=== PATIENT | male | born 1955 | race Caucasian/White ===

== ENCOUNTER 2019-01-17 09:03 | Emergency (ER) | payer OTHER ==
[~2019-01-17] VITALS: Ht 170.2 cm; Wt 81.6 kg
--- NOTE | 2019-01-17 09:03 | NUR ---
Patient BIBA BLS, transferred to bed 7. RN evaluating patient at bedside.
[2019-01-17 09:05] VITALS: BP 159/84
--- NOTE | 2019-01-17 09:05 | NUR ---
BIBA C/O AB PAIN X 1 MONTH PLUS NAUSEA STARTING THIS AM. ZOFRAN PO GIVEN IN ROUTE. BOWEL SOUNDS ACTIVE IN ALL 4 QUADRANTS. ABDOMEN SOFT AND ROUND. BED IS DWON, LOCKED, BED RAIL X 1, ERMD TO SEE PT. PT SOUTH SUDANESE SPEAKING. PMH- HTN, ANXIETY
--- NOTE | 2019-01-17 09:27 | NUR ---
LAB AT BEDSIDE
--- NOTE | 2019-01-17 09:32 | NUR ---
Dr. Anderson evaluating patient at bedside.
[2019-01-17] MEDS ORDERED: LORazepam 2 MG/ML VIAL IM ONE ×2 (09:40→11:25)
[2019-01-17] MEDS ORDERED: FAMOTIDINE 20 MG TAB PO ONE (09:40)
[2019-01-17 09:44] LABS: BASOPHILS % (AUTO) 0.6 % (0.0-2.0); EOSINOPHILS # (AUTO) 0.1 K/uL (0-0.4); HEMATOCRIT 42.6 % (36-52); HEMOGLOBIN 14.7 g/dL (12.0-18.0); LYMPHOCYTES # (AUTO) 0.9 K/uL (2.0-11.5); LYMPHOCYTES % (AUTO) 14.2 % (20.5-51.1); MEAN CORPUSCULAR HEMOGLOBIN 31 pg (27-31); MEAN CORPUSCULAR HGB CONC 35 g/dL (33-37); MEAN CORPUSCULAR VOLUME 90.6 fL (80-94); MONOCYTES # (AUTO) 0.3 K/uL (0.8-1.0); MONOCYTES % (AUTO) 5.3 % (1.7-9.3); NEUTROPHILS # (AUTO) 4.8 K/uL (1.8-7.7); NEUTROPHILS % (AUTO) 77.9 % (42.2-75.2); PLATELET COUNT (AUTO) 203 K/uL (140-450); RED CELL DISTRIBUTION WIDTH 12.7 % (11.6-13.7); WHITE BLOOD COUNT (AUTO) 6.2 K/uL (4.8-10.8)
[2019-01-17 09:45] LABS: APPEARANCE,URINE CLEAR (CLEAR); BILIRUBIN,URINE NEGATIVE (NEGATIVE); BLOOD, URINE NEGATIVE (NEGATIVE); COLOR,URINE YELLOW (YELLOW); LEUKOCYTE ESTERASE ,URINE NEGATIVE (NEGATIVE); NITRITE, URINE NEGATIVE (NEGATIVE); UGLUCOSE NEGATIVE (NEGATIVE)
--- NOTE | 2019-01-17 09:51 | NUR ---
us at bedside
[2019-01-17 10:00] LABS: CARBON DIOXIDE 28.1 mmol/L (21-32); CREATININE 0.9 mg/dL (0.7-1.3); POTASSIUM 3.1 mmol/L (3.5-5.1)
[2019-01-17 10:06] LABS: ALBUMIN 3.5 g/dL (3.4-5.0); TOTAL BILIRUBIN 0.8 mg/dL (0.0-1.0)
--- NOTE | 2019-01-17 11:04 | NUR ---
vss at this time. alert and awake.
--- NOTE | 2019-01-17 11:56 | NUR ---
called [facility]. states they will call transportation team and call us back with an eta
--- NOTE | 2019-01-17 12:00 | NUR ---
eta is 30 min
[2019-01-17 12:02] VITALS: BP 159/90
--- NOTE | 2019-01-17 12:02 | NUR ---
Patient discharged with v/s stable. Written and verbal after care instructions given and explained in broken tajik/argentine. Patient verbalized understanding. [facility] transport team to arrive in 30 min to take pt back to care home. All questions addressed prior to discharge. Advised to follow up with PMD. pt given copy of lab and us results.
--- NOTE | 2019-01-17 13:03 | NUR ---
PT PICKED UP BY TRANSPORT TEAM. WHEELCHAIRED TO CAR
== END 2019-01-17 12:02 ==
LOC: MED 09:03
DX: K82.4 Cholesterolosis of gallbladder (principal); F41.9 Anxiety disorder, unspecified; K21.9 Gastro-esophageal reflux disease without esophagitis; K59.00 Constipation, unspecified; Z87.19 Personal history of other diseases of the digestive system; Z88.1 Allergy status to other antibiotic agents; Z88.8 Allergy status to other drugs, medicaments and biological substances; Z88.6 Allergy status to analgesic agent
CPT/HCPCS: 36415; 76705; 80053; 81003; 83690; 84484; 85025; 93005; 96372; 99284; J2060; Q0092

== ENCOUNTER 2019-01-19 07:37 | Emergency (ER) | payer OTHER ==
[~2019-01-19] VITALS: Ht 175.3 cm; Wt 83.9 kg
[2019-01-19 07:39] VITALS: BP 148/75
[2019-01-19 08:07] LABS: BASOPHILS % (AUTO) 0.6 % (0.0-2.0); EOSINOPHILS # (AUTO) 0.2 K/uL (0-0.4); EOSINOPHILS % (AUTO) 2.9 % (0.0-4.0); HEMATOCRIT 43.8 % (36-52); HEMOGLOBIN 15.1 g/dL (12.0-18.0); LYMPHOCYTES # (AUTO) 0.9 K/uL (2.0-11.5); MEAN CORPUSCULAR HEMOGLOBIN 32 pg (27-31); MEAN CORPUSCULAR HGB CONC 35 g/dL (33-37); MEAN CORPUSCULAR VOLUME 91.3 fL (80-94); MONOCYTES # (AUTO) 0.4 K/uL (0.8-1.0); MONOCYTES % (AUTO) 6.2 % (1.7-9.3); NEUTROPHILS # (AUTO) 4.7 K/uL (1.8-7.7); NEUTROPHILS % (AUTO) 76.3 % (42.2-75.2); PLATELET COUNT (AUTO) 203 K/uL (140-450); RED CELL DISTRIBUTION WIDTH 12.9 % (11.6-13.7); WHITE BLOOD COUNT (AUTO) 6.1 K/uL (4.8-10.8)
[2019-01-19 08:17] LABS: APPEARANCE,URINE CLEAR (CLEAR); BILIRUBIN,URINE NEGATIVE (NEGATIVE); BLOOD, URINE NEGATIVE (NEGATIVE); COLOR,URINE YELLOW (YELLOW); LEUKOCYTE ESTERASE ,URINE NEGATIVE (NEGATIVE); NITRITE, URINE NEGATIVE (NEGATIVE); UGLUCOSE NEGATIVE (NEGATIVE)
[2019-01-19 08:22] LABS: ANION GAP 13.9 (8-16); CARBON DIOXIDE 28.3 mmol/L (21-32); CREATININE 0.8 mg/dL (0.7-1.3); POTASSIUM 3.2 mmol/L (3.5-5.1)
[2019-01-19 08:28] LABS: ALBUMIN 3.7 g/dL (3.4-5.0); TOTAL BILIRUBIN 0.8 mg/dL (0.0-1.0)
[2019-01-19] MEDS: POTASSIUM CHLORIDE 10 MEQ TABER PO ONE (09:09)
[2019-01-19] MEDS: LORazepam 2 MG/ML VIAL IVP ONE (11:16)
[2019-01-19 13:07] VITALS: BP 143/96
== END 2019-01-19 13:07 | disposition home or self-care (01) ==
LOC: MED 07:37 → MERGE 07:37 → MED 13:07
DX: G89.29 Other chronic pain (principal); K29.70 Gastritis, unspecified, without bleeding; Z88.8 Allergy status to other drugs, medicaments and biological substances
CPT/HCPCS: 36415; 74177; 80053; 81003; 83690; 83735; 84484; 85025; 93005; 96374; 99284; J2060; Q9967

== ENCOUNTER 2019-01-20 11:03 | Emergency (ER) | payer OTHER ==
[~2019-01-20] VITALS: Ht 175.3 cm; Wt 86.4 kg
[2019-01-20 11:09] VITALS: BP 132/92
--- NOTE | 2019-01-20 11:38 | NUR ---
c/o anxiety. pt referred from [facility] ([facility] pt states he awoke with severe anxiety---adds has a feeling of doom, paresthesia to bue, sob. full clear speech, with no accessory muscle use noted at this time. pt was seen here yesterday. tachy at 105. aa0x4. bed is down, locked, bed rail x 1, ermd to see pt. pt went to pmd for rx but since he was having an anxiety episode he was referred here. hx---anxiety , depression, htn, hyperlipidemia, parkinson's rx---ambien, buspirone, colace, fish oil, flomax, hydralazine, losartan, lidocaine patch, omeprazole
--- NOTE | 2019-01-20 11:45 | NUR ---
dr stock at bedside
[2019-01-20] MEDS ORDERED: LORazepam 2 MG/ML VIAL IM ONE (11:50)
--- NOTE | 2019-01-20 11:58 | NUR ---
ativan administered im as ordered
[2019-01-20 14:20] VITALS: BP 129/90
--- NOTE | 2019-01-20 14:20 | NUR ---
Patient discharged with v/s stable. Written and verbal after care instructions given and explained. Patient alert, oriented and verbalized understanding of instructions. Ambulatory with steady gait. All questions addressed prior to discharge. ID band removed. Patient advised to follow up with PMD. Rx of ATIVAN AND MIRALAX given. Patient educated on indication of medication including possible reaction and side effects. Opportunity to ask questions provided and answered. DISCHARGE EXPLAINED IN BROKE ESTONIAN/MAORI INSTRUCTED PT TO FOLLOW UP WITH PCP FOR STROBNGER ATIVAN PRESCRIPTION
== END 2019-01-20 14:20 | disposition home or self-care (01) ==
LOC: MED 11:03
DX: F41.0 Panic disorder [episodic paroxysmal anxiety] (principal); K21.9 Gastro-esophageal reflux disease without esophagitis; Z88.6 Allergy status to analgesic agent; Z88.5 Allergy status to narcotic agent; Z88.8 Allergy status to other drugs, medicaments and biological substances
CPT/HCPCS: 96372; 99284; J2060

== ENCOUNTER 2019-01-21 09:01 | Emergency (ER) | payer OTHER ==
[~2019-01-21] VITALS: Ht 175.3 cm; Wt 86.2 kg
[2019-01-21 09:02] VITALS: BP 152/108
[2019-01-21 10:44] LABS: BASOPHILS % (AUTO) 0.4 % (0.0-2.0); EOSINOPHILS % (AUTO) 0.6 % (0.0-4.0); HEMATOCRIT 44.3 % (36-52); HEMOGLOBIN 15.3 g/dL (12.0-18.0); LYMPHOCYTES # (AUTO) 0.8 K/uL (2.0-11.5); LYMPHOCYTES % (AUTO) 12.5 % (20.5-51.1); MEAN CORPUSCULAR HEMOGLOBIN 31 pg (27-31); MEAN CORPUSCULAR HGB CONC 35 g/dL (33-37); MONOCYTES # (AUTO) 0.3 K/uL (0.8-1.0); MONOCYTES % (AUTO) 4.6 % (1.7-9.3); NEUTROPHILS # (AUTO) 5.1 K/uL (1.8-7.7); NEUTROPHILS % (AUTO) 81.9 % (42.2-75.2); PLATELET COUNT (AUTO) 222 K/uL (140-450); RED BLOOD CELL COUNT(AUTO) 4.87 MIL/uL (4.20-6.10); RED CELL DISTRIBUTION WIDTH 12.9 % (11.6-13.7); WHITE BLOOD COUNT (AUTO) 6.3 K/uL (4.8-10.8)
[2019-01-21] MEDS ORDERED: SODIUM PHOSPHATE 118 ML ENEM RC ONE (11:45)
[2019-01-21] MEDS ORDERED: LORazepam 0.5 MG TAB PO ONE (11:55)
[2019-01-21 12:03] LABS: ANION GAP 17.2 (8-16); CARBON DIOXIDE 26.1 mmol/L (21-32); CREATININE 0.8 mg/dL (0.7-1.3); POTASSIUM 3.3 mmol/L (3.5-5.1)
[2019-01-21 12:09] LABS: ALBUMIN 4.1 g/dL (3.4-5.0); TOTAL BILIRUBIN 1.1 mg/dL (0.0-1.0)
[2019-01-21 13:13] VITALS: BP 160/102
== END 2019-01-21 13:13 | disposition home or self-care (01) ==
LOC: MED 09:01
DX: F41.9 Anxiety disorder, unspecified (principal); K59.00 Constipation, unspecified; G20 Parkinson's disease; K21.9 Gastro-esophageal reflux disease without esophagitis; Z88.8 Allergy status to other drugs, medicaments and biological substances; Z88.6 Allergy status to analgesic agent
CPT/HCPCS: 36415; 80053; 83690; 85025; 99284

== ENCOUNTER 2019-01-27 14:18 | Emergency (ER) | payer OTHER, MEDICAID ==
[~2019-01-27] VITALS: Ht 175.3 cm; Wt 83.9 kg
[2019-01-27 14:25] VITALS: BP 168/107
[2019-01-27] MEDS: KETOROLAC 60 MG/2 ML VIAL IM ONE (15:22)
[2019-01-27] MEDS: LORazepam 2 MG/ML VIAL IM ONE (15:22)
[2019-01-27 16:40] VITALS: BP 160/89
== END 2019-01-27 16:40 ==
LOC: MED 14:18
DX: F41.9 Anxiety disorder, unspecified (principal); K21.9 Gastro-esophageal reflux disease without esophagitis; I10 Essential (primary) hypertension; Z98.890 Other specified postprocedural states; Z88.5 Allergy status to narcotic agent; Z88.8 Allergy status to other drugs, medicaments and biological substances
CPT/HCPCS: 93005; 96372; 99284; J1885; J2060

== ENCOUNTER 2019-01-29 11:27 | Inpatient (IN) | payer OTHER, MEDICAID ==
[~2019-01-29] VITALS: Ht 172.7 cm; Wt 88.5 kg
--- NOTE | 2019-01-29 11:27 | NUR ---
PT MARIA FERNANDA BLS TO ER BED 05
[2019-01-29 11:30] VITALS: BP 164/108
--- NOTE | 2019-01-29 11:30 | NUR ---
PT BIBA FOR SUICIDAL IDEATION SINCE LAST NIGHT. PT STATES "I WANT TO HURT MYSELF DUE TO SLEEP RELATED ISSUES," BUT PT DOES NOT HAVE A PLAN. PT HAS HX OF ANXIETY AND HAS NOT BEEN ABLE TO SLEEP X2 WEEKS. PT A&O X 4. VSS. PT C/O OF UPPER BACK PAIN AND ABDOMINAL PAIN. PAIN LEVEL 8/10. ALLERGIES: TYLENOL, HYDROCODONE, MAPROTILINE, AND NAPROXEN. MED HX: PARKINSONS, HTN, HIGH CHOLESTEROL, AND ANXIETY. SAFETY MEASURES IN PLACE. BED RAILS UP X2, BED IN LOWEST POSITION. ERMD AT BEDSIDE.
--- NOTE | 2019-01-29 11:32 | NUR ---
STAFF FROM PT FACILITY ADVISED THAT PT WANTED TO HURT AND KILL HIMSELF BECAUSE HE IS TIRED OF LIVING. PT PLACED ON 5150 HOLD.
--- NOTE | 2019-01-29 11:32 | NUR ---
PT REQUESTING TO GO TO A PSYCH FACILITY
[2019-01-29] MEDS ORDERED: TEMA15CA24 PO ×2 (11:47)
[2019-01-29] MEDS ORDERED: BACL10TA4 PO (11:47)
[2019-01-29] MEDS ORDERED: FLONAS NS (11:47)
[2019-01-29] MEDS ORDERED: ATOR40TA PO (11:47)
[2019-01-29] MEDS ORDERED: LID5T TP (11:47)
[2019-01-29] MEDS ORDERED: ZONI25CA2 PO (11:47)
[2019-01-29] MEDS ORDERED: LACT10SO11 PO (11:47)
[2019-01-29] MEDS ORDERED: OMEG1CAP26 PO (11:47)
[2019-01-29] MEDS ORDERED: METO100T14 PO (11:47)
[2019-01-29] MEDS ORDERED: MELA3TAB56 PO (11:47)
[2019-01-29] MEDS ORDERED: OMEP40EC24 PO (11:47)
[2019-01-29] MEDS ORDERED: CARB1TAB37 PO (11:47)
[2019-01-29] MEDS ORDERED: ESCI20TA PO (11:47)
[2019-01-29] MEDS ORDERED: DICL1GEL19 TP (11:47)
[2019-01-29] MEDS ORDERED: SUCR1TAB35 PO (11:47)
[2019-01-29] MEDS ORDERED: DOCU-299 PO (11:47)
[2019-01-29] MEDS ORDERED: TAMS0.4C96 PO (11:47)
[2019-01-29] MEDS ORDERED: BEN10 PO (11:47)
[2019-01-29] MEDS ORDERED: LOSA100T1 PO (11:47)
[2019-01-29] MEDS ORDERED: LORA-476 PO (11:48)
--- NOTE | 2019-01-29 11:58 | NUR ---
PT C/O ANXIETY. ERMD MADE AWARE.
[2019-01-29] MEDS ORDERED: LORazepam 1 MG TAB PO ONE (12:00)
--- NOTE | 2019-01-29 12:09 | NUR ---
PT REQUESTING OXYGEN AT THIS TIME. DR. ALLRED MADE AWARE.
--- NOTE | 2019-01-29 12:35 | NUR ---
Labs drawn and sent to lab.
[2019-01-29 12:48] LABS: BASOPHILS % (AUTO) 0.5 % (0.0-2.0); EOSINOPHILS # (AUTO) 0.1 K/uL (0-0.4); EOSINOPHILS % (AUTO) 1.6 % (0.0-4.0); HEMATOCRIT 45.6 % (36-52); HEMOGLOBIN 15.9 g/dL (12.0-18.0); LYMPHOCYTES % (AUTO) 15.4 % (20.5-51.1); MEAN CORPUSCULAR HEMOGLOBIN 32 pg (27-31); MEAN CORPUSCULAR HGB CONC 35 g/dL (33-37); MEAN CORPUSCULAR VOLUME 91.3 fL (80-94); MONOCYTES # (AUTO) 0.4 K/uL (0.8-1.0); MONOCYTES % (AUTO) 6.3 % (1.7-9.3); NEUTROPHILS % (AUTO) 76.2 % (42.2-75.2); PLATELET COUNT (AUTO) 253 K/uL (140-450); RED CELL DISTRIBUTION WIDTH 12.8 % (11.6-13.7); WHITE BLOOD COUNT (AUTO) 6.5 K/uL (4.8-10.8)
--- NOTE | 2019-01-29 13:00 | NUR ---
PT RESTING IN BED WITH EYES OPEN. WILL CONTINUE TO MONITOR.
[2019-01-29 13:06] LABS: ANION GAP 10.8 (8-16); CARBON DIOXIDE 29.6 mmol/L (21-32); CREATININE 0.7 mg/dL (0.7-1.3); POTASSIUM 3.4 mmol/L (3.5-5.1); TOTAL BILIRUBIN 0.9 mg/dL (0.0-1.0)
[2019-01-29 13:19] LABS: CREATINE KINASE MB 1.5 ng/mL (0-3.6)
--- NOTE | 2019-01-29 14:01 | NUR ---
PSYCHIATRIST ON TELEPSYCH AT THIS TIME
--- NOTE | 2019-01-29 14:43 | NUR ---
SPOKE TO DR. CORCORAN. PSYCHIATRIST STATES PT IS STILL SUICIDAL AND WILL CONTINUE WITH 5150 HOLD
--- NOTE | 2019-01-29 14:53 | NUR ---
PT REPOSITIONED FOR COMFORT
[2019-01-29 15:02] LABS: BARBITURATE, URINE NEG. ng/ml (NEG <=200); BENZODIAZEPINE, URINE NEG. ng/mL (NEG <=200); CANNABINOID, URINE NEG. ng/mL (NEG <=50); COCAINE, URINE NEG. ng/mL (NEG <=300); OPIATE, URINE NEG. ng/mL (NEG <=2000); PHENCYCLIDINE SCREEN,URINE NEG. ng/mL (NEG <=25)
--- NOTE | 2019-01-29 15:35 | NUR ---
PT RESTING IN BED WITH EYES CLOSED, EASILY ARROUSABLE. WILL CONTINUE TO MONITOR.
--- NOTE | 2019-01-29 16:39 | NUR ---
FOOD TRAY PROVIDED TO PATIENT.
--- NOTE | 2019-01-29 17:36 | NUR ---
[facility] BELLA WOULD LIKE AN UPDATE WHEN PATIENT IS PLACED OR LEAVES THE ER.
--- NOTE | 2019-01-29 17:43 | NUR ---
Intake paperwork has been sent to the following facilities for possible placement. [facility]/ [facility]/ [facility]/ [facility]/ [facility]/ [facility]/ [facility]/ [facility]. Will keep facility informed of any admission information
--- NOTE | 2019-01-29 18:00 | NUR ---
PT C/O ABDOMINAL PAIN. PAIN LEVEL 8/10. ERMD NOTIFIED.
[2019-01-29] MEDS ORDERED: IBUPROFEN 400 MG TAB PO ONE (18:05)
[2019-01-29] MEDS ORDERED: ZOLPIDEM 5 MG TAB PO PRN (18:15)
[2019-01-29] MEDS ORDERED: DOCUSATE SODIUM 100 MG GELCAP PO PRN ×2 (18:15→18:50)
[2019-01-29] MEDS ORDERED: HYDROcodone/APAP 5/325 MG 1 TAB TAB PO PRN (18:15)
[2019-01-29] MEDS ORDERED: LORazepam 2 MG/ML VIAL IM/IVP PRN (18:15)
[2019-01-29] MEDS ORDERED: ACETAMINOPHEN 325 MG TAB PO PRN (18:15)
--- NOTE | 2019-01-29 18:30 | NUR ---
PATIENT ARRIVED UNIT VIA WHEELCHAIR ACCOMPANIED BY ER NURSE YENNY AT THIS TIME. PATIENT IS AAOX3 TO NAME, PLACE AND TIME, SPEAKS SETSWA[place] AND ABLE TO UNDERSTAND SOME KENYAN. ON RA. NO SIGNS OF DISTRESS NOTED. ABLE TO TRANSFER FROM WHEELCHAIR TO BED WITH ASSIST. IV ON L HAND 20G, CLEAN AND INTACT, SL. PATIENT IS ABLE TO USE THE URANAL. SKIN CLEAN AND DRY. HELP DESK ADMINISTRATOR IS CHANGING PATIENT INTO YWLLO GOWN, SOCKS, AND APPLIED WRIST BAND. SAFETY MEASURES IN PLACE. 1:1 SITTER BY BEDSIDE.
--- NOTE | 2019-01-29 18:30 | NUR ---
Patient will be admitted to care of Dr. Jin. Admited to [facility]. Will go to room 109b. Belongings list completed. Report to EDGARD Monaco.
--- NOTE | 2019-01-29 18:30 | NUR ---
Transfer of care and report given to EDGARD Monaco
--- NOTE | 2019-01-29 18:31 | NUR ---
DR AUGUSTE IS TALKING AND ASSESSING PATIENT AT BEDSIDE. NO SIGNS OF DISTRESS NOTED. SAFETY MEASURES IN PLACE.
[2019-01-29] MEDS: NACL 0.9% 1,000 ML IV SCH (18:42)
--- NOTE | 2019-01-29 18:42 | NUR ---
VITAL SIGNS TAKEN; BP 150/90, PULSE 64, SPO2 97% ON RA, RR 18, DENIED PAIN. MRSA NARES COLLECTED. STARTED IVF PER MD ORDER, DR ASH IS ASSESSING PATIENT AT BEDSIDE. NO SIGNS OF DISTRESS NOTED. SAFETY MEASURES IN PLACE.
[2019-01-29] MEDS ORDERED: DICYCLOMINE HYDROCHLORIDE PO SCH (18:50)
[2019-01-29] MEDS ORDERED: NON-FORMULARY ITEM (Melatonin 3 MG) PO PRN (18:50)
[2019-01-29 19:07] LABS: FREE T4 (FREE THYROXINE) 1.17 ng/dL (0.76-1.46); MAGNESIUM 1.6 mg/dL (1.8-2.4); PHOSPHORUS 2.6 mg/dL (2.5-4.9); THYROID STIMULATING HORMONE 0.56 uIU/mL (0.34-3.74)
[2019-01-29] MEDS ORDERED: POTASSIUM CHLORIDE 10 MEQ TABER PO ONE (19:35)
[2019-01-29 20:00] VITALS: BP 144/77
--- NOTE | 2019-01-29 20:00 | NUR ---
RECEIVED FROM DAY SHIFT R.N. ADMITTED A 63 Y/O MALE WHO WAS BROUGHT IN FROM THE E.R.WITH A DIAGNOSIS OF 5150 HOLD,SUICIDAL IDEATION AT 1830. PT.IS ALERT,ORIENTED. AFEBRILE,NOT IN ACUTE DISTRESS. NO PAIN OR DISCOMFORT NOTED. VERBALIZED FEELING DEPRESSED AND ANXIOUS,WITH SUICIDAL IDEATION BUT NO CONCRETE PLAN. ALSO NOTED TO HAVE TREMORS MOST LIKELY FROM HIS PARKINSON'S DISEASE HX. SINUS MICAELA AT 47/MINUTE ON THE MONITOR OTHERWISE ASYMPTOMATIC. IV FLUID NS INFUSING AT 60 ML/HR VIA LEFT HAND GAUGE 20 IV LINE. SITTER AT BEDSIDE AT ALL TIMES. WILL CONTINUE TO MONITOR. NEEDS ATTENDED.
[2019-01-29] MEDS: SUCRALFATE 1 GM TAB PO SCH (20:29)
[2019-01-29] MEDS: BACLOFEN 10 MG TAB PO SCH (20:30)
[2019-01-29] MEDS: TAMSULOSIN 0.4 MG CAP PO SCH (20:30)
[2019-01-29] MEDS: ATORVASTATIN 20 MG TAB PO SCH (20:30)
--- NOTE | 2019-01-29 20:30 | NUR ---
DUE MEDICATIONS GIVEN.
[2019-01-29] MEDS: TEMAZEPAM 15 MG CAP PO SCH (20:31)
[2019-01-29] MEDS ORDERED: DICLOFENAC SODIUM 2 GM TP SCH (21:00)
[2019-01-29] MEDS ORDERED: LACTULOSE 20 GM/30 ML UDC PO SCH (21:00)
[2019-01-29] MEDS ORDERED: MAG SULF 2000 MG/WATER PREMIX 100 ML IV SCH (21:05)
[2019-01-29 21:07] LABS: PROTHROMBIN TIME 10.4 secs (10.8-13.4)
--- NOTE | 2019-01-29 22:05 | NUR ---
MAGNESIUM SULFATE 2 GM IV GIVEN FOR SERUM MAGNESIUM= 1.6.
--- NOTE | 2019-01-29 23:00 | NUR ---
ATIVAN 1 MG IVP GIVEN REQUESTED FOR ANXIETY.
--- NOTE | 2019-01-30 | NUR ---
ASLEEP,NOT IN ANY KIND OF DISTRESS. NO PAIN OR DISCOMFORT NOTED. SIDE RAILS UP,CALL LIGHT WITHIN REACH. KEPT WARM AND COMFORTABLE. REMAINS MICAELA AT 50/MIN. OTHERWISE STABLE. SITTER AT BEDSIDE AT ALL TIMES.
--- NOTE | 2019-01-30 02:40 | NUR ---
At this time there are no vacancy at any of the designated facilities , will continue to look for placement and will notify ER when placement is found.
[2019-01-30 04:00] VITALS: BP 128/72
--- NOTE | 2019-01-30 04:00 | NUR ---
ASLEEP, NO PAIN OR DISCOMFORT NOTED. PT.REMAINS STABLE AND PAIN FREE. SITTER AT BEDSIDE.
[2019-01-30] MEDS: LORazepam 1 MG TAB PO SCH ×3 (07:01→17:37)
--- NOTE | 2019-01-30 07:01 | NUR ---
COMPLAINED OF ANXIETY. RESIDENT ON DUTY SAID OK TO GIVE ATIVAN DOSE EARLY. ATIVAN 1 MG PO GIVEN PER TELEPHONE ORDER.
[2019-01-30 07:08] LABS: BASOPHILS % (AUTO) 0.4 % (0.0-2.0); EOSINOPHILS # (AUTO) 0.2 K/uL (0-0.4); EOSINOPHILS % (AUTO) 2.7 % (0.0-4.0); HEMATOCRIT 39.6 % (36-52); HEMOGLOBIN 13.6 g/dL (12.0-18.0); LYMPHOCYTES # (AUTO) 1.2 K/uL (2.0-11.5); LYMPHOCYTES % (AUTO) 20.2 % (20.5-51.1); MEAN CORPUSCULAR HEMOGLOBIN 32 pg (27-31); MEAN CORPUSCULAR HGB CONC 34 g/dL (33-37); MEAN CORPUSCULAR VOLUME 92.2 fL (80-94); MONOCYTES # (AUTO) 0.5 K/uL (0.8-1.0); NEUTROPHILS # (AUTO) 3.9 K/uL (1.8-7.7); NEUTROPHILS % (AUTO) 67.7 % (42.2-75.2); PLATELET COUNT (AUTO) 218 K/uL (140-450); RED CELL DISTRIBUTION WIDTH 12.8 % (11.6-13.7); WHITE BLOOD COUNT (AUTO) 5.8 K/uL (4.8-10.8)
--- NOTE | 2019-01-30 07:15 | NUR ---
RECEIVED BEDSIDE REPORT FROM ARCHAEOLOGY PROFESSOR NURSE ASHA, PT IS AWAKE AND ALERT, NO S/S OF ACUTE DISTRESS OR SOB NOTED, PT IS ON ROOM AIR, SKIN INTACT, IV SITE NOTED IN THE L HAND 20 G, INFUSING NS 60 ML/HR. FALL PRECAUTIONS IN PLACE, 1:1 SITTER PRESENT AT THE ROOM. WILL CONTINUE TO MONITOR.
[2019-01-30 07:21] LABS: ANION GAP 9.3 (8-16); CARBON DIOXIDE 29.1 mmol/L (21-32); CREATININE 0.8 mg/dL (0.7-1.3); POTASSIUM 3.4 mmol/L (3.5-5.1)
--- NOTE | 2019-01-30 07:33 | NUR ---
ENDORSED CARE TO ILAN RENE.
[2019-01-30 07:35] LABS: CHOL/HDL RATIO 4.4 (1-4.5)
[2019-01-30 08:00] VITALS: BP 136/79
--- NOTE | 2019-01-30 08:04 | NUR ---
PATIENT HAS BEEN SCREENED AND CATEGORIZED HIGH NUTRITION RISK. PATIENT WILL BE SEEN WITHIN 1-2 DAYS OF ADMISSION. 01/30/19-01/31/[address]
[2019-01-30] MEDS ORDERED: ZONISAMIDE 25 MG PO SCH (09:00)
[2019-01-30] MEDS ORDERED: OMEGA PO SCH (09:00)
[2019-01-30] MEDS ORDERED: NON-FORMULARY ITEM (Omeprazole* (Prilosec*) 40 MG) PO SCH (09:00)
[2019-01-30] MEDS ORDERED: FISH OIL PO SCH (09:00)
[2019-01-30] MEDS ORDERED: METOPROLOL SUCCINATE 50 MG TABER PO SCH (09:00)
[2019-01-30] MEDS ORDERED: LIDOCAINE 5% 1 EA PATCH TP SCH (09:00)
[2019-01-30] MEDS ORDERED: DHA PO SCH (09:00)
[2019-01-30] MEDS: POLYVINYL ALCOHOL 1.4% OP 15 ML SOL OP SCH ×3 (09:00→17:37)
[2019-01-30] MEDS ORDERED: EPA PO SCH (09:00)
[2019-01-30] MEDS: METOPROLOL 50 MG TAB PO SCH ×2 (09:00→20:43)
[2019-01-30] MEDS ORDERED: MEDICATION REC. PHARMACY CONS. 1 EA MISC MC PRN (09:15)
--- NOTE | 2019-01-30 09:15 | NUR ---
PT SEEN BY PHYSICAL THERAPY
[2019-01-30] MEDS ORDERED: POTASSIUM CHLORIDE 10 MEQ TABER PO SCH (09:30)
--- NOTE | 2019-01-30 10:10 | NUR ---
PT IS SLEEPING COMFORTABLY AT THIS TIME, WILL ADMINISTER ORDERED AM MEDS AFTER HE WAKES UP.
--- NOTE | 2019-01-30 10:20 | NUR ---
Synthetic Cloth Binding Cutter Note: I went to patient's room to conduct assessment, patient was sleeping. I will meet with patient at a later time.
[2019-01-30] MEDS: SUCRALFATE 1 GM TAB PO SCH ×4 (10:32→20:42)
[2019-01-30] MEDS: LORazepam 2 MG/ML VIAL IM/IVP PRN ×2 (10:32→22:40)
[2019-01-30] MEDS: BACLOFEN 10 MG TAB PO SCH ×2 (10:33→20:43)
[2019-01-30] MEDS: CARBIDOPA/LEVODOPA 25/100 MG 1 TAB PO SCH ×3 (10:33→17:37)
[2019-01-30] MEDS: LOSARTAN 50 MG TAB PO SCH (10:33)
[2019-01-30] MEDS: ESCITALOPRAM 20 MG TAB PO SCH (10:33)
--- NOTE | 2019-01-30 10:44 | NUR ---
ORDERED AM MEDS ADMINISTERED, PT TOLERATED WELL.
[2019-01-30] MEDS: NACL 0.9% 1,000 ML IV SCH (10:51)
--- NOTE | 2019-01-30 10:54 | NUR ---
S/W Tere zhao RN. States that patient is medically cleared but has not been seen by psychiatrist. Patient on 5150 by PD. Will continue with placement
--- NOTE | 2019-01-30 11:34 | NUR ---
Called the following facilities; [facility] s/w eden Huffman. Pending discharges. [facility] s/w Eli no beds [facility] s/w Paty non beds [facility] s/w Cierra no beds [facility], was transferred to [phone]. No answer, left voicemail [facility]/w Aubree no beds [facility] s[facility]w Amalia no beds
--- NOTE | 2019-01-30 11:38 | NUR ---
RECEIVED A CALL FROM WILI GOMEZ AT [facility]. PROVIDED UPDATE ON PATIENT'S CONDITION. PROVIDED ME WITH HER DIRECT PHONE NUMBER [phone] FOR UPDATES.
[2019-01-30 12:00] VITALS: BP 152/82
--- NOTE | 2019-01-30 13:12 | NUR ---
SWALLOW EVAL COMPLETED BY ST, ST RECOMMENDS A MECHANICAL SOFT DIET. DR RAUSCH NOTIFIED.
--- NOTE | 2019-01-30 13:19 | NUR ---
*S.T. Bedside swallow eval completed* See report for details. Pt was cleared by EDGARD Carranza who clarified w/ resident that pt was to be seen for bedside swallow eval to r/o dysphagia due to Dx of Parkinson's. Pt presents w/ mild oral difficulty managing solids due to limited oral ROM resulting also in delayed pharyngeal swallow initiation. No overt s/s aspiration observed, however, and pt able to self-feed w/ assistance. Recommend: 1) Downgrade diet texture to mechanical soft ground diet, thin liquids okay. Straws okay. 2) P.O. meds as tolerated 3) Nsg to assist w/ tray set up to promote self-feeding. After completion of eval, it was brought to this clinician's attention that pt was NPO pending abd ultrasound. However, EDGARD Carranza had cleared INFORMATION SYSTEMS MANAGER to evaluate pt w/ P.O. trials. US tech stated that pt can still be seen today in 6 hours from the start of the eval which was 1245. No further tx indicated at [facility] as pt appears to be functioning at his reported baseline. Endorsed to EDGARD Carranza. Time 2084-4198
[2019-01-30 16:00] VITALS: BP 158/81
--- NOTE | 2019-01-30 16:39 | NUR ---
Postdoctoral Scientist Note: I met with patient at bedside. Patient speaks Georgian. Per patient, every day he feels depressed. He stated his depression is associated with his medical problems. He reported he has anxiety, depression, insomnia, and pain. He would like a psychiatrist to address his mental health needs and an MD to address his pain. He told me he only has one family member in the [place], his sister Jade Galeana (lives in [place]). He stated all of his other family members live in [place]. He expressed he feels depressed because no one visits him at [facility]. I normalized his feelings and provided counseling. I explained to him he will be evaluated by a psychiatrist and we will follow up with psychiatrist's discharge plan recommendation. He verbalized understanding.
--- NOTE | 2019-01-30 18:59 | NUR ---
PT IS NPO SINCE HIS SWALLOW EVAL FOR HIS ABD US.
--- NOTE | 2019-01-30 19:00 | NUR ---
PT HAVING ABD US AT THIS TIME.
--- NOTE | 2019-01-30 19:30 | NUR ---
PT ENDORSED TO RETAIL SHIFT LEADER IN STABLE CONDITION
[2019-01-30 20:00] VITALS: BP 153/85
--- NOTE | 2019-01-30 20:00 | NUR ---
ASSUMED CARE. RECEIVED ALERT,ORIENTED. JUST FINISHED ABDOMINAL ULTRASOUND,HAVING DINNER. AFEBRILE, NOT IN ACUTE DISTRESS. NO PAIN OR DISCOMFORT NOTED. MORE CALM COMPARED TO YESTERDAY. DENIES SUICIDAL IDEATION AT THIS TIME. SINUS MICAELA AT HIGH 40-50'S ON THE EVENT SALES REPRESENTATIVE. SITTER AT BEDSIDE AT ALL TIMES. VS STABLE, WILL CONTINUE TO MONITOR. NEEDS ATTENDED.
[2019-01-30] MEDS: TAMSULOSIN 0.4 MG CAP PO SCH (20:43)
[2019-01-30] MEDS: TEMAZEPAM 15 MG CAP PO SCH (20:43)
[2019-01-30] MEDS: ATORVASTATIN 20 MG TAB PO SCH (20:43)
--- NOTE | 2019-01-30 20:43 | NUR ---
DUE MEDICATIONS GIVEN SCHEDULED.
--- NOTE | 2019-01-30 22:40 | NUR ---
COMPLAINED OF ANXIETY AND INABILITY TO SLEEP. ALSO COMPLAINS OF ITCHING WHICH STARTED YESTERDAY. WILL NOTIFY RESIDENT INVASIVE MANAGER. ATIVAN 1 MG IVP GIVEN ORDERED.
--- NOTE | 2019-01-30 23:15 | NUR ---
RESIDENT STEEL DIE PRESS SET UP OPERATOR MADE AWARE OF PT'S COMPLAIN OF BACK ITCHING. BENADRYL 25 MG PO X 1 GIVEN ORDERED.
[2019-01-31] VITALS: BP 148/72
--- NOTE | 2019-01-31 | NUR ---
AWAKE, NOT IN ANY KIND OF DISTRESS. NO PAIN NOTED. ITCHING SEEMS IMPROVED. SIDE RAILS UP, CALL LIGHT WITHIN REACH. KEPT WARM AND COMFORTABLE. VS REMAIN STABLE. SITTER AT BEDSIDE AT ALL TIMES.
--- NOTE | 2019-01-31 02:20 | NUR ---
PT. (+) MRSA OF NARES PER REPORT. RESIDENT CHIEF INSPECTOR MADE AWARE.
[2019-01-31 04:00] VITALS: BP 136/70
--- NOTE | 2019-01-31 04:00 | NUR ---
AWAKE, NO PAIN OR DISCOMFORT NOTED. SINUS MICAELA OTHERWISE ASYMPTOMATIC AND STABLE. PT. ON CONTACT ISOLATION NOW FOR MRSA OF NARES.
[2019-01-31] MEDS: NACL 0.9% 1,000 ML IV SCH ×2 (04:29→20:37)
[2019-01-31] MEDS: CHLORHEXADINE GLUC 2% CLOTH TP SCH (04:29)
--- NOTE | 2019-01-31 05:03 | NUR ---
Notified Anupam RENE , at this time there are still no beds available , will endorsed to AM shift to continue to look for placement .
[2019-01-31] MEDS: PANTOPRAZOLE 40 MG TABEC PO SCH (06:00)
[2019-01-31] MEDS: MORPHINE SULFATE 2 MG/ML SYR IVP PRN (06:00)
--- NOTE | 2019-01-31 06:00 | NUR ---
COMPLAINED OF NECK PAIN (8/10). MORPHINE 1 MG ADMINISTERED. DUE MEDICATION GIVEN.
[2019-01-31] MEDS: LORazepam 2 MG/ML VIAL IM/IVP PRN ×2 (06:43→21:59)
--- NOTE | 2019-01-31 06:43 | NUR ---
COMPLAINED OF ANXIETY. PRN ATIVAN 1 MG IM GIVEN ORDERED.
[2019-01-31 06:53] LABS: MAGNESIUM 1.8 mg/dL (1.8-2.4); PHOSPHORUS 4.2 mg/dL (2.5-4.9)
[2019-01-31 06:59] LABS: BASOPHILS % (AUTO) 0.5 % (0.0-2.0); EOSINOPHILS # (AUTO) 0.2 K/uL (0-0.4); EOSINOPHILS % (AUTO) 3.9 % (0.0-4.0); HEMATOCRIT 41.6 % (36-52); HEMOGLOBIN 14.1 g/dL (12.0-18.0); LYMPHOCYTES # (AUTO) 1.3 K/uL (2.0-11.5); LYMPHOCYTES % (AUTO) 22.7 % (20.5-51.1); MEAN CORPUSCULAR HEMOGLOBIN 31 pg (27-31); MEAN CORPUSCULAR HGB CONC 34 g/dL (33-37); MEAN CORPUSCULAR VOLUME 91.9 fL (80-94); MONOCYTES # (AUTO) 0.4 K/uL (0.8-1.0); MONOCYTES % (AUTO) 7.2 % (1.7-9.3); NEUTROPHILS # (AUTO) 3.7 K/uL (1.8-7.7); NEUTROPHILS % (AUTO) 65.7 % (42.2-75.2); PLATELET COUNT (AUTO) 196 K/uL (140-450); RED BLOOD CELL COUNT(AUTO) 4.53 MIL/uL (4.20-6.10); RED CELL DISTRIBUTION WIDTH 12.7 % (11.6-13.7); WHITE BLOOD COUNT (AUTO) 5.7 K/uL (4.8-10.8)
--- NOTE | 2019-01-31 07:15 | NUR ---
ENDORSED CARE TO MATTHEW HOWELL.
[2019-01-31 07:16] LABS: ANION GAP 11.4 (8-16); CREATININE 0.7 mg/dL (0.7-1.3); POTASSIUM 3.4 mmol/L (3.5-5.1)
--- NOTE | 2019-01-31 07:20 | NUR ---
RECEIVED BEDSIDE REPORT FROM NIGHT NURSE. PT IS SLEEPING, NO DISTRESS NOTED. RESPIRATIONS EVEN AND UNLABORED ON ROOM AIR. IV IN PLACE L DIAZ 20G INFUSING PER ORDER. SKIN INTACT. BED IN LOW POSITION. SAFETY MEASURES IN PLACE. CALL LIGHT WITHIN REACH. WILL CONTINUE TO MONITOR.
[2019-01-31 08:00] VITALS: BP 140/85
[2019-01-31] MEDS: POLYVINYL ALCOHOL 1.4% OP 15 ML SOL OP SCH ×3 (09:03→16:30)
[2019-01-31] MEDS: FLUTICASONE NASAL 50 MCG/ACTUATION 16 GM BTL NS SCH (09:04)
[2019-01-31] MEDS: MUPIROCIN CA NASAL 2% 1GM TUBE NS SCH (09:04)
[2019-01-31] MEDS: CARBIDOPA/LEVODOPA 25/100 MG 1 TAB PO SCH ×3 (09:06→16:29)
[2019-01-31] MEDS: BACLOFEN 10 MG TAB PO SCH ×2 (09:06→20:38)
[2019-01-31] MEDS: LORazepam 1 MG TAB PO SCH ×3 (09:06→16:30)
[2019-01-31] MEDS: METOPROLOL 50 MG TAB PO SCH ×2 (09:06→20:38)
[2019-01-31] MEDS: SUCRALFATE 1 GM TAB PO SCH ×4 (09:06→20:39)
[2019-01-31] MEDS: ESCITALOPRAM 20 MG TAB PO SCH (09:07)
[2019-01-31] MEDS: LOSARTAN 50 MG TAB PO SCH (09:07)
[2019-01-31] MEDS: LIDOCAINE 5% 1 EA PATCH TP SCH (09:17)
--- NOTE | 2019-01-31 09:32 | NUR ---
MEDICATIONS ADMINISTERED PER ORDER. PT TOLERATED WELL. WILL CONTINUE TO MONITOR.
--- NOTE | 2019-01-31 10:15 | NUR ---
CALLED [facility] REQUESTING DELIVERY OF PTS HOME MED OF ZONASIMIDE 25MG. SAID THEY WOULD CALL BACK CONFIRMING IF DELIVERY CAN BE DONE.
--- NOTE | 2019-01-31 10:55 | NUR ---
CONTACTED WILI CHISHOLM [employer] AT [phone], NO ANSWER. LEFT MESSAGE.
[2019-01-31] MEDS ORDERED: POTASSIUM CHLORIDE 10 MEQ TABER PO SCH (11:32)
[2019-01-31 12:00] VITALS: BP 141/89
--- NOTE | 2019-01-31 13:12 | NUR ---
MEDICATIONS ADMINISTERED PER ORDER. PT TOLERATED WELL. WILL CONTINUE TO MONITOR.
--- NOTE | 2019-01-31 14:58 | NUR ---
01/31/19 RD INITIAL ASSESSMENT COMPLETED PLEASE REFER TO NUTRITION ASSESSMENT UNDER CARE ACTIVITY FOR ESTIMATED NUTRITIONAL NEEDS. 1. CONTINUE REGULAR DIET TOLERATED 2. RD TO FOLLOW-UP 3-5 DAYS, MODERATE RISK MAZIN TAVAREZ RD
[2019-01-31 16:00] VITALS: BP 148/85
--- NOTE | 2019-01-31 16:35 | NUR ---
MEDICATIONS ADMINISTERED PER ORDER. PT TOLERATED WELL. WILL CONTINUE TO MONITOR. SAFETY MEASURES IN PLACE.
--- NOTE | 2019-01-31 16:58 | NUR ---
RECEIVED CALL FROM LAURE PTS SISTER REQUESTING UPDATE. UPDATE ON PTS STATUS PROVIDED.
[2019-01-31] MEDS ORDERED: BISACODYL 10 MG SUPP RC SCH (18:00)
[2019-01-31] MEDS ORDERED: LACTULOSE 20 GM/30 ML UDC PO SCH (18:00)
--- NOTE | 2019-01-31 18:45 | NUR ---
INSERTED SUPPOSITORY PER ORDER. PT TOLERATED WELL AND HAD A BOWEL MOVEMENT SHORTLY AFTER.
--- NOTE | 2019-01-31 19:26 | NUR ---
REPORT GIVEN TO NIGHT NURSE FOR CONTINUITY OF CARE. PT IN STABLE CONDITION.
--- NOTE | 2019-01-31 19:30 | NUR ---
RECEIVED REPORT FROM AM NURSE, PT AT BED AWAKE, ALERT, AGITATED, PERRLA 3MM, BRISK, PT BREATHING REGULARLY ON ROOM AIR, LUNG SOUNDS CLEAR THROUGHOUT, HEART RATE REGULAR, S1S2 PRESENT, CAP REFILL <3S, PULSES 2+ BILATERAL UPPER AND LOWER EXTREMITIES, ABDOMEN, SOFT, ROUND, NONDISTENDED, NONTENDER, BLADDER, SOFT, ROUND, NONDISTENDED, NONTENDER, PT HAS LEFT HAND 20 GAUGE RUNNING NS AT 60 ML/HR. PT HAS GENERALIZED WEAKNESS, SKIN INTACT, WARM, DRY, HOB AT 30 DEGREES, SIDE RAILS UP X2, BED AT LOWEST POSITION.
[2019-01-31 20:00] VITALS: BP 133/72
[2019-01-31] MEDS: TAMSULOSIN 0.4 MG CAP PO SCH (20:38)
[2019-01-31] MEDS: ATORVASTATIN 20 MG TAB PO SCH (20:38)
[2019-01-31] MEDS: TEMAZEPAM 15 MG CAP PO SCH (20:39)
--- NOTE | 2019-01-31 21:30 | NUR ---
ADMINISTERED MEDICATIONS. PT AGITATED. SITTING ON BED.
[2019-01-31] MEDS: MELATONIN 3 MG TAB PO PRN (22:49)
[2019-02-01] VITALS: BP 132/64
--- NOTE | 2019-02-01 | NUR ---
PT AT BED AWAKE, BREATHING REGULARLY ON ROOM AIR, RESTLESS, TALKED TO PT AND USE NONPHARMACOLOGICAL TECHNIQUES TO RELIEVE STRESS.
[2019-02-01] MEDS: CHLORHEXADINE GLUC 2% CLOTH TP SCH (02:25)
--- NOTE | 2019-02-01 03:24 | NUR ---
PT AT BED EYES CLOSED, BREATHING REGULARLY ON ROOM AIR. WILL CONTINUE TO MONITOR.
[2019-02-01 04:00] VITALS: BP 153/64
--- NOTE | 2019-02-01 04:28 | NUR ---
PT AT BED EYES CLOSED, BREATHING REGULARLY ON ROOM AIR. WILL CONTINUE TO MONITOR.
[2019-02-01] MEDS: PANTOPRAZOLE 40 MG TABEC PO SCH (06:19)
[2019-02-01 06:28] LABS: BASOPHILS % (AUTO) 0.5 % (0.0-2.0); EOSINOPHILS # (AUTO) 0.4 K/uL (0-0.4); EOSINOPHILS % (AUTO) 5.4 % (0.0-4.0); HEMATOCRIT 41.6 % (36-52); HEMOGLOBIN 14.1 g/dL (12.0-18.0); LYMPHOCYTES # (AUTO) 1.4 K/uL (2.0-11.5); LYMPHOCYTES % (AUTO) 19.7 % (20.5-51.1); MEAN CORPUSCULAR HEMOGLOBIN 31 pg (27-31); MEAN CORPUSCULAR HGB CONC 34 g/dL (33-37); MEAN CORPUSCULAR VOLUME 92.5 fL (80-94); MONOCYTES # (AUTO) 0.5 K/uL (0.8-1.0); MONOCYTES % (AUTO) 6.9 % (1.7-9.3); NEUTROPHILS # (AUTO) 4.9 K/uL (1.8-7.7); NEUTROPHILS % (AUTO) 67.5 % (42.2-75.2); PLATELET COUNT (AUTO) 204 K/uL (140-450); RED CELL DISTRIBUTION WIDTH 12.7 % (11.6-13.7); WHITE BLOOD COUNT (AUTO) 7.2 K/uL (4.8-10.8)
--- NOTE | 2019-02-01 07:19 | NUR ---
PT AT BED EYES CLOSED, BREATHING REGULARLY ON ROOM AIR. WILL CONTINUE TO MONITOR.
--- NOTE | 2019-02-01 07:25 | NUR ---
RECEIVED PT FROM NIGHT NURSE IN STABLE CONDITION. PT IN BED WITH EYES CLOSED, AROUSABLE TO SPEECH. AAOX3. RESPIRATIONS EVEN AND UNLABORED ON ROOM AIR. IV IN PLACE AND INFUSING PER ORDER. SKIN INTACT. BED IN LOW POSITION. SAFETY MEASURES IN PLACE. CALL LIGHT WITHIN REACH. WILL CONTINUE TO MONITOR.
[2019-02-01 07:27] LABS: ANION GAP 12.6 (8-16); CARBON DIOXIDE 27.7 mmol/L (21-32); CREATININE 0.7 mg/dL (0.7-1.3); POTASSIUM 3.3 mmol/L (3.5-5.1)
[2019-02-01 07:35] LABS: MAGNESIUM 1.7 mg/dL (1.8-2.4); PHOSPHORUS 4.1 mg/dL (2.5-4.9)
[2019-02-01 08:00] VITALS: BP 153/78
[2019-02-01] MEDS: METOPROLOL 50 MG TAB PO SCH (09:00)
[2019-02-01] MEDS: ESCITALOPRAM 20 MG TAB PO SCH (09:52)
[2019-02-01] MEDS: CARBIDOPA/LEVODOPA 25/100 MG 1 TAB PO SCH ×3 (09:52→16:32)
[2019-02-01] MEDS: LOSARTAN 50 MG TAB PO SCH (09:52)
[2019-02-01] MEDS: SUCRALFATE 1 GM TAB PO SCH ×4 (09:52→20:37)
[2019-02-01] MEDS: LORazepam 1 MG TAB PO SCH ×3 (09:52→16:32)
[2019-02-01] MEDS: MUPIROCIN CA NASAL 2% 1GM TUBE NS SCH (09:53)
[2019-02-01] MEDS: BACLOFEN 10 MG TAB PO SCH ×2 (09:53→20:37)
[2019-02-01] MEDS: POLYVINYL ALCOHOL 1.4% OP 15 ML SOL OP SCH ×3 (09:53→16:32)
[2019-02-01] MEDS: FLUTICASONE NASAL 50 MCG/ACTUATION 16 GM BTL NS SCH (09:53)
[2019-02-01] MEDS: LIDOCAINE 5% 1 EA PATCH TP SCH (09:54)
[2019-02-01] MEDS ORDERED: traZODone 50 MG TAB PO PRN (09:55)
--- NOTE | 2019-02-01 10:11 | NUR ---
MEDICATIONS ADMINISTERED PER ORDER. PT TOLERATED WELL. WILL CONTINUE TO MONITOR.
[2019-02-01] MEDS ORDERED: MAG SULF 2000 MG/WATER PREMIX 50 ML IV SCH (10:15)
[2019-02-01] MEDS: ONDANSETRON 4 MG/2 ML VIAL IM/IVP PRN (11:50)
[2019-02-01 12:00] VITALS: BP 135/79
[2019-02-01] MEDS ORDERED: POTASSIUM CHLORIDE 40 MEQ, LIDOCAINE MPF 1% 25 MG in NACL 0.9% 250 ML IV SCH (12:30)
[2019-02-01] MEDS: NACL 0.9% 1,000 ML IV SCH (12:37)
--- NOTE | 2019-02-01 12:49 | NUR ---
S/W Giles patient's RN. Patient was evaluated by jerry CHACON. He will check to see if patient was put on a new 5150. He will fax new 5150 if it was renewed
--- NOTE | 2019-02-01 13:02 | NUR ---
MEDICATIONS ADMINISTERED PER ORDER. PT TOLERATED WELL. NO DISTRESS NOTED. WILL CONTINUE TO MONITOR.
--- NOTE | 2019-02-01 13:15 | NUR ---
Group Burner Machine Note: Per Charge Nurse Mohini, pending clearance from psychiatrist. I called KELY Bailey from [employer] , no answer, left message stating we are pending clearance from psychiatrist.
--- NOTE | 2019-02-01 14:00 | NUR ---
Instructor Trainer Canine Service Note: I called and spoke with KELY Bailey from [facility] , explained to her we are pending clearance from psychiatrist. I told her we are anticipating for patient to either be transferred to inpatient psych or to snf for physical therapy. Lynn verbalized understanding. I told her I was informed by Ale from [facility] patient cannot return to their facility. Per Lynn, she was told by medical care administrator of [facility], Renee Mueller they will accept patient back at their facility if patient's mental health is stabilized. Addendum: 02/01/19 at 1435 by Lisset Marshall SS I [facility] how often patient follows up with psychiatrist from [facility]. Per Lynn, patient recently enrolled into [facility], therefore, he has not been seen by one of their psychiatrist.
[2019-02-01 16:00] VITALS: BP 142/78
--- NOTE | 2019-02-01 16:17 | NUR ---
MEDICATIONS ADMINISTERED PER ORDER. PT TOLERATED WELL. NO DISTRESS NOTED. WILL CONTINUE TO MONITOR.
[2019-02-01] MEDS: BISACODYL 10 MG SUPP RC PRN (18:57)
--- NOTE | 2019-02-01 19:20 | NUR ---
REPORT GIVEN TO NIGHT NURSE FOR CONTINUITY OF CARE. PT IN STABLE CONDITION.
--- NOTE | 2019-02-01 19:22 | NUR ---
RECEIVED PT ON BED, AAOX4, VITAL SIGNS STABLE, DENIES ANY PAIN, NO SUICIDAL IDEATION AT THIS TIME BUT COMPLAINING OF ANXIETY, PT REQUESTING FOR ATIVAN, WILL MEDICATE PRN, IVF INFUSING WELL, SAFETY MEASURES IN PLACE, 1:[address], FREQUENT ROUNDS MADE.
[2019-02-01 20:00] VITALS: BP 130/76
[2019-02-01] MEDS: LORazepam 2 MG/ML VIAL IM/IVP PRN (20:36)
[2019-02-01] MEDS: TAMSULOSIN 0.4 MG CAP PO SCH (20:37)
[2019-02-01] MEDS: ATORVASTATIN 20 MG TAB PO SCH (20:38)
--- NOTE | 2019-02-01 20:40 | NUR ---
DUE MEDICATIONS TAKEN WITH EDUCATION PROVIDED, MEDICATED PRN WITH ATIVAN, ALL NEEDS ATTENDED.
[2019-02-01] MEDS ORDERED: busPIRone 5 MG TAB PO SCH (21:00)
[2019-02-01] MEDS ORDERED: QUEtiapine FUMARATE 25 MG TAB PO SCH (21:00)
[2019-02-02] MEDS: MELATONIN 3 MG TAB PO PRN ×2 (01:03→21:28)
--- NOTE | 2019-02-02 01:05 | NUR ---
PT SLEEPING, EASILY AROUSABLE, VITAL SIGNS STABLE, PER PT UNABLE TO GO BACK TO SLEEP SINCE WE WOKE HIM UP, MELATONIN PO GIVEN, IVF INFUSING WELL, CONTINUE TO MONITOR CLOSELY.
[2019-02-02 01:09] VITALS: BP 149/88
[2019-02-02] MEDS: CHLORHEXADINE GLUC 2% CLOTH TP SCH (02:01)
[2019-02-02 04:00] VITALS: BP 149/82
--- NOTE | 2019-02-02 04:00 | NUR ---
PT SLEEPING, EASILY AROUSABLE, VITAL SIGNS STABLE, SB ON TELE, ASYMPTOMATIC, IVF INFUSING WELL, MONITORED CLOSELY.
[2019-02-02] MEDS: PANTOPRAZOLE 40 MG TABEC PO SCH (05:46)
[2019-02-02] MEDS: NACL 0.9% 1,000 ML IV SCH ×2 (05:47→22:11)
--- NOTE | 2019-02-02 05:50 | NUR ---
PT SLEEPING, EASILY AROUSABLE, DUE PO MEDICATION GIVEN, TOLERATED WELL, PT WENT BACK TO SLEEP, IVF INFUSING WELL.
[2019-02-02 06:42] LABS: BASOPHILS # (AUTO) 0.1 K/uL (0.00-0.22); BASOPHILS % (AUTO) 0.9 % (0.0-2.0); EOSINOPHILS # (AUTO) 0.4 K/uL (0-0.4); HEMATOCRIT 40.3 % (36-52); HEMOGLOBIN 13.8 g/dL (12.0-18.0); LYMPHOCYTES # (AUTO) 1.3 K/uL (2.0-11.5); LYMPHOCYTES % (AUTO) 20.2 % (20.5-51.1); MEAN CORPUSCULAR HEMOGLOBIN 32 pg (27-31); MEAN CORPUSCULAR HGB CONC 34 g/dL (33-37); MEAN CORPUSCULAR VOLUME 91.8 fL (80-94); MONOCYTES # (AUTO) 0.4 K/uL (0.8-1.0); MONOCYTES % (AUTO) 6.4 % (1.7-9.3); NEUTROPHILS # (AUTO) 4.2 K/uL (1.8-7.7); NEUTROPHILS % (AUTO) 65.5 % (42.2-75.2); PLATELET COUNT (AUTO) 190 K/uL (140-450); RED BLOOD CELL COUNT(AUTO) 4.39 MIL/uL (4.20-6.10); RED CELL DISTRIBUTION WIDTH 12.7 % (11.6-13.7); WHITE BLOOD COUNT (AUTO) 6.4 K/uL (4.8-10.8)
--- NOTE | 2019-02-02 07:15 | NUR ---
PT AWAKE, NO SIGNS OF DISTRESS, REPORT GIVEN TO EDGARD RODRÍGUEZ FOR CONTINUITY OF CARE.
--- NOTE | 2019-02-02 07:16 | NUR ---
RECEIVED REPORT FROM SUPERVISOR COIL WINDING NURSE FOR CONTINUITY OF CARE. PT IN STABLE CONDITION. RESPIRATIONS EVEN AND UNLABORED, VENT INTACT AND PATENT. IV ACCESS INTACT AND PATENT. SAFETY MEASURES IN PLACE. FALL RISK SIGNS POSTED. BED IN LOW POSITION. BED ALARM AT BEDSIDE. WILL CONTINUE TO MONITOR. Addendum: 02/02/19 at 0740 by Evelyn Darden RN WRONG PATIENT FOR ABOVE NOTE.
--- NOTE | 2019-02-02 07:17 | NUR ---
RECEIVED REPORT FROM SHIPPING SERVICES SALES REPRESENTATIVE NURSE FOR CONTINUITY OF CARE. PT IN STABLE CONDITION. RESPIRATIONS EVEN AND UNLABORED, ROOM AIR. IV INTACT AND PATENT. SAFETY MEASURES IN PLACE. FALL RISK SIGNS POSTED. BED IN LOW POSITION. BED ALARM AT BEDSIDE. SITTER AT BEDSIDE. WILL CONTINUE TO MONITOR.
--- NOTE | 2019-02-02 07:30 | NUR ---
[facility] still actively working on find placement for this pt. Will continue to f/u with contracted facilities. Will contact with any update.
[2019-02-02 07:33] LABS: MAGNESIUM 1.9 mg/dL (1.8-2.4)
[2019-02-02 07:52] LABS: CARBON DIOXIDE 28.4 mmol/L (21-32); CREATININE 0.7 mg/dL (0.7-1.3); POTASSIUM 3.4 mmol/L (3.5-5.1)
[2019-02-02 08:00] VITALS: BP 149/88
[2019-02-02] MEDS ORDERED: traZODone 50 MG TAB PO PRN (08:00)
[2019-02-02] MEDS: CARBIDOPA/LEVODOPA 25/100 MG 1 TAB PO SCH ×3 (08:47→17:31)
[2019-02-02] MEDS: BACLOFEN 10 MG TAB PO SCH ×2 (08:47→21:29)
[2019-02-02] MEDS: LORazepam 1 MG TAB PO SCH ×3 (08:47→17:30)
[2019-02-02] MEDS: LISINOPRIL 5 MG TAB PO SCH (08:47)
[2019-02-02] MEDS: LOSARTAN 50 MG TAB PO SCH (08:48)
[2019-02-02] MEDS: ESCITALOPRAM 20 MG TAB PO SCH (08:48)
[2019-02-02] MEDS: FLUTICASONE NASAL 50 MCG/ACTUATION 16 GM BTL NS SCH (08:48)
[2019-02-02] MEDS: LIDOCAINE 5% 1 EA PATCH TP SCH (08:49)
[2019-02-02] MEDS: POLYVINYL ALCOHOL 1.4% OP 15 ML SOL OP SCH ×3 (08:49→17:31)
[2019-02-02] MEDS ORDERED: MAG SULF 2000 MG/WATER PREMIX 50 ML IV SCH (09:00)
[2019-02-02] MEDS: MUPIROCIN CA NASAL 2% 1GM TUBE NS SCH (09:22)
[2019-02-02] MEDS: SUCRALFATE 1 GM TAB PO SCH ×4 (09:22→21:29)
--- NOTE | 2019-02-02 09:26 | NUR ---
GAVE ORDERED DUE MEDICATIONS AT THIS TIME. PT TOLERATED WELL. BED IN LOW POSITION. BED ALARM ON. SITTER AT BEDSIDE. WILL CONTINUE TO MONITOR.
--- NOTE | 2019-02-02 09:41 | NUR ---
SPOKE TO [facility] AT [phone] REGARDING IN PATIENT PYSCHE PLACEMENT. HE STATED THEY FAXED REFERRAL TO SEVERAL FACILITIES, NO RESPONSE YET. CONTACTED [facility] AT [phone], ABLE TO SPEAK TO CHERELLE. HE STATED THEY ACCEPT PATIENT 55 AND OVER AND IS MEDICALLY CLEARED. PROVIDED ME WITH FAX NUMBER [phone] TO SEND REFERRAL. HE STATED THEY ARE FULL AT THIS TIME BUT MIGHT HAVE DISCHARGES TODAY. REFERRAL FAXED TO THE PROVIDED NUMBER. CM TO FOLLOW UP.
[2019-02-02] MEDS ORDERED: POTASSIUM CHLORIDE 40 MEQ, LIDOCAINE MPF 1% 25 MG in NACL 0.9% 250 ML IV SCH (11:00)
[2019-02-02] MEDS: LORazepam 2 MG/ML VIAL IM/IVP PRN ×2 (11:41→14:17)
--- NOTE | 2019-02-02 11:58 | NUR ---
PT C/O ANXIETY GAVE PRN ORDERED MEDICATION FOR ANXIETY AT THIS TIME. PT TOLERATED WELL. WILL CONTINUE TO MONITOR.
[2019-02-02 12:00] VITALS: BP 144/84
--- NOTE | 2019-02-02 12:11 | NUR ---
SISTER ZACK CALLED PT VERBALIZED HE DID NOT WANT TO SPEAK OR HAVE INFORMATION GIVEN TO SISTER.
--- NOTE | 2019-02-02 14:22 | NUR ---
VERBAL ORDER AUSTYN BRADSHAW GIVE PRN ANXIETY MEDICATION NOW. PT TOLERATED WELL. SITTER AT BEDSIDE. BED IN LOW POSITION.
--- NOTE | 2019-02-02 14:37 | NUR ---
CALLED [facility] FOR F/U BED AVAILABILITY , SPOKE WITH SHANTA STATED NO DISCHARGE AT THIS TIME BUT MIGHT HAVE LATE DISCHARGE AND WILL CALL BACK, PROVIDED THE UNIT NUMBER TO CALL.
--- NOTE | 2019-02-02 15:05 | NUR ---
CALLED [facility] SPOKE WITH SALES MGR, FAXED ALL THE INFORMATION AND AFTER SHE REVIEW WILL CALL BACK CM TO FOLLOW.
[2019-02-02 16:00] VITALS: BP 144/79
--- NOTE | 2019-02-02 16:58 | NUR ---
[facility] CALLED BACK SPOKE WITH ANJELICA UNABLE TO ACCEPT THE PATIENT BECAUSE THEY ARE [facility].
--- NOTE | 2019-02-02 17:30 | NUR ---
COUSIN EMILY VISITED PT. PT GAVE PERMISSION TO UPDATE EMILY OF CURRENT CONDITION AND PLAN.
--- NOTE | 2019-02-02 18:19 | NUR ---
SISTER CALLED FOR INFORMATION. PT GAVE PERMISSION TO TELL FAMILY HE WILL BE IN THE HOSPITAL FOR A COUPLE MORE DAYS FOR DEPRESSION.
--- NOTE | 2019-02-02 19:29 | NUR ---
GAVE REPORT TO MINING HELPER NURSE FOR CONTINUITY OF CARE. PT IN STABLE CONDITION.
--- NOTE | 2019-02-02 19:30 | NUR ---
RECEIVED BEDSIDE REPORT FROM DAY SHIFT NURSE MARCOS RN, PT STABLE, NO DISTRESS NOTED, IV TO R HAND 22G PATENT ,INTACT, INFUSING WELL, PT ON ROOM AIR, NO SOB NOTED, PT RESTING, NO C/O PAIN, PT ON SUICIDAL PRECAUTION, INITIAL ASSESSMENT DONE, ALL SAFETY PRECAUTION MET, SITTER AT BEDSIDE, WILL CONTINUE TO MONITOR.
[2019-02-02 20:00] VITALS: BP 147/88
[2019-02-02] MEDS: traZODone 50 MG TAB PO SCH (21:00)
[2019-02-02] MEDS: TAMSULOSIN 0.4 MG CAP PO SCH (21:29)
[2019-02-02] MEDS: ATORVASTATIN 20 MG TAB PO SCH (21:29)
--- NOTE | 2019-02-02 21:29 | NUR ---
DUE MEDICATION ADMINISTERED, PT TOLERATED WELL, PT REFUSED MEDICATION TRAZODONE, STATED IT MAKES HIM FEEL ANXIOUS, PT REQUESTED MELATONIN INSTEAD, MEDICATION ADMINISTERED PER MD ORDER, PT TOLERATED WELL, NO DISTRESS NOTED, SITTER AT BEDSIDE, WILL CONTINUE OT MONITOR. Addendum: 02/02/19 at 9482 by Velia Craven RN DR. BENNETT NOTIFIED REGARDING PT REFUSED TRAZODONE
--- NOTE | 2019-02-02 21:30 | NUR ---
ENDORSED PT TO EDGARD LOBO FOR CONTINUOUS OF CARE. PT STABLE, NO DISTRESS NOTED.
--- NOTE | 2019-02-02 21:45 | NUR ---
RECEIVED REPORT FRON JI RENE.PT IS ON BED TAKING REST.NO ANY S/S OF DISTRESS NOTED AT THIS TIME.WILL CONTINUE MONITORING.
[2019-02-03] VITALS: BP 150/84
[2019-02-03] MEDS ORDERED: ZOLPIDEM 5 MG TAB PO SCH (00:15)
--- NOTE | 2019-02-03 00:30 | NUR ---
VS STABLE.HR IS SB.NO C/O PAIN NOW.
--- NOTE | 2019-02-03 03:57 | NUR ---
No beds available through out shift with contracted [facility] facilities. Called the following facilities [facility], [facility], [facility], [facility], [facility].
[2019-02-03 04:00] VITALS: BP 145/80
[2019-02-03] MEDS: CHLORHEXADINE GLUC 2% CLOTH TP SCH (05:18)
--- NOTE | 2019-02-03 06:30 | NUR ---
SLEPT WELL AFTER AMBIEN GIVEN .THIS AM WAS AGITATED ATIVAN IVP GIVEN.NO DISTRESS NOTED AT THIS TIME.HR STILL IS SB.
[2019-02-03] MEDS: PANTOPRAZOLE 40 MG TABEC PO SCH (06:38)
[2019-02-03] MEDS: LORazepam 2 MG/ML VIAL IM/IVP PRN (06:39)
--- NOTE | 2019-02-03 07:05 | NUR ---
RECEIVED REPORT FROM TEAM MEMBER NURSE. AAOX4, RESTING IN BED, NO C/O PAIN AT THIS TIME. PT ON TELE MONITOR. IV ON RT HAND 22 GA RUNNING IVF PER ORDER. RESPIRATIONS EVEN AND UNLABORED ON RA. BS ACTIVE, SOFT ABDOMEN. SKIN IS INTACT, WARM TO TOUCH. REVIEWED POC WITH PT, PT VERBALIZED UNDERSTANDING.
[2019-02-03 07:45] LABS: BASOPHILS % (AUTO) 0.3 % (0.0-2.0); EOSINOPHILS # (AUTO) 0.3 K/uL (0-0.4); EOSINOPHILS % (AUTO) 4.6 % (0.0-4.0); HEMATOCRIT 43.2 % (36-52); HEMOGLOBIN 15.2 g/dL (12.0-18.0); LYMPHOCYTES # (AUTO) 1.3 K/uL (2.0-11.5); LYMPHOCYTES % (AUTO) 17.5 % (20.5-51.1); MEAN CORPUSCULAR HEMOGLOBIN 32 pg (27-31); MEAN CORPUSCULAR HGB CONC 35 g/dL (33-37); MONOCYTES # (AUTO) 0.4 K/uL (0.8-1.0); NEUTROPHILS # (AUTO) 5.1 K/uL (1.8-7.7); NEUTROPHILS % (AUTO) 71.6 % (42.2-75.2); PLATELET COUNT (AUTO) 212 K/uL (140-450); RED BLOOD CELL COUNT(AUTO) 4.75 MIL/uL (4.20-6.10); RED CELL DISTRIBUTION WIDTH 12.8 % (11.6-13.7); WHITE BLOOD COUNT (AUTO) 7.2 K/uL (4.8-10.8)
[2019-02-03 08:00] VITALS: BP 141/83
[2019-02-03 08:03] LABS: CARBON DIOXIDE 27.4 mmol/L (21-32); CREATININE 0.8 mg/dL (0.7-1.3); POTASSIUM 3.4 mmol/L (3.5-5.1)
[2019-02-03] MEDS: MUPIROCIN CA NASAL 2% 1GM TUBE NS SCH (08:08)
[2019-02-03 08:09] LABS: MAGNESIUM 1.8 mg/dL (1.8-2.4); PHOSPHORUS 3.6 mg/dL (2.5-4.9)
[2019-02-03] MEDS: POLYVINYL ALCOHOL 1.4% OP 15 ML SOL OP SCH ×3 (08:09→16:35)
[2019-02-03] MEDS: FLUTICASONE NASAL 50 MCG/ACTUATION 16 GM BTL NS SCH (08:09)
[2019-02-03] MEDS: SUCRALFATE 1 GM TAB PO SCH ×4 (08:10→21:29)
[2019-02-03] MEDS: LORazepam 1 MG TAB PO SCH ×3 (08:10→16:32)
[2019-02-03] MEDS: LOSARTAN 50 MG TAB PO SCH (08:11)
[2019-02-03] MEDS: ESCITALOPRAM 20 MG TAB PO SCH (08:12)
[2019-02-03] MEDS: LISINOPRIL 5 MG TAB PO SCH (08:12)
[2019-02-03] MEDS: BACLOFEN 10 MG TAB PO SCH ×2 (08:13→21:30)
[2019-02-03] MEDS: CARBIDOPA/LEVODOPA 25/100 MG 1 TAB PO SCH ×3 (08:14→16:42)
[2019-02-03] MEDS: LIDOCAINE 5% 1 EA PATCH TP SCH (08:17)
--- NOTE | 2019-02-03 08:51 | NUR ---
RECEIVED CALL FROM [facility]. PT ACCEPTED IN [facility] [address] RM [address] KUMAR. WILL NOTIFY LUANN/SPINNER FIXER.
--- NOTE | 2019-02-03 09:02 | NUR ---
RECEIVED A CALL FROM PATIENT'S PRIMARY RN SHANICE, SHE INFORMED ME THAT SHE RECEIVED A CALL FROM [facility] THAT THEY HAVE A BED FOR THE PATIENT. PATIENT CAN GO TO [facility] ROOM [address] CONTRERAS. CONTACTED JUSTICE AT [phone], ABLE TO SPEAK TO PATRICIA RASHEED REGARDING PLACEMENT. SHE STATED [employer] IS OUT OF COVERAGE AREA. SHE ALSO STATED SHE WILL INFORM HER [employer] PRODUCTION MANAGER AND WILL CALL ME BACK IF THEY ARE ABLE TO AUTHORIZE THE TRANSFER. CM TO FOLLOW UP.
--- NOTE | 2019-02-03 09:15 | NUR ---
NOTIFIED LUANN/COKE WORKER REGARDING ACCEPTANCE TO [facility]. PER CM, WILL ARRANGE TRANSPORT.
[2019-02-03] MEDS: ONDANSETRON 4 MG/2 ML VIAL IM/IVP PRN (09:20)
[2019-02-03] MEDS: BISACODYL 10 MG SUPP RC PRN (09:20)
[2019-02-03] MEDS ORDERED: POTASSIUM CHLORIDE 40 MEQ, LIDOCAINE MPF 1% 25 MG in NACL 0.9% 250 ML IV SCH (10:00)
--- NOTE | 2019-02-03 10:28 | NUR ---
RECEIVED A CALL FROM PATRICIA RASHEED OF [employer], SHE STATED TO SEND REFERRAL TO [facility]. SHE ALSO PROVIDED ME OF THE FAX NUMBER [phone]. INQUIRY SENT. CONTACTED [facility] AT [phone], ABLE TO SPEAK TO GREER (ROXANNE) REGARDING REFERRAL. HE CONFIRMED THAT THEY RECEIVED THE REFERRAL. HE STATED THAT THEY WILL HAVE DISCHARGES TODAY AND WILL START REVIEWING THE PACKET. PATRICIA TO FOLLOW UP. Addendum: 02/03/19 at 1034 by Karol Carlisle CM [facility] AT [phone], ABLE TO SPEAK TO DEBORAH REGARDING BED AVAILABILITY AT [facility] [place].
--- NOTE | 2019-02-03 11:06 | NUR ---
STARTED IV ON RT AC 22 GA, DRESSING CLEAN, DRY AND INTACT, FLUSHING WITH NO RESISTANCE. ADMINISTERED IV POTASSIUM, NOTIFIED PT OF LOW POTASSIUM LEVEL, AWARE OF INDICATIONS AND POTENTIAL SIDE EFFECTS.
[2019-02-03 12:00] VITALS: BP 135/79
--- NOTE | 2019-02-03 12:07 | NUR ---
PER KIERAN OF [place], NO BEDS AVAILABLE AT THIS TIME. Addendum: 02/03/19 at 1219 by Karol Carlisle CM PER GREER OF [facility], NO BEDS AVAILABLE AT THIS TIME. Addendum: 02/03/19 at 1311 by Karol Carlisle CM RECEIVED A CALL FROM PATRICIA RASHEED OF [employer], SHE STATED THEY CANNOT PROVIDED AUTH FOR [facility]. INFORMED HER WELL THAT THERE IS NO BEDS AVAILABLE IN [place] AND [facility]. SHE STATED WE CAN TAKE OUT [facility] BECAUSE THEY ARE NOT CONTRACTED WITH THEM EITHER. Addendum: 02/03/19 at 1317 by Karol Carlisle CM CONTACTED [facility], ABLE TO SPEAK TO EMILY. PER EMILY THEY ARE CURRENTLY FULL AT THIS TIME, BUT THEIR DOC DID NOT MAKE HIS ROUNDS YET AND NO DISCHARGES AT THIS TIME. PROVIDED ME WITH FAX NUMBER [phone] TO SEND REFERRAL. REFERRAL SENT.
--- NOTE | 2019-02-03 13:32 | NUR ---
ADMINISTERED ARTIFICIAL TEARS, ATIVAN, CARAFATE AND SINEMET PER ORDER. PT IS AWARE OF INDICATIONS AND POTENTIAL SIDE EFFECTS. PT HAS NO SIGNS OF DISTRESS AT THIS TIME.
[2019-02-03] MEDS: NACL 0.9% 1,000 ML IV SCH (14:35)
[2019-02-03 16:00] VITALS: BP 137/78
[2019-02-03] MEDS: hydrOXYzine PAMOATE 25 MG CAP PO PRN ×2 (16:34→23:10)
[2019-02-03] MEDS: MORPHINE SULFATE 2 MG/ML SYR IVP PRN (16:36)
--- NOTE | 2019-02-03 16:36 | NUR ---
ADMINISTERED ARTIFICIAL TEARS, ATIVAN, AND CARAFATE PER ORDER. PT ALSO GIVEN VISTARIL D/T C/O ITCHINESS AND MORPHINE FOR LEVEL 7/10 ABD PAIN, PT AWARE OF INDICATION AND POTENTIAL SIDE EFFECTS. WILL REASSESS WITHIN 1 HOUR.
--- NOTE | 2019-02-03 17:36 | NUR ---
PT NO LONGER C/O PAIN OR ITCHINESS. RESPIRATIONS EVEN AND UNLABORED ON RA.
--- NOTE | 2019-02-03 19:45 | NUR ---
ENDORSED PT TO CORRECTION OFFICER REFORMATORY RN/NESTOR. PT HAS NO SIGNS OF DISTRESS AT THIS TIME.
--- NOTE | 2019-02-03 19:50 | NUR ---
RECEIVED Pt AAOX3, SKIN W/D TO TOUCH, TOLENTINO, POS PULSES ON BR W/ SITTER @ BEDSIDE. PER CHART PATIENT IS WATCH. NAD NOTED. ANDORRAN SPEAKER.
[2019-02-03 20:10] VITALS: BP 129/72
[2019-02-03] MEDS: TAMSULOSIN 0.4 MG CAP PO SCH (21:28)
[2019-02-03] MEDS: ATORVASTATIN 20 MG TAB PO SCH (21:29)
[2019-02-03] MEDS: traZODone 50 MG TAB PO SCH (21:30)
[2019-02-03] MEDS: MELATONIN 3 MG TAB PO PRN (23:10)
[2019-02-04 00:10] VITALS: BP 144/75
--- NOTE | 2019-02-04 00:20 | NUR ---
PATIENT HR DECREASED TO LOW 47-50 AFTER MED ADMINISTRATION, WHICH IS A NOTED PATTERN FROM THE PRIOR DAY. MONITORED AND ASSESSED FOR CHANGES, NONE NOTED, PATIENT ASYMPTOMATIC SINUS MICAELA. SITTER AT BEDSIDE, NAD OBSERVED.
[2019-02-04] MEDS: CHLORHEXADINE GLUC 2% CLOTH TP SCH (02:25)
[2019-02-04 04:04] VITALS: BP 130/76
--- NOTE | 2019-02-04 04:15 | NUR ---
PT ASLEEP, BEING MONITORED BY ECG TECH AND A SITTER AT BEDSIDE. ON ROUNDS NAD NOTED.
[2019-02-04] MEDS: NACL 0.9% 1,000 ML IV SCH ×2 (05:35→23:20)
[2019-02-04] MEDS: PANTOPRAZOLE 40 MG TABEC PO SCH (06:47)
--- NOTE | 2019-02-04 07:10 | NUR ---
PT ENDORSED: REPORT GIVEN TO DARIEL RENE AT BEDSIDE.
--- NOTE | 2019-02-04 07:15 | NUR ---
RECEIVED REPORT FROM MIXER OPERATOR HOT METAL NURSE AT BEDSIDE. PT IS AAOX3. LUNG SOUNDS CLEAR, RESPIRATIONS EVEN AND UNLABORED ON ROOM AIR. IV CATH NOTED ON LEFT FA 22G, INTACT AND ASYMPTOMATIC, INFUSING NS AT 60ML/HR. SB ON TELE MONITOR. FALL FALL PRECAUTIONS IN PLACE. BED LOCKED IN LOWEST POSITION. SITTER IN PLACE. WILL CONTINUE TO MONITOR.
[2019-02-04 07:33] LABS: CARBON DIOXIDE 28.3 mmol/L (21-32); CREATININE 0.8 mg/dL (0.7-1.3); POTASSIUM 3.3 mmol/L (3.5-5.1)
[2019-02-04 07:37] LABS: MAGNESIUM 1.7 mg/dL (1.8-2.4); PHOSPHORUS 3.7 mg/dL (2.5-4.9)
[2019-02-04 08:00] VITALS: BP 139/91
[2019-02-04] MEDS: FLUTICASONE NASAL 50 MCG/ACTUATION 16 GM BTL NS SCH (08:13)
[2019-02-04] MEDS: POLYVINYL ALCOHOL 1.4% OP 15 ML SOL OP SCH ×3 (08:13→17:35)
[2019-02-04] MEDS: BACLOFEN 10 MG TAB PO SCH ×2 (08:14→21:20)
[2019-02-04] MEDS: LOSARTAN 50 MG TAB PO SCH (08:14)
[2019-02-04] MEDS: LISINOPRIL 5 MG TAB PO SCH (08:14)
[2019-02-04] MEDS: ESCITALOPRAM 20 MG TAB PO SCH (08:15)
[2019-02-04] MEDS: MUPIROCIN CA NASAL 2% 1GM TUBE NS SCH (08:15)
[2019-02-04] MEDS: SUCRALFATE 1 GM TAB PO SCH ×4 (08:16→21:19)
[2019-02-04] MEDS: LORazepam 1 MG TAB PO SCH ×3 (08:16→17:34)
[2019-02-04] MEDS: LIDOCAINE 5% 1 EA PATCH TP SCH (08:22)
[2019-02-04] MEDS: CARBIDOPA/LEVODOPA 25/100 MG 1 TAB PO SCH ×3 (08:23→17:33)
--- NOTE | 2019-02-04 08:55 | NUR ---
PAGED DR VO'S EXCHANGE ABOUT 5720 HOLD EXPIRING. WAITING FOR CALL BACK.
--- NOTE | 2019-02-04 09:10 | NUR ---
DR BRIDGES CALLED BACK, HE SAID WILL COME AROUND 4 OR 5PM TO REEVALUATE PT.
[2019-02-04] MEDS ORDERED: MAGNESIUM OXIDE 400 MG TAB PO SCH (09:12)
[2019-02-04] MEDS ORDERED: POTASSIUM CHLORIDE 10 MEQ TABER PO SCH (09:12)
[2019-02-04 09:24] LABS: HEMATOCRIT 39.5 % (36-52); HEMOGLOBIN 13.6 g/dL (12.0-18.0); MEAN CORPUSCULAR HEMOGLOBIN 32 pg (27-31); MEAN CORPUSCULAR HGB CONC 34 g/dL (33-37); MEAN CORPUSCULAR VOLUME 92.7 fL (80-94); PLATELET COUNT (AUTO) 188 K/uL (140-450); RED BLOOD CELL COUNT(AUTO) 4.27 MIL/uL (4.20-6.10); RED CELL DISTRIBUTION WIDTH 12.9 % (11.6-13.7); WHITE BLOOD COUNT (AUTO) 6.3 K/uL (4.8-10.8)
[2019-02-04] MEDS: ONDANSETRON 4 MG/2 ML VIAL IM/IVP PRN ×2 (10:12→14:15)
--- NOTE | 2019-02-04 10:30 | NUR ---
DR FENG HAS CHECKED ON PT.
[2019-02-04 12:00] VITALS: BP 127/71
--- NOTE | 2019-02-04 12:07 | NUR ---
02/04/19 RD FOLLOW UP COMPLETED PLEASE REFER TO NUTRITION PROGRESS NOTE UNDER CARE ACTIVITY FOR ESTIMATED NUTRITION NEEDS. RD RECOMMENDATIONS: 1. CONTINUE 2 GM NA DIET TOLERATED. 2. RD TO FOLLOW-UP 7 DAYS , LOW RISK. FRANCISCO DOMÍNGUEZ, RD
[2019-02-04 13:16] LABS: EOSINOPHILS % (MANUAL) 2 % (0-4); LYMPHOCYTES % (MANUAL) 20 % (20-46); MONOCYTES % (MANUAL) 8 % (5-12)
--- NOTE | 2019-02-04 14:20 | NUR ---
PT C/O ABD PAIN, ASSESSED PT AND OFFERED BENTYL ORDERED. HOWEVER, PT REFUSED IT AFTER KNOWING IT'S ORAL LIQUID. PT STARTED C/O NAUSEA AND ASKING FOR INJECTION. OFFERED ZOFRAN AND PT AGREED. ZOFRAN GIVEN. ELEVATED HOB TO 30 DEG, PT WENT TO SLEEP, BREATHING EVEN AND UNLABORED. FLACC 0.
[2019-02-04] MEDS: BISACODYL 10 MG SUPP RC PRN (14:43)
[2019-02-04 16:00] VITALS: BP 129/73
[2019-02-04] MEDS: DICYCLOMINE HCL LIQUID 10 MG/5 ML UDC PO PRN (16:00)
--- NOTE | 2019-02-04 16:00 | NUR ---
PT WOKE UP AND C/O ABD PAIN 09/02, PT AGREED TO TRY BENTYL PO.
--- NOTE | 2019-02-04 17:00 | NUR ---
PT DENIES ABD PAIN AT THIS TIME. PT AMBULATED TO RESTROOM, STANDBY ASSIST PROVIDED.
--- NOTE | 2019-02-04 18:00 | NUR ---
PT SITTING UP EATING DINNER INDEPENDENTLY, NO S/S OF DISTRESS NOTED. NO C/O OF PAIN AT THIS TIME.
--- NOTE | 2019-02-04 19:15 | NUR ---
RECEIVED REPORT FROM DARIEL RENE AM SHIFT, PER REPORT PT CONTINUE ON SITTER. PT IS ALERT AND ORIENTED X4,NO S/S RESP DISTRESS,NO SOB. PT ON ROOM AIR. PT ABLE TO VERBALIZE ALL HIS NEEDS. PT ON TELEMETRY UNIT FOR SUICIDAL IDEATION,PT CONTINUE ON SITTER FOR CLOSED MONITORING, NO EPISODE NOTED AT THIS TIME.SKIN WARM TO TOUCH. NO FEVER T 97.9.PT IS CONTINENT BOWEL AND BLADDER. WALK TO REST ROOM WITH ASSISTANCE. NO C/O PAIN AT THIS TIME GENTLE CARE GIVEN. KEPT CLEAN AND DRY.
[2019-02-04 20:00] VITALS: BP 132/70
[2019-02-04] MEDS ORDERED: ZOLPIDEM 5 MG TAB PO SCH (20:00)
--- NOTE | 2019-02-04 20:15 | NUR ---
DR SUN COME TO SEE PT AND NEW ORDER FOR TROZADONE FOR INSOMNIA. PER MD TO CONTINUE SITTER AT THIS TIME.
[2019-02-04] MEDS: traZODone 50 MG TAB PO SCH (21:00)
--- NOTE | 2019-02-04 21:00 | NUR ---
TROZADONE 75 NOT GIVEN D/T PT SAID WILL TAKING MELATONIN INSTEAD.
[2019-02-04] MEDS: TAMSULOSIN 0.4 MG CAP PO SCH (21:20)
[2019-02-04] MEDS: ATORVASTATIN 20 MG TAB PO SCH (21:21)
--- NOTE | 2019-02-04 21:30 | NUR ---
PT SAYING HE CANNOT SLEEP LAST NIGHT AND REQUESTING MELATONIN FOR SLEEPING, PRN MELATONIN AND ALL NIGHT MEDS GIVEN ORDER.PT ABLE TO TAKE WHOLE MEDS.
--- NOTE | 2019-02-04 22:00 | NUR ---
PT LOOK CALM AND SLEPT WELL
--- NOTE | 2019-02-04 23:10 | NUR ---
PT WAS C/O INSOMNIA,VEBALIZING CANNOT SLEEP AND REQUEST FOR AMBIEN. MEDICATION GIVEN ORDER. PUT THE LIGHT DIM, MAKE ROOM COMFORTABLE FOR PT.ASSIST REPOSITION FOR COMFORT.
[2019-02-05] VITALS: BP 139/77
--- NOTE | 2019-02-05 01:20 | NUR ---
PT SLEEPING WELL.
--- NOTE | 2019-02-05 03:30 | NUR ---
PT IS SLEEPING.NO S/S OF ANY PAIN OR DISCOMFORT.
[2019-02-05 04:00] VITALS: BP 132/69
--- NOTE | 2019-02-05 05:00 | NUR ---
AM CARE GIVEN.
[2019-02-05] MEDS: PANTOPRAZOLE 40 MG TABEC PO SCH (05:55)
--- NOTE | 2019-02-05 06:28 | NUR ---
AM MED GIVEN LALO WELL. BLOOD DRAWN FOR CBC,BMP,PHOS AND MAG DONE.PT BACK TO SLEEP. NO DISTRESS OR PAIN NOTED.
--- NOTE | 2019-02-05 06:47 | NUR ---
Left vm with Lynn Yin CM at [facility] for patient. Phone number [phone] regarding authorization for patient. patient was accepted to [facility] but is out of area.
--- NOTE | 2019-02-05 06:49 | NUR ---
Called Emilio at [facility], no beds but ask to fax packet for am discharges [facility] no beds but asked to fax packet for am discharges [facility] no beds [facility] no beds [facility] s/w L[facility] no beds but asked to fax p[acket for am discharges at 11
[2019-02-05 06:56] LABS: HEMATOCRIT 39.3 % (36-52); HEMOGLOBIN 13.4 g/dL (12.0-18.0); MEAN CORPUSCULAR HEMOGLOBIN 32 pg (27-31); MEAN CORPUSCULAR HGB CONC 34 g/dL (33-37); MEAN CORPUSCULAR VOLUME 92.8 fL (80-94); PLATELET COUNT (AUTO) 185 K/uL (140-450); RED BLOOD CELL COUNT(AUTO) 4.23 MIL/uL (4.20-6.10); RED CELL DISTRIBUTION WIDTH 13.1 % (11.6-13.7); WHITE BLOOD COUNT (AUTO) 6.9 K/uL (4.8-10.8)
[2019-02-05 07:13] LABS: ANION GAP 10.5 (8-16); CARBON DIOXIDE 29.8 mmol/L (21-32); CREATININE 0.8 mg/dL (0.7-1.3); POTASSIUM 3.3 mmol/L (3.5-5.1)
--- NOTE | 2019-02-05 07:14 | NUR ---
RECEIVED CALL FROM BRIE FROM [facility] FOR FORM [address]/ROOM. FAXED THE PAPER TO BRIE NO [phone]. CARA RENE AM SHIFT MADE AWARE THAT FORM 1059 FAXED TO BRIE FROM [facility].PT CALM AND SLEEPING.
[2019-02-05 07:18] LABS: MAGNESIUM 1.7 mg/dL (1.8-2.4); PHOSPHORUS 3.9 mg/dL (2.5-4.9)
--- NOTE | 2019-02-05 07:30 | NUR ---
RECEIVED PT FROM PM SHIFT. PT SLEEPING BUT AROUSABLE. ON RA, NO S/S OF RESPIRATORY DISTRESS NOTED. PT HAS IV RUNNING 0.9 NS AT 60 CC/HR. WILL CONTINUE TO MONITOR PT.
--- NOTE | 2019-02-05 07:42 | NUR ---
PT HR DROPPED TO 45. WENT INTO PT'S ROOM TO TALK TO PT. HR INCRESED TO 58S
[2019-02-05 08:00] VITALS: BP_SYST 111; BP_SYST 154; BP_DIAS 76; BP_DIAS 83
[2019-02-05 08:14] LABS: BASOPHILS % (MANUAL) 0 % (0-2); EOSINOPHILS % (MANUAL) 5 % (0-4); LYMPHOCYTES % (MANUAL) 24 % (20-46); MONOCYTES % (MANUAL) 6 % (5-12)
[2019-02-05] MEDS: FLUTICASONE NASAL 50 MCG/ACTUATION 16 GM BTL NS SCH (08:18)
[2019-02-05] MEDS: ESCITALOPRAM 20 MG TAB PO SCH (08:19)
[2019-02-05] MEDS: POLYVINYL ALCOHOL 1.4% OP 15 ML SOL OP SCH ×3 (08:19→16:10)
[2019-02-05] MEDS: LISINOPRIL 5 MG TAB PO SCH (08:19)
[2019-02-05] MEDS: BACLOFEN 10 MG TAB PO SCH ×2 (08:20→20:31)
[2019-02-05] MEDS: LORazepam 1 MG TAB PO SCH ×3 (08:20→16:09)
[2019-02-05] MEDS: LOSARTAN 50 MG TAB PO SCH (08:20)
[2019-02-05] MEDS: CARBIDOPA/LEVODOPA 25/100 MG 1 TAB PO SCH ×3 (08:20→16:09)
[2019-02-05] MEDS: SUCRALFATE 1 GM TAB PO SCH ×4 (08:22→20:31)
[2019-02-05] MEDS: LIDOCAINE 5% 1 EA PATCH TP SCH (08:24)
[2019-02-05] MEDS ORDERED: MAG SULF 2000 MG/WATER PREMIX 50 ML IV SCH (09:00)
[2019-02-05] MEDS ORDERED: POTASSIUM CHLORIDE 40 MEQ, LIDOCAINE MPF 1% 25 MG in NACL 0.9% 250 ML IV SCH (10:00)
[2019-02-05] MEDS: ONDANSETRON 4 MG/2 ML VIAL IM/IVP PRN (10:10)
[2019-02-05] MEDS: DICYCLOMINE HCL LIQUID 10 MG/5 ML UDC PO PRN (10:59)
[2019-02-05 12:00] VITALS: BP 132/78
--- NOTE | 2019-02-05 12:21 | NUR ---
OFFERED PT LUNCH TRAY
--- NOTE | 2019-02-05 14:12 | NUR ---
PT VOIDS 300 YELLOW URINE . BED SHEET CHANGED FOR PT.
[2019-02-05 16:00] VITALS: BP 141/78
[2019-02-05] MEDS: NACL 0.9% 1,000 ML IV SCH (16:13)
--- NOTE | 2019-02-05 17:53 | NUR ---
removed bentyl or pt's abd pain. pt stated he does not want this medication. medication wasted.
--- NOTE | 2019-02-05 18:10 | NUR ---
PT SITTING AT BEDSIDE TO EAT DINNER .
--- NOTE | 2019-02-05 18:45 | NUR ---
MAKING ROUNDS. PT RESTING IN BED. ASKED PT ANY PLAN TO HURT HIMSELF. PT DID NOT ANSWER BUT PT'S MOOD LOOKS DEPRESSED. WILL ENDORSE TO PM NURSE TO CLOSE MONITOR PT.
--- NOTE | 2019-02-05 19:30 | NUR ---
RECEIVED REPORT FROM RAO RN, PT STILL ON 5150 HOLD LAST RENEWED ON 02/04 AT 1920. PT IS ALERT AND ORIENTED X4,NO S/S RESP DISTRESS,NO SOB. PT ON ROOM AIR. PT ABLE TO VERBALIZE ALL HIS NEEDS. PT ON TELEMETRY UNIT FOR SUICIDAL IDEATION. NO EPISODE NOTED AT THIS TIME.SKIN WARM TO TOUCH.PT IS CONTINENT BOWEL AND BLADDER. CAN AMBULATE WITH STANDBY ASSIST D/T HX PARKINSONS. NO C/O PAIN AT THIS TIME GENTLE CARE GIVEN. KEPT CLEAN AND DRY.
[2019-02-05 20:00] VITALS: BP 139/85
--- NOTE | 2019-02-05 20:30 | NUR ---
VITAL SIGNS ARE WITHIN NORMAL LIMITS. ALL CHANA MEDICATIONS GIVEN PER ORDERS. SAFETY MEASURES ARE IN PLACE. PT WITH 1:1 SITTER.
[2019-02-05] MEDS: ATORVASTATIN 20 MG TAB PO SCH (20:31)
[2019-02-05] MEDS: TAMSULOSIN 0.4 MG CAP PO SCH (20:32)
[2019-02-05] MEDS: traZODone 50 MG TAB PO SCH (20:33)
[2019-02-05] MEDS: MELATONIN 3 MG TAB PO PRN (21:44)
--- NOTE | 2019-02-05 21:44 | NUR ---
ADMINISTERED MELATONIN PER REQUEST FOR INSOMNIA. ALL NEEDS MET AT THIS TIME. WILL CONTINUE TO MONITOR.
--- NOTE | 2019-02-05 23:48 | NUR ---
ENDORSED PT TO RAIL BENDER. PT IS IN STABLE CONDITION.
[2019-02-06] VITALS: BP 138/84
[2019-02-06] MEDS ORDERED: MELATONIN 3 MG TAB PO SCH ×2
--- NOTE | 2019-02-06 | NUR ---
RECEIVED REPORT FROM JUNE RENE.PT ASKED FOR SLEEPING PILL.ORDERED MELATONIN 5MG X 1 .I AM WAITING FOR PHARMACY TO VEIFY THAT.HR STILL IS LOW.CONDITION STABLE.
[2019-02-06] MEDS: MORPHINE SULFATE 2 MG/ML SYR IVP PRN (02:17)
--- NOTE | 2019-02-06 03:00 | NUR ---
HAD C/O PAIN MORPHINE IVP GIVEN.WILL REASSESS LATER.
[2019-02-06] MEDS: BISACODYL 10 MG SUPP RC PRN (03:58)
[2019-02-06 04:00] VITALS: BP 140/76
--- NOTE | 2019-02-06 04:15 | NUR ---
HAD C/O CONSTIPATION.DULCOLAX AR GIVEN.HAD SMALL BM.
[2019-02-06] MEDS: PANTOPRAZOLE 40 MG TABEC PO SCH (05:43)
--- NOTE | 2019-02-06 06:54 | NUR ---
HAD C/O ABD.PAIN GAVE HIS PROTONIX EARLIER.
--- NOTE | 2019-02-06 07:17 | NUR ---
RECEIVED REPORT FROM COUNCIL MEMBER NURSE. PT AAOX4, C/O ABD PAIN 10/03, WILL MEDICATE. PT ON CHIEF COMPRESSOR STATION ENGINEER. RESPIRATIONS EVEN AND UNLABORED ON RA. ABD SOFT, ACTIVE BS. SKIN IS INTACT, WARM TO TOUCH. SAFETY MEASURES IN PLACE, 1:1 SITTER AT BEDSIDE, CALL LIGHT WITHIN REACH. REVIEWED POC WITH PT, PT VERBALIZED UNDERSTANDING.
--- NOTE | 2019-02-06 07:30 | NUR ---
NOTIFIED DR. RAUSCH OF PT'S HIGH BLOOD PRESSURE OF 163/86. AWAITING ORDERS. WILL CONTINUE TO MONITOR PT.
[2019-02-06 08:00] VITALS: BP 163/86
[2019-02-06 08:40] LABS: ANION GAP 12.9 (8-16); CARBON DIOXIDE 28.2 mmol/L (21-32); CREATININE 0.7 mg/dL (0.7-1.3); POTASSIUM 3.1 mmol/L (3.5-5.1)
[2019-02-06] MEDS: NACL 0.9% 1,000 ML IV SCH (08:45)
[2019-02-06] MEDS: LISINOPRIL 5 MG TAB PO SCH (08:47)
[2019-02-06] MEDS: LOSARTAN 50 MG TAB PO SCH (08:48)
[2019-02-06] MEDS: LORazepam 1 MG TAB PO SCH ×3 (08:49→16:20)
[2019-02-06] MEDS: ESCITALOPRAM 20 MG TAB PO SCH (08:49)
[2019-02-06] MEDS: ONDANSETRON 4 MG/2 ML VIAL IM/IVP PRN (08:56)
[2019-02-06] MEDS: POLYVINYL ALCOHOL 1.4% OP 15 ML SOL OP SCH ×3 (08:59→16:20)
[2019-02-06] MEDS: FLUTICASONE NASAL 50 MCG/ACTUATION 16 GM BTL NS SCH (08:59)
[2019-02-06] MEDS ORDERED: ALUMINUM HYD/MAG/SIMETHICONE 30 ML UDC PO SCH (09:00)
[2019-02-06] MEDS ORDERED: LACTULOSE 20 GM/30 ML UDC PO SCH (09:00)
[2019-02-06] MEDS ORDERED: DICYCLOMINE HCL LIQUID 10 MG/5 ML UDC PO SCH ×2 (09:00→17:15)
[2019-02-06] MEDS ORDERED: LIDOCAINE VISCOUS 2% 20 ML UDC PO SCH (09:00)
--- NOTE | 2019-02-06 09:00 | NUR ---
DR. RAUSCH AT BEDSIDE, EXPLAINED INDICATIONS AND BENEFITS OF TRAZADONE. PT AGREES, BUT NEEDS REINFORCEMENT. PT STATES "I FEEL MY POO POO COMING"
--- NOTE | 2019-02-06 09:06 | NUR ---
KELY contacted KELY Bailey from [email or web address] regarding if an LINDA with [facility] would be possible [phone]. KELY left Lynn voicemail. KELY will follow up. Addendum: 02/06/19 at 0984 by Donald Paz Lynn from [email or web address] contacted KELY and let KELY know that an LINDA would not be possible. KELY contacted Curtis @ [employer] [phone] and left message. KELY will follow up. Addendum: 02/06/19 at 1338 by Donald Paz KELY was contacted by Lynn from [email or web address]. Per Lynn, KELY is to call [facility], [facility], and [facility] to check bed availability. KELY contacted the following facilities: [facility]: S[facility] [phone]. No beds available. [facility]: S/[facility] [phone]. No beds available. [facility]: Left voicemail with Curtis [phone]. SW/PATRICIA will follow up.
[2019-02-06] MEDS: BACLOFEN 10 MG TAB PO SCH ×2 (09:07→20:32)
[2019-02-06] MEDS: CARBIDOPA/LEVODOPA 25/100 MG 1 TAB PO SCH ×3 (09:07→16:21)
[2019-02-06] MEDS: SUCRALFATE 1 GM TAB PO SCH ×4 (09:07→21:18)
[2019-02-06] MEDS: LIDOCAINE 5% 1 EA PATCH TP SCH (09:08)
[2019-02-06] MEDS ORDERED: POTASSIUM CHLORIDE 40 MEQ, LIDOCAINE MPF 1% 25 MG in NACL 0.9% 250 ML IV SCH (10:30)
--- NOTE | 2019-02-06 11:01 | NUR ---
ADMINISTERED IV POTASSIUM FOR POTASSIUM LEVEL OF 3.1, PT AWARE OF INDICATIONS AND POTENTIAL SIDE EFFECTS. PT WALKED FOR 10 MINUTES INSIDE ROOM TO HELP WITH CONSTIPATION. PT STILL REPORTS ABDOMINAL PAIN AND NO BOWEL MOVEMENT AT THIS TIME, LBM THIS MORNING.
--- NOTE | 2019-02-06 11:50 | NUR ---
[facility] s/w Sheri no beds [facility] s/w [facility] no beds [facility] s[facility] Religious no beds
[2019-02-06 12:00] VITALS: BP 156/95
--- NOTE | 2019-02-06 12:04 | NUR ---
S/W Mary[facility] from [facility]. Took referral information Packet fax to Nirmal Lambert File # [id number] Intake: [phone]
--- NOTE | 2019-02-06 12:20 | NUR ---
PER DR. BRIDGES, PT'S 5150 HOLD DISCONTINUED. NOTIFIED NURSING STAFF. PT HAS NO SIGNS OF DISTRESS AT THIS TIME.
--- NOTE | 2019-02-06 12:33 | NUR ---
P.T. NOTES D/C FROM P.T. AFTER TX, PATIENT MAY AMBULATE AD EDWIN INSIDE ROOM. Addendum: 02/06/19 at 1234 by Analisa Rajan PT Amended: Links added.
--- NOTE | 2019-02-06 14:05 | NUR ---
Head Operator Note: I faxed inquiries to [facility] and [facility].
--- NOTE | 2019-02-06 14:45 | NUR ---
PT IS AWARE AND VERBALIZES UNDERSTANDING THAT WE NEED TO COLLECT URINE SAMPLE FROM HIM. PT STATES, "NOT NOW, I JUST WENT". WILL CONTINUE TO MONITOR.
--- NOTE | 2019-02-06 15:32 | NUR ---
Senior Planner Note: I faxed 's snf order and recent physical therapy notes to [facility] . Addendum: 02/06/19 at 1558 by Lisset Marshall SS I called and spoke with KELY Bailey from [employer] , I informed her of 's snf order. She asked me how many feet patient ambulated recently. I told her 76 feet. She stated I can contact snfs that are contracted with [facility] and once there is an accepting snf, she will give accepting snf authorization. Lynn reported the following companies can be contacted for transportation [employer] , and [employer] , [facility] for transportation [phone]
[2019-02-06 15:41] LABS: APPEARANCE,URINE CLEAR (CLEAR); BILIRUBIN,URINE NEGATIVE (NEGATIVE); BLOOD, URINE NEGATIVE (NEGATIVE); LEUKOCYTE ESTERASE ,URINE NEGATIVE (NEGATIVE); NITRITE, URINE NEGATIVE (NEGATIVE); UGLUCOSE NEGATIVE (NEGATIVE)
[2019-02-06 15:45] LABS: COLOR,URINE STRAW (YELLOW)
[2019-02-06 16:00] VITALS: BP 147/83
--- NOTE | 2019-02-06 16:20 | NUR ---
ADMINISTERED ARTIFICIAL TEARS, CARAFATE, SINEMET AND ATIVAN PER ORDER. PT IS AWARE OF INDICATIONS AND POTENTIAL SIDE EFFECTS.
--- NOTE | 2019-02-06 17:29 | NUR ---
ADMINISTERED BENTYL PER ORDER, PT IS AWARE OF INDICATIONS AND POTENTIAL SIDE EFFECTS.
--- NOTE | 2019-02-06 19:24 | NUR ---
ADMINISTERED ARTIFICIAL TEARS, CARAFATE, SINEMET AND ATIVAN PER ORDER. PT IS AWARE OF INDICATIONS AND POTENTIAL SIDE EFFECTS. Addendum: 02/06/19 at 1929 by Andreina Williamson RN CLARIFICATION: CHARTED WRONG TIME 02/06/19 1620 ADMINISTERED ARTIFICIAL TEARS, CARAFATE, SINEMET AND ATIVAN PER ORDER. PT IS AWARE OF INDICATIONS AND POTENTIAL SIDE EFFECTS. 02/06/191923 SPOKE EXTENSIVELY WITH PT REGARDING TRAZADONE INDICATIONS AND SIDE EFFECTS. DR. BENNETT AT BEDSIDE EXPLAINING THAT TRAZADONE HAS NO KNOWN SIDE EFFECTS OF CAUSING STOMACH PAINS. EXPLAINED TO PT THAT MEDICATIONS WAS PRESCRIBED BY PSYCHIATRIST D/T HIS CONDITION. PT STILL REFUSING. ENDORSED PT TO RESERVE OFFICER NURSE. PT HAS NO SIGNS OF DISTRESS AT THIS TIME.
--- NOTE | 2019-02-06 19:25 | NUR ---
RECEIVED PT ON BED, AAOX4, ABLE TO MAKE NEEDS KNOWN, VITAL SIGNS STABLE, DENIES ANY PAIN, NO SOB NOTED, IVF INFUSING WELL, PLAN OF CARE DISCUSSED, SAFETY MEASURES IN PLACE, MAINTAINED ON CONTACT ISOLATION, FREQUENT ROUNDS MADE.
[2019-02-06 20:00] VITALS: BP 138/78
[2019-02-06] MEDS: DICYCLOMINE HCL LIQUID 10 MG/5 ML UDC PO SCH (20:28)
[2019-02-06] MEDS: TAMSULOSIN 0.4 MG CAP PO SCH (20:32)
[2019-02-06] MEDS: ATORVASTATIN 20 MG TAB PO SCH (20:32)
[2019-02-06] MEDS: traZODone 50 MG TAB PO SCH (20:33)
--- NOTE | 2019-02-06 20:40 | NUR ---
DUE PO MEDICATION ADMINISTERED, ABLE TO CONVINCE TO TAKE DUE TRAZODONE BUT WANTS 50MG ONLY INSTEAD OF 75MG, RISK AND BENEFITS EXPLAINED, ALL NEEDS ATTENDED.
[2019-02-06] MEDS: LACTULOSE 20 GM/30 ML UDC PO SCH (21:00)
--- NOTE | 2019-02-06 21:50 | NUR ---
PT ASSISTED TO BR DUE TO UNSTEADY GAIT, VOIDED FREELY, ASSISTED BACK TO BED, MONITORED CLOSELY.
[2019-02-07] VITALS: BP 138/76
[2019-02-07] MEDS: MELATONIN 3 MG TAB PO PRN (02:04)
[2019-02-07] MEDS: NACL 0.9% 1,000 ML IV SCH (02:12)
--- NOTE | 2019-02-07 02:14 | NUR ---
PT AWAKE, REQUESTING MEDICATION TO HELP HIM GO BACK TO SLEEP, MELATONIN PO GIVEN PRN, MONITORED CLOSELY.
[2019-02-07 04:00] VITALS: BP 151/72
--- NOTE | 2019-02-07 04:10 | NUR ---
PT SLEEPING, EASILY AROUSABLE, VITAL SIGNS STABLE, DENIES ANY PAIN, PT WENT BACK TO SLEEP, MONITORED CLOSELY.
[2019-02-07] MEDS: PANTOPRAZOLE 40 MG TABEC PO SCH (06:10)
--- NOTE | 2019-02-07 06:10 | NUR ---
AM LABS DRAWN, DUE PROTONIX PO GIVEN, TOLERATED WELL, PT WENT BACK TO SLEEP, MONITORED CLOSELY.
--- NOTE | 2019-02-07 07:12 | NUR ---
PT SLEEPING, NO DISTRESS NOTED, REPORT GIVEN TO EDGARD PRASAD FOR CONTINUITY OF CARE.
--- NOTE | 2019-02-07 07:13 | NUR ---
RECEIVED REPORT FROM MANAGER EMPLOYMENT NURSE. PT AROUSABLE TO NAME, ORIENTED X4. NO C/O PAIN, BLOOD PRESSURE ELEVATED, PT TAKES ANTIHYPERTENSIVES. RESPIRATIONS EVEN AND UNLABORED ON RA. IV ON LT FA 22 GA RUNNING IVF PER ORDER. ABD SOFT, ACTIVE BS THROUGHOUT, LBM 10/15. SKIN IS INTACT, WARM TO TOUCH. PT ON FALL RISK PRECAUTIONS, SAFETY MEASURES IN PLACE. REVIEWED POC WITH PT, PT VERBALIZED UNDERSTANDING.
[2019-02-07 08:00] VITALS: BP 151/74
[2019-02-07 08:18] LABS: BASOPHILS % (AUTO) 0.4 % (0.0-2.0); EOSINOPHILS # (AUTO) 0.3 K/uL (0-0.4); EOSINOPHILS % (AUTO) 3.4 % (0.0-4.0); HEMATOCRIT 39.5 % (36-52); HEMOGLOBIN 13.7 g/dL (12.0-18.0); LYMPHOCYTES # (AUTO) 1.3 K/uL (2.0-11.5); LYMPHOCYTES % (AUTO) 17.4 % (20.5-51.1); MAGNESIUM 1.9 mg/dL (1.8-2.4); MEAN CORPUSCULAR HEMOGLOBIN 32 pg (27-31); MEAN CORPUSCULAR HGB CONC 35 g/dL (33-37); MEAN CORPUSCULAR VOLUME 91.1 fL (80-94); MONOCYTES # (AUTO) 0.5 K/uL (0.8-1.0); MONOCYTES % (AUTO) 7.2 % (1.7-9.3); NEUTROPHILS # (AUTO) 5.3 K/uL (1.8-7.7); NEUTROPHILS % (AUTO) 71.6 % (42.2-75.2); PHOSPHORUS 3.8 mg/dL (2.5-4.9); PLATELET COUNT (AUTO) 186 K/uL (140-450); RED BLOOD CELL COUNT(AUTO) 4.33 MIL/uL (4.20-6.10); RED CELL DISTRIBUTION WIDTH 12.9 % (11.6-13.7); WHITE BLOOD COUNT (AUTO) 7.3 K/uL (4.8-10.8)
[2019-02-07 08:23] LABS: ANION GAP 9.7 (8-16); CARBON DIOXIDE 30.6 mmol/L (21-32); CREATININE 0.7 mg/dL (0.7-1.3); POTASSIUM 3.3 mmol/L (3.5-5.1)
[2019-02-07] MEDS: ONDANSETRON 4 MG/2 ML VIAL IM/IVP PRN (09:03)
[2019-02-07] MEDS: LISINOPRIL 5 MG TAB PO SCH (09:06)
[2019-02-07] MEDS: LOSARTAN 50 MG TAB PO SCH (09:07)
[2019-02-07] MEDS: SUCRALFATE 1 GM TAB PO SCH (09:08)
[2019-02-07] MEDS: BACLOFEN 10 MG TAB PO SCH (09:08)
[2019-02-07] MEDS: DICYCLOMINE HCL LIQUID 10 MG/5 ML UDC PO SCH (09:08)
[2019-02-07] MEDS: POLYVINYL ALCOHOL 1.4% OP 15 ML SOL OP SCH (09:10)
[2019-02-07] MEDS: FLUTICASONE NASAL 50 MCG/ACTUATION 16 GM BTL NS SCH (09:10)
[2019-02-07] MEDS: LIDOCAINE 5% 1 EA PATCH TP SCH (09:11)
[2019-02-07] MEDS: LACTULOSE 20 GM/30 ML UDC PO SCH (09:11)
[2019-02-07] MEDS: CARBIDOPA/LEVODOPA 25/100 MG 1 TAB PO SCH (09:12)
[2019-02-07] MEDS: ESCITALOPRAM 20 MG TAB PO SCH (09:12)
--- NOTE | 2019-02-07 09:12 | NUR ---
ADMINISTERED MEDICATION PER ORDER, PT IS AWARE OF INDICATIONS AND POTENTIAL SIDE EFFECTS. PT HAS NO SIGNS OF DISTRESS AT THIS TIME.
[2019-02-07] MEDS ORDERED: LISI-424 PO (09:20)
[2019-02-07] MEDS ORDERED: TRAZ-466 PO (09:20)
[2019-02-07] MEDS ORDERED: BEN10 PO (09:20)
--- NOTE | 2019-02-07 10:24 | NUR ---
Press Machine Operator Note: Eli from [facility] requested recent nurses' notes. I faxed notes to [facility].
--- NOTE | 2019-02-07 10:29 | NUR ---
Dual Hose Cementer Note: Sadiq Benitez from [facility] patient has been accepted and may go to room 33b today, accepting physician is . I spoke with KELY Bailey from [employer] , I informed her patient has been accepted at [facility] and told her plan is to transfer patient to snf today. Lynn reported the following companies can be contacted for transportation [employer] , [employer] , and [employer] , auth for transportation , [facility] Karol made aware.
--- NOTE | 2019-02-07 10:39 | NUR ---
CONTACTED [facility] AT [phone], ABLE TO SPEAK TO DYLLAN. RAG WILLOW OPERATOR WILL BE AT 1130 GOING TO [facility] ROOM [address] UNDER [address] MONDRAGON. PRIMARY RN MADE AWARE.
--- NOTE | 2019-02-07 10:45 | NUR ---
LEFT VOICEMAIL FOR EMILY/COUSIN THAT PATIENT WILL BE TRANSFERRED TO [facility], GIVEN HOSPITAL NUMBER.
[2019-02-07] MEDS ORDERED: LORazepam 1 MG TAB PO SCH ×2 (11:00→13:00)
--- NOTE | 2019-02-07 11:14 | NUR ---
ADMINISTERED ATIVAN PER ORDER, PT HAS SOME FEELINGS OF ANXIETY D/T TRANSFERRING FACILITIES. WILL ENDORSE TO NURSE AT [facility].
--- NOTE | 2019-02-07 11:20 | NUR ---
GIVEN REPORT TO EDGARD RAMIREZ. ALL QUESTIONS ANSWERED AND CLARIFIED. GIVEN HOSPITAL NUMBER IN CASE OF FURTHER QUESTIONS.
--- NOTE | 2019-02-07 11:30 | NUR ---
PT HAS BEEN DISCHARGED FOR TRANSFER TO [facility] UNDER DR. MONDRAGON. ALL PAPERWORK SIGNED, ALL QUESTIONS ANSWERED. ALL BELONGINGS IN PT POSSESSION. IV DISCONTINUED WITH CANNULA INTACT. WRISTBANDS AND TELE MONITOR REMOVED. PT WAS TRANSPORTED OUT OF UNIT VIA WHEELCHAIR WITH [facility] AT SIDE. PATIENT IS IN STABLE CONDITION. PER DR. RAUSCH, DISCHARGE SUMMARY WILL BE FAXED TO [facility].
== END 2019-02-07 11:30 | DRG 388 ==
LOC: MED 11:27 → MTU 18:11
PROVIDERS: ADMIT General Practice; ATTEND General Practice
DX: K56.41 Fecal impaction (principal); E43 Unspecified severe protein-calorie malnutrition; F32.2 Major depressive disorder, single episode, severe without psychotic features; G93.40 Encephalopathy, unspecified; R45.851 Suicidal ideations; G20 Parkinson's disease; G47.00 Insomnia, unspecified; K21.9 Gastro-esophageal reflux disease without esophagitis; I10 Essential (primary) hypertension; E78.5 Hyperlipidemia, unspecified; G89.29 Other chronic pain; N40.0 Benign prostatic hyperplasia without lower urinary tract symptoms; M19.90 Unspecified osteoarthritis, unspecified site; G40.909 Epilepsy, unspecified, not intractable, without status epilepticus; E87.6 Hypokalemia; E83.42 Hypomagnesemia; T44.7X5A Adverse effect of beta-adrenoreceptor antagonists, initial encounter; F41.1 Generalized anxiety disorder; Y92.89 Other specified places as the place of occurrence of the external cause; Z68.28 Body mass index [BMI] 28.0-28.9, adult; Z79.899 Other long term (current) drug therapy; Z88.8 Allergy status to other drugs, medicaments and biological substances
CPT/HCPCS: 36415; 71045; 74018; 76700; 80048; 80053; 80305; 81003; 82150; 82550; 82553; 83036; 83690; 83735; 83880; 84100; 84134; 84439; 84443; 84484; 85025; 85610; 85730; 87081; 92610; 93005; 97110; 97116; 97161-GP; 97530; 99285; G0480; G0482; J2001; J2060; J2270; J2405; J3475; J3480; J7030; Q0092; Q0163; Q0177

== ENCOUNTER 2019-03-31 08:21 | Emergency (ER) | payer OTHER, MEDICAID ==
[~2019-03-31] VITALS: Ht 175.3 cm; Wt 83.9 kg
[~2019-03-31 08:21] MED LIST: ATOR40TA PO; BACL10TA4 PO; BEN10 PO; CARB1TAB37 PO; DICL1GEL19 TP; DOCU-299 PO; ESCI20TA PO; FLONAS NS; LACT10SO11 PO; LID5T TP; LISI-424 PO; LORA-476 PO; LOSA100T1 PO; OMEG1CAP26 PO; OMEP40EC24 PO; SUCR1TAB35 PO; TAMS0.4C96 PO; TRAZ-466 PO; ZONI25CA2 PO
--- NOTE | 2019-03-31 08:22 | NUR ---
PATIENT TO BED 4 BY EMS.
--- NOTE | 2019-03-31 08:27 | NUR ---
PT BIBA BLS C/O SLEEPINESS AND SOME ANXIETY X 2-3 WEEKS. PER PT, TRAZADONE DOSAGE ISNT WORKING BUT HIS ATIVAN HAS BEEN WORKING. PT AMBULATORY WITH STEADY GAIT. PT ALERT AND AWAKE. VS STABLE. PMH- SEE PTS CHART
[2019-03-31 08:35] VITALS: BP 151/95
--- NOTE | 2019-03-31 08:37 | NUR ---
DR ALLRED AT BEDSIDE
[2019-03-31] MEDS ORDERED: ONDANSETRON 4 MG TAB ONE (08:43)
[2019-03-31] MEDS ORDERED: LORazepam 2 MG/ML VIAL ONE (08:44)
--- NOTE | 2019-03-31 08:44 | NUR ---
ATIVAN IM ADMINISTERED TO PTS L DELTOID AND ZOFRAN PO ADMINISTERED. PT TOLERATED WELL.
--- NOTE | 2019-03-31 08:45 | NUR ---
15 MIN ETA FOR PTS RIDE BACK TO FACILITY
--- NOTE | 2019-03-31 08:57 | NUR ---
CALLED [facility] AND GAVE REPORT TO NITZA
--- NOTE | 2019-03-31 09:03 | NUR ---
NADR, PAIN 0/10
--- NOTE | 2019-03-31 09:04 | NUR ---
TRANSPORT BACK TO FACILITY HERE TO PICK PT UP AND TAKE TO [facility]. PT DISCHARGED AND SENT HOME WITH PAPERWORK REGARDING SOCIAL ANXIETY DISORDER. INSTRUCTED TO SPEAK WITH PCP IN REGARDS TO CHANGING TRAZADONE DOSAGE. PT AMBULATORY WITH STEADY GAIT
== END 2019-03-31 09:04 | disposition home or self-care (01) ==
LOC: EDUNIT# 08:21 → MED 08:21
DX: F41.9 Anxiety disorder, unspecified (principal); R11.2 Nausea with vomiting, unspecified; E78.5 Hyperlipidemia, unspecified; F32.9 Major depressive disorder, single episode, unspecified; Z79.899 Other long term (current) drug therapy; Z88.5 Allergy status to narcotic agent; Z88.6 Allergy status to analgesic agent; Z88.8 Allergy status to other drugs, medicaments and biological substances
CPT/HCPCS: 99284; J2060; Q0162

== ENCOUNTER 2019-04-01 17:18 | Emergency (ER) | payer OTHER, MEDICAID ==
[~2019-04-01] VITALS: Ht 175.3 cm; Wt 79.4 kg
[2019-04-01 17:20] VITALS: BP 162/101
--- NOTE | 2019-04-01 17:28 | NUR ---
Patient MARIA FERNANDA CEDILLO from [facility], transferred to bed 9. RN evaluating patient at bedside.
--- NOTE | 2019-04-01 17:35 | NUR ---
BIBA W C/O ABD PAIN AND BLOOD IN STOOL STARTING TODAY. PT DENIES N/V/D/FEVER. PT ABD ROUND, SOFT, NON TENDER TO PALPATION. LBM TODAY WITH BRIGHT RED BLOOD PER PT. BOWEL SOUNDS PRESENT X4. PT HAS VISIBLE EXTERNAL HEMMORHOIDS. PT ALSO REPORTS ANXIETY AND IS REQUESTING ATIVAN. BED IN LOW POSITION, SIDE RAIL UP X1.
--- NOTE | 2019-04-01 17:40 | NUR ---
Dr. Aguilar is evaluating the patient at bedside.
[2019-04-01] MEDS ORDERED: LORazepam 1 MG TAB PO ONE (17:50)
[2019-04-01 18:25] LABS: BASOPHILS % (AUTO) 0.5 % (0.0-2.0); EOSINOPHILS # (AUTO) 0.1 K/uL (0-0.4); EOSINOPHILS % (AUTO) 2.5 % (0.0-4.0); HEMATOCRIT 41.6 % (36-52); HEMOGLOBIN 14.1 g/dL (12.0-18.0); LYMPHOCYTES # (AUTO) 0.9 K/uL (2.0-11.5); LYMPHOCYTES % (AUTO) 15.8 % (20.5-51.1); MEAN CORPUSCULAR HEMOGLOBIN 30 pg (27-31); MEAN CORPUSCULAR HGB CONC 34 g/dL (33-37); MEAN CORPUSCULAR VOLUME 88.8 fL (80-94); MONOCYTES # (AUTO) 0.4 K/uL (0.8-1.0); MONOCYTES % (AUTO) 6.4 % (1.7-9.3); NEUTROPHILS # (AUTO) 4.4 K/uL (1.8-7.7); NEUTROPHILS % (AUTO) 74.8 % (42.2-75.2); PLATELET COUNT (AUTO) 182 K/uL (140-450); RED BLOOD CELL COUNT(AUTO) 4.69 MIL/uL (4.20-6.10); RED CELL DISTRIBUTION WIDTH 13.1 % (11.6-13.7); WHITE BLOOD COUNT (AUTO) 5.8 K/uL (4.8-10.8)
--- NOTE | 2019-04-01 18:30 | NUR ---
PT RESTING IN BED COMFORTABLY.
[2019-04-01 18:41] LABS: ANION GAP 10.2 (8-16); CARBON DIOXIDE 29.5 mmol/L (21-32); CREATININE 0.8 mg/dL (0.7-1.3); POTASSIUM 3.7 mmol/L (3.5-5.1); PROTHROMBIN TIME 10.7 secs (10.8-13.4)
[2019-04-01 18:47] LABS: ALBUMIN 3.6 g/dL (3.4-5.0); TOTAL BILIRUBIN 0.6 mg/dL (0.0-1.0)
[2019-04-01] MEDS ORDERED: cloNIDine 0.1 MG TAB PO ONE (19:00)
--- NOTE | 2019-04-01 19:20 | NUR ---
RECEIVED REPORT FROM RAYMUNDO RENE.
--- NOTE | 2019-04-01 20:30 | NUR ---
PT SITTING UPRIGHT IN BED IN MODERATE NY'S WITH VSS AND BREATHING EVEN, UNLABORED. RESTING WITH EYES CLOSED. AROUSABLE TO VERBAL STIMULI. PT REPORTS 7/10 ABD PAIN AND STATES HE IS STILL FEELING ANXOUS.
--- NOTE | 2019-04-01 20:35 | NUR ---
NOTIFIED DR. GRISSOM OF UPDATED BP: 185/94. ALSO MADE AWARE THAT PT IS REPORTING 7/10 ABD PAIN AND NO RELIEF FROM ANXIETY. STATES HE WILL SEND PT HOME WITH RX. NO NEW ORDERS RECIEVED.
--- NOTE | 2019-04-01 21:25 | NUR ---
CALLED [facility] TO GIVE REPORT TO MICKY ON PT'S DISCHARGE INSTRCTIONS AND TO ARRANGE TRANSPORTATION. PER MICKY, PT'S CAREGIVER WILL COME TO PICK PT UP WITH [facility].
[2019-04-01 21:36] VITALS: BP 185/94
--- NOTE | 2019-04-01 21:36 | NUR ---
Patient discharged with v/s stable. Written and verbal after care instructions ABOUT HEMORRHOIDS AND CONSTIPATION given and explained. Patient alert, oriented and verbalized understanding of instructions. Wheel chair assisted to lobby by RN. 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 All questions addressed prior to discharge. ID band removed. Patient advised to follow up with PMD. Rx of COLACE AND ANUSOL given. Patient educated on indication of medication including possible reaction and side effects. Opportunity to ask questions provided and answered.
--- NOTE | 2019-04-01 21:45 | NUR ---
PT TAKEN BY CAREGIVER VIA WC TO [facility].
== END 2019-04-01 21:36 | disposition home or self-care (01) ==
LOC: EDUNIT# 17:18 → MED 17:18
DX: K64.4 Residual hemorrhoidal skin tags (principal); F41.9 Anxiety disorder, unspecified; I10 Essential (primary) hypertension; E11.9 Type 2 diabetes mellitus without complications; G20 Parkinson's disease; Z79.899 Other long term (current) drug therapy; Z88.5 Allergy status to narcotic agent; Z88.6 Allergy status to analgesic agent; Z88.8 Allergy status to other drugs, medicaments and biological substances
CPT/HCPCS: 36415; 80053; 85025; 85610; 86886; 86900; 86901; 99284

== ENCOUNTER 2019-04-02 10:12 | Emergency (ER) | payer OTHER, MEDICAID ==
[~2019-04-02] VITALS: Ht 175.3 cm; Wt 86.2 kg
--- NOTE | 2019-04-02 10:12 | NUR ---
PT BIBA BLS TO ER BED 11
[2019-04-02 10:13] VITALS: BP 165/105
--- NOTE | 2019-04-02 10:22 | NUR ---
63 y/o male biba presenting with c/c of abdominal pain 02/02, per pt was here at [facility] for rectal bleeding yesterday, denies having bleeding today. Pt with allergies to tylenol, naproxen, maprotolline. Medical hx of htn, depression, anxiety, parkinsons. Pt takes meds on reg basis, paperwork from facility provided and on chart. bowel sounds normoactive, Denies n/v/d. side rail x1.
[2019-04-02] MEDS ORDERED: NACL 0.9% 1,000 ML IV ONE (10:32)
[2019-04-02] MEDS ORDERED: LORazepam 2 MG/ML VIAL IVP ONE (10:35)
--- NOTE | 2019-04-02 10:51 | NUR ---
pt taken to ct via wheelchair
--- NOTE | 2019-04-02 11:05 | NUR ---
PT RETURNED FROM CT, BED RAIL UP X1.
--- NOTE | 2019-04-02 11:14 | NUR ---
patient back from ct via wheelchair
--- NOTE | 2019-04-02 11:15 | NUR ---
lab at bedside
[2019-04-02 11:22] LABS: BASOPHILS % (AUTO) 0.6 % (0.0-2.0); EOSINOPHILS # (AUTO) 0.2 K/uL (0-0.4); EOSINOPHILS % (AUTO) 3.3 % (0.0-4.0); HEMATOCRIT 42.9 % (36-52); HEMOGLOBIN 14.3 g/dL (12.0-18.0); LYMPHOCYTES # (AUTO) 0.8 K/uL (2.0-11.5); MEAN CORPUSCULAR HEMOGLOBIN 30 pg (27-31); MEAN CORPUSCULAR HGB CONC 33 g/dL (33-37); MONOCYTES # (AUTO) 0.5 K/uL (0.8-1.0); MONOCYTES % (AUTO) 8.4 % (1.7-9.3); NEUTROPHILS % (AUTO) 73.7 % (42.2-75.2); PLATELET COUNT (AUTO) 189 K/uL (140-450); RED BLOOD CELL COUNT(AUTO) 4.82 MIL/uL (4.20-6.10); RED CELL DISTRIBUTION WIDTH 12.7 % (11.6-13.7); WHITE BLOOD COUNT (AUTO) 5.4 K/uL (4.8-10.8)
[2019-04-02 11:29] LABS: APPEARANCE,URINE CLEAR (CLEAR); BILIRUBIN,URINE NEGATIVE (NEGATIVE); BLOOD, URINE NEGATIVE (NEGATIVE); COLOR,URINE YELLOW (YELLOW); LEUKOCYTE ESTERASE ,URINE NEGATIVE (NEGATIVE); NITRITE, URINE NEGATIVE (NEGATIVE); PH,URINE 7.5 (5.0-9.0); UGLUCOSE NEGATIVE (NEGATIVE)
[2019-04-02 11:32] LABS: RBC,URINE 0-5 /HPF (0-5); WBC,URINE 0-5 /HPF (0-5)
[2019-04-02 11:44] LABS: PROTHROMBIN TIME 10.6 secs (10.8-13.4)
[2019-04-02 11:46] LABS: ANION GAP 13.3 (8-16); CARBON DIOXIDE 28.4 mmol/L (21-32); CREATININE 0.7 mg/dL (0.7-1.3); POTASSIUM 3.7 mmol/L (3.5-5.1)
[2019-04-02 11:51] LABS: ALBUMIN 3.8 g/dL (3.4-5.0); TOTAL BILIRUBIN 0.6 mg/dL (0.0-1.0)
--- NOTE | 2019-04-02 12:30 | NUR ---
PT RESTING IN BED COMFORTABLY. VSS. WILL CONTINUE TO MONITOR.
--- NOTE | 2019-04-02 16:58 | NUR ---
Pt BP 185/103, HR 54, reports 8/10 diffuse abd pain. Pt denies CP, SOB, headache, n/v. Dr. Mann made aware. Per Dr. Mann, pt can take otc ibuprofen and tylenol at home, rx ativan to be given. Pt made aware.
[2019-04-02 17:08] VITALS: BP 185/103
--- NOTE | 2019-04-02 17:08 | NUR ---
Patient discharged with v/s stable. Written and verbal after care instructions given and explained. Patient alert, oriented and verbalized understanding of instructions. Wheel Chair Assisted with [facility] to [facility]. All questions addressed prior to discharge. ID band removed. Patient advised to follow up with PMD. Rx of Lorazepam 1mg PO given. Patient educated on indication of medication including possible reaction and side effects. Opportunity to ask questions provided and answered.
== END 2019-04-02 17:08 | disposition home or self-care (01) ==
LOC: EDUNIT# 10:12 → MED 10:12
DX: G89.29 Other chronic pain (principal); F41.0 Panic disorder [episodic paroxysmal anxiety]; K42.9 Umbilical hernia without obstruction or gangrene; E11.9 Type 2 diabetes mellitus without complications; I10 Essential (primary) hypertension; G20 Parkinson's disease; Z79.899 Other long term (current) drug therapy; Z88.6 Allergy status to analgesic agent; Z88.5 Allergy status to narcotic agent; Z88.8 Allergy status to other drugs, medicaments and biological substances
CPT/HCPCS: 36415; 74176; 80053; 81001; 82150; 83690; 84484; 85025; 85610; 85730; 96361; 96374; 99284; J2060

== ENCOUNTER 2019-04-06 15:16 | Emergency (ER) | payer OTHER, MEDICAID ==
[~2019-04-06] VITALS: Ht 175.3 cm; Wt 85.5 kg
[2019-04-06 15:19] VITALS: BP 178/103
[2019-04-06] MEDS: LORazepam 2 MG/ML VIAL IM ONE (15:28)
--- NOTE | 2019-04-06 16:00 | NUR ---
PT CAME HERE OFTEN WITH CO ANXIETY ATTACH. CO UNABILITY TO FALL IN ASLEEP. NO FURHTER CO. PT WAS A/OX3. SPEAKS FULL SENTENCES, FOLLOWS COMMAND, DENIES DIAZ AND DIZZINESS. NO SOB. BREATHING EVEN.
[2019-04-06] MEDS ORDERED: KETOROLAC 30 MG/ML VIAL ONE (16:14)
--- NOTE | 2019-04-06 16:40 | NUR ---
PT WAS D/C'D BUT NO TRASPOTATION WAS CONFIRMED YET.
--- NOTE | 2019-04-06 18:50 | NUR ---
DINNER OFFERED TO PT. PT ATE WELL.
--- NOTE | 2019-04-06 19:09 | NUR ---
RECEIVED REPORT FROM EDGARD GUERRERO. TRANSFER OF CARE AT THIS TIME.
--- NOTE | 2019-04-06 19:37 | NUR ---
PT CALM AND RESTING IN BED. PT DENIES ANXIETY AT THIS TIME. VSS. WILL CONTINUE TO MONITOR.
--- NOTE | 2019-04-06 19:46 | NUR ---
PT C/O ABD PAIN. DR LANDA MADE AWARE.
--- NOTE | 2019-04-06 20:02 | NUR ---
Patient discharged with v/s stable. Written and verbal after care instructions given and explained. Patient verbalized understanding. Ambulance Transport with to senior care. All questions addressed prior to discharge. Advised to follow up with PMD.
--- NOTE | 2019-04-06 20:02 | NUR ---
TRANSPORT AT BEDSIDE. PT MADE AWARE THAT HE COULD RECEIVE MEDICATION FOR STOMACH AT FACILITY PER MD.
[2019-04-06 20:03] VITALS: BP 162/98
== END 2019-04-06 20:02 | disposition home or self-care (01) ==
LOC: MERGE 15:16 → MED 15:16
DX: F41.9 Anxiety disorder, unspecified (principal); Z79.899 Other long term (current) drug therapy; Z88.6 Allergy status to analgesic agent; Z88.5 Allergy status to narcotic agent; Z88.8 Allergy status to other drugs, medicaments and biological substances
CPT/HCPCS: 96372; 99284; J1885; J2060

== ENCOUNTER 2019-04-07 23:32 | Emergency (ER) | payer OTHER, MEDICAID ==
[~2019-04-07] VITALS: Ht 182.9 cm; Wt 81.6 kg
[2019-04-07 23:33] VITALS: BP 148/91
--- NOTE | 2019-04-07 23:40 | NUR ---
PT MARIA FERNANDA CEDILLO FROM [facility] C/O ANXIETY AND SOB. PT STATES HIS MD INCREASED DOSE OF TRAZADONE AND HE INSTANTLY FELT "CRAZY" AFTER TAKING MEDICATION. PT STATES SORE THROAT AND DRY COUGH. RR EVEN AND UNLABORED, NO ACCESSORY MUSCLE USE. 10/10 RT POINTER FINGER PAIN, NO DEFORMITIES NOTED. PT POSITIONED IN BED FOR COMFORT. BED LOCKED AND IN LOW POSITION, X2 SIDE RAILS RAISED. VSS. PT PLACED ON MONITOR. MEDHX: DEPRESSION, HTN, GERD, OA, SEIZURES, ANXIETY, PARKINSONS
--- NOTE | 2019-04-07 23:40 | NUR ---
Patient being evaluated by physician at bedside.
[2019-04-08] MEDS: NACL 0.9% 500 ML IV ONE (00:10)
[2019-04-08] MEDS: ASPIRIN 81 MG TAB.CHEW PO ONE (00:10)
[2019-04-08] MEDS: LORazepam 2 MG/ML VIAL IVP ONE (00:11)
[2019-04-08 00:18] LABS: BASOPHILS % (AUTO) 0.5 % (0.0-2.0); EOSINOPHILS # (AUTO) 0.2 K/uL (0-0.4); EOSINOPHILS % (AUTO) 2.9 % (0.0-4.0); HEMATOCRIT 41.6 % (36-52); HEMOGLOBIN 13.9 g/dL (12.0-18.0); LYMPHOCYTES # (AUTO) 1.1 K/uL (2.0-11.5); LYMPHOCYTES % (AUTO) 19.7 % (20.5-51.1); MEAN CORPUSCULAR HEMOGLOBIN 30 pg (27-31); MEAN CORPUSCULAR HGB CONC 34 g/dL (33-37); MEAN CORPUSCULAR VOLUME 88.7 fL (80-94); MONOCYTES # (AUTO) 0.4 K/uL (0.8-1.0); MONOCYTES % (AUTO) 7.9 % (1.7-9.3); NEUTROPHILS # (AUTO) 3.7 K/uL (1.8-7.7); PLATELET COUNT (AUTO) 197 K/uL (140-450); RED BLOOD CELL COUNT(AUTO) 4.69 MIL/uL (4.20-6.10); RED CELL DISTRIBUTION WIDTH 13.3 % (11.6-13.7); WHITE BLOOD COUNT (AUTO) 5.3 K/uL (4.8-10.8)
[2019-04-08 00:32] LABS: ANION GAP 13.4 (8-16); CREATININE 0.8 mg/dL (0.7-1.3); POTASSIUM 3.4 mmol/L (3.5-5.1)
[2019-04-08 00:38] LABS: ALBUMIN 3.7 g/dL (3.4-5.0); TOTAL BILIRUBIN 0.7 mg/dL (0.0-1.0)
--- NOTE | 2019-04-08 00:55 | NUR ---
PT RESTING IN BED WITH EYES CLOSED, VISIBLE RISE AND FALL OF THE CHEST. PT POSITIONED FOR COMFORT. BED LOCKED AND IN LOW POSITION, X2 SIDE RAILS RAISED. VSS. WILL CONTINUE TO MONITOR.
--- NOTE | 2019-04-08 01:30 | NUR ---
CALLED FAMILY MEMBER OF PT TO TRY TO ARRANGE FOR TRANSPORT. NO ANSWER, NOT AVAILABLE TO LEAVE MESSAGE.
--- NOTE | 2019-04-08 02:28 | NUR ---
PT LAYING IN BED WITH EYES CLOSED, AROUSABLE TO NAME. RR EVEN AND UNLABORED. NO COMPLAIN OF PAIN AT THIS TIME. PT REMAINS ON THE MONITOR. VSS. WILL CONTINUE TO MONITOR.
--- NOTE | 2019-04-08 03:21 | NUR ---
VISIBLE RISE AND FALL OF THE CHEST. RR EVEN AND UNLABORED. PT APPEARS TO BE IN NO DISTRESS. PT REMAINS ON MONITOR. VSS. WILL CONTINUE TO MONITOR.
--- NOTE | 2019-04-08 04:30 | NUR ---
PT AROUSABLE TO NAME, DENIES PAIN AT THIS TIME. PT CALM AND PLEASANT. STATES "I JUST WANT TO SLEEP". VSS. WILL CONTINUE TO MONITOR.
[2019-04-08 05:17] VITALS: BP 134/76
--- NOTE | 2019-04-08 05:17 | NUR ---
[facility] AT BEDSIDE TO TRANSFER PT BACK TO [facility]
--- NOTE | 2019-04-08 05:18 | NUR ---
Patient discharged with v/s stable. Written and verbal after care instructions given and explained. Patient verbalized understanding. Wheel Chair Assisted with to car. All questions addressed prior to discharge. Advised to follow up with PMD. PT TAKEN BACK TO FACILITY [facility]IA [facility].
--- NOTE | 2019-04-08 05:20 | NUR ---
ATTEMPTED TO REACH [facility] TO INFORM THEM THAT PT IS BEING TRANSPORTED BACK TO FACILITY, NO ANSWER AT THIS TIME.
== END 2019-04-08 05:17 ==
LOC: MED 23:32 → MERGE 23:32 → MED 04-08 05:17
DX: F41.9 Anxiety disorder, unspecified (principal); F32.9 Major depressive disorder, single episode, unspecified; G20 Parkinson's disease; I10 Essential (primary) hypertension; Z88.6 Allergy status to analgesic agent; Z88.8 Allergy status to other drugs, medicaments and biological substances
CPT/HCPCS: 36415; 71045; 80053; 84484; 85025; 93005; 96374; 99284; J2060; Q0092

== ENCOUNTER 2019-04-22 09:25 | Emergency (ER) | payer OTHER, MEDICAID ==
[~2019-04-22] VITALS: Ht 175.3 cm; Wt 83.9 kg
--- NOTE | 2019-04-22 09:25 | NUR ---
Patient BIBA BLS, transferred to bed 3. RN evaluating patient at bedside.
[2019-04-22 09:43] VITALS: BP 141/87
--- NOTE | 2019-04-22 09:45 | NUR ---
SAMMariela FROM [facility] C/O INTERMITENT GENERALIZED ABDOMINAL PAIN X 1 DAY. SMALL YELLOW BRUISE RIGHT MID ABDOMEN. ADDOMEN SOFT. PHX: PARKINSON, GERD, HTN, BPH, ANXIETY, DEPRESSION. PER EMS:WAS GIVEN LORAZEPAM AT 8 AM TODAY. PATIENT STATES PAIN OF 10/10 AT THIS TIME. PATIENT POSITIONED FOR COMFORT; HOB ELEVATED; BEDRAILS UP X2; BED DOWN. ER MD MADE AWARE OF PT STATUS.
--- NOTE | 2019-04-22 10:22 | NUR ---
Dr. Mann is evaluating the patient at bedside.
[2019-04-22] MEDS ORDERED: NACL 0.9% 1,000 ML IV ONE (10:31)
[2019-04-22] MEDS ORDERED: NACL 0.9% 1,500 ML IV SCH (10:31)
[2019-04-22] MEDS ORDERED: LORazepam 2 MG/ML VIAL IVP ONE (10:35)
[2019-04-22] MEDS ORDERED: POLY15SO48 OP (10:39)
[2019-04-22] MEDS ORDERED: BUS5 PO (10:39)
[2019-04-22] MEDS ORDERED: ONDA4TAB PO (10:39)
[2019-04-22] MEDS ORDERED: BACL10TA4 PO (10:39)
[2019-04-22] MEDS ORDERED: LACT10SO1 PO (10:39)
[2019-04-22] MEDS ORDERED: DOCU-299 PO (10:39)
[2019-04-22] MEDS ORDERED: SERT25TA PO (10:39)
[2019-04-22] MEDS ORDERED: [UNRECOGNIZED DRUG - CODE] PO (10:39)
[2019-04-22] MEDS ORDERED: MAG-27 PO (10:39)
[2019-04-22] MEDS ORDERED: MELA3TAB56 PO (10:39)
[2019-04-22] MEDS ORDERED: ZOLP5TAB1 PO (10:39)
[2019-04-22] MEDS ORDERED: HYDR25CA1 PO (10:39)
[2019-04-22] MEDS ORDERED: SUCR1TAB35 PO (10:39)
[2019-04-22] MEDS ORDERED: ANUSOL HC TP (10:41)
[2019-04-22 10:56] LABS: APPEARANCE,URINE SL CLOUDY (CLEAR); BILIRUBIN,URINE NEGATIVE (NEGATIVE); BLOOD, URINE NEGATIVE (NEGATIVE); COLOR,URINE YELLOW (YELLOW); LEUKOCYTE ESTERASE ,URINE NEGATIVE (NEGATIVE); NITRITE, URINE NEGATIVE (NEGATIVE); UGLUCOSE NEGATIVE (NEGATIVE)
[2019-04-22 11:05] LABS: BASOPHILS % (AUTO) 0.4 % (0.0-2.0); EOSINOPHILS # (AUTO) 0.1 K/uL (0-0.4); EOSINOPHILS % (AUTO) 1.6 % (0.0-4.0); HEMATOCRIT 43.7 % (36-52); HEMOGLOBIN 14.9 g/dL (12.0-18.0); LYMPHOCYTES # (AUTO) 0.7 K/uL (2.0-11.5); MEAN CORPUSCULAR HEMOGLOBIN 30 pg (27-31); MEAN CORPUSCULAR HGB CONC 34 g/dL (33-37); MEAN CORPUSCULAR VOLUME 87.4 fL (80-94); MONOCYTES # (AUTO) 0.3 K/uL (0.8-1.0); MONOCYTES % (AUTO) 5.9 % (1.7-9.3); NEUTROPHILS # (AUTO) 3.6 K/uL (1.8-7.7); NEUTROPHILS % (AUTO) 77.1 % (42.2-75.2); PLATELET COUNT (AUTO) 201 K/uL (140-450); RED CELL DISTRIBUTION WIDTH 13.1 % (11.6-13.7); WHITE BLOOD COUNT (AUTO) 4.6 K/uL (4.8-10.8)
[2019-04-22 11:10] LABS: PROTHROMBIN TIME 10.5 secs (10.8-13.4)
[2019-04-22 11:12] LABS: ANION GAP 8.3 (8-16); CARBON DIOXIDE 30.4 mmol/L (21-32); CREATININE 0.8 mg/dL (0.7-1.3); POTASSIUM 3.7 mmol/L (3.5-5.1)
[2019-04-22 11:18] LABS: ALBUMIN 3.9 g/dL (3.4-5.0); TOTAL BILIRUBIN 0.6 mg/dL (0.0-1.0)
[2019-04-22 11:19] LABS: RBC,URINE 0-5 /HPF (0-5); WBC,URINE 0-5 /HPF (0-5)
--- NOTE | 2019-04-22 11:25 | NUR ---
Pt noted resting, eyes closed, relaxed, no longer restless or shaking. Pt appears comfortable. Arousable to verbal stimuli. VSS.
--- NOTE | 2019-04-22 11:38 | NUR ---
Pt taken to CT via rfinesse.
--- NOTE | 2019-04-22 11:51 | NUR ---
Patient returned from CT and placed back in bed 3.
[2019-04-22] MEDS ORDERED: METOCLOPRAMIDE 10 MG/2 ML INJ VIAL IVP ONE (13:45)
[2019-04-22] MEDS ORDERED: PROMETHAZINE 25 MG/ML VIAL IM ONE (13:45)
[2019-04-22] MEDS ORDERED: diphenhydrAMINE 50 MG/ML VIAL IVP ONE (13:45)
[2019-04-22] MEDS ORDERED: GLYCOPYRROLATE 0.2 MG/ML VIAL IV ONE (13:45)
--- NOTE | 2019-04-22 15:49 | NUR ---
.WAIT FOR TRANSPORTATION AT 1900 PM .
--- NOTE | 2019-04-22 15:51 | NUR ---
FOOD TRAY PROVIDED FOR PATIENT AT THIS TIME.
--- NOTE | 2019-04-22 19:10 | NUR ---
Roberto kiser in ED - 04/22/19 at 1911 by [facility] Pt report given to AMINA RENE. Transfer of care at this time.
--- NOTE | 2019-04-22 19:11 | NUR ---
Pt report given to ROLAND RENE. Transfer of care at this time.
--- NOTE | 2019-04-22 19:13 | NUR ---
REPORT RECEIVED FROM EDGARD BARNETT. TRANSFER OF CARE AT THIS TIME.
--- NOTE | 2019-04-22 19:26 | NUR ---
AMBULATED TO WITH SLOW, STEADY, UPRIGHT GAIT.
--- NOTE | 2019-04-22 19:41 | NUR ---
[facility] AT BEDSIDE
[2019-04-22 19:45] VITALS: BP 133/85
--- NOTE | 2019-04-22 19:45 | NUR ---
PT TAKEN BY [facility] TO [facility]
--- NOTE | 2019-04-22 19:45 | NUR ---
Patient discharged with v/s stable. Written and verbal after care instructions given and explained. Patient alert, oriented and verbalized understanding of instructions. Wheel Chair Assisted with [facility] to [facility]. All questions addressed prior to discharge. ID band removed. Patient advised to follow up with PMD. Rx of Haloperidol given. Patient educated on indication of medication including possible reaction and side effects. Opportunity to ask questions provided and answered.
== END 2019-04-22 19:45 | disposition home or self-care (01) ==
LOC: MED 09:25
DX: G89.29 Other chronic pain (principal); R10.84 Generalized abdominal pain; F41.9 Anxiety disorder, unspecified; F41.0 Panic disorder [episodic paroxysmal anxiety]; K21.9 Gastro-esophageal reflux disease without esophagitis; I10 Essential (primary) hypertension; Z88.6 Allergy status to analgesic agent; Z88.5 Allergy status to narcotic agent; Z88.8 Allergy status to other drugs, medicaments and biological substances; Z79.899 Other long term (current) drug therapy
CPT/HCPCS: 36415; 71045; 74176; 80053; 81001; 82150; 83605; 83690; 84484; 85025; 85610; 85730; 93005; 96372; 96374; 96375; 99284; J1200; J2060; J2550; J2765; J3490; Q0092

== ENCOUNTER 2019-04-24 05:08 | Emergency (ER) | payer OTHER, MEDICAID ==
[~2019-04-24] VITALS: Ht 167.6 cm; Wt 81.6 kg
[2019-04-24 05:08] VITALS: BP 169/96
[~2019-04-24 05:08] MED LIST changes: +ANUSOL HC TP; -BEN10 PO; +BUS5 PO; -ESCI20TA PO; +HYDR25CA1 PO; +LACT10SO1 PO; -LACT10SO11 PO; -LID5T TP; -LISI-424 PO; +MAG-27 PO; +MELA3TAB56 PO; -OMEG1CAP26 PO; -OMEP40EC24 PO; +ONDA4TAB PO; +POLY15SO48 OP; +SERT25TA PO; -TRAZ-466 PO; +ZOLP5TAB1 PO; -ZONI25CA2 PO; +[UNRECOGNIZED DRUG - CODE] PO
--- NOTE | 2019-04-24 05:08 | NUR ---
PT TRANSFERRED FROM [facility] TO BED #8
--- NOTE | 2019-04-24 05:08 | NUR ---
PT MARIA FERNANDA BLS. TAKEN TO BED 8
--- NOTE | 2019-04-24 05:10 | NUR ---
PT 63 Y/O MALE BIBA FOR C/O ABD PAIN RADIATING TO CHEST 5/10, AND CONSTIPATION X 1 WEEK. PT LAST BOWEL MOVEMENT WAS 04/23/19. ABD IS SOFT ROUND AND NON TENDER. BOWEL SOUNDS ACTIVE X 4. PT STATES NAUSEA DENIES V/D. RESPIRATIONS ARE EVEN AND UNLABORED. SKIN IS WARM AND DRY TO TOUCH. PT RESTING IN BED, BED IN LOWEST POSITION AND LOCKED IN PLACE. MEDHX: SEE PACKET FROM FACILITY ALLERGIES: SEE CHART
[2019-04-24] MEDS ORDERED: NACL 0.9% 500 ML IV ONE (05:15)
--- NOTE | 2019-04-24 05:54 | NUR ---
PT TAKEN TO CT
[2019-04-24 06:06] LABS: APPEARANCE,URINE CLEAR (CLEAR); BILIRUBIN,URINE NEGATIVE (NEGATIVE); BLOOD, URINE NEGATIVE (NEGATIVE); COLOR,URINE YELLOW (YELLOW); LEUKOCYTE ESTERASE ,URINE NEGATIVE (NEGATIVE); NITRITE, URINE NEGATIVE (NEGATIVE); PH,URINE 6.5 (5.0-9.0); UGLUCOSE NEGATIVE (NEGATIVE)
--- NOTE | 2019-04-24 06:11 | NUR ---
PT RETURN FROM CT
--- NOTE | 2019-04-24 06:20 | NUR ---
PT RESTING IN BED EYES CLOSED. RESPIRATIONS ARE EVEN AND UNLABORED. SKIN IS WARM AND DRY TO TOUCH. BED IN LOWEST POSITION AND LOCKED IN PLACE. WILL CONTINUE TO MONITOR.
[2019-04-24 06:27] LABS: BASOPHILS % (AUTO) 0.4 % (0.0-2.0); EOSINOPHILS # (AUTO) 0.2 K/uL (0-0.4); EOSINOPHILS % (AUTO) 4.6 % (0.0-4.0); HEMATOCRIT 42.5 % (36-52); HEMOGLOBIN 14.2 g/dL (12.0-18.0); LYMPHOCYTES # (AUTO) 0.9 K/uL (2.0-11.5); LYMPHOCYTES % (AUTO) 17.1 % (20.5-51.1); MEAN CORPUSCULAR HEMOGLOBIN 30 pg (27-31); MEAN CORPUSCULAR HGB CONC 33 g/dL (33-37); MEAN CORPUSCULAR VOLUME 88.6 fL (80-94); MONOCYTES # (AUTO) 0.4 K/uL (0.8-1.0); MONOCYTES % (AUTO) 7.3 % (1.7-9.3); NEUTROPHILS # (AUTO) 3.7 K/uL (1.8-7.7); NEUTROPHILS % (AUTO) 70.6 % (42.2-75.2); PLATELET COUNT (AUTO) 192 K/uL (140-450); RED CELL DISTRIBUTION WIDTH 13.1 % (11.6-13.7); WHITE BLOOD COUNT (AUTO) 5.2 K/uL (4.8-10.8)
[2019-04-24 06:51] LABS: ALBUMIN 3.8 g/dL (3.4-5.0); ANION GAP 10.9 (8-16); CARBON DIOXIDE 32.3 mmol/L (21-32); CREATININE 0.8 mg/dL (0.7-1.3); POTASSIUM 3.2 mmol/L (3.5-5.1); TOTAL BILIRUBIN 0.6 mg/dL (0.0-1.0)
[2019-04-24] MEDS ORDERED: LORazepam 2 MG/ML VIAL IVP ONE (06:55)
--- NOTE | 2019-04-24 07:09 | NUR ---
GAVE REPORT AT BEDSIDE TO KINDRA RENE.
[2019-04-24 08:00] VITALS: BP 148/84
--- NOTE | 2019-04-24 08:00 | NUR ---
Patient discharged with v/s stable. Written and verbal after care instructions given and explained. Patient verbalized understanding. Wheel Chair Assisted by PG from [facility] transport to [facility]. All questions addressed prior to discharge. Advised to follow up with PMD.
--- NOTE | 2019-04-27 13:09 | NUR ---
Late entry. Confirmed with RN that 0.9 NS IV completed at 0800
== END 2019-04-24 08:00 | disposition home or self-care (01) ==
LOC: MED 05:08
DX: F41.9 Anxiety disorder, unspecified (principal); G89.29 Other chronic pain; R10.9 Unspecified abdominal pain; K21.9 Gastro-esophageal reflux disease without esophagitis; I10 Essential (primary) hypertension; Z88.6 Allergy status to analgesic agent; Z88.5 Allergy status to narcotic agent; Z79.899 Other long term (current) drug therapy
CPT/HCPCS: 36415; 74176; 80053; 81003; 83690; 85025; 87040; 93005; 96374; 99284; J2060; J7030

== ENCOUNTER 2019-04-27 05:32 | Emergency (ER) | payer OTHER, MEDICAID ==
[~2019-04-27] VITALS: Ht 188 cm; Wt 85.7 kg
--- NOTE | 2019-04-27 05:32 | NUR ---
PT MARIA FERNANDA BLS. TAKEN TO BED 6
[2019-04-27 05:36] VITALS: BP 182/103
--- NOTE | 2019-04-27 05:36 | NUR ---
63 Y/O MALE BIBA FROM [facility] FOR ANXIETY. PER PATIENT, " MY DOCTOR HAS NOT GIVEN ME MY PRESCRIPTION OF ATIVAN". A/OX4; FOLLOWS COMMANDS; BREATHING UNLABORED AND SYMMETRICAL. 98% ON RA. PATIENT IS ABLE TO AMBULATE. DENIES NAUSEA/VOMITING/DIARRHEA. PAIN IS AT A 6/10 AT THIS TIME. ERMD MADE AWARE OF STATUS. SIDE RAILSX1. WILL CONTINUE TO MONITOR. PMH: PARKINSONS; HTN; HIGH CHOLESTEROL RX: ATIVAN ALLERGIES: ACETAMINOPHEN; HYDROCODONE; MAPROTILINE; NAPROXEN
--- NOTE | 2019-04-27 05:48 | NUR ---
Dr. Aguilar examining patient.
[2019-04-27] MEDS ORDERED: LORazepam 2 MG/ML VIAL IM ONE (05:55)
[2019-04-27] MEDS ORDERED: cloNIDine 0.1 MG TAB PO ONE (06:05)
--- NOTE | 2019-04-27 06:33 | NUR ---
PATIENT IS SITTING IN BED QUIETLY. WILL CONTINUE TO MONITOR.
--- NOTE | 2019-04-27 06:35 | NUR ---
PATIENT STATES, " I STILL FEEL ANXIOUS". ERMD MADE AWARE.
[2019-04-27] MEDS ORDERED: LORazepam 1 MG TAB PO ONE (06:45)
[2019-04-27 06:54] VITALS: BP 150/99
--- NOTE | 2019-04-27 06:54 | NUR ---
BETH OKAY TO DISCHARGE PATIENT. Patient discharged with v/s stable. Written and verbal after care instructions given and explained. Patient alert, oriented and verbalized understanding of instructions. Wheel Chair Assisted with . All questions addressed prior to discharge. ID band removed. Patient advised to follow up with PMD. Rx of HYDROXYZINE HYDROCHLORIDE given. Patient educated on indication of medication including possible reaction and side effects. Opportunity to ask questions provided and answered.
== END 2019-04-27 06:54 | disposition home or self-care (01) ==
LOC: MED 05:32
DX: F41.9 Anxiety disorder, unspecified (principal); I10 Essential (primary) hypertension; K21.9 Gastro-esophageal reflux disease without esophagitis; Z79.899 Other long term (current) drug therapy; Z88.5 Allergy status to narcotic agent; Z88.6 Allergy status to analgesic agent; Z88.8 Allergy status to other drugs, medicaments and biological substances
CPT/HCPCS: 96372; 99284; J2060

== ENCOUNTER 2019-05-01 10:23 | Emergency (ER) | payer MEDICAID, OTHER ==
[~2019-05-01] VITALS: Ht 177.8 cm; Wt 90.7 kg
[2019-05-01 10:28] VITALS: BP 160/106
--- NOTE | 2019-05-01 10:33 | NUR ---
PT SENT TO ER LOBBY IN W/C TO WAIT FOR AVAILABLE ER BED.
[2019-05-01] MEDS ORDERED: HAL1 PO (10:39)
[2019-05-01] MEDS ORDERED: AMLO5TAB PO (10:39)
[2019-05-01 11:20] LABS: BASOPHILS % (AUTO) 0.5 % (0.0-2.0); EOSINOPHILS # (AUTO) 0.1 K/uL (0-0.4); LYMPHOCYTES # (AUTO) 0.8 K/uL (2.0-11.5); LYMPHOCYTES % (AUTO) 13.7 % (20.5-51.1); MEAN CORPUSCULAR HEMOGLOBIN 29 pg (27-31); MEAN CORPUSCULAR HGB CONC 33 g/dL (33-37); MEAN CORPUSCULAR VOLUME 87.9 fL (80-94); MONOCYTES # (AUTO) 0.4 K/uL (0.8-1.0); MONOCYTES % (AUTO) 7.7 % (1.7-9.3); NEUTROPHILS # (AUTO) 4.3 K/uL (1.8-7.7); NEUTROPHILS % (AUTO) 76.1 % (42.2-75.2); PLATELET COUNT (AUTO) 198 K/uL (140-450); RED BLOOD CELL COUNT(AUTO) 5.12 MIL/uL (4.20-6.10); RED CELL DISTRIBUTION WIDTH 13.3 % (11.6-13.7); WHITE BLOOD COUNT (AUTO) 5.6 K/uL (4.8-10.8)
[2019-05-01 11:39] LABS: ANION GAP 13.2 (8-16); CARBON DIOXIDE 28.2 mmol/L (21-32); CREATININE 0.7 mg/dL (0.7-1.3); POTASSIUM 3.4 mmol/L (3.5-5.1)
[2019-05-01 11:40] LABS: ALBUMIN 4.1 g/dL (3.4-5.0); TOTAL BILIRUBIN 0.8 mg/dL (0.0-1.0)
--- NOTE | 2019-05-01 12:05 | NUR ---
Patient ambulated to bed 4. RN evaluating patient at bedside.
--- NOTE | 2019-05-01 12:15 | NUR ---
63/M ney from [facility] with a complaint of generalized weakness. Pt complains of not feeling well. States he has not slept all night. Pt repeats "I don't feel well." GCS 15. VSS.
--- NOTE | 2019-05-01 12:40 | NUR ---
PT AWAKE, ALERT. PT ABLE TO MAKE NEEDS KNWON. NO S/S OF RESPIRATORY DISTRESS NOTED.
[2019-05-01] MEDS ORDERED: ONDANSETRON 4 MG ODT PO ONE (14:35)
[2019-05-01] MEDS ORDERED: KETOROLAC 60 MG/2 ML VIAL IM ONE (14:35)
--- NOTE | 2019-05-01 15:20 | NUR ---
CALLED [facility] [phone] REGARDING TRANSPORTATION. PER EMPLOYEE OF [facility]. TRANSPORTATION IS GONE, PT NEEDS [facility]. NOTIFIED JOEY OSEI.
[2019-05-01 15:25] VITALS: BP 148/89
--- NOTE | 2019-05-01 15:25 | NUR ---
ASSISTED PT TO [facility]P PREPARING TAXI VOUCHER FOR PT. Patient discharged with v/s stable. Written and verbal after care instructions given and explained. Patient alert, oriented and verbalized understanding of instructions. Ambulatory with steady gait. All questions addressed prior to discharge. ID band removed. Patient advised to follow up with PMD. Rx of ZOFRAN, MOTRIN AND ATARAX given. Patient educated on indication of medication including possible reaction and side effects. Opportunity to ask questions provided and answered.
== END 2019-05-01 15:25 ==
LOC: MED 10:23
DX: R07.9 Chest pain, unspecified (principal); F41.9 Anxiety disorder, unspecified; K21.9 Gastro-esophageal reflux disease without esophagitis; I10 Essential (primary) hypertension; G20 Parkinson's disease
CPT/HCPCS: 36415; 71045; 80053; 83880; 84484; 85025; 93005; 96372; 99284; J1885; Q0162

== ENCOUNTER 2019-05-22 03:42 | Emergency (ER) | payer MEDICAID ==
[~2019-05-22] VITALS: Ht 182.9 cm; Wt 72.6 kg
[~2019-05-22 03:42] MED LIST changes: +AMLO5TAB PO; -BUS5 PO; +HAL1 PO; -MELA3TAB56 PO
--- NOTE | 2019-05-22 03:42 | NUR ---
PT MARIA FERNANDA BLS. TAKEN TO BED 3
[2019-05-22 03:45] VITALS: BP 156/90
[2019-05-22] MEDS ORDERED: ONDANSETRON 4 MG/2 ML VIAL IVP ONE (03:50)
[2019-05-22] MEDS ORDERED: NACL 0.9% 1,000 ML IV ONE (03:50)
--- NOTE | 2019-05-22 04:50 | NUR ---
63 YEAR OLD MALE BIBA FROM [facility] AFTER FALLING AND HITTING HIS HEAD. PATIENT STATES HE HAS DIZZINESS. PATIENT COMPLAINS OF PAIN IN HEAD, NAUSEA BUT NOT VOMITTING. PATIENT IN NECK BRACE. GCS 15, AOX4. PATIENT ALERT AND ORIENTED, BREATHING EVEN AND UNLABORED. PATIENT HAS HEMATOMA IN LEFT PARIETAL AREA. BED IN LOWEST POSITION, LOCKED, BED RAIL UPX2. PMH - GERD, HTN, SEIZURES
[2019-05-22 05:16] LABS: ALBUMIN 3.5 g/dL (3.4-5.0); CARBON DIOXIDE 30.7 mmol/L (21-32); CREATININE 0.7 mg/dL (0.7-1.3); TOTAL BILIRUBIN 0.6 mg/dL (0.0-1.0)
[2019-05-22 05:18] LABS: PROTHROMBIN TIME 10.8 secs (10.8-13.4)
--- NOTE | 2019-05-22 05:30 | NUR ---
DR TORIBIO REMINDED THAT PATIENT STILL HAS PAIN FROM HEADACHE
[2019-05-22 05:33] LABS: BASOPHILS % (AUTO) 0.6 % (0.0-2.0); EOSINOPHILS # (AUTO) 0.3 K/uL (0-0.4); EOSINOPHILS % (AUTO) 4.5 % (0.0-4.0); HEMATOCRIT 40.7 % (36-52); HEMOGLOBIN 13.8 g/dL (12.0-18.0); LYMPHOCYTES # (AUTO) 0.8 K/uL (2.0-11.5); LYMPHOCYTES % (AUTO) 13.9 % (20.5-51.1); MEAN CORPUSCULAR HEMOGLOBIN 29 pg (27-31); MEAN CORPUSCULAR HGB CONC 34 g/dL (33-37); MEAN CORPUSCULAR VOLUME 86.3 fL (80-94); MONOCYTES # (AUTO) 0.4 K/uL (0.8-1.0); MONOCYTES % (AUTO) 7.7 % (1.7-9.3); NEUTROPHILS # (AUTO) 4.2 K/uL (1.8-7.7); NEUTROPHILS % (AUTO) 73.3 % (42.2-75.2); PLATELET COUNT (AUTO) 203 K/uL (140-450); RED BLOOD CELL COUNT(AUTO) 4.71 MIL/uL (4.20-6.10); RED CELL DISTRIBUTION WIDTH 13.5 % (11.6-13.7); WHITE BLOOD COUNT (AUTO) 5.7 K/uL (4.8-10.8)
[2019-05-22 05:35] LABS: POTASSIUM 2.7 mmol/L (3.5-5.1)
[2019-05-22 05:39] LABS: APPEARANCE,URINE CLEAR (CLEAR); BILIRUBIN,URINE NEGATIVE (NEGATIVE); BLOOD, URINE NEGATIVE (NEGATIVE); COLOR,URINE YELLOW (YELLOW); LEUKOCYTE ESTERASE ,URINE NEGATIVE (NEGATIVE); NITRITE, URINE NEGATIVE (NEGATIVE); UGLUCOSE NEGATIVE (NEGATIVE)
[2019-05-22] MEDS ORDERED: POTASSIUM CHLORIDE 10 MEQ TABER PO ONE (05:40)
[2019-05-22] MEDS ORDERED: KETOROLAC 30 MG/ML VIAL IVP ONE (06:10)
[2019-05-22] MEDS ORDERED: LORazepam 2 MG/ML VIAL IVP ONE (06:10)
--- NOTE | 2019-05-22 06:20 | NUR ---
PATIENT DENIED TORADOL BECAUSE IT MAKES HIM "NOT FEEL GOOD" DR TORIBIO MADE AWARE
[2019-05-22] MEDS ORDERED: IBUPROFEN 800 MG TAB PO ONE (06:40)
--- NOTE | 2019-05-22 07:15 | NUR ---
RECIVED REPORT FROM EDGARD SANTIZO. WILL CONT CARE AT THIS TIME.
[2019-05-22] MEDS ORDERED: LORazepam 0.5 MG TAB PO ONE (08:55)
--- NOTE | 2019-05-22 09:11 | NUR ---
ATEMPTTED TO CALL MARLAAIR MEZA WAS ON HOLD AND NOBODY ANSWERED. WILL TRY CALLING AGAIN.
--- NOTE | 2019-05-22 09:35 | NUR ---
CALLED [facility] AND SPOKE TO NITZA [employer] FOR PT REPORT.
--- NOTE | 2019-05-22 11:00 | NUR ---
Note margi in EDM - 05/22/19 at 1301 by [facility] Patient discharged with v/s stable. Written and verbal after care instructions given and explained. Patient verbalized understanding. Wheel Chair Assisted with by caregiver. All questions addressed prior to discharge. Advised to follow up with PMD.
[2019-05-22] MEDS ORDERED: ONDANSETRON 4 MG ODT PO ONE (11:30)
[2019-05-22 12:10] VITALS: BP 156/115
--- NOTE | 2019-05-22 12:10 | NUR ---
Patient discharged with v/s stable. Written and verbal after care instructions given and explained. Patient verbalized understanding. Wheel Chair Assisted with by caregiver. All questions addressed prior to discharge. Advised to follow up with PMD.
== END 2019-05-22 12:10 ==
LOC: MED 05:55
DX: S00.03XA Contusion of scalp, initial encounter (principal); R42 Dizziness and giddiness; K21.9 Gastro-esophageal reflux disease without esophagitis; I10 Essential (primary) hypertension; F41.9 Anxiety disorder, unspecified; G20 Parkinson's disease; Z79.899 Other long term (current) drug therapy; Z88.5 Allergy status to narcotic agent; Z88.6 Allergy status to analgesic agent; Z88.1 Allergy status to other antibiotic agents; Z88.8 Allergy status to other drugs, medicaments and biological substances; W18.30XA Fall on same level, unspecified, initial encounter; Y93.89 Activity, other specified; Y92.091 Bathroom in other non-institutional residence as the place of occurrence of the external cause; Y99.8 Other external cause status
CPT/HCPCS: 36415; 70450; 71045; 72125; 80053; 81003; 83605; 84484; 85025; 85610; 85730; 87040; 87086; 93005; 96361; 96374; 96375; 99284; J1885; J2060; J2405; J7030; Q0092; Q0162

== ENCOUNTER 2019-05-27 12:20 | Emergency (ER) | payer MEDICAID ==
[~2019-05-27] VITALS: Ht 175.3 cm; Wt 76.2 kg
--- NOTE | 2019-05-27 12:20 | NUR ---
Patient MARIA FERNANDA CEDILLO from [facility], transferred to bed 1. RN evaluating patient at bedside.
[2019-05-27 12:31] VITALS: BP 146/84
--- NOTE | 2019-05-27 12:40 | NUR ---
BIBA C/O RECTAL BLEEDING, LLQ ABDOMINAL PAIN RADAITING TO RLQ ABDOMEN, NAUSEA FOR 10 DAYS. A&OX3. HR EVEN AND REGULAR; PT DENIES ANY FEVER, CP, SOB, OR COUGH AT THIS TIME; PATIENT STATES PAIN OF 10/10 AT THIS TIME; VSS; PATIENT POSITIONED FOR COMFORT; HOB ELEVATED; BEDRAILS UP X1; BED DOWN. ER MD MADE AWARE OF PT STATUS.
[2019-05-27] MEDS ORDERED: MAG SULF 2000 MG/WATER PREMIX 50 ML IV ONE (14:10)
[2019-05-27] MEDS ORDERED: MAGNESIUM CITRATE 300 ML BTL PO ONE (14:20)
--- NOTE | 2019-05-27 14:30 | NUR ---
PT REFUSED MAG CITRATE DESPITE EDUCATION, PT STATED HE WANTED FLEET ENEMA INSTEAD. DR ALLRED MADE AWARE. PER ER MD, PT DOES NOT NEED FLEET ENEMA AT THIS TIME, PT TO BE GIVEN RX. PT MADE AWARE.
--- NOTE | 2019-05-27 14:51 | NUR ---
Patient belongings inventoried and will be sent with patient. Copy of nursing notes, Physicians Orders to be sent with patient. Report called to Yudi Dawson at receiving facility. [facility] ambulance service has been called for transfer. ETA is 10mins.
[2019-05-27 14:58] VITALS: BP 148/81
--- NOTE | 2019-05-27 14:58 | NUR ---
[facility] is transfering pt at bedside.
--- NOTE | 2019-05-27 14:59 | NUR ---
Pt has been transferred by [facility] ambulance.
== END 2019-05-27 14:59 ==
LOC: MED 12:20
DX: K59.00 Constipation, unspecified (principal); K21.9 Gastro-esophageal reflux disease without esophagitis; I10 Essential (primary) hypertension; F41.9 Anxiety disorder, unspecified; Z88.8 Allergy status to other drugs, medicaments and biological substances; Z88.5 Allergy status to narcotic agent; Z79.899 Other long term (current) drug therapy
CPT/HCPCS: 99283

== ENCOUNTER 2019-07-15 17:50 | Emergency (ER) | payer MEDICAID ==
[~2019-07-15] VITALS: Ht 175.3 cm; Wt 76.7 kg
[2019-07-15 17:52] VITALS: BP 173/90
[2019-07-15] MEDS ORDERED: NACL 0.9% 500 ML IV SCH (18:00)
--- NOTE | 2019-07-15 18:07 | NUR ---
dr peterson at bedside evaluating pt.
--- NOTE | 2019-07-15 18:11 | NUR ---
xray at bedside.
--- NOTE | 2019-07-15 18:20 | NUR ---
LAB AT BEDSIDE.
--- NOTE | 2019-07-15 18:22 | NUR ---
BIBMariela FROM [facility] C/O FEVER TEMP 99.4 AT FACILITY, SOB, COUGH X TODAY. PT AWAKE , ALERT, AFIBRILE , SCE, CBS , FLAT SOFT NABS ,NONTENDER . TEMP 98.4 AT THIS TIME. MED HX: PARKINSON, HTN, GERD, DEPRESSION, ANXIETY,BPH, OA, SEIZURE
--- NOTE | 2019-07-15 18:38 | NUR ---
RT AT BEDSIDE.
[2019-07-15 18:39] LABS: BASOPHILS % (AUTO) 0.7 % (0.0-2.0); EOSINOPHILS # (AUTO) 0.2 K/uL (0-0.4); EOSINOPHILS % (AUTO) 4.5 % (0.0-4.0); HEMATOCRIT 41.1 % (36-52); HEMOGLOBIN 14.2 g/dL (12.0-18.0); LYMPHOCYTES % (AUTO) 18.3 % (20.5-51.1); MEAN CORPUSCULAR HEMOGLOBIN 30 pg (27-31); MEAN CORPUSCULAR HGB CONC 35 g/dL (33-37); MEAN CORPUSCULAR VOLUME 86.4 fL (80-94); MONOCYTES # (AUTO) 0.3 K/uL (0.8-1.0); MONOCYTES % (AUTO) 6.1 % (1.7-9.3); NEUTROPHILS # (AUTO) 3.8 K/uL (1.8-7.7); NEUTROPHILS % (AUTO) 70.4 % (42.2-75.2); PLATELET COUNT (AUTO) 188 K/uL (140-450); RED BLOOD CELL COUNT(AUTO) 4.76 MIL/uL (4.20-6.10)
[2019-07-15 18:50] LABS: PROTHROMBIN TIME 10.8 secs (10.8-13.4)
[2019-07-15 18:52] LABS: ALBUMIN 3.4 g/dL (3.4-5.0); ANION GAP 9.6 (8-16); CARBON DIOXIDE 30.6 mmol/L (21-32); CREATININE 0.7 mg/dL (0.6-1.3); POTASSIUM 3.2 mmol/L (3.5-5.1); TOTAL BILIRUBIN 0.5 mg/dL (0.0-1.0)
[2019-07-15 19:00] LABS: WHITE BLOOD COUNT (AUTO) 5.3 K/uL (4.8-10.8)
--- NOTE | 2019-07-15 19:10 | NUR ---
GIVE REPORT TO EDGARD CHIN PT AWAKE , ALERT, AFIBRILE.
--- NOTE | 2019-07-15 19:34 | NUR ---
Dr. Rocha examining patient.
[2019-07-15 20:40] LABS: APPEARANCE,URINE CLEAR (CLEAR); BILIRUBIN,URINE NEGATIVE (NEGATIVE); BLOOD, URINE NEGATIVE (NEGATIVE); COLOR,URINE YELLOW (YELLOW); LEUKOCYTE ESTERASE ,URINE NEGATIVE (NEGATIVE); NITRITE, URINE NEGATIVE (NEGATIVE); PH,URINE 7.5 (5.0-9.0); UGLUCOSE NEGATIVE (NEGATIVE)
[2019-07-15] MEDS ORDERED: LORazepam 0.5 MG TAB PO ONE (21:30)
--- NOTE | 2019-07-15 22:02 | NUR ---
CALLED [facility] FOR POSSIBLE TRANSPORT. UNAVAILABLE TRANSPORT FROM THEIR FACILITY DUE TO IT BEING THE WEEKEND.
--- NOTE | 2019-07-15 22:05 | NUR ---
[facility] ETA: [phone]
--- NOTE | 2019-07-15 23:35 | NUR ---
PT C/O KNEE PAIN 12/03. ERMD MADE AWARE. WILL CONTINUE TO MONITOR.
[2019-07-15] MEDS ORDERED: IBUPROFEN 600 MG TAB PO ONE (23:40)
--- NOTE | 2019-07-16 01:13 | NUR ---
[facility] ETA IS NOW [phone]
--- NOTE | 2019-07-16 01:44 | NUR ---
[facility] AT BEDSIDE
[2019-07-16 01:51] VITALS: BP 161/93
--- NOTE | 2019-07-16 01:51 | NUR ---
Patient discharged with v/s stable. Written and verbal after care instructions given and explained. Patient alert, oriented and verbalized understanding of instructions. Ambulance Transport with to group home. All questions addressed prior to discharge. ID band removed. IV discontinued. Patient advised to follow up with PMD. Opportunity to ask questions provided and answered.
== END 2019-07-16 01:51 | disposition home or self-care (01) ==
LOC: MED 17:50
DX: F41.9 Anxiety disorder, unspecified (principal); K21.9 Gastro-esophageal reflux disease without esophagitis; I10 Essential (primary) hypertension; F32.9 Major depressive disorder, single episode, unspecified; G89.29 Other chronic pain; N40.0 Benign prostatic hyperplasia without lower urinary tract symptoms; M19.90 Unspecified osteoarthritis, unspecified site; Z88.5 Allergy status to narcotic agent; Z88.6 Allergy status to analgesic agent; Z79.899 Other long term (current) drug therapy; G20 Parkinson's disease
CPT/HCPCS: 36415; 36600; 71045; 80053; 81003; 82803; 83605; 83880; 84484; 85025; 85610; 85730; 87040; 87086; 93005; 99285; J7030; Q0092; 96360; 96361

== ENCOUNTER 2019-09-03 18:32 | Emergency (ER) | payer MEDICAID, OTHER ==
[~2019-09-03] VITALS: Ht 175.3 cm; Wt 74.4 kg
--- NOTE | 2019-09-03 18:33 | NUR ---
PT PLACED IN BED 7 BY EMS FROM [facility].
[2019-09-03 18:37] VITALS: BP 166/102
--- NOTE | 2019-09-03 18:38 | NUR ---
63 Y/O MALE BIBA BLS C/O INCREASED ANXIETY S/P RUNNING OUT OF LORAZEPAM LAST NIGHT. PT STATES HE TAKE 3 A DAY AND HAS HAD NONE TODAY. RR EVEN AND UNLABORED, PT DOES NOT APPEAR IN DISTRESS. HOB ELEVATED, BED LOCKED AND IN LOW POSITION. MEDHX: HTN, ANXIETY, PARKINSONS
--- NOTE | 2019-09-03 19:06 | NUR ---
Pt report RECEIVED FROM EDGARD WHITMAN. ASSUMED care OF PT at this time.
--- NOTE | 2019-09-03 19:21 | NUR ---
AT BEDSIDE EXAMINING PT
[2019-09-03] MEDS ORDERED: NACL 0.9% 1,000 ML IV SCH (19:23)
[2019-09-03] MEDS ORDERED: hydrOXYzine HCL 10 MG TAB PO ONE ×2 (19:25→20:05)
[2019-09-03] MEDS ORDERED: DICYCLOMINE 10 MG CAP PO ONE ×2 (19:25→20:05)
--- NOTE | 2019-09-03 19:40 | NUR ---
INFORMED THAT PT REFUSED PO MEDICATION AND ASKING FOR ATIVAN AND STATED HE INFORMED PT HE WAS NOT GOING TO ORDER ATIVAN FOR PT
--- NOTE | 2019-09-03 19:50 | NUR ---
PT NOW REQUESTING PREVIOUSLY REFUSED MEDICATION. DR ORTEGA AWARE. MEDICATIONS RE ORDERED.
[2019-09-03 20:06] LABS: BASOPHILS # (AUTO) 0.1 K/uL (0.00-0.22); BASOPHILS % (AUTO) 1.2 % (0.0-2.0); EOSINOPHILS # (AUTO) 0.1 K/uL (0-0.4); EOSINOPHILS % (AUTO) 1.1 % (0.0-4.0); HEMATOCRIT 40.3 % (36-52); HEMOGLOBIN 13.8 g/dL (12.0-18.0); LYMPHOCYTES # (AUTO) 1.1 K/uL (2.0-11.5); LYMPHOCYTES % (AUTO) 17.2 % (20.5-51.1); MEAN CORPUSCULAR HEMOGLOBIN 30 pg (27-31); MEAN CORPUSCULAR HGB CONC 34 g/dL (33-37); MEAN CORPUSCULAR VOLUME 87.1 fL (80-94); MONOCYTES # (AUTO) 0.5 K/uL (0.8-1.0); MONOCYTES % (AUTO) 7.3 % (1.7-9.3); NEUTROPHILS # (AUTO) 4.6 K/uL (1.8-7.7); NEUTROPHILS % (AUTO) 73.2 % (42.2-75.2); PLATELET COUNT (AUTO) 181 K/uL (140-450); RED BLOOD CELL COUNT(AUTO) 4.62 MIL/uL (4.20-6.10); RED CELL DISTRIBUTION WIDTH 13.8 % (11.6-13.7); WHITE BLOOD COUNT (AUTO) 6.2 K/uL (4.8-10.8)
[2019-09-03 20:13] LABS: APPEARANCE,URINE CLEAR (CLEAR); BILIRUBIN,URINE NEGATIVE (NEGATIVE); BLOOD, URINE TRACE-L (NEGATIVE); COLOR,URINE YELLOW (YELLOW); LEUKOCYTE ESTERASE ,URINE NEGATIVE (NEGATIVE); NITRITE, URINE NEGATIVE (NEGATIVE); UGLUCOSE NEGATIVE (NEGATIVE)
[2019-09-03 20:27] LABS: ALBUMIN 3.4 g/dL (3.4-5.0); CARBON DIOXIDE 28.4 mmol/L (21-32); POTASSIUM 3.4 mmol/L (3.5-5.1); TOTAL BILIRUBIN 0.5 mg/dL (0.0-1.0)
--- NOTE | 2019-09-03 20:29 | NUR ---
PT RESTING IN BED IN POSITION OF COMFORT, BED LOW AND LOCKED , 2 SIDERAILS UP, VSS, WILL CONTINUE TO MONITOR.
[2019-09-03 20:37] LABS: RBC,URINE 0-5 /HPF (0-5); WBC,URINE NONE SEEN /HPF (0-5)
--- NOTE | 2019-09-03 21:31 | NUR ---
ATTEMPTS MADE TO CONTACT FAMILY FOR DISCHARGE PICK-UP. NO ANSWER. WILL CONTINUE TO ATTEMPT TO CALL.
[2019-09-03] MEDS ORDERED: POTASSIUM CHLORIDE 10 MEQ TABER PO ONE ×3 (22:15→22:36)
--- NOTE | 2019-09-03 22:40 | NUR ---
EXPLAINED DISCHARGE INSTRUCTIONS TO PATIENT. ALL QUESTIONS ANSWERED. PT IS ALERT TO NAME, BIRTHDAY, PLACE, AND EVENT. INFORMED PT HE WOULD BE RETURING TO [facility] VIA TAXI.
--- NOTE | 2019-09-03 22:45 | NUR ---
SPOKE WITH MICKY FROM [facility] INFORMED THAT PT WOULD BE RETURNING VIA CAB. MICKY VERBALIZED UNDERSTANDING AND CONFIRMED THAT STAFF WOULD BE THERE FOR HIS ARRIVAL.
--- NOTE | 2019-09-03 22:45 | NUR ---
Patient discharged with v/s stable. Written and verbal after care instructions given and explained. Patient verbalized understanding. Wheel Chair Assisted with to car. All questions addressed prior to discharge. Advised to follow up with PMD.
[2019-09-03 22:46] VITALS: BP 131/98
== END 2019-09-03 22:46 | disposition home or self-care (01) ==
LOC: MED 18:32
DX: R10.84 Generalized abdominal pain (principal); G89.29 Other chronic pain; F41.9 Anxiety disorder, unspecified; G20 Parkinson's disease; E87.6 Hypokalemia; K21.9 Gastro-esophageal reflux disease without esophagitis; I10 Essential (primary) hypertension; Z79.899 Other long term (current) drug therapy; Z88.6 Allergy status to analgesic agent; Z88.5 Allergy status to narcotic agent; Z88.8 Allergy status to other drugs, medicaments and biological substances
CPT/HCPCS: 36415; 80053; 81001; 82150; 83690; 85025; 99284; J7030

== ENCOUNTER 2019-10-18 20:35 | Emergency (ER) | payer MEDICAID ==
[~2019-10-18] VITALS: Ht 175.3 cm; Wt 77.1 kg
[2019-10-18 20:35] VITALS: BP 168/90
[2019-10-18] MEDS ORDERED: LORazepam 1 MG TAB PO ONE (20:55)
[2019-10-18] MEDS ORDERED: LORazepam 2 MG/ML VIAL IM ONE (20:55)
[2019-10-18] MEDS ORDERED: KETOROLAC 60 MG/2 ML VIAL IM ONE (20:55)
[2019-10-19] MEDS ORDERED: DICYCLOMINE HCL LIQUID 20 MG, ALUMINUM HYD/MAG/SIMETHICONE 30 ML, LIDOCAINE VISCOUS 2% ... PO ONE ×3 (00:50)
[2019-10-19 02:30] VITALS: BP 171/90
== END 2019-10-19 02:30 | disposition home or self-care (01) ==
LOC: MED 20:35
DX: F41.9 Anxiety disorder, unspecified (principal); K21.9 Gastro-esophageal reflux disease without esophagitis; G20 Parkinson's disease; I10 Essential (primary) hypertension; Z88.6 Allergy status to analgesic agent; Z88.8 Allergy status to other drugs, medicaments and biological substances; Z88.5 Allergy status to narcotic agent; Z79.899 Other long term (current) drug therapy
CPT/HCPCS: 93005; 99283; J1885; J2060

== ENCOUNTER 2019-12-18 15:31 | Emergency (ER) | payer MEDICAID ==
[~2019-12-18] VITALS: Ht 175.3 cm; Wt 67.1 kg
[2019-12-18 15:37] VITALS: BP 155/93
--- NOTE | 2019-12-18 15:46 | NUR ---
64 yo male biba from [facility] c/o anxiety and insomnia frequent flyer pt recieved lorazepam at 12 today
[2019-12-18] MEDS ORDERED: LORazepam 2 MG/ML VIAL IM ONE (15:50)
--- NOTE | 2019-12-18 16:30 | NUR ---
PT LAYIN GIN BED QUIETLY AT THIS TIME. BOTH SIDE RAILS UP AND BED IN LOWEST POSITION FOR SAFETY. WILL CONTINUE TO MONITOR.
--- NOTE | 2019-12-18 19:05 | NUR ---
[facility] CALLED. AWAITING MANUFACTURERS SERVICE REPRESENTATIVE
--- NOTE | 2019-12-18 19:10 | NUR ---
Pt report RECEIVED FROM EDGARD CARTY. Transfer of care at this time.
--- NOTE | 2019-12-18 19:20 | NUR ---
PT RESTING IN BED IN POSITION OF COMFORT, BED LOW AND LOCKED, 2 SIDERAILS UP, VSS, WILL CONTINUE TO MONITOR
[2019-12-18 20:12] VITALS: BP 155/93
--- NOTE | 2019-12-18 20:12 | NUR ---
Patient discharged with v/s stable. Written and verbal after care instructions given and explained. Patient verbalized understanding. Ambulance Transport with to halfway. All questions addressed prior to discharge. Advised to follow up with PMD.
== END 2019-12-18 20:12 ==
LOC: MED 15:31
DX: F41.9 Anxiety disorder, unspecified (principal); K21.9 Gastro-esophageal reflux disease without esophagitis; I10 Essential (primary) hypertension; Z79.899 Other long term (current) drug therapy; Z88.6 Allergy status to analgesic agent; Z88.5 Allergy status to narcotic agent; Z88.8 Allergy status to other drugs, medicaments and biological substances
CPT/HCPCS: 96372; 99283; J2060

== ENCOUNTER 2020-03-07 05:05 | Inpatient (IN) | payer MEDICAID, SELFPAY ==
[~2020-03-07] VITALS: Ht 167.6 cm; Wt 69.9 kg
[2020-03-07 05:05] VITALS: BP 175/96
[~2020-03-07 05:05] MED LIST changes: +ALBU0.0912 IH; +BPM/118S31 PO
--- NOTE | 2020-03-07 05:05 | NUR ---
PT MARIA FERNANDA FROM [facility] TAKEN TO BED 3 VIA GURNEY. ERMD MADE AWARE OF PT STATUS.
[2020-03-07] MEDS ORDERED: NACL 0.9% 1,000 ML IV ONE (05:15)
[2020-03-07] MEDS ORDERED: NACL 0.9% 250 ML IV ONE (05:25)
--- NOTE | 2020-03-07 05:38 | NUR ---
ATTEMPTED TO START IN IV TWICE, NO SUCCESS. CHARGE NURSE NOTIFIED.
--- NOTE | 2020-03-07 05:50 | NUR ---
BLOOD CULTURES AND LABS COLLECTED AND HANDED TO BASIL BROWN TECH.
[2020-03-07 05:55] LABS: BASOPHILS % (AUTO) 0.5 % (0.0-2.0); EOSINOPHILS # (AUTO) 0.3 K/uL (0-0.4); EOSINOPHILS % (AUTO) 5.3 % (0.0-4.0); HEMATOCRIT 44.8 % (36-52); HEMOGLOBIN 15.5 g/dL (12.0-18.0); LYMPHOCYTES # (AUTO) 0.3 K/uL (2.0-11.5); LYMPHOCYTES % (AUTO) 6.6 % (20.5-51.1); MEAN CORPUSCULAR HEMOGLOBIN 31 pg (27-31); MEAN CORPUSCULAR HGB CONC 35 g/dL (33-37); MEAN CORPUSCULAR VOLUME 88.7 fL (80-94); MONOCYTES # (AUTO) 0.4 K/uL (0.8-1.0); MONOCYTES % (AUTO) 7.1 % (1.7-9.3); NEUTROPHILS # (AUTO) 4.2 K/uL (1.8-7.7); NEUTROPHILS % (AUTO) 80.5 % (42.2-75.2); PLATELET COUNT (AUTO) 175 K/uL (140-450); RED BLOOD CELL COUNT(AUTO) 5.05 MIL/uL (4.20-6.10); RED CELL DISTRIBUTION WIDTH 15.2 % (11.6-13.7); WHITE BLOOD COUNT (AUTO) 5.3 K/uL (4.8-10.8)
--- NOTE | 2020-03-07 06:05 | NUR ---
SEIZURE PRECAUTIONS IN PLACE.
--- NOTE | 2020-03-07 06:05 | NUR ---
64 Y/O M BIBA C/O BODYACHES AND SOB X 4 DAYS. PT STATES THAT HE "DOESN'T FEEL GOOD AND HIS WHOLE BODY HURTS AND IT IS HARD FOR HIM TO BREATHE." PT WAS HYPERTENSIVE AT 178/98 UNPON ARRIVAL TO ED, SATING AT 99% RA. RR EVEN AND UNLABORED. LUNG SOUNDS CLEAR. PT AAOX4. PER EMS REPORT, PT WAS TESTED FOR CVID ABOUT A WEEK AGO AND CAME BACK NEGATIVE. PT ATTACHED TO SOFTWARE PROJECT ENGINEER AND PULSE OXIMETRY. BED LOCKED AND IN LOWEST POSITION, SIDE RAIL UPX2. WILL CONTINUE TO MONITOR. MHX: ANXIETY, HTN, SEIZURE ALLERGIES: TYLENOL, NORCO, MAPROTILINE, NAPROXEN
--- NOTE | 2020-03-07 06:06 | NUR ---
RAD AT BEDSIDE.
[2020-03-07 06:11] LABS: ALBUMIN 3.4 g/dL (3.4-5.0); ANION GAP 9.9 (8-16); CARBON DIOXIDE 31.5 mmol/L (21-32); CREATININE 0.7 mg/dL (0.6-1.3); POTASSIUM 3.4 mmol/L (3.5-5.1); TOTAL BILIRUBIN 0.9 mg/dL (0.0-1.0)
[2020-03-07] MEDS ORDERED: PANTOPRAZOLE 40 MG INJ VIAL ONE (06:14)
[2020-03-07] MEDS ORDERED: PANTOPRAZOLE 40 MG INJ VIAL IVP ONE (06:15)
[2020-03-07] MEDS ORDERED: PIPERACILLIN/TAZOBACTAM 3.375 GM in DEXTROSE 5% 50 ML IV ONE (06:40)
--- NOTE | 2020-03-07 06:40 | NUR ---
CORINE SWAB COLLECTED AND WALKED OVER TO LAB.
[2020-03-07] MEDS ORDERED: PIPERACILLIN/TAZOBACTAM 3.375 GM VIAL IV ONE (06:42)
--- NOTE | 2020-03-07 07:05 | NUR ---
CT WITH CONTRAST CONCENT FORM SIGNED BY PT.
--- NOTE | 2020-03-07 07:11 | NUR ---
AWAKE AND ANXIOUS. " I HAVE NAUSEA, THE NURSE GAVE ME 2 MEDICINES AND THEY'RE NOT WORKING", "MY STOMACH HURTS TOO ".
--- NOTE | 2020-03-07 07:19 | NUR ---
REPORT GIVEN TO EDGARD SINGLETARY FOR CONTINUITY OF CARE.
[2020-03-07 07:26] LABS: PROTHROMBIN TIME 10.6 secs (10.8-13.4)
[2020-03-07] MEDS ORDERED: ONDANSETRON 4 MG/2 ML VIAL IM/IVP PRN (08:10)
[2020-03-07] MEDS ORDERED: guaiFENesin DM 200/20 MG-10 ML 10 ML UDC PO PRN (08:10)
[2020-03-07 09:23] LABS: CHOL/HDL RATIO 3.7 (1-4.5); FREE T4 (FREE THYROXINE) 1.11 ng/dL (0.76-1.46); PHOSPHORUS 3.8 mg/dL (2.5-4.9); THYROID STIMULATING HORMONE 4.13 uIU/mL (0.34-3.74)
[2020-03-07] MEDS: LOSARTAN 50 MG TAB PO SCH (09:30)
[2020-03-07] MEDS: amLODIPine 5 MG TAB PO SCH (09:33)
[2020-03-07] MEDS: hydrOXYzine PAMOATE 25 MG CAP PO SCH (09:36)
[2020-03-07] MEDS: SERTRALINE 50 MG TAB PO SCH (09:38)
[2020-03-07] MEDS: CARBIDOPA/LEVODOPA 25/100 MG 1 TAB PO SCH ×4 (10:01→17:12)
--- NOTE | 2020-03-07 10:05 | NUR ---
PT HAS BECOME INCREASINGLY ANXIOUS WITH MULTIPLE COMPLAINTS. MEDICATED ORDERED. ASSISTED WITH POSITIONING FOR COMFORT
[2020-03-07] MEDS: LORazepam 1 MG TAB PO SCH (10:53)
[2020-03-07] MEDS: PANTOPRAZOLE 40 MG TABEC PO SCH (11:12)
[2020-03-07] MEDS: NACL 0.9% 1,000 ML IV SCH (11:28)
--- NOTE | 2020-03-07 11:30 | NUR ---
RESTING IN BED WITH EYES CLOSED. RESPIRATIONS REGULAR AND UNLABORED
--- NOTE | 2020-03-07 12:55 | NUR ---
BREAKFAST TRAY REMOVED. PT SITTING UP IN BED EATING LUNCH AT THIS TIME.
--- NOTE | 2020-03-07 13:35 | NUR ---
STRAIGHT CATHED FOR UA. RESSTRAIGHT catheter inserted utilizing sterile technique. Immediate return of ERICK COLORED URINEml . Urine sample collected and sent to lab. Pt tolerated procedure WELL.
[2020-03-07 14:33] LABS: APPEARANCE,URINE CLEAR (CLEAR); BILIRUBIN,URINE NEGATIVE (NEGATIVE); BLOOD, URINE TRACE-I (NEGATIVE); COLOR,URINE YELLOW (YELLOW); LEUKOCYTE ESTERASE ,URINE NEGATIVE (NEGATIVE); NITRITE, URINE NEGATIVE (NEGATIVE); UGLUCOSE NEGATIVE (NEGATIVE)
[2020-03-07 14:46] LABS: BARBITURATE, URINE NEGATIVE ng/ml (NEG <=200); BENZODIAZEPINE, URINE POSITIVE ng/mL (NEG <=200)
[2020-03-07 14:47] LABS: CANNABINOID, URINE NEGATIVE ng/mL (NEG <=50); COCAINE, URINE NEGATIVE ng/mL (NEG <=300); OPIATE, URINE NEGATIVE ng/mL (NEG <=2000); PHENCYCLIDINE SCREEN,URINE NEGATIVE ng/mL (NEG <=25)
--- NOTE | 2020-03-07 14:59 | NUR ---
SOCIAL WORK NOTE: Patient's Orientation Unable To Assess Information Provided By LAURE MOSER - Comments SW WAS UNABLE TO MEET PATIENT AT BEDSIDE DUE TO MEDICAL CONDITION. SW COMPLETED ASSESSMENT WITH PATIENT'S SISTER, LAURE. PER LAURE, SHE IS PATIENT'S HEALTHCARE DECISION MAKER. Rigging Foreman, Realtionship and Phone Number LAURE MOSER SISTER [phone] PHIL CRABTREE SIGNIFICANT OTHER [phone] Healthcare Power of Command And Control Specialist No Does Patient Have a POLST No Identifying Problems No Social Work Triggers Is A Social Work Consult Needed No Mandate Report Filed No Explanation Of Identifying Problems PATIENT IS A 64-YEAR-OLD MALE ADMITTED FOR HYPOXIA. PATIENT HAS PMHX OF GERD, HYPERTENSION, AND SEIZURES. PATIENT WAS ADMITTED FROM [facility]. Admitted From Assisted Living/Resident Pre-Admission Level Of Functioning Status Total Care Prior Resources/Services Used In Last 12 Months Assisted Living Prior DME Hospital Bed Dialysis Comments N/A Living Situation Asst'd Living/Board &Care Patient Had Caregiver No Home Support No Caregiver Issues Financial Issues No Known Financial Issue Referral To The Financial Counselor Needed No Factors/Needs Assist Living/B & C Plcmt Pt/Rep Participated In Discharge Plan Yes Patient/Family Agress With Discharge Plan Yes Discharge Plan Comments TENTATIVE DISCHARGE PLAN IS FOR PATIENT TO RETURN TO [facility].
[2020-03-07] MEDS ORDERED: cefTRIAXone 1,000 MG VIAL ONE (15:04)
--- NOTE | 2020-03-07 16:40 | NUR ---
Patient will be admitted to care of ADRI[facility]. REPORT GIVEN AND PT TRANSFERED TO 119B WITHOUT INCIDENT. Admited to DR. SWEET. Will go to room 119B. Belongings list completed. Report to ADRIAN.
--- NOTE | 2020-03-07 16:45 | NUR ---
RECEIVED THIS 64 YEAR OLD MALE PER MARCIANO FROM ER,ADMITTED A CASE OF ACUTE BRONCHITIS, R/O COVID AND HYPOKALEMIA. AWAKE , ALERT, ORIENTED X3, WITH O2 AT 2L/MIN VIA NC SATURATING AT 98%, NON LABORED NOTED. WITH IV CANNULA G20 AT RT AC ON SALINE LOCK NOTED. SKIN IS INTACT NOTED. WITH RESTING TREMORS AT BOTH NILO NOTED. ON DROPLET ISOLATION, COVID PCR RESULT STILL PENDING. SAFETY MEASURES IN PLACE AND CONTINUE MONITOR
[2020-03-07] MEDS: POTASSIUM CHLORIDE 10 MEQ TABER PO PRN ×2 (17:13→17:29)
--- NOTE | 2020-03-07 17:22 | NUR ---
POTASSIUM LEVEL-3.4, REPLACEMENT WITH 40MEQ PO GIVEN AT ER PER THE BELL HOLE DIGGER, NOTED Addendum: 03/07/20 at 1951 by Roopa Morales RN DIAPER SOAKED WITH URINE, CLEANED AND CHANGED.
--- NOTE | 2020-03-07 18:11 | NUR ---
DINNER SERVED, FEEDING ASSISTED BY TRAINING MGR, TOLERATED WELL.
--- NOTE | 2020-03-07 19:15 | NUR ---
ENDORSED TO ELECTROPHYSIOLOGY TECH IN STABLE CONDITION FOR CONTINUITY OF CARE
--- NOTE | 2020-03-07 19:16 | NUR ---
RECEIVED REPORT FROM DAY SHIFT NURSE. PATIENT IN BED RESTING WITH HOB ELEVATED. PT AAOX3, ON BEDREST, ABLE TO MAKE NEEDS KNOWN. RESPIRATIONS EVEN AND UNLABORED ON O2 2LPM/NC. O2 SAT 97%. ABDOMEN IS SOFT AND NON-TENDER, BOWEL SOUNDS PRESENT ON ALL QUADRANTS. SKIN IS WARM, DRY, AND INTACT. NO EDEMA NOTED. IV ACCESS ON RIGHT AC G20 PATENT AND INTACT. IVF INFUSING WELL. PT DENIES ANY PAIN OR DISCOMFORT AT THIS TIME, NO REQUESTS MADE. SAFETY MEASURES IN PLACE, CALL LIGHT WITHIN REACH. DROPLET PRECAUTIONS OBSERVED. WILL CONTINUE TO MONITOR.
[2020-03-07 20:00] VITALS: BP 142/74
[2020-03-07] MEDS: ATORVASTATIN 20 MG TAB PO SCH (20:37)
[2020-03-07] MEDS: TAMSULOSIN 0.4 MG CAP PO SCH (20:38)
--- NOTE | 2020-03-07 20:40 | NUR ---
VS STABLE. SCHEDULED MEDS GIVEN. PT IN BED WATCHING TV. O2 IN PLACE. PT NOT IN DISTRESS. DENIES ANY PAIN OR DISCOMFORT. NO REQUESTS MADE. SAFETY MEASURES IN PLACE. CALL LIGHT WITHIN REACH. WILL CONTINUE TO MONITOR.
[2020-03-07] MEDS ORDERED: HALOPERIDOL 1 MG TAB PO SCH (21:00)
[2020-03-07 21:39] LABS: RBC,URINE 0-5 /HPF (0-5); WBC,URINE NONE SEEN /HPF (0-5)
--- NOTE | 2020-03-07 22:22 | NUR ---
ROUNDS MADE. PT IN BED WATCHING TV WITH HOB ELEVATED. PT NOT IN DISTRESS. O2 IN PLACE. PT TURNED TO SIDE. NO COMPLAINTS MADE. SAFETY MEASURES IN PLACE. WILL CONTINUE TO MONITOR.
[2020-03-07] MEDS: ZOLPIDEM 5 MG TAB PO PRN (23:37)
--- NOTE | 2020-03-07 23:37 | NUR ---
PT VERBALIZED HAVING DIFFICULTY SLEEPING. PRN AMBIEN GIVEN ORDERED. PT KEPT COMFORTABLE. CALL LIGHT WITHIN REACH. WILL CONTINUE TO MONITOR.
[2020-03-08] VITALS: BP 135/81
[2020-03-08] MEDS: NACL 0.9% 1,000 ML IV SCH ×2 (00:50→17:10)
--- NOTE | 2020-03-08 02:07 | NUR ---
PT ASLEEP. VISIBLE CHEST RISE AND FALL NOTED. PT NOT IN DISTRESS. O2 IN PLACE. SAFETY MEASURES IN PLACE. CALL LIGHT WITHIN REACH. WILL CONTINUE TO MONITOR.
[2020-03-08 04:00] VITALS: BP 122/73
--- NOTE | 2020-03-08 04:04 | NUR ---
VITAL SIGNS STABLE. PT IN BED. O2 IN PLACE. PT NOT IN DISTRESS. PERINEAL CARE DONE WITH BODY SHOP TECHNICIAN. PT TURNED TO SIDE AFTER. PT TOLERATED WELL. SAFETY MEASURES IN PLACE. CALL LIGHT WITHIN REACH. WILL CONTINUE TO MONITOR.
[2020-03-08 05:56] LABS: BASOPHILS % (AUTO) 0.4 % (0.0-2.0); EOSINOPHILS # (AUTO) 0.1 K/uL (0-0.4); HEMATOCRIT 39.1 % (36-52); HEMOGLOBIN 13.7 g/dL (12.0-18.0); LYMPHOCYTES # (AUTO) 0.6 K/uL (2.0-11.5); LYMPHOCYTES % (AUTO) 10.3 % (20.5-51.1); MEAN CORPUSCULAR HEMOGLOBIN 31 pg (27-31); MEAN CORPUSCULAR HGB CONC 35 g/dL (33-37); MEAN CORPUSCULAR VOLUME 88.7 fL (80-94); MONOCYTES # (AUTO) 0.6 K/uL (0.8-1.0); MONOCYTES % (AUTO) 10.5 % (1.7-9.3); NEUTROPHILS # (AUTO) 4.3 K/uL (1.8-7.7); NEUTROPHILS % (AUTO) 77.8 % (42.2-75.2); PLATELET COUNT (AUTO) 141 K/uL (140-450); RED CELL DISTRIBUTION WIDTH 14.9 % (11.6-13.7); WHITE BLOOD COUNT (AUTO) 5.5 K/uL (4.8-10.8)
[2020-03-08 06:13] LABS: ANION GAP 9.7 (8-16); CARBON DIOXIDE 31.4 mmol/L (21-32); CREATININE 0.7 mg/dL (0.6-1.3); POTASSIUM 4.1 mmol/L (3.5-5.1)
[2020-03-08] MEDS ORDERED: COMMUNICATION ORDER MC PRN (06:40)
[2020-03-08] MEDS ORDERED: DICYCLOMINE HCL LIQUID 20 MG, ALUMINUM HYD/MAG/SIMETHICONE 30 ML, LIDOCAINE VISCOUS 2% ... PO PRN ×3 (06:55)
--- NOTE | 2020-03-08 07:30 | NUR ---
RECEIVED REPORT FROM NIGHT NURSE FOR CONTINUITY OF CARE, PT IS STABLE, PT ASLEEP, RESPIRATIONS ARE EVEN AND UNLABORED ON 2L OXYGEN VIA NC, PT HAS RIGHT AC 20G INFUSING NORMAL SALINE AT 60 ML/H, SKIN INTACT, PT IS A FALL RISK, BED IN LOW POSITION, SAFETY MEASURES IN PLACE, CALL LIGHT WITHIN REACH, WILL CONTINUE TO MONITOR.
[2020-03-08 08:00] VITALS: BP 125/64
[2020-03-08 08:16] LABS: T4 (THYROXINE) 7.8 ug/dL (4.5-12.0)
--- NOTE | 2020-03-08 08:51 | NUR ---
PATIENT HAS BEEN SCREENED AND CATEGORIZED MODERATE NUTRITION RISK. PATIENT WILL BE SEEN WITHIN 3-5 DAYS OF ADMISSION. 03/09/20 03/11/[address]
[2020-03-08] MEDS ORDERED: LIDOCAINE VISCOUS 2% 20 ML UDC ONE (09:59)
[2020-03-08] MEDS ORDERED: DICYCLOMINE HCL LIQUID 10 MG/5 ML UDC ONE (09:59)
--- NOTE | 2020-03-08 10:00 | NUR ---
ADMINISTERED SCHEDULED MEDICATION, MEDICATION EDUCATION PROVIDED, PT TOLERATED WELL, PT IS STABLE, WILL CONTINUE TO MONITOR, CALL LIGHT WITHIN
[2020-03-08] MEDS: LOSARTAN 50 MG TAB PO SCH (10:01)
[2020-03-08] MEDS: GABAPENTIN 100 MG CAP PO SCH ×3 (10:02→17:00)
[2020-03-08] MEDS: amLODIPine 5 MG TAB PO SCH (10:02)
[2020-03-08] MEDS: PANTOPRAZOLE 40 MG TABEC PO SCH (10:02)
[2020-03-08] MEDS: CARBIDOPA/LEVODOPA 25/100 MG 1 TAB PO SCH ×3 (10:03→17:00)
[2020-03-08] MEDS: SERTRALINE 50 MG TAB PO SCH (10:03)
[2020-03-08] MEDS: hydrOXYzine PAMOATE 25 MG CAP PO SCH (10:07)
[2020-03-08 12:00] VITALS: BP 118/67
--- NOTE | 2020-03-08 12:32 | NUR ---
ADMINISTERED SCHEDULED MEDICATION, ROBITUSSIN FOR COUGH, MEDICATION EDUCATION PROVIDED, PT TOLERATED WELL, PT IS STABLE, CALL LIGHT WITHIN REACH, WILL CONTINUE TO MONITOR.
--- NOTE | 2020-03-08 13:48 | NUR ---
DC PLANNIN YRS OLD MALE PATIENT WAS ADMITTED FROM [facility] WITH A DX OF HYPOXIA. PATIENT HAS A HX OF MOOD DISORDER, SLEEP DISORDER ANXIETY BPH HLD AND PARKINSON. CXR SHOWED NO ACUTE CARDIOPULMONARY DISEASE RAPID COVID TEST NEGATIVE AND PCR IS PENDING. ADMINISTERED IVF, IV ABX ROCEPHIN AND CONTINUED ALL HOME MEDS. CONSULTED WITH NEUROLOGIST. DC PLAN TO GO BACK TO [facility] IF PCR IS NEGATIVE. CM TO FOLLOW. Addendum: 03/08/20 at 1556 by Cyndie Ríos CM DC DATA SUPPORT SPECIALIST: SPOKE TO PATIENTS SON PERLA REGARDING POSSIBLE DC TO SNF FACILITY IF PATIENT TEST POSITIVE FOR COVID. DISCUSSED ALL THE FACILITIES CONTRACTED WITH [facility] IS [facility] IN [place]. SENT CLINICALS. Addendum: 03/11/20 at 0907 by Cyndie Ríos CM DC DATA SUPPORT SPECIALIST: FOLLOWED UP WITH REJI THIS MORNING IN ADMISSIONS AT [facility]. OF LAST WEDNESDAY THEY WERE ON A HOLD FROM THE DEPARTMENT OF HEALTH BUT THEY WILL BE FINDING OUT TODAY OF THEY ARE CLEARED. SHE WILL BE GETTING BACK TO ME. Addendum: 03/11/20 at 1315 by Cyndie Ríos CM LORA NAVARRO: SPOKE TO PATIENTS REGARDING [facility] BEING ON A HOLD. SHE IS AGREEABLE TO HER GOING TO [facility]. WILL FAX THE PATIENTS PACKET. Addendum: 03/11/20 at 1617 by Cyndie Ríos CM LORA NAVARRO: PATIENT HAS BEEN ACCEPTED AT [facility] ROOM 115-A. NOTIFIED RN THAT TRANSPORTATION HAS BEEN SET UP FOR 7:30 PM WITH [facility]. PER NATHAN WE COULD USE [facility] FOR THIS PATIENT. [address] [place] [address] [phone] HICKS
--- NOTE | 2020-03-08 14:30 | NUR ---
ADMINISTERED SCHEDULED MEDICATION, MEDICATION EDUCATION PROVIDED, PT TOLERATED WELL, PT IS STABLE, CALL LIGHT WITHIN REACH, WILL CONTINUE TO MONITOR.
--- NOTE | 2020-03-08 14:55 | NUR ---
RECEIVED TORB FROM DR SWEET FOR OCCULT BLOOD ORDER AND CEPACOL Q2H PRN AND TO MAKE SURE PT HAS A COVID PCR TEST
--- NOTE | 2020-03-08 15:44 | NUR ---
NOTIFIED DR SWEET PT PCR CAME BACK POSITIVE FOR COVID 19, RECEIVED TORB FOR CONSULT FOR ID AND PULMONARY DR MASSEY AND DEX
[2020-03-08 16:00] VITALS: BP 129/64
--- NOTE | 2020-03-08 16:18 | NUR ---
P.T. NOTES P.T. EVAL COMPLETED; REFER TO EVAL FOR DETAILS; O2 SAT ROOM AIR=98%
[2020-03-08] MEDS: DOCUSATE SODIUM 100 MG GELCAP PO PRN (17:20)
[2020-03-08] MEDS: BENZOCAINE/MENTHOL 1 LOZ MM PRN (17:20)
--- NOTE | 2020-03-08 17:26 | NUR ---
ADMINISTERED PRN MED COLACE AND CEPACOL FOR SORE THROAT, MEDICATION EDUCATION PROVIDED, PT VERBALIZED UNDERSTANDING, PT TOLERATED WELL, PT IS STABLE, CALL LIGHT WITHIN REACH, WILL CONTINUE TO MONITOR.
[2020-03-08] MEDS ORDERED: remdesivir COMMUNICATION ORDER 1 EA MISC MC PRN (17:30)
[2020-03-08] MEDS ORDERED: CLINICAL MONITORING MC PRN (17:45)
[2020-03-08] MEDS ORDERED: REMDESIVIR (EUA) 200 MG in NACL 0.9% 100 ML IV SCH (18:00)
--- NOTE | 2020-03-08 18:06 | NUR ---
RECEIVED ADDITIONAL ORDER FROM DR ZUNIGA FOR CONVALESCENT PLASMA.
--- NOTE | 2020-03-08 18:31 | NUR ---
ADMINISTERED SCHEDULED MEDICATION, MEDICATION EDUCATION PROVIDED, PT TOLERATED WELL, PT IS STABLE, WILL CONTINUE TO MONITOR.
--- NOTE | 2020-03-08 19:15 | NUR ---
RECEIVED PT AAOX3 - PT EASILY FORGETS THE TOPIC - HE KEEP ASKING THE SAME QUESTION ALL OVER AND ALL OVER AGAIN . NID - O2 SAT WNL . IV SITE INTACT AND PATENT . ON TELE MONITOR .SAFETY MEASURES IN PLACE . - BED ALARM ON . CALL LIGHT WITHIN REACH .PLAN OF CARE DISCUSSED AND PT NEEDS REINFORCEMENT DUE TO MENTAL STATUS . WILL CONT. TO MONITOR . PER AM NURSE PT IS FOR COVALESCENT PLASMA , BUT THE HOSPITAL POLICY HERE IS THE DOCTOR SHOULD HAVE TO EXPLAIN ABOUT THE COVALESCENT PLASMA TO THE PT . OR TO THE PT'S RELATIVES - WILL ENDORSE .
--- NOTE | 2020-03-08 19:15 | NUR ---
ENDORSE PT TO NIGHT NURSE FOR CONTINUITY OF CARE, PT IS STABLE
[2020-03-08 20:00] VITALS: BP 121/67
[2020-03-08] MEDS: TAMSULOSIN 0.4 MG CAP PO SCH (23:00)
[2020-03-08] MEDS: ATORVASTATIN 20 MG TAB PO SCH (23:00)
[2020-03-09] VITALS: BP 147/70
--- NOTE | 2020-03-09 01:20 | NUR ---
C/O SLEEPLESSNESS - WILL MEDICATE W/ AMBIEN
[2020-03-09] MEDS: ZOLPIDEM 5 MG TAB PO PRN ×2 (01:23→22:34)
--- NOTE | 2020-03-09 01:23 | NUR ---
AMBIEN 5 MG/ TAB P.O GIVEN - BP 140/ 92 , AZ 67 RR 20 O2 SAT 99 % - ON TELE MONITOR.
--- NOTE | 2020-03-09 02:00 | NUR ---
SLEEPING - CHEST RISE AND FALL EQUALLY - ON TELE MONITOR . WILL CONT. TO MONITOR
[2020-03-09 04:00] VITALS: BP 147/73
--- NOTE | 2020-03-09 04:00 | NUR ---
MADE ROUNDS . NO S/SX OF ACUTE DISTRESS NOTED . WILL CONT. TO MONITOR
[2020-03-09] MEDS: NACL 0.9% 1,000 ML IV SCH (05:27)
--- NOTE | 2020-03-09 06:00 | NUR ---
O2 SAT 99 % , RESTING TO BED COMFORTABLY .
[2020-03-09 07:21] LABS: ANION GAP 7.9 (8-16); CARBON DIOXIDE 31.2 mmol/L (21-32); CREATININE 0.5 mg/dL (0.6-1.3); POTASSIUM 4.1 mmol/L (3.5-5.1)
--- NOTE | 2020-03-09 07:25 | NUR ---
ENDORSED TO AM SHIFT - PT - STABLE . INFORM DR. SWEET ABOUT HE HAD TO EXPLAIN THE CONVALESCENT PLASMA TRANSFUSSION TO PT'S RELATIVE PRIOR TO GET THE CONSENT- ENDORSED
[2020-03-09 07:26] LABS: BASOPHILS % (AUTO) 0.4 % (0.0-2.0); EOSINOPHILS # (AUTO) 0.1 K/uL (0-0.4); EOSINOPHILS % (AUTO) 1.4 % (0.0-4.0); HEMATOCRIT 38.4 % (36-52); HEMOGLOBIN 13.5 g/dL (12.0-18.0); LYMPHOCYTES # (AUTO) 0.8 K/uL (2.0-11.5); LYMPHOCYTES % (AUTO) 18.1 % (20.5-51.1); MEAN CORPUSCULAR HEMOGLOBIN 31 pg (27-31); MEAN CORPUSCULAR HGB CONC 35 g/dL (33-37); MEAN CORPUSCULAR VOLUME 88.1 fL (80-94); MONOCYTES # (AUTO) 0.6 K/uL (0.8-1.0); MONOCYTES % (AUTO) 13.2 % (1.7-9.3); NEUTROPHILS # (AUTO) 2.9 K/uL (1.8-7.7); NEUTROPHILS % (AUTO) 66.9 % (42.2-75.2); PLATELET COUNT (AUTO) 132 K/uL (140-450); RED BLOOD CELL COUNT(AUTO) 4.35 MIL/uL (4.20-6.10); RED CELL DISTRIBUTION WIDTH 14.9 % (11.6-13.7); WHITE BLOOD COUNT (AUTO) 4.3 K/uL (4.8-10.8)
--- NOTE | 2020-03-09 07:26 | NUR ---
Report received from production supervisor off shift nurse at bedside for continuity of care. Patient AOx3, forgetful. Denies pain at this time, requesting cough medication. Will follow up. IV site intact, asymptomatic, and patent, infusing IVF well. Verbalized plan of care with patient, reinforcement needed because patient is forgetful. Droplet and safety precautions in place, call light within reach, will continue to monitor patient.
[2020-03-09 07:30] LABS: ALBUMIN 2.7 g/dL (3.4-5.0); BILIRUBIN,DIRECT 0.2 mg/dL (0.0-0.3); TOTAL BILIRUBIN 0.6 mg/dL (0.0-1.0)
[2020-03-09] MEDS ORDERED: BENZOCAINE/MENTHOL 1 LOZ MM PRN (07:40)
[2020-03-09 08:00] VITALS: BP 163/97
[2020-03-09] MEDS: amLODIPine 5 MG TAB PO SCH (08:54)
[2020-03-09] MEDS: PANTOPRAZOLE 40 MG TABEC PO SCH (08:54)
[2020-03-09] MEDS: SERTRALINE 50 MG TAB PO SCH (08:54)
[2020-03-09] MEDS: GABAPENTIN 100 MG CAP PO SCH ×3 (08:54→17:00)
[2020-03-09] MEDS: LOSARTAN 50 MG TAB PO SCH (08:54)
[2020-03-09] MEDS: hydrOXYzine PAMOATE 25 MG CAP PO SCH (08:55)
[2020-03-09] MEDS: CARBIDOPA/LEVODOPA 25/100 MG 1 TAB PO SCH ×3 (09:00→17:00)
--- NOTE | 2020-03-09 09:03 | NUR ---
Scheduled medications given. Patient tolerated them, patient refused Sinemet, stated that he "stop taking that medication months ago", will inform Dr. Kemp. Patient has complaints about wanting his Ambien hs dose increased from 5 mg to 10 mg. Will forward his request to Dr. Kemp. Call light within reach, safety precautions in place, will continue to monitor patient.
[2020-03-09] MEDS: BENZOCAINE/MENTHOL 1 LOZ MM PRN ×2 (10:24→13:19)
[2020-03-09 12:00] VITALS: BP 135/75
[2020-03-09] MEDS: POLYVINYL ALCOHOL 1.4% OP 15 ML SOL OP PRN (13:19)
--- NOTE | 2020-03-09 13:19 | NUR ---
Scheduled medication given. Patient refused Sinemet again. Also stated for gabapentin, "the medication you're giving me makes me nervous. Prn cough medication given and prn artificial tears given. Patient tolerated them. Patient has no complaints at this time. Droplet precautions in place, call light within reach, will continue to monitor patient.
--- NOTE | 2020-03-09 14:15 | NUR ---
Called patient's sister, Jade Alvarez for consent for convalescent plasma. No answer, left voicemail and hospital number for call back. Will follow up.
--- NOTE | 2020-03-09 15:00 | NUR ---
Pt complained of pain in his chest, hard to breath. VS HR 85 BP 139/84 Temp 98.3 O2 99%, respirations even and labored on O2 2L via NC. Informed Dr. Kemp. Also informed Dr. Kemp of patient's request to increase his Ambien from 5mg to 10mg. No new orders about Ambien dose. Addendum: 03/09/20 at 1541 by Edward Kennedy RN No new orders at this time. Per Dr. Kemp, will monitor patient closely.
[2020-03-09 16:00] VITALS: BP 131/73
[2020-03-09] MEDS: REMDESIVIR (EUA) 100 MG in NACL 0.9% 100 ML IV SCH (17:42)
--- NOTE | 2020-03-09 19:19 | NUR ---
REPORT GIVEN TO METAL CUT OFF SAW TENDER NURSE. PATIENT IN STABLE CONDITION.
--- NOTE | 2020-03-09 19:24 | NUR ---
RECEIVED BEDSIDE REPORT FORM [place] RN DAYSHIFT NURSE, PT IN STABLE CONDITION.
[2020-03-09 20:00] VITALS: BP 131/87
--- NOTE | 2020-03-09 20:07 | NUR ---
OBTAINED TELEPHONE CONSENT FOR CONVALESCENT PLASMA BY LAURE MOSER SISTER WITNESSED BY EXPANSION ENVELOPE MAKER HAND ROY.
[2020-03-09] MEDS: TAMSULOSIN 0.4 MG CAP PO SCH (20:36)
[2020-03-09] MEDS: ATORVASTATIN 20 MG TAB PO SCH (20:36)
--- NOTE | 2020-03-09 21:20 | NUR ---
PT IN BED AOX3 WITH PERIODS OF CONFUSION. PT IS ON ROOM AIR. PT DENEIS ANY PAIN, HE IS REQUESTING AN INCREASE IN HIS AMBIEN. PT C/O OF SOB. PT SATING 96% ON ROOM AIR WITH RESPIRATIONS EVEN AND UNLABORED. PT OFFERED ATIVAN , HE SAID HE WANTED TO TAKE ATIVAN WITH AMBIEN. EXPLAINED TO PT THAT IS TOO DEPRESSING ON THE PT NERVIOS SYSTEM, AND THAT HE MUST CHOOSE 12 OR THE OTHER TO TAKE AT THIS TIME. PT ACKNOWLEDGED UNDERSTANDING AFTER REINFORCEMENT, PT CONCERNED THE DOSE MAY BE TO LOW. WILL GIVEN AMBIEN TABLET SHORTLY.
--- NOTE | 2020-03-09 22:35 | NUR ---
PT WAS TURNED, CHANGED AND REPOSITIONED IN BED. HE WAS GIVEN 1 TAB OF AMBIEN 5 MG TABLET FOR INSOMNIA.
[2020-03-10] VITALS: BP 126/75
--- NOTE | 2020-03-10 | NUR ---
PT IN BED AND WAS REPOSITIONED. PT AWAKE BUT DROWSY. HE SHASHANK ANY PAIN. ALL FALLS PREVENTION IN PLACE. V/S A FOLLOWS: T 98.5 P 80 R 18 B/P 126/75 02 97% ON ROOM AIR. ALL FALLS AND DROPLET PRECAUTIONS IN PLACE.
--- NOTE | 2020-03-10 03:00 | NUR ---
ROUNDS MADE, PT IN BED ASLEEP. NEW IV BAG REPLACED. ALL FALLS AND DROPLET PRECAUTIONS IN PLACE.
[2020-03-10] MEDS: NACL 0.9% 1,000 ML IV SCH ×2 (03:19→19:30)
[2020-03-10 04:00] VITALS: BP 141/72
--- NOTE | 2020-03-10 04:00 | NUR ---
PT IN BED RESTING WITH EYES CLOSED V/S FOLLOWS: T 98.1 P 63 R 18 B/P 141/72 02 97% ON ROOM AIR. ALL ORDERED PRECAUTIONS IN PLACE . PT WAS TURNED, CHANGED AND REPOSITIONED IN BED.
[2020-03-10] MEDS ORDERED: LIDOCAINE VISCOUS 2% 20 ML UDC ONE (06:42)
[2020-03-10] MEDS ORDERED: ALUMINUM HYD/MAG/SIMETHICONE 30 ML UDC ONE (06:42)
[2020-03-10] MEDS ORDERED: DICYCLOMINE HCL LIQUID 10 MG/5 ML UDC ONE (06:43)
--- NOTE | 2020-03-10 06:45 | NUR ---
PT C/O OF UPSET STOMACH . PT WAS GIVEN ORDERED GI COCKTAIL PRN. WILL MONITOR FOR PAIN RELIEF.
--- NOTE | 2020-03-10 07:20 | NUR ---
RECEIVED REPORT FROM LAW FIRM ADMINISTRATOR NURSE. PATIENT SITTING DOWN IN BED WATCHING TV. NO DISTRESS NOTED. DENIES ANY PAIN. AAOX3, CALM, COOPERATIVE, SKIN COLOR APPROPRIATE TO ETHNICITY, WARM TO TOUCH, SKIN INTACT. HAS PARKINSON'S TREMORS. RESPIRATIONS EVEN, UNLABORED, ON ROOM AIR. IV SITE INTACT, PATENT, AND INFUSING IVF PER MD ORDERS. REVIEWED PLAN OF CARE WITH PATIENT. PATIENT VERBALIZED UNDERSTANDING. SAFETY MEASURES IN PLACE, CALL LIGHT WITHIN REACH. WILL CONTINUE TO MONITOR.
[2020-03-10 07:27] LABS: ALBUMIN 2.8 g/dL (3.4-5.0); BILIRUBIN,DIRECT 0.1 mg/dL (0.0-0.3); TOTAL BILIRUBIN 0.5 mg/dL (0.0-1.0)
[2020-03-10 07:28] LABS: BASOPHILS % (AUTO) 0.5 % (0.0-2.0); EOSINOPHILS % (AUTO) 0.4 % (0.0-4.0); HEMATOCRIT 36.1 % (36-52); HEMOGLOBIN 12.9 g/dL (12.0-18.0); LYMPHOCYTES # (AUTO) 0.6 K/uL (2.0-11.5); MEAN CORPUSCULAR HEMOGLOBIN 31 pg (27-31); MEAN CORPUSCULAR HGB CONC 36 g/dL (33-37); MEAN CORPUSCULAR VOLUME 87.3 fL (80-94); MONOCYTES # (AUTO) 0.3 K/uL (0.8-1.0); MONOCYTES % (AUTO) 12.7 % (1.7-9.3); NEUTROPHILS # (AUTO) 1.5 K/uL (1.8-7.7); NEUTROPHILS % (AUTO) 61.4 % (42.2-75.2); PLATELET COUNT (AUTO) 146 K/uL (140-450); RED BLOOD CELL COUNT(AUTO) 4.13 MIL/uL (4.20-6.10); WHITE BLOOD COUNT (AUTO) 2.4 K/uL (4.8-10.8)
[2020-03-10 07:29] LABS: ANION GAP 8.6 (8-16); CARBON DIOXIDE 32.3 mmol/L (21-32); CREATININE 0.4 mg/dL (0.6-1.3); POTASSIUM 3.9 mmol/L (3.5-5.1)
[2020-03-10 08:00] VITALS: BP 142/82
[2020-03-10] MEDS: CARBIDOPA/LEVODOPA 25/100 MG 1 TAB PO SCH ×3 (09:00→17:00)
[2020-03-10] MEDS: GABAPENTIN 100 MG CAP PO SCH ×3 (09:00→17:00)
--- NOTE | 2020-03-10 09:50 | NUR ---
SCHEDULED MEDICATIONS DUE GIVEN. WILL CONTINUE TO MONITOR
[2020-03-10] MEDS: POLYVINYL ALCOHOL 1.4% OP 15 ML SOL OP PRN (10:07)
[2020-03-10] MEDS: PANTOPRAZOLE 40 MG TABEC PO SCH (10:09)
[2020-03-10] MEDS: LOSARTAN 50 MG TAB PO SCH (10:10)
[2020-03-10] MEDS: amLODIPine 5 MG TAB PO SCH (10:10)
[2020-03-10] MEDS: SERTRALINE 50 MG TAB PO SCH (10:11)
[2020-03-10] MEDS: hydrOXYzine PAMOATE 25 MG CAP PO SCH (10:15)
[2020-03-10 12:00] VITALS: BP 133/73
[2020-03-10] MEDS: LORazepam 1 MG TAB PO SCH (12:49)
--- NOTE | 2020-03-10 12:50 | NUR ---
PATIENT FEELS ANXIOUS, ATIVAN GIVEN AT THIS TIME. OTHER SCHEDULED 1300 MEDICATIONS NOT GIVEN DUE TO PATIENT REFUSING. WILL CONTINUE TO MONITOR.
[2020-03-10] MEDS: DOCUSATE SODIUM 100 MG GELCAP PO PRN (13:57)
[2020-03-10] MEDS ORDERED: LORazepam 2 MG/ML VIAL IVP PRN (14:25)
--- NOTE | 2020-03-10 14:30 | NUR ---
ASSISTED CINNAMON GRINDER IN CLEANING AND REPOSITIONING PATIENT. WILL CONTINUE TO MONITOR.
[2020-03-10 16:00] VITALS: BP 142/76
[2020-03-10] MEDS: REMDESIVIR (EUA) 100 MG in NACL 0.9% 100 ML IV SCH (17:33)
--- NOTE | 2020-03-10 17:43 | NUR ---
SCHEDULED MEDICATIONS DUE GIVEN. WILL CONTINUE TO MONITOR.
--- NOTE | 2020-03-10 18:45 | NUR ---
1 UNIT CONVALESCENT PLASMA STARTED. WILL CONTINUE TO MONITOR.
--- NOTE | 2020-03-10 19:05 | NUR ---
RECEIVED BEDSIDE REPORT FROM DAY SHIFT NURSE. PATIENT IS AWAKE RESPIRATION EVEN UNLABORED ON ROOM AIR. NO DISTRESS NOTED. SKIN IS WARM AND DRY. IV PATENT AND INTACT. PLASMA TRANSFUSION NOTED. PLAN OF CARE WAS DISCUSSED. ALL SAFETY MEASURE IN PLACE. BED IS AT LOW POSITION. CALL LIGHT WITHIN REACH
--- NOTE | 2020-03-10 19:20 | NUR ---
GAVE REPORT TO SWEAT BAND SEPARATOR NURSE FOR CONTINUITY OF CARE. PATIENT IN STABLE CONDITION.
--- NOTE | 2020-03-10 19:30 | NUR ---
PLASMA TRANSFUSION ENDED. NO TRANSFUSION REACTION NOTED. WILL CONTINUE TO MONITOR.
[2020-03-10 20:00] VITALS: BP 136/76
[2020-03-10] MEDS: TAMSULOSIN 0.4 MG CAP PO SCH (20:17)
--- NOTE | 2020-03-10 20:17 | NUR ---
ALL SCHEDULED MEDS WERE GIVEN PER ORDER. NO ASE NOTED. WILL CONTINUE TO MONITOR.
[2020-03-10] MEDS: ATORVASTATIN 20 MG TAB PO SCH (20:18)
--- NOTE | 2020-03-10 20:45 | NUR ---
RECEIVED TELEPHONE ORDER FROM DR. ZUNIGA. DR ORDERED DECADRON 6MG IVP DAILY FOR 10 DAYS. REMDESIVIR 200MG 1ST DOSE AND 100MG FOR 4 DAYS. 1 UNIT OF CONVALESCENT PLASMA AND DISCONTINUE ZITHROMAX AND ROCEPHIN IV ANTIBIOTIC. ORDER READ BACK AND VERIFIED. Addendum: 03/11/20 at 0005 by Merline Peters RN WRONG PATIENT
--- NOTE | 2020-03-10 21:40 | NUR ---
PATIENT COMPLAINED OF DIFFICULTY FALLING ASLEEP. PRN AMBIEN GIVEN PER ORDER. WILL CONTINUE TO MONITOR.
[2020-03-10] MEDS: ZOLPIDEM 5 MG TAB PO PRN (21:42)
--- NOTE | 2020-03-10 23:45 | NUR ---
PER GEEK SQUAD AGENT PATIENT REFUSED TO BE TURN. EDUCATED THE RISK AND BENEFITS X2 STILL REFUSED. WILL TRY AGAIN LATER
[2020-03-11] VITALS: BP 134/72
--- NOTE | 2020-03-11 01:40 | NUR ---
PATIENT IS A LITTLE AGITATED AND COMPLAINING OF CANT FALL ASLEEP. PRN ATIVAN GIVEN PER ORDER.
[2020-03-11 04:00] VITALS: BP 140/62
--- NOTE | 2020-03-11 04:30 | NUR ---
PROVIDED MORNING CARE
[2020-03-11 07:17] LABS: BILIRUBIN,DIRECT 0.1 mg/dL (0.0-0.3); TOTAL BILIRUBIN 0.5 mg/dL (0.0-1.0)
--- NOTE | 2020-03-11 07:19 | NUR ---
ENDORSED PATIENT TO DAY SHIFT NURSE AT BEDSIDE FOR CONTINUITY OF CARE
--- NOTE | 2020-03-11 07:22 | NUR ---
RECEIVED REPORT FROM NIGHT NURSE PT ON ROOM AIR, BEDBOUND AND AAOX3-4 INCONTINENT, S/P 1 UNIT PLASMA February, SKIN INTACT, IV SITES INTACT AND PATENT ON RIGHT AC, COVID POSITIVE. SAFETY MEASURES IN PLACE AND CALL LIGHT WITHIN REACH. WILL CONTINUE TO MONITOR.
[2020-03-11 08:00] VITALS: BP 150/85
--- NOTE | 2020-03-11 09:40 | NUR ---
MEDICATION DUE GIVEN CHECK VITAL SIGNS PRIOR TO BP MEDICATION BP 150/85 ID [id number] PATIENT SAID SHES NOT FEELING OK AND FEELS COLD. ADDED SOME BLANKETS TO KEEP HIM WARM ABLE TO EAT. SAFETY MEASURES IN PLACE AND CALL LIGHT WITHIN REACH. WILL CONTINUE TO MONITOR.
[2020-03-11] MEDS: SERTRALINE 50 MG TAB PO SCH (09:49)
[2020-03-11] MEDS: PANTOPRAZOLE 40 MG TABEC PO SCH (09:50)
[2020-03-11] MEDS: hydrOXYzine PAMOATE 25 MG CAP PO SCH (09:50)
[2020-03-11] MEDS: LOSARTAN 50 MG TAB PO SCH (09:50)
[2020-03-11] MEDS: CARBIDOPA/LEVODOPA 25/100 MG 1 TAB PO SCH ×3 (09:50→17:00)
[2020-03-11] MEDS: amLODIPine 5 MG TAB PO SCH (09:51)
[2020-03-11] MEDS: GABAPENTIN 100 MG CAP PO SCH ×3 (09:51→17:00)
[2020-03-11] MEDS ORDERED: DEC1 PO (11:10)
[2020-03-11] MEDS ORDERED: APIX5TAB4 PO (11:10)
[2020-03-11] MEDS ORDERED: AZIT250T3 PO (11:17)
[2020-03-11 12:00] VITALS: BP 127/84
--- NOTE | 2020-03-11 12:00 | NUR ---
PATIENT COMPLAINS OF ABDOMINAL PAIN AND NAUSEA VOMITING. MD AWARE AND GAVE MYLANTA.
[2020-03-11] MEDS: NACL 0.9% 1,000 ML IV SCH (12:10)
--- NOTE | 2020-03-11 13:00 | NUR ---
PATIENT REFUSED GABAPANTIN AND CARBIDOPA MEDICATION,
[2020-03-11] MEDS ORDERED: ALUMINUM HYD/MAG/SIMETHICONE 30 ML UDC PO PRN (13:35)
--- NOTE | 2020-03-11 14:37 | NUR ---
03/11/20 RD INITIAL ASSESSMENT COMPLETED PLEASE REFER TO NUTRITION ASSESSMENT UNDER CARE ACTIVITY FOR ESTIMATED NUTRITIONAL NEEDS. 1. CONTINUE MECHANICAL SOFT DIET TOLERATED 2. CONTINUE ENSURE AND EDUARDO BID 3. ENCOURAGE PO INTAKE 4. RD TO FOLLOW-UP 2-3 DAYS, HIGH RISK MAZIN TAVAREZ, RD
--- NOTE | 2020-03-11 15:00 | NUR ---
MADE ROUNDS AT THIS TIME PATIENT IS STABLE NO DISTRESS NOTED DENIES PAIN.
[2020-03-11 16:00] VITALS: BP 128/80
--- NOTE | 2020-03-11 17:00 | NUR ---
PATIENT REFUSED MEDICATIONS FOR PARKINSONS SAID ITS NOT HELPING HIM.
[2020-03-11] MEDS: REMDESIVIR (EUA) 100 MG in NACL 0.9% 100 ML IV SCH (18:10)
--- NOTE | 2020-03-11 18:30 | NUR ---
PATIENT IS BEING TRANSFERRED TO [facility] FOR HIGHER LEVEL OF CARE. 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
--- NOTE | 2020-03-11 19:10 | NUR ---
ENDORSED TO NIGHT NURSE FOR CONTINUITY OF CARE, PT IS STABLE.
--- NOTE | 2020-03-11 19:15 | NUR ---
RECEIVED SHIFT ENDORSEMENT FROM AM NURSE. PT IS IN BED LYING COMFORTABLY AND WATCHING TV. PT IS AWAKE, AAOX3. NO ACUTE DISTRESS, NO SOB NOTED, RESPIRATIONS EVEN AND UNLABORED ON ROOM AIR. NO C/O PAIN OR DISCOMFORT AT THIS TIME. IV LINE REMOVED. SKIN IS WARM, DRY AND INTACT. SAFETY MEASURES IN PLACED. BED IN LOWEST POSITION, SIDE RAILS UP X2, CALL LIGHT WITHIN REACH. WILL CONTINUE TO MONITOR. STILL WAITING FOR TRANSPORT FOR DISCHARGE.
[2020-03-11] MEDS: TAMSULOSIN 0.4 MG CAP PO SCH (20:45)
[2020-03-11] MEDS: ATORVASTATIN 20 MG TAB PO SCH (20:46)
--- NOTE | 2020-03-11 21:00 | NUR ---
PT WAS PICKED UP BY [facility] VIA GURNEY IN STABLE CONDITION, TO BE TRANSFERRED TO [facility] TO ROOM 115A UNDER DR. FLOWER. DUE MEDS GIVEN AND MYLANTA FOR C/O STOMACH PAIN GIVEN WELL. TOLERATED WELL.
== END 2020-03-11 21:00 | DRG 137 ==
LOC: MED 05:05 → MTU 06:56
PROVIDERS: ADMIT Family Medicine; ATTEND Family Medicine
PROC: XW033E5 Introduction of Remdesivir Anti-infective into Peripheral Vein, Percutaneous Approach, New Technology Group 5 (ICD-10-PCS; 2020-03-08)
PROC: XW13325 Transfusion of Convalescent Plasma (Nonautologous) into Peripheral Vein, Percutaneous Approach, New Technology Group 5 (ICD-10-PCS; principal; 2020-03-10)
DX: U07.1 COVID-19 (principal); J96.01 Acute respiratory failure with hypoxia; J20.9 Acute bronchitis, unspecified; D72.819 Decreased white blood cell count, unspecified; E02 Subclinical iodine-deficiency hypothyroidism; E78.2 Mixed hyperlipidemia; E87.6 Hypokalemia; F32.9 Major depressive disorder, single episode, unspecified; F41.9 Anxiety disorder, unspecified; G20 Parkinson's disease; G40.909 Epilepsy, unspecified, not intractable, without status epilepticus; I10 Essential (primary) hypertension; J98.11 Atelectasis; K21.9 Gastro-esophageal reflux disease without esophagitis; G47.9 Sleep disorder, unspecified; N40.0 Benign prostatic hyperplasia without lower urinary tract symptoms; T36.1X5A Adverse effect of cephalosporins and other beta-lactam antibiotics, initial encounter; Y92.239 Unspecified place in hospital as the place of occurrence of the external cause; Z88.8 Allergy status to other drugs, medicaments and biological substances; Z79.899 Other long term (current) drug therapy
CPT/HCPCS: 36415; 36600; 71045; 71275; 74018; 80048; 80053; 80076; 80305; 81001; 82150; 82272; 82803; 83036; 83690; 83735; 83880; 84100; 84436; 84439; 84443; 84479; 84484; 85025; 85379; 85610; 85730; 86886; 86900; 86901; 87040; 87081; 87804; 93005; 96361; 96365; 96375; 97110; 97112; 97161-GP; 97530; 99285; C9113; J0696; J1644; J2060; J2405; J2543; J7030; J7060; P9017; Q0177; Q9967; U0003

== ENCOUNTER 2021-01-10 03:00 | Emergency (ER) | payer OTHER, MEDICAID, SELFPAY ==
[~2021-01-10] VITALS: Ht 177.8 cm; Wt 59.0 kg
[~2021-01-10 03:00] MED LIST changes: +APIX5TAB4 PO; +AZIT250T3 PO; +DEC1 PO; +LACT-103 PO; -LACT10SO1 PO
[2021-01-10 03:15] VITALS: BP 132/81
--- NOTE | 2021-01-10 03:15 | NUR ---
MARIA FERNANDA FROM [facility] WITH C/O SOB X 1 HOUR. O2 SAT = 96%. SKIN IS WARM AND DRY. ATTACHED TO CM = SB.
--- NOTE | 2021-01-10 03:17 | NUR ---
BIBA TO ER BED 4
--- NOTE | 2021-01-10 06:30 | NUR ---
REPOSITIONED, LINENS CHANGED. REMAINS WITH CM = SB
--- NOTE | 2021-01-10 06:30 | NUR ---
RESTING COMFORTABLY, SIPS OF WATER TAKEN.
[2021-01-10 06:50] LABS: BASOPHILS % (AUTO) 0.8 % (0.0-2.0); EOSINOPHILS # (AUTO) 0.4 K/uL (0-0.4); HEMATOCRIT 40.9 % (36-52); HEMOGLOBIN 14.1 g/dL (12.0-18.0); LYMPHOCYTES % (AUTO) 20.3 % (20.5-51.1); MEAN CORPUSCULAR HEMOGLOBIN 32 pg (27-31); MEAN CORPUSCULAR HGB CONC 34 g/dL (33-37); MEAN CORPUSCULAR VOLUME 92.9 fL (80-94); MONOCYTES # (AUTO) 0.4 K/uL (0.8-1.0); MONOCYTES % (AUTO) 7.1 % (1.7-9.3); NEUTROPHILS # (AUTO) 3.3 K/uL (1.8-7.7); NEUTROPHILS % (AUTO) 63.8 % (42.2-75.2); PLATELET COUNT (AUTO) 171 K/uL (140-450); RED BLOOD CELL COUNT(AUTO) 4.41 MIL/uL (4.20-6.10); RED CELL DISTRIBUTION WIDTH 13.1 % (11.6-13.7); WHITE BLOOD COUNT (AUTO) 5.1 K/uL (4.8-10.8)
[2021-01-10 07:06] LABS: ALBUMIN 3.2 g/dL (3.4-5.0); ANION GAP 8.7 (8-16); CARBON DIOXIDE 30.9 mmol/L (21-32); CREATININE 0.4 mg/dL (0.6-1.3); POTASSIUM 3.6 mmol/L (3.5-5.1); TOTAL BILIRUBIN 0.7 mg/dL (0.0-1.0)
--- NOTE | 2021-01-10 07:10 | NUR ---
REPORT AND CONTINUATION OF CARE RECEIVED FROM EDGARD RODRÍGUEZ.
--- NOTE | 2021-01-10 07:20 | NUR ---
PATIENT DIAPER CHANGED (BM AND URINE) AND REPOSITIONED, CLEAN AND DRY AT THIS TIME. VSS AND RECORDED. PATIENT IS CURRENTLY ON 2L NC, SAT AT 96% RR 16.
--- NOTE | 2021-01-10 07:26 | NUR ---
CRITICAL LAB VALUE: REED + MADE AWARE.
--- NOTE | 2021-01-10 07:30 | NUR ---
PT MOVED TO ER BED 2 FOR COVID ISOLATION
[2021-01-10] MEDS ORDERED: REGENERON ANTIBODY ER ORDER 1 EA MISC MC ONE (07:35)
--- NOTE | 2021-01-10 08:55 | NUR ---
PATIENT STARTED ON MEDICATION REGENERON, CONSENT SIGNED.
[2021-01-10] MEDS ORDERED: NON-FORMULARY ITEM 1 EA in NACL 0.9% 100 ML IV SCH (09:00)
--- NOTE | 2021-01-10 10:47 | NUR ---
PATIENT OBSERVED IN BED RESTING, RR EVEN AND UNLABORED.
--- NOTE | 2021-01-10 12:05 | NUR ---
PATIENT IN BED RESTING, VSS.
[2021-01-10 13:00] VITALS: BP 131/71
--- NOTE | 2021-01-10 13:43 | NUR ---
PATIENT IN BED RESTING AT THIS TIME, VSS.
--- NOTE | 2021-01-10 14:50 | NUR ---
PATIENT DIAPER CHANGED AND REPOSITIONED, GIVEN FOOD TOLERATED WELL.
--- NOTE | 2021-01-10 15:44 | NUR ---
Patient discharged with v/s stable. Written and verbal after care instructions given and explained. Patient verbalized understanding. [facility] with to [facility]. All questions addressed prior to discharge. Advised to follow up with PMD.
== END 2021-01-10 15:44 ==
LOC: MED 03:00
DX: U07.1 COVID-19 (principal); R06.02 Shortness of breath; R05 Cough; K21.9 Gastro-esophageal reflux disease without esophagitis; Z88.5 Allergy status to narcotic agent; Z88.6 Allergy status to analgesic agent; Z88.8 Allergy status to other drugs, medicaments and biological substances; Z79.899 Other long term (current) drug therapy
CPT/HCPCS: 36415; 71045; 80053; 84484; 85025; 87426; 93005; 96365; 99285; Q0092

== ENCOUNTER 2022-05-18 10:47 | Inpatient (IN) | payer OTHER, MEDICAID ==
[~2022-05-18] VITALS: Ht 167.6 cm; Wt 73.9 kg
[~2022-05-18 10:47] MED LIST changes: +AMLO-3 PO; +DOCU-300 PO; -HAL1 PO; +HALO1TAB99 PO; +LACT10SO40 PO; +LOSA100T51 PO
[2022-05-18 10:48] VITALS: BP 158/92
[2022-05-18] MEDS ORDERED: NACL 0.9% 1,000 ML IV ONE (12:05)
[2022-05-18] MEDS ORDERED: fentaNYL citrate 0.05 MG/ML VIAL IVP ONE (12:05)
--- NOTE | 2022-05-18 12:41 | NUR ---
INSERTED F/C, COLLECTED URINE. INSERTED 20 G IV TO LEFT HAND, COLLECTED BLOOD SAMPLE, COLLECTED SAMPLE FOR COVID. PT C/O ABDO PAIN. MEDICAED WITH SCHEDULED MEDS. WILL CONTINUE TO MONIOR
[2022-05-18 12:43] LABS: BASOPHILS # (AUTO) 0.1 K/uL (0.00-0.22); BASOPHILS % (AUTO) 0.8 % (0.0-2.0); EOSINOPHILS # (AUTO) 0.3 K/uL (0-0.4); HEMATOCRIT 41.7 % (36-52); HEMOGLOBIN 14.2 g/dL (12.0-18.0); LYMPHOCYTES # (AUTO) 1.1 K/uL (2.0-11.5); LYMPHOCYTES % (AUTO) 15.6 % (20.5-51.1); MEAN CORPUSCULAR HEMOGLOBIN 31 pg (27-31); MEAN CORPUSCULAR HGB CONC 34 g/dL (33-37); MEAN CORPUSCULAR VOLUME 90.6 fL (80-94); MONOCYTES # (AUTO) 0.5 K/uL (0.8-1.0); MONOCYTES % (AUTO) 6.8 % (1.7-9.3); NEUTROPHILS # (AUTO) 5.3 K/uL (1.8-7.7); NEUTROPHILS % (AUTO) 72.8 % (42.2-75.2); PLATELET COUNT (AUTO) 177 K/uL (140-450); RED CELL DISTRIBUTION WIDTH 14.1 % (11.6-13.7); WHITE BLOOD COUNT (AUTO) 7.3 K/uL (4.8-10.8)
[2022-05-18 12:46] LABS: APPEARANCE,URINE CLEAR (CLEAR); BILIRUBIN,URINE NEGATIVE (NEGATIVE); BLOOD, URINE NEGATIVE (NEGATIVE); COLOR,URINE YELLOW (YELLOW); LEUKOCYTE ESTERASE ,URINE NEGATIVE (NEGATIVE); NITRITE, URINE NEGATIVE (NEGATIVE); PH,URINE 5.5 (5.0-9.0); UGLUCOSE NEGATIVE (NEGATIVE)
[2022-05-18 13:08] LABS: ALBUMIN 3.3 g/dL (3.4-5.0); ANION GAP 9.7 (8-16); CARBON DIOXIDE 27.8 mmol/L (21-32); CREATININE 0.6 mg/dL (0.6-1.3); POTASSIUM 3.5 mmol/L (3.5-5.1)
[2022-05-18] MEDS ORDERED: PIPERACILLIN/TAZOBACTAM 3.375 GM in DEXTROSE 5% 50 ML IV ONE (13:40)
[2022-05-18] MEDS ORDERED: PIPERACILLIN/TAZOBACTAM 3.375 GM VIAL IV ONE ×2 (14:16→21:53)
[2022-05-18] MEDS ORDERED: LORazepam 2 MG/ML VIAL IVP PRN (17:40)
[2022-05-18] MEDS ORDERED: DOCUSATE SODIUM 100 MG GELCAP PO PRN (17:40)
[2022-05-18] MEDS ORDERED: MAG SULF 2000 MG/WATER PREMIX 50 ML IV PRN (17:40)
[2022-05-18] MEDS ORDERED: ZOLPIDEM 10 MG TAB PO PRN (17:40)
[2022-05-18] MEDS ORDERED: ONDANSETRON 4 MG/2 ML VIAL IVP PRN (17:40)
[2022-05-18] MEDS ORDERED: POTASSIUM CHLORIDE 10 MEQ TABER PO PRN (17:40)
--- NOTE | 2022-05-18 20:15 | NUR ---
Patient will be admitted to care of CESIA PAUL. Admited to MD/SURG. Will go to room 110A. Belongings list completed. Report to JANE RENE.
[2022-05-18] MEDS ORDERED: TAMSULOSIN 0.4 MG CAP PO SCH (21:00)
[2022-05-18] MEDS: BACLOFEN 10 MG TAB PO SCH (21:56)
[2022-05-18] MEDS: TAMSULOSIN 0.4 MG CAP PO SCH (21:56)
[2022-05-18] MEDS: ZOLPIDEM 5 MG TAB PO PRN (21:58)
[2022-05-18] MEDS: PIPERACILLIN/TAZOBACTAM 3.375 GM in DEXTROSE 5% 50 ML IV SCH (22:00)
--- NOTE | 2022-05-18 23:00 | NUR ---
FOLLEY CATHETER OUT ACCIDENTALLY SOME BLEEDING OUT WE CLEANING AND BLEEDING STOP
[2022-05-19 00:33] VITALS: BP 132/72
[2022-05-19 01:03] VITALS: BP 128/72
--- NOTE | 2022-05-19 01:26 | NUR ---
PATIENT ADMIT FROM ER FOR CONSTIPATION BUT NOW HAVE A LOT OF DIARRHEA THREE TIME COPIOUS WE CLEAN AND CHANGE THE BED VITALS SIGNS IN NORMAL LIMITS PATIENT IS STABLE
[2022-05-19 04:00] VITALS: BP 129/72
[2022-05-19] MEDS ORDERED: PIPERACILLIN/TAZOBACTAM 3.375 GM VIAL IV ONE (05:27)
[2022-05-19] MEDS: PIPERACILLIN/TAZOBACTAM 3.375 GM in DEXTROSE 5% 50 ML IV SCH ×3 (05:41→21:10)
--- NOTE | 2022-05-19 06:43 | NUR ---
PATIENT STABLE VITALS SIGNS IN NORMAL LIMITS NOT COMPLAINING OF PAIN
--- NOTE | 2022-05-19 07:10 | NUR ---
RECEIVED REPORT FROM ANGLESMITH NURSE FOR CONTINUITY OF CARE. PT STABLE AT THIS TIME.
[2022-05-19 07:27] LABS: BASOPHILS % (AUTO) 0.3 % (0.0-2.0); EOSINOPHILS # (AUTO) 0.3 K/uL (0-0.4); EOSINOPHILS % (AUTO) 4.4 % (0.0-4.0); HEMATOCRIT 42.6 % (36-52); HEMOGLOBIN 14.6 g/dL (12.0-18.0); LYMPHOCYTES # (AUTO) 0.8 K/uL (2.0-11.5); LYMPHOCYTES % (AUTO) 13.4 % (20.5-51.1); MEAN CORPUSCULAR HEMOGLOBIN 31 pg (27-31); MEAN CORPUSCULAR HGB CONC 34 g/dL (33-37); MEAN CORPUSCULAR VOLUME 90.6 fL (80-94); MONOCYTES # (AUTO) 0.4 K/uL (0.8-1.0); MONOCYTES % (AUTO) 6.3 % (1.7-9.3); NEUTROPHILS # (AUTO) 4.5 K/uL (1.8-7.7); NEUTROPHILS % (AUTO) 75.6 % (42.2-75.2); PLATELET COUNT (AUTO) 168 K/uL (140-450); RED CELL DISTRIBUTION WIDTH 13.8 % (11.6-13.7)
[2022-05-19 07:30] LABS: ANION GAP 9.9 (8-16); CARBON DIOXIDE 31.4 mmol/L (21-32); CREATININE 0.6 mg/dL (0.6-1.3); POTASSIUM 3.3 mmol/L (3.5-5.1)
[2022-05-19 08:00] VITALS: BP 173/82
[2022-05-19] MEDS: LACTULOSE 20 GM/30 ML UDC PO SCH ×3 (09:00→17:20)
[2022-05-19] MEDS: CARBIDOPA/LEVODOPA 25/100 MG 1 TAB PO SCH ×3 (09:34→17:20)
[2022-05-19] MEDS: SERTRALINE 50 MG TAB PO SCH (09:35)
[2022-05-19] MEDS: hydrOXYzine PAMOATE 25 MG CAP PO SCH (09:36)
[2022-05-19] MEDS: LOSARTAN 50 MG TAB PO SCH (09:36)
[2022-05-19] MEDS: amLODIPine 5 MG TAB PO SCH (09:36)
[2022-05-19] MEDS: BACLOFEN 10 MG TAB PO SCH ×2 (09:38→21:10)
[2022-05-19] MEDS: LIDOCAINE 5% 1 EA PATCH TP SCH (14:31)
[2022-05-19 16:00] VITALS: BP 141/78
--- NOTE | 2022-05-19 16:05 | NUR ---
DISCHARGE PLANNING PT. IS A 66 YEAR OLD MALE ADMITTED IN THE [facility]ER ON 05/18/2022 DUE TO ABDOMINAL PAIN. SW ATTEMPTED TO SPEAK TO PATIENT'S FAMILY MEMBER COUSIN AT [phone] NO RESPONSE AND SW LEFT HIM A VOICE MAIL MSG. TO CALL BACK. SW MEET WITH PATIENT AT BEDSIDE TO DISCUSS AND GATHER HIS COLLATERAL INFORMATION. PATIENT WAS AWAKE AND ALERT STATED THAT HE HAS BEEN IN [facility] FOR OVER 4 YEARS AND THAT IS HIS HOME HE REPORTED HAVING FAMILY SUPPORT FROM HIS COUSIN ON FACE SHEET CONTACT AND HIS SISTER LAURE YIN WHO LIVES IN [place] BUT PATIENT DID NOT HAVE HER CONTACT NUMBER WITH HIM. PER PATIENT HE IS HAPPY AT HIS FACILITY AND STATED THAT HE HAS NO ADVANCE DIRECTIVES BUT WILL LIKE HIS FAMILY TO BE HIS EMERGENCY CONTACTS AND MEDICAL DESICION MAKERS. PATIENT REPORTED NOT HAVING ANY ISSUES WITH HIS MEDICATIONS AND WITH HIS CARE AT THE FACILITY SINCE HIS INSURANCE INNOVAGE TAKES CARE OF EVERYTHING FOR HIM. PATIENT WILL LIKE TO RETURN TO THE FACILITY WHEN HE IS READY AND STABLE TO DISCHARGE. PATIENT WAS PLEASED WITH ALL THE CARE HE IS RECEIVING IN [facility] STATED ONLY HAVING A WHEELCHAIR HIS DME. NO ISSUES WAS DISCUSSED DURING THE MEETING. KELY CONTACTED [facility] AND SPOKE TO REYNA AT SPOKE TO HER ABOUT PATIENT INFORMATION, AND FAMILY INVOLVEMENT WELL PATIENT ABILITY TO RETURN TO FACILITY. PER REYNA PATIENT CAN RETURN TO FACILITY WHEN STABLE AND READY TO DISCHARGE. KELY THANKED HER FOR THE INFORMATION. KELY/PATRICIA WILL FOLLOW UP NEEDED.
--- NOTE | 2022-05-19 16:33 | NUR ---
PATIENT HAS BEEN SCREENED AND CATEGORIZED LOW NUTRITION RISK. PATIENT WILL BE SEEN WITHIN 7 DAYS OF ADMISSION. 05/25/22 REVIEWED BY SCOTT MENDOZA RD
--- NOTE | 2022-05-19 19:05 | NUR ---
ENDORSED PT TO RECORDS MANAGEMENT CLERK NURSE FOR CONTINUITY OF CARE. PT IS STABLE.
[2022-05-19] MEDS: TAMSULOSIN 0.4 MG CAP PO SCH (21:10)
[2022-05-19] MEDS: ZOLPIDEM 5 MG TAB PO PRN (21:13)
--- NOTE | 2022-05-20 00:59 | NUR ---
PATIENT STABLE SLEEPING AT THIS TIME VITALS SIGNS IN NORMAL LIMITS NOT COMPLAINING OF PAIN
[2022-05-20] MEDS: LIDOCAINE 5% 1 EA PATCH TP SCH (02:28)
[2022-05-20 03:58] VITALS: BP 126/72
[2022-05-20] MEDS: PIPERACILLIN/TAZOBACTAM 3.375 GM in DEXTROSE 5% 50 ML IV SCH ×2 (04:38→14:01)
--- NOTE | 2022-05-20 06:20 | NUR ---
PATIENT STABLE ALERT NOT COMPLAINING OF PAIN VITALS SIGNS IN NORMAL LIMITS BATH AND ORAL CARE WAS DONE HAS DIARRHEA
--- NOTE | 2022-05-20 07:05 | NUR ---
ASSUMED CONTINUITY OF CARE. INITIAL ASSESSMENT DONE. KEEP COMFORTABLE ON BED. SEIZURE AND FALL PRECAUTION APPLIED. CALL LIGHT WITHIN REACH.
[2022-05-20 07:18] LABS: ANION GAP 9.5 (8-16); CARBON DIOXIDE 30.3 mmol/L (21-32); CREATININE 0.6 mg/dL (0.6-1.3); POTASSIUM 3.8 mmol/L (3.5-5.1)
[2022-05-20 07:34] LABS: EOSINOPHILS # (AUTO) 0.2 K/uL (0-0.4); HEMOGLOBIN 13.9 g/dL (12.0-18.0); MONOCYTES # (AUTO) 0.7 K/uL (0.8-1.0)
[2022-05-20 07:37] LABS: BASOPHILS % (AUTO) 0.4 % (0.0-2.0); EOSINOPHILS % (AUTO) 1.6 % (0.0-4.0); HEMATOCRIT 39.9 % (36-52); LYMPHOCYTES # (AUTO) 0.7 K/uL (2.0-11.5); LYMPHOCYTES % (AUTO) 7.3 % (20.5-51.1); MEAN CORPUSCULAR HEMOGLOBIN 31 pg (27-31); MEAN CORPUSCULAR HGB CONC 35 g/dL (33-37); MEAN CORPUSCULAR VOLUME 89.3 fL (80-94); MONOCYTES % (AUTO) 7.2 % (1.7-9.3); NEUTROPHILS % (AUTO) 83.5 % (42.2-75.2); PLATELET COUNT (AUTO) 168 K/uL (140-450); RED BLOOD CELL COUNT(AUTO) 4.47 MIL/uL (4.20-6.10); RED CELL DISTRIBUTION WIDTH 13.8 % (11.6-13.7); WHITE BLOOD COUNT (AUTO) 9.6 K/uL (4.8-10.8)
[2022-05-20 08:00] VITALS: BP 139/76
--- NOTE | 2022-05-20 08:05 | NUR ---
DR. PAUL CAME TOGETHER WITH MED STUDENTS FOR [facility] ROUNDS.
[2022-05-20] MEDS: LACTULOSE 20 GM/30 ML UDC PO SCH (08:49)
[2022-05-20] MEDS: hydrOXYzine PAMOATE 25 MG CAP PO SCH (08:49)
[2022-05-20] MEDS: SERTRALINE 50 MG TAB PO SCH (08:50)
[2022-05-20] MEDS: BACLOFEN 10 MG TAB PO SCH (08:50)
[2022-05-20] MEDS: LOSARTAN 50 MG TAB PO SCH (08:50)
[2022-05-20] MEDS: amLODIPine 5 MG TAB PO SCH (08:50)
[2022-05-20] MEDS: CARBIDOPA/LEVODOPA 25/100 MG 1 TAB PO SCH (08:51)
--- NOTE | 2022-05-20 10:30 | NUR ---
CALLED [facility] PT. NEXT OF KIN AT , LEFT CALL BACK NUMBER AND MESSAGES REGARDING PT. TRANSFER BACK TO [facility].
--- NOTE | 2022-05-20 10:49 | NUR ---
CALLED BRENDA MEZA AT AND SPOKE TO CASSANDRA, INFORMED OF PT. TRANSFER TO THEIR FACILITY.
--- NOTE | 2022-05-20 12:16 | NUR ---
CALLED DAVION FROM [facility] AND INFORMED THAT PT. METALLOGRAPHER TIME WILL BE BETWEEN 1330 TO 1400 PER CASE MANAGEMENT SARAHI BOWERS.
--- NOTE | 2022-05-20 13:45 | NUR ---
D/C BACK TO [facility] WITH MEDICAL TRANSPORTER. IN STABLE CONDITION. INFORMED CHARGE NURSE MATTHEW FIGUEROA.
== END 2022-05-20 14:17 | disposition home or self-care (01) | DRG 392 ==
LOC: MED 10:47 → MTU 17:40
PROVIDERS: ADMIT Family Medicine; ATTEND Family Medicine
DX: K52.89 Other specified noninfective gastroenteritis and colitis (principal); E83.51 Hypocalcemia; R56.9 Unspecified convulsions; K21.9 Gastro-esophageal reflux disease without esophagitis; I10 Essential (primary) hypertension; K56.41 Fecal impaction; Z20.822 Contact with and (suspected) exposure to COVID-19; N28.1 Cyst of kidney, acquired; F41.9 Anxiety disorder, unspecified; Z88.1 Allergy status to other antibiotic agents; Z88.8 Allergy status to other drugs, medicaments and biological substances; Z79.899 Other long term (current) drug therapy
CPT/HCPCS: 36415; 80048; 80053; 81003; 83690; 83735; 85025; 85651; 86140; 96374; 96375; 99285; J2060; J2405; J2543; J3010; J7060; Q0177

== ENCOUNTER 2022-05-21 19:41 | Inpatient (IN) | payer OTHER, MEDICAID ==
[~2022-05-21] VITALS: Ht 175.3 cm; Wt 77.1 kg
[2022-05-21 19:41] VITALS: BP 160/86
[~2022-05-21 19:41] MED LIST changes: -AMLO5TAB PO; -ANUSOL HC TP; -AZIT250T3 PO; -DEC1 PO; -DICL1GEL19 TP; -DOCU-299 PO; -LACT-103 PO; -LOSA100T1 PO; -[UNRECOGNIZED DRUG - CODE] PO
--- NOTE | 2022-05-21 19:55 | NUR ---
PT BIBA BLS TO ER BED 12
[2022-05-21 20:18] LABS: BASOPHILS % (AUTO) 0.5 % (0.0-2.0); EOSINOPHILS # (AUTO) 0.3 K/uL (0-0.4); HEMATOCRIT 39.7 % (36-52); HEMOGLOBIN 13.6 g/dL (12.0-18.0); LYMPHOCYTES # (AUTO) 1.2 K/uL (2.0-11.5); LYMPHOCYTES % (AUTO) 14.1 % (20.5-51.1); MEAN CORPUSCULAR HEMOGLOBIN 31 pg (27-31); MEAN CORPUSCULAR HGB CONC 34 g/dL (33-37); MEAN CORPUSCULAR VOLUME 89.4 fL (80-94); MONOCYTES # (AUTO) 0.7 K/uL (0.8-1.0); MONOCYTES % (AUTO) 8.1 % (1.7-9.3); NEUTROPHILS # (AUTO) 6.2 K/uL (1.8-7.7); NEUTROPHILS % (AUTO) 73.3 % (42.2-75.2); PLATELET COUNT (AUTO) 184 K/uL (140-450); RED BLOOD CELL COUNT(AUTO) 4.44 MIL/uL (4.20-6.10); RED CELL DISTRIBUTION WIDTH 13.9 % (11.6-13.7); WHITE BLOOD COUNT (AUTO) 8.4 K/uL (4.8-10.8)
[2022-05-21 20:45] LABS: ALBUMIN 3.2 g/dL (3.4-5.0); ANION GAP 11.1 (8-16); CARBON DIOXIDE 27.2 mmol/L (21-32); CREATININE 0.5 mg/dL (0.6-1.3); POTASSIUM 3.3 mmol/L (3.5-5.1); TOTAL BILIRUBIN 0.8 mg/dL (0.0-1.0)
--- NOTE | 2022-05-21 22:14 | NUR ---
ATTEMPTED TO STRAIGHT CATHERIZE FOR URINE SAMPLE HOWEVER ABSTRUCTION WAS NOTED. CONDOM CATH WAS PLACED TO OBTAIN SAMPLE. WILL CONTINUE TO MONITOR
[2022-05-22] MEDS ORDERED: diphenhydrAMINE 50 MG/ML VIAL IVP ONE (01:30)
[2022-05-22] MEDS ORDERED: SODIUM PHOSPHATE 118 ML ENEM RC ONE (01:30)
[2022-05-22] MEDS ORDERED: LORazepam 2 MG/ML VIAL IVP ONE (01:35)
[2022-05-22] MEDS ORDERED: PIPERACILLIN/TAZOBACTAM 3.375 GM in DEXTROSE 5% 50 ML IV ONE (02:10)
--- NOTE | 2022-05-22 02:45 | NUR ---
PT BELONGINGS DONE.
--- NOTE | 2022-05-22 02:56 | NUR ---
Patient will be admitted to care of GABRIELLE SWEET. Admited to MED/ SURG. Will go to room 105B. Belongings list completed. Report to SANDRA RENE.
[2022-05-22 03:20] VITALS: BP 130/76
--- NOTE | 2022-05-22 03:20 | NUR ---
RECEIVED REPORT FROM ER NURSE PATEL FOR CONTINUITY OF CARE. PATIENT WAS SLEEPING WHEN BROUGHT TO THE UNIT. ER NURSE AMANDA INFORMED ME THAT HE HAD JUST GIVEN THE PATIENT 0.5MG ATIVAN AND PATIENT FELL ASLEEP. PATIENT HAD POOPED ON THE WAY TO THE UNIT FROM THE ER. PATIENT WAS CLEANED BY ER NURSE AMANDA, ER NURSE SANDRA, AND MYSELF. PATIENT IS ON ROOM AIR, BREATHING IS NORMAL WITH SYMMETRICAL RISE AND FALL OF CHEST. IV IS A 18G IN L HAND, RUNNING D5 NS 80. ATTEMPTED TO DO ADMISSION ON PATIENT, BUT PATIENT WAS UNABLE TO STAY AWAKE; AND WHEN HE DID WAKE UP HE ASKED IF HE COULD HAVE HIS ATIVAN AND THEN WOULD INSTANTLY FALL BACK ASLEEP. WILL CONTINUE TO OBSERVE PATIENT.
[2022-05-22] MEDS ORDERED: PIPERACILLIN/TAZOBACTAM 3.375 GM VIAL IV ONE (03:40)
[2022-05-22] MEDS: DEXT 5% /NACL 0.9% 1,000 ML IV SCH ×2 (03:40→14:55)
--- NOTE | 2022-05-22 07:30 | NUR ---
RECEIVED REPORT FROM AUTO SLIP COVER INSTALLER NURSE FOR CONTINUITY OF CARE, PT ABLE TO COMMUNICATE. UNDER THE CARE OF RN JENY WITH PRECEPTOR. ALL SAFETY MEASURES IN PLACE, CALL LIGHT WITHIN REACH. WILL CONTINUE TO MONITOR.
--- NOTE | 2022-05-22 07:30 | NUR ---
RECIEVED PATIENT FROM TODDLER TEACHER NURSE.VITALS ARE STABLE,VERBALLY ACTIVE,POC DISCUSSED.ALL SAFETY MEASURES IN PLACE.WILL CONTINUE TO MONITOR.
--- NOTE | 2022-05-22 07:39 | NUR ---
ENDORSED TO DAY SHIFT NURSE DONNA FOR CONTINUITY OF CARE. PATIENT IS STABLE.
[2022-05-22] MEDS ORDERED: DOCUSATE SODIUM 100 MG GELCAP PO PRN (07:55)
[2022-05-22] MEDS ORDERED: POTASSIUM CHLORIDE 10 MEQ TABER PO PRN (07:55)
[2022-05-22] MEDS ORDERED: guaiFENesin DM 200/20 MG-10 ML 10 ML UDC PO PRN (07:55)
[2022-05-22 08:00] VITALS: BP 155/68
[2022-05-22] MEDS ORDERED: bisacodyL 10 MG SUPP RC SCH (08:03)
[2022-05-22] MEDS ORDERED: NON-FORMULARY ITEM (Losartan Potassium 1 TAB) PO SCH (09:00)
[2022-05-22] MEDS: LOSARTAN 50 MG TAB PO SCH (09:25)
[2022-05-22] MEDS: PANTOPRAZOLE 40 MG TABEC PO SCH (09:26)
[2022-05-22] MEDS: CARBIDOPA/LEVODOPA 25/100 MG 1 TAB PO SCH ×3 (09:26→16:14)
[2022-05-22] MEDS: SERTRALINE 50 MG TAB PO SCH (09:26)
[2022-05-22] MEDS: amLODIPine 5 MG TAB PO SCH (09:27)
[2022-05-22 09:31] LABS: CHOL/HDL RATIO 2.7 (1-4.5); FREE T4 (FREE THYROXINE) 1.21 ng/dL (0.76-1.46); MAGNESIUM 1.9 mg/dL (1.8-2.4); PHOSPHORUS 3.5 mg/dL (2.5-4.9); THYROID STIMULATING HORMONE 4.73 uIU/mL (0.34-3.74)
--- NOTE | 2022-05-22 11:22 | NUR ---
DR. CRUZ HAS BEEN NOTIFIED OF STAT CONSULT
--- NOTE | 2022-05-22 11:44 | NUR ---
PT. WITH LOW OSMIN SCALE AT MODERATE TO HIGH RISK, CONTINUE TO FOLLOW PRESSURE INJURY PREVENTION INTERVENTIONS. -POSITIONING: TURN AND REPOSITION PATIENT Q 2H OR SOONER USE PILLOWS TO KEEP BONY PROMINENCES FROM DIRECT CONTACT WITH SURFACES USE REPOSITIONING WEDGES TO PROVIDE 30-DEGREE ANGLE FOR SIDE LYING POSITIONS OFFLOADING OR FOAM DRESSING TO ALL TUBING TO PREVENT MEDICAL DEVICES RELATED PRESSURE INJURY -RE-EVALUATING AND MANAGING INCONTINENCE MONITOR SKIN CONDITION DURING POSITION CHANGE DO NOT MASSAGE REDNESS, BONY PROMINENCES FREQUENT CHAPARRO-CARE AND PROVIDE BARRIER CREAMS PRN IF SOILING MOISTURE CONTROL BY OFFER BED LUCERO/URINAL /ABSORBENT PAD TO WICK AND HOLD MOISTURE KEEP SKIN DRY AND PROTECT FROM FRICTION -MANAGE FRICTION/SHEAR/MOBILITY KEEP HOB AT THE LOWEST LEVEL OF ELEVATION NO MORE THAN 30 DEGREE UNLESS OTHERWISE CONTRAINDICATED USE LIFT SHEET OR TRANSFER DEVICE TO MOVE PATIENT AND PREVENT LATERAL SHEER. PROTECT HEELS, ELBOWS BONY PROMINENCES WITH SKIN BERRIES OR FOAM DRESSING IF EXPOSED TO FRICTION OFFLOAD BILATERAL HEELS BY PLACING PILLOWS UNDER CALVES AT ALL TIMES, UNLESS OTHERWISE CONTRAINDICATED -PRESSURE REDISTRIBUTION SURFACE THERAPY SHARON ISOFLEX MATTRESS -NUTRITION: PLEASE FOLLOW RD RECOMMENDATIONS AND OFFER NUTRITION SUPPLEMENTS IF ORDERED. PLEASE CONTACT WOUND CARE NURSE FOR ANY QUESTION AND CHANGE OF WOUND CONDITION.
--- NOTE | 2022-05-22 15:43 | NUR ---
DC PLANNING PT IS A READMIT, PT DC 05/20 AND SEEN ON 05/20 BY KELY DYER. PER JORDYN'S NOTES FROM LAST VISIT: SW MEET WITH PATIENT AT BEDSIDE TO DISCUSS AND GATHER HIS COLLATERAL INFORMATION. PATIENT WAS AWAKE AND ALERT STATED THAT HE HAS BEEN IN [facility] FOR OVER 4 YEARS AND THAT IS HIS HOME HE REPORTED HAVING FAMILY SUPPORT FROM HIS COUSIN ON FACE SHEET CONTACT AND HIS SISTER LAURE JOSE WHO LIVES IN [place] BUT PATIENT DID NOT HAVE HER CONTACT NUMBER WITH HIM. PER PATIENT HE IS HAPPY AT HIS FACILITY AND STATED THAT HE HAS NO ADVANCE DIRECTIVES BUT WILL LIKE HIS FAMILY TO BE HIS EMERGENCY CONTACTS AND MEDICAL DECISION MAKERS. PATIENT REPORTED NOT HAVING ANY ISSUES WITH HIS MEDICATIONS AND WITH HIS CARE AT THE FACILITY SINCE HIS INSURANCE INNOVAGE TAKES CARE OF EVERYTHING FOR HIM. PATIENT WILL LIKE TO RETURN TO THE FACILITY WHEN HE IS READY AND STABLE TO DISCHARGE. PATIENT WAS PLEASED WITH ALL THE CARE HE IS RECEIVING IN [facility] STATED ONLY HAVING A WHEELCHAIR HIS DME. NO ISSUES WAS DISCUSSED DURING THE MEETING. KELY CONTACTED [facility] AND SPOKE TO REYNA AT SPOKE TO HER ABOUT PATIENT INFORMATION, AND FAMILY INVOLVEMENT WELL PATIENT ABILITY TO RETURN TO FACILITY. PER REYNA PATIENT CAN RETURN TO FACILITY WHEN STABLE AND READY TO DISCHARGE. KELY THANKED HER FOR THE INFORMATION. SW/CM WILL FOLLOW UP NEEDED. Addendum: 05/22/22 at 1545 by Danae ARENAS Amended: Links added.
--- NOTE | 2022-05-22 15:52 | NUR ---
PATIENT HAS BEEN SCREENED AND CATEGORIZED LOW NUTRITION RISK. PATIENT WILL BE SEEN WITHIN 7 DAYS OF ADMISSION. 05/29/[address] BY SCOTT MENDOZA RD
[2022-05-22 16:00] VITALS: BP 143/67
--- NOTE | 2022-05-22 18:38 | NUR ---
ALL NEEDS HAVE BEEN MET THROUGHOUT THE SHIFT. ALL SAFETY MEASURES IN PLACE. WILL CONTINUE TO MONITOR. WILL ENDORSE TO TUMBLER TENDER NURSE AT 1900
--- NOTE | 2022-05-22 19:30 | NUR ---
REPORT RECEIVED FROM DAY SHIFT NURSE DONNA RN FOR CONTINUITY OF CARE. PT STABLE. ALL SAFETY MEASURES IN PLACE. NO S/S OF DISTRESS. BOWEL REST PROTOCOL CONTINUED. FULL LIQUIDS BEGAN REPORTED AND TOLERATED WELL. MONITOR AND ASSIST NEEDED.
[2022-05-22] MEDS: TAMSULOSIN 0.4 MG CAP PO SCH (20:50)
[2022-05-22] MEDS: ATORVASTATIN 20 MG TAB PO SCH (20:52)
--- NOTE | 2022-05-22 21:14 | NUR ---
ALL SCHEDULED MEDS ADMINISTERED PER MD ORDER. REQUESTED SLEEPER. INCONTINENT OF STOOL SMALL AMT. PERSONAL HYGIENE GIVEN. SKIN INTACT. NEW PADS. INSTRUCTED PT TO ALLOW SLEEPER TO WORK BY CUTTING OFF LIGHTS AND TV PROVIDING A QUIET ATMOSPHERE. APPLE JUICE AND WARM BLANKETS FROM THE OVEN GIVEN. CONT TO MONITOR AND ASSIST NEEDED. INSTRUCTED BY CHARGE NURSE NOT TO SEND STOOL SPEC FOR CDIFF UNTIL 24 HOURS AFTER LAX.
--- NOTE | 2022-05-23 00:30 | NUR ---
PT SLEEPING WELL. DID NOT DISTURB. CHEST RISE AND FALL WITH NO SIGNS OF RESPIRATORY DISTRESS. CONT TO MONITOR AND ASSIST NEEDED.
--- NOTE | 2022-05-23 03:30 | NUR ---
AWAKE AND ASKING FOR MORE SLEEPING MEDS. PT TEACHING AGAIN CONCERNING SLEEPING MED ORDER AND PROTOCOL. DOZED BACK OFF TO SLEEP WITHOUT INCIDENT.
[2022-05-23 04:00] VITALS: BP 137/62
[2022-05-23 06:27] LABS: BASOPHILS % (AUTO) 0.5 % (0.0-2.0); EOSINOPHILS # (AUTO) 0.4 K/uL (0-0.4); EOSINOPHILS % (AUTO) 5.5 % (0.0-4.0); HEMATOCRIT 38.2 % (36-52); HEMOGLOBIN 13.2 g/dL (12.0-18.0); LYMPHOCYTES # (AUTO) 1.1 K/uL (2.0-11.5); LYMPHOCYTES % (AUTO) 16.8 % (20.5-51.1); MEAN CORPUSCULAR HEMOGLOBIN 31 pg (27-31); MEAN CORPUSCULAR HGB CONC 35 g/dL (33-37); MEAN CORPUSCULAR VOLUME 89.7 fL (80-94); MONOCYTES # (AUTO) 0.4 K/uL (0.8-1.0); MONOCYTES % (AUTO) 6.6 % (1.7-9.3); NEUTROPHILS # (AUTO) 4.7 K/uL (1.8-7.7); NEUTROPHILS % (AUTO) 70.6 % (42.2-75.2); PLATELET COUNT (AUTO) 177 K/uL (140-450); RED BLOOD CELL COUNT(AUTO) 4.26 MIL/uL (4.20-6.10); RED CELL DISTRIBUTION WIDTH 13.6 % (11.6-13.7); WHITE BLOOD COUNT (AUTO) 6.7 K/uL (4.8-10.8)
[2022-05-23 06:50] LABS: ANION GAP 7.9 (8-16); CARBON DIOXIDE 27.3 mmol/L (21-32); CREATININE 0.5 mg/dL (0.6-1.3); POTASSIUM 3.2 mmol/L (3.5-5.1)
--- NOTE | 2022-05-23 07:20 | NUR ---
ASSUMED CONTINUITY OF CARE. NO SIGNS AND SYMPTOMS OF ACUTE DISTRESS NOTED. INITIAL ASSESSMENT DONE. KEEP COMFORTABLE ON BED. SEIZURE AND FALL PRECAUTION APPLIED. CALL LIGHT WITHIN REACH.
[2022-05-23] MEDS: DEXT 5% /NACL 0.9% 1,000 ML IV SCH ×2 (07:30→15:55)
--- NOTE | 2022-05-23 07:30 | NUR ---
REPORT GIVEN TO DAY SHIFT NURSE. ENDORSED: FULL LIQUID DIET, C DIFF SPECIMEN STILL NEEDED 24 HOURS PAST LATEST LAXATIVE INFORMED BY CHARGE NURSE KELLEE.
[2022-05-23 08:00] VITALS: BP 141/80
[2022-05-23 08:07] LABS: T4 (THYROXINE) 7.6 ug/dL (4.5-12.0)
--- NOTE | 2022-05-23 08:30 | NUR ---
plan of care was discussed to animal stunner, pt is awake, alert and oriented, seated on the bed.
--- NOTE | 2022-05-23 08:49 | NUR ---
pt was given ivpb rocephin now, pt is alert and oriented, eating his breakfast, being assisted by server service assistant student
[2022-05-23] MEDS: amLODIPine 5 MG TAB PO SCH (09:00)
[2022-05-23] MEDS: LOSARTAN 50 MG TAB PO SCH (09:00)
[2022-05-23] MEDS: PANTOPRAZOLE 40 MG TABEC PO SCH (09:45)
[2022-05-23] MEDS: CARBIDOPA/LEVODOPA 25/100 MG 1 TAB PO SCH ×3 (09:45→17:21)
[2022-05-23] MEDS: SERTRALINE 50 MG TAB PO SCH (09:45)
[2022-05-23] MEDS: POTASSIUM CHLORIDE 20% 40 MEQ/15 ML UDC PO PRN (09:46)
--- NOTE | 2022-05-23 13:35 | NUR ---
SLEEPING WELL AT THIS TIME. NO LABORED BREATHING NOTED. WILL MONITOR.
--- NOTE | 2022-05-23 15:55 | NUR ---
IV ON LEFT HAND GAUGE #18 INFILTRATED AND D/C. INSERTED NEW IV ACCESS ON RIGHT HAND GAUGE #18. TOLERATED WELL.
[2022-05-23] MEDS: ONDANSETRON 4 MG/2 ML VIAL IM/IVP PRN (15:59)
[2022-05-23 16:00] VITALS: BP 117/61
--- NOTE | 2022-05-23 19:11 | NUR ---
REPORT GIVEN TO CHANG FIGUEROA. IN STABLE CONDITION. IVF INFUSING WELL.
--- NOTE | 2022-05-23 19:12 | NUR ---
RECEIVED REPORT FROM MORNING SHIFT NURSE. PT IS AOX3, BEDBOUND, ABLE TO VERBALIZE NEEDS AND ABLE TO FOLLOW COMMANDS. PT IS ON ROOM AIR AND ON FULL LIQUID DIET. PT HAS IV ON RIGHT HAND GAUGE 18 RUNNING WITH D5NS AT 80ML/HR. PT DENIES PAIN AT THIS TIME. NO S/S OF RESPIRATORY DISTRESS NOTED. ALL SAFETY MEASURES IMPLEMENTED. BED IN LOW POSITION, BED WHEELS ON LOCK AND CALL LIGHT WITHIN REACH.
[2022-05-23] MEDS: TAMSULOSIN 0.4 MG CAP PO SCH (20:03)
[2022-05-23] MEDS: ATORVASTATIN 20 MG TAB PO SCH (20:04)
[2022-05-23] MEDS: ZOLPIDEM 5 MG TAB PO PRN (20:04)
--- NOTE | 2022-05-23 20:04 | NUR ---
SCHEDULED AND PRESCRIBED MEDICATION WAS GIVEN TO PT PER MD ORDER. AMBIEN WAS ALSO GIVEN PER PT REQUEST. ALL SAFETY MEASURES IMPLEMENTED. BED IN LOW POSITION, BED WHEELS ON LOCK AND CALL LIGHT WITHIN REACH.
--- NOTE | 2022-05-23 22:00 | NUR ---
CHECKED THE PT AND PT WANTS TO CHECK HIS FEET. MOVED THE FEET. PT DENIES PAIN. NO S/S OF RESPIRATORY DISTRESS NOTED. ALL SAFETY MEASURES IMPLEMENTED. BED IN LOW POSITION, BED WHEELS ON LOCK AND CALL LIGHT WITHIN REACH
[2022-05-24] VITALS: BP 143/82
--- NOTE | 2022-05-24 00:53 | NUR ---
NOTIFIED DR. SWEET THAT PT WANTS MORE SLEEPING MEDICATION DUE TO AMBIEN IS NOT WORKING TO PT. DR. SWEET SAID THAT NO ORDER FOR NOW AND SAID ITS NON-URGENT AND CAN WAIT MEMO MORNING AND NOT TO WAKE HIM UP.
--- NOTE | 2022-05-24 02:00 | NUR ---
PT TRY TO SLEEP, BUT HE CANT. NO COMPLAIN OF PAIN. NO S/S OF RESPIRATORY DISTRESS NOTED. ALL SAFETY MEASURES IMPLEMENTED. BED IN LOW POSITION, BED WHEELS ON LOCK AND CALL LIGHT WITHIN REACH.
--- NOTE | 2022-05-24 04:00 | NUR ---
PT REFUSED FOR THE MORNING CARE AND CHANGE. HE WANTS TO CHANGE IN THE MORNING. WILL ENDORSE TO MORNING NURSE.
[2022-05-24] MEDS: DEXT 5% /NACL 0.9% 1,000 ML IV SCH ×2 (04:57→12:47)
--- NOTE | 2022-05-24 06:00 | NUR ---
PT REQUEST TO DO MORNING CARE BEFORE I LEFT.MORNING CARE WAS DONE TO PT. CHANGED LINENS, GOWN AND CHUCKS. NO COMPLAIN OF PAIN AT THIS TIME. NO S/S OF RESPIRATORY DISTRESS NOTED. ALL SAFETY MEASURES IMPLEMENTED. BED IN LOW POSITION, BED WHEELS ON LOCK AND CALL LIGHT WITHIN REACH
[2022-05-24 06:36] LABS: BASOPHILS % (AUTO) 0.6 % (0.0-2.0); EOSINOPHILS # (AUTO) 0.4 K/uL (0-0.4); EOSINOPHILS % (AUTO) 7.7 % (0.0-4.0); HEMATOCRIT 37.5 % (36-52); HEMOGLOBIN 12.9 g/dL (12.0-18.0); LYMPHOCYTES # (AUTO) 1.1 K/uL (2.0-11.5); MEAN CORPUSCULAR HEMOGLOBIN 31 pg (27-31); MEAN CORPUSCULAR HGB CONC 34 g/dL (33-37); MEAN CORPUSCULAR VOLUME 89.5 fL (80-94); MONOCYTES # (AUTO) 0.4 K/uL (0.8-1.0); MONOCYTES % (AUTO) 8.3 % (1.7-9.3); NEUTROPHILS # (AUTO) 2.8 K/uL (1.8-7.7); NEUTROPHILS % (AUTO) 60.4 % (42.2-75.2); PLATELET COUNT (AUTO) 199 K/uL (140-450); RED BLOOD CELL COUNT(AUTO) 4.19 MIL/uL (4.20-6.10); RED CELL DISTRIBUTION WIDTH 13.4 % (11.6-13.7); WHITE BLOOD COUNT (AUTO) 4.7 K/uL (4.8-10.8)
--- NOTE | 2022-05-24 07:31 | NUR ---
PT IS STABLE. NO ACUTE EVENTS THROUGHOUT THE NIGHT.NO S/SX OF DISTRESS AT THIS MOMENT.ALL NEEDS ATTENDED. ALL PRECAUTIONS IN PLACE. CALL LIGHT WITHIN REACH. ENDORSED TO DAY RN.
[2022-05-24 07:41] LABS: ANION GAP 10.9 (8-16); CARBON DIOXIDE 27.6 mmol/L (21-32); CREATININE 0.4 mg/dL (0.6-1.3); POTASSIUM 3.5 mmol/L (3.5-5.1)
[2022-05-24 08:00] VITALS: BP 160/75
[2022-05-24] MEDS: SERTRALINE 50 MG TAB PO SCH (08:45)
[2022-05-24] MEDS: amLODIPine 5 MG TAB PO SCH (08:45)
[2022-05-24] MEDS: LOSARTAN 50 MG TAB PO SCH (08:45)
[2022-05-24] MEDS: CARBIDOPA/LEVODOPA 25/100 MG 1 TAB PO SCH ×3 (08:45→17:30)
[2022-05-24] MEDS: PANTOPRAZOLE 40 MG TABEC PO SCH (08:45)
[2022-05-24] MEDS: ONDANSETRON 4 MG/2 ML VIAL IM/IVP PRN (08:56)
[2022-05-24] MEDS ORDERED: LORazepam 2 MG/ML VIAL IVP PRN (09:15)
[2022-05-24] MEDS: LORazepam 2 MG/ML VIAL IVP PRN ×2 (10:03→21:46)
--- NOTE | 2022-05-24 10:15 | NUR ---
ASSESSMENT COMPLETED PLAN OF CARE REVIEWED PT GIVEN BED BATH PT NOTED TO BE VERY ANXIOUS WILL GIVE ATIVAN ORDERED CALL LIGHT IN REACH WILL CONTINE TO MONITOR AND ASSESS
[2022-05-24 16:00] VITALS: BP 127/71
--- NOTE | 2022-05-24 17:00 | NUR ---
ATIVAN 1MG GIVEN AND WASTED IN OMNICELL WITH PRINCE RENE
--- NOTE | 2022-05-24 18:46 | NUR ---
PT FEEDER ATE 100% PT REFUSED TO BE CHANGED AT THIS TIME AND ENDORSES HE IS DRY AND WILL AKD TO BE CHANGED LATER
--- NOTE | 2022-05-24 19:25 | NUR ---
RECEIVED PT FROM AM NURSE FOR CONTINUITY OF CARE. PT IS STABLE
[2022-05-24] MEDS: TAMSULOSIN 0.4 MG CAP PO SCH (20:28)
[2022-05-24] MEDS: ATORVASTATIN 20 MG TAB PO SCH (20:29)
[2022-05-24] MEDS: ZOLPIDEM 5 MG TAB PO PRN (22:08)
[2022-05-25 04:00] VITALS: BP 141/69
[2022-05-25] MEDS: DEXT 5% /NACL 0.9% 1,000 ML IV SCH (05:14)
[2022-05-25 06:12] LABS: BASOPHILS % (AUTO) 0.7 % (0.0-2.0); EOSINOPHILS # (AUTO) 0.3 K/uL (0-0.4); EOSINOPHILS % (AUTO) 7.5 % (0.0-4.0); HEMATOCRIT 36.6 % (36-52); HEMOGLOBIN 12.9 g/dL (12.0-18.0); LYMPHOCYTES # (AUTO) 0.9 K/uL (2.0-11.5); LYMPHOCYTES % (AUTO) 19.1 % (20.5-51.1); MEAN CORPUSCULAR HEMOGLOBIN 31 pg (27-31); MEAN CORPUSCULAR HGB CONC 35 g/dL (33-37); MEAN CORPUSCULAR VOLUME 88.4 fL (80-94); MONOCYTES # (AUTO) 0.4 K/uL (0.8-1.0); NEUTROPHILS % (AUTO) 64.7 % (42.2-75.2); PLATELET COUNT (AUTO) 197 K/uL (140-450); RED BLOOD CELL COUNT(AUTO) 4.14 MIL/uL (4.20-6.10); RED CELL DISTRIBUTION WIDTH 13.4 % (11.6-13.7); WHITE BLOOD COUNT (AUTO) 4.6 K/uL (4.8-10.8)
[2022-05-25 06:29] LABS: ANION GAP 9.6 (8-16); CARBON DIOXIDE 29.8 mmol/L (21-32); CREATININE 0.4 mg/dL (0.6-1.3); POTASSIUM 3.4 mmol/L (3.5-5.1)
[2022-05-25 08:00] VITALS: BP 158/78
[2022-05-25] MEDS: CARBIDOPA/LEVODOPA 25/100 MG 1 TAB PO SCH ×3 (08:36→17:19)
[2022-05-25] MEDS: SERTRALINE 50 MG TAB PO SCH (08:36)
[2022-05-25] MEDS: LOSARTAN 50 MG TAB PO SCH (08:36)
[2022-05-25] MEDS: amLODIPine 5 MG TAB PO SCH (08:36)
[2022-05-25] MEDS: PANTOPRAZOLE 40 MG TABEC PO SCH (08:36)
[2022-05-25] MEDS: POTASSIUM CHLORIDE 20% 40 MEQ/15 ML UDC PO PRN (08:37)
[2022-05-25] MEDS: LORazepam 2 MG/ML VIAL IVP PRN (10:00)
--- NOTE | 2022-05-25 10:00 | NUR ---
ATIVAN 1MG GIVEN ORDERED AND WASTED 1MG WITH EMMANUEL RENE
--- NOTE | 2022-05-25 10:00 | NUR ---
PT AWAKE A/OX3 ENDORSES HE NEEDS ATIVAN AND HE ENDORSES HE FEELS ANXIOUS ASSESSMENT COMPLETED PLAN OF CARE REVIEWED ATIVAN GIVEN ORDERED WILL CONTINUE TO MONITOR AND ASSESS
[2022-05-25] MEDS ORDERED: LOSA50TA1 PO (11:48)
[2022-05-25 16:00] VITALS: BP 150/82
--- NOTE | 2022-05-25 17:00 | NUR ---
DISCHARGE COMPLETE PT AWARE PT GOING BACK TO [facility] REPORT CALLED TO ALLEN AND PT WILL BE GOING TO ROOM 104A ALLEN MADE AWARE PRINT JOURNALIST TIME IS 183 BY [employer] PT AWARE IV DISCONTINUED
--- NOTE | 2022-05-25 17:45 | NUR ---
AMBULANCE PICKED UP PT STABLE NO ACUTE DISTRESS UPON DISCHARGE
== END 2022-05-25 17:50 | disposition home or self-care (01) | DRG 391 ==
LOC: MED 19:41 → MMU 05-22 02:26 → MTU 05-22 02:41
PROVIDERS: ADMIT Family Medicine; ATTEND Family Medicine
DX: K52.89 Other specified noninfective gastroenteritis and colitis (principal); J18.9 Pneumonia, unspecified organism; E44.1 Mild protein-calorie malnutrition; E87.6 Hypokalemia; E83.51 Hypocalcemia; I10 Essential (primary) hypertension; R56.9 Unspecified convulsions; N21.0 Calculus in bladder; G20 Parkinson's disease; Z20.822 Contact with and (suspected) exposure to COVID-19; F41.9 Anxiety disorder, unspecified; K21.9 Gastro-esophageal reflux disease without esophagitis; K59.00 Constipation, unspecified; Z88.5 Allergy status to narcotic agent; Z88.8 Allergy status to other drugs, medicaments and biological substances; Z68.25 Body mass index [BMI] 25.0-25.9, adult
CPT/HCPCS: 36415; 71045; 74018; 76770; 80048; 80053; 82150; 83036; 83605; 83690; 83735; 83880; 84100; 84436; 84439; 84443; 84479; 85025; 85610; 85730; 87040; 87081; 96374; 97163-GP; 97530; 99285; J0696; J2060; J2405; J2543; J7060; Q0092

== ENCOUNTER 2022-05-31 10:52 | Inpatient (IN) | payer OTHER, MEDICAID ==
[~2022-05-31] VITALS: Ht 172.7 cm; Wt 77.1 kg
[~2022-05-31 10:52] MED LIST changes: +LOSA50TA1 PO
--- NOTE | 2022-05-31 10:53 | NUR ---
BIBA BLS TO ER BED 9
[2022-05-31 11:04] VITALS: BP 150/90
[2022-05-31 12:22] LABS: ALBUMIN 3.6 g/dL (3.4-5.0); ANION GAP 16.2 (8-16); CARBON DIOXIDE 25.6 mmol/L (21-32); CREATININE 0.7 mg/dL (0.6-1.3); TOTAL BILIRUBIN 1.2 mg/dL (0.0-1.0)
[2022-05-31] MEDS ORDERED: LORazepam 1 MG TAB PO ONE (12:30)
[2022-05-31] MEDS ORDERED: ACETAMINOPHEN EXTRA STRENGTH 500 MG TAB PO ONE (12:30)
[2022-05-31 12:34] LABS: POTASSIUM 2.8 mmol/L (3.5-5.1)
[2022-05-31 12:36] LABS: BASOPHILS # (AUTO) 0.1 K/uL (0.00-0.22); BASOPHILS % (AUTO) 0.3 % (0.0-2.0); EOSINOPHILS % (AUTO) 0.2 % (0.0-4.0); HEMATOCRIT 43.7 % (36-52); HEMOGLOBIN 14.9 g/dL (12.0-18.0); LYMPHOCYTES # (AUTO) 0.8 K/uL (2.0-11.5); LYMPHOCYTES % (AUTO) 4.7 % (20.5-51.1); MEAN CORPUSCULAR HEMOGLOBIN 30 pg (27-31); MEAN CORPUSCULAR HGB CONC 34 g/dL (33-37); MEAN CORPUSCULAR VOLUME 88.7 fL (80-94); MONOCYTES # (AUTO) 0.9 K/uL (0.8-1.0); MONOCYTES % (AUTO) 5.2 % (1.7-9.3); NEUTROPHILS # (AUTO) 16.3 K/uL (1.8-7.7); NEUTROPHILS % (AUTO) 89.6 % (42.2-75.2); PLATELET COUNT (AUTO) 252 K/uL (140-450); RED BLOOD CELL COUNT(AUTO) 4.92 MIL/uL (4.20-6.10); RED CELL DISTRIBUTION WIDTH 13.7 % (11.6-13.7)
[2022-05-31 12:37] LABS: WHITE BLOOD COUNT (AUTO) 18.2 K/uL (4.8-10.8)
[2022-05-31] MEDS ORDERED: LORazepam 2 MG/ML VIAL IVP ONE (12:40)
[2022-05-31] MEDS ORDERED: POTASSIUM CHL 20MEQ/D5-NS 1,000 ML IV ONE (12:40)
[2022-05-31 13:37] LABS: APPEARANCE,URINE CLEAR (CLEAR); BILIRUBIN,URINE NEGATIVE (NEGATIVE); BLOOD, URINE NEGATIVE (NEGATIVE); COLOR,URINE YELLOW (YELLOW); LEUKOCYTE ESTERASE ,URINE TRACE (NEGATIVE); NITRITE, URINE NEGATIVE (NEGATIVE); UGLUCOSE NEGATIVE (NEGATIVE)
[2022-05-31 13:47] LABS: OTHER CASTS, URINE None Seen /LPF (None Seen)
[2022-05-31] MEDS ORDERED: NACL 0.9% 250 ML IV ONE (14:40)
[2022-05-31 15:22] LABS: BASOPHILS # (AUTO) 0.1 K/uL (0.00-0.22); BASOPHILS % (AUTO) 0.3 % (0.0-2.0); EOSINOPHILS % (AUTO) 0.1 % (0.0-4.0); HEMATOCRIT 41.8 % (36-52); HEMOGLOBIN 14.4 g/dL (12.0-18.0); LYMPHOCYTES # (AUTO) 0.8 K/uL (2.0-11.5); LYMPHOCYTES % (AUTO) 4.1 % (20.5-51.1); MEAN CORPUSCULAR HEMOGLOBIN 30 pg (27-31); MEAN CORPUSCULAR HGB CONC 34 g/dL (33-37); MEAN CORPUSCULAR VOLUME 88.6 fL (80-94); MONOCYTES # (AUTO) 1.1 K/uL (0.8-1.0); MONOCYTES % (AUTO) 5.9 % (1.7-9.3); NEUTROPHILS # (AUTO) 17.5 K/uL (1.8-7.7); NEUTROPHILS % (AUTO) 89.6 % (42.2-75.2); PLATELET COUNT (AUTO) 244 K/uL (140-450); RED BLOOD CELL COUNT(AUTO) 4.72 MIL/uL (4.20-6.10); RED CELL DISTRIBUTION WIDTH 13.4 % (11.6-13.7); WHITE BLOOD COUNT (AUTO) 19.5 K/uL (4.8-10.8)
[2022-05-31 15:38] LABS: ANION GAP 13.7 (8-16); CARBON DIOXIDE 28.9 mmol/L (21-32); CREATININE 0.7 mg/dL (0.6-1.3)
[2022-05-31 15:42] LABS: MAGNESIUM 2.1 mg/dL (1.8-2.4); PHOSPHORUS 4.4 mg/dL (2.5-4.9)
[2022-05-31 15:44] LABS: POTASSIUM 2.6 mmol/L (3.5-5.1)
[2022-05-31] MEDS ORDERED: cefTRIAXone 1,000 MG VIAL ONE (15:57)
--- NOTE | 2022-05-31 16:06 | NUR ---
PT SWABBED FOR COVID
[2022-05-31] MEDS ORDERED: DOCUSATE SODIUM 100 MG GELCAP PO PRN (17:15)
[2022-05-31] MEDS ORDERED: ONDANSETRON 4 MG/2 ML VIAL IVP PRN (17:15)
[2022-05-31] MEDS ORDERED: MAG SULF 2000 MG/WATER PREMIX 50 ML IV PRN (17:15)
[2022-05-31] MEDS ORDERED: POTASSIUM CHLORIDE 10 MEQ TABER PO ONE (17:25)
[2022-05-31] MEDS ORDERED: metroNIDAZOLE 500 MG/NS PREMIX 100 ML IV SCH (18:30)
[2022-05-31] MEDS ORDERED: KCL 20 MEQ/WATER INJ PREMIX 200 ML IV ONE (19:05)
--- NOTE | 2022-05-31 19:15 | NUR ---
Received report from EDGARD Pena and continue care of patient.
--- NOTE | 2022-05-31 20:11 | NUR ---
Patient will be admitted to care of Dr. Michaud. Admited to TELE. Will go to room 123A. Belongings list completed. Report to EDGARD Sher.
--- NOTE | 2022-05-31 20:25 | NUR ---
PT IS WITH REGULAR DIET AND INCONTINENT.
--- NOTE | 2022-05-31 20:25 | NUR ---
RECEIVED PT FROM ER ADMITTED TO [facility] WITH CHIEF COMPLAINTS OF CONSTIPATION. PT IS WITH DIAGNOSIS OF HYPOKALEMIA. PT HAS HISTORY OF HTN & PARKINSON. TREMORS PRESENT ON RIGHT HAND. PT IS FULL CODE AND HE IS NON AMBULATORY. PT ABLE TO VERBALIZED NEEDS WITH NEEDED COMMUNICATION. IV SIDE IS ON LEFT WRIST 20G, INTACT AND PATENT. MRSA NARES TAKEN IN THE ROOM, PT ORIENTED TO THE ROOM AND SURROUNDINGS. PT NOTED CONFUSE AND ANSWER QUESTIONS ON LIMITED SIMPLE ONES. SKIN INTACT.
[2022-05-31] MEDS: LACTULOSE 20 GM/30 ML UDC PO SCH (21:20)
[2022-05-31] MEDS: DOCUSATE SODIUM 100 MG GELCAP PO SCH (21:20)
[2022-05-31] MEDS: TAMSULOSIN 0.4 MG CAP PO SCH (21:21)
[2022-05-31] MEDS: APIXABAN 2.5 MG TAB PO SCH (21:21)
[2022-05-31] MEDS: ATORVASTATIN 20 MG TAB PO SCH (21:22)
[2022-05-31] MEDS: BACLOFEN 10 MG TAB PO SCH (21:22)
--- NOTE | 2022-05-31 23:30 | NUR ---
PT HAS EXTRA LARGE SOFT BM.
[2022-06-01] MEDS: LORazepam 2 MG/ML VIAL IVP PRN ×2 (00:11→23:26)
--- NOTE | 2022-06-01 01:00 | NUR ---
PT IS ASLEEP.
--- NOTE | 2022-06-01 03:30 | NUR ---
PT IS SLEEPING SOUNDLY, NO SOB OR DISTRESS.
[2022-06-01 04:00] VITALS: BP 103/64
[2022-06-01] MEDS: metroNIDAZOLE 500 MG/NS PREMIX 100 ML IV SCH ×3 (05:25→22:09)
[2022-06-01 05:27] LABS: BASOPHILS # (AUTO) 0.1 K/uL (0.00-0.22); BASOPHILS % (AUTO) 0.4 % (0.0-2.0); EOSINOPHILS # (AUTO) 0.1 K/uL (0-0.4); EOSINOPHILS % (AUTO) 0.3 % (0.0-4.0); HEMATOCRIT 40.1 % (36-52); HEMOGLOBIN 13.9 g/dL (12.0-18.0); LYMPHOCYTES # (AUTO) 0.6 K/uL (2.0-11.5); LYMPHOCYTES % (AUTO) 2.9 % (20.5-51.1); MEAN CORPUSCULAR HEMOGLOBIN 31 pg (27-31); MEAN CORPUSCULAR HGB CONC 35 g/dL (33-37); MEAN CORPUSCULAR VOLUME 88.6 fL (80-94); MONOCYTES # (AUTO) 1.1 K/uL (0.8-1.0); MONOCYTES % (AUTO) 5.6 % (1.7-9.3); NEUTROPHILS % (AUTO) 90.8 % (42.2-75.2); PLATELET COUNT (AUTO) 229 K/uL (140-450); RED BLOOD CELL COUNT(AUTO) 4.52 MIL/uL (4.20-6.10); RED CELL DISTRIBUTION WIDTH 13.8 % (11.6-13.7); WHITE BLOOD COUNT (AUTO) 19.9 K/uL (4.8-10.8)
[2022-06-01 06:18] LABS: ANION GAP 14.3 (8-16); CARBON DIOXIDE 25.6 mmol/L (21-32); CREATININE 0.7 mg/dL (0.6-1.3)
[2022-06-01 06:31] LABS: POTASSIUM 2.9 mmol/L (3.5-5.1)
[2022-06-01] MEDS: POTASSIUM CHLORIDE 10 MEQ TABER PO PRN (07:02)
--- NOTE | 2022-06-01 07:02 | NUR ---
RECEIVED REPORT FROM LAB, PT POTASSIUM = 2.9 (POTASSIUM LEVEL IN ER 2.6). CURRENTLY PT IS STILL ON POTASSIUM IV FLUID, INFUSING WELL. IV INTACT AND PATENT. ADMINISTERED KDUR ORALLY ORDERED. REPORTED TO DR. HUMBERTO MD STATED NO NEW ORDER AT THIS TIME.
--- NOTE | 2022-06-01 07:15 | NUR ---
PT IS ON STABLE CONDITION AND VERBALLY RESPONSIVE. ALL SAFETY MEASURES ARE IN PLACE. ENDORSED TO DAY SHIFT NURSE, YAMIL, FOR CONTINUITY OF CARE.
[2022-06-01 08:00] VITALS: BP 127/78
--- NOTE | 2022-06-01 08:00 | NUR ---
Patient's Plan of Care was discussed and reviewed with AZAR: ODETTE
[2022-06-01] MEDS: LACTULOSE 20 GM/30 ML UDC PO SCH ×2 (08:53→21:30)
[2022-06-01] MEDS: DOCUSATE SODIUM 100 MG GELCAP PO SCH ×2 (08:54→21:30)
[2022-06-01] MEDS: LOSARTAN 50 MG TAB PO SCH (08:55)
[2022-06-01] MEDS: BACLOFEN 10 MG TAB PO SCH ×2 (08:56→22:16)
[2022-06-01] MEDS: APIXABAN 2.5 MG TAB PO SCH ×2 (08:57→22:14)
[2022-06-01] MEDS: amLODIPine 5 MG TAB PO SCH (08:58)
[2022-06-01] MEDS: CARBIDOPA/LEVODOPA 25/100 MG 1 TAB PO SCH ×3 (08:58→18:01)
[2022-06-01] MEDS: SERTRALINE 50 MG TAB PO SCH (08:59)
--- NOTE | 2022-06-01 09:31 | NUR ---
PATIENT HAS BEEN SCREENED AND CATEGORIZED LOW NUTRITION RISK. PATIENT WILL BE SEEN WITHIN 7 DAYS OF ADMISSION. 06/07/22 REVIEWED BY SCOTT MENDOZA RD
[2022-06-01] MEDS: POTASSIUM CHL 40 MEQ/ D5-1/2NS 1,000 ML IV SCH (10:15)
[2022-06-01] MEDS: MORPHINE SULFATE 2 MG/ML SYR IVP PRN ×2 (11:20→17:31)
[2022-06-01 12:00] VITALS: BP 127/76
[2022-06-01] MEDS: SODIUM PHOSPHATE 118 ML ENEM RC SCH ×2 (12:47→13:27)
[2022-06-01] MEDS: SENNA 8.6 MG TAB PO SCH ×2 (13:00→18:02)
--- NOTE | 2022-06-01 13:27 | NUR ---
WENT IN PT ROOM TO ADMINISTER ORDERED ENEMA, PT WAS HAVING ACTIVE BOWEL MOVEMENT. ENEMA NOT ADMINISTERED. PT HAS HAD 3 ACTIVE BOWEL MOVEMENTS TODAY. LOOSE WATERY STOOL. DR PAUL AWARE.
--- NOTE | 2022-06-01 15:56 | NUR ---
DC PLANNING PT IS READMIT FROM 05/18, 05/22. ASSESSMENT COMPLETED ON 05/18 BY KELY DYER. PER JORDYN, SW MEET WITH PATIENT AT BEDSIDE TO DISCUSS AND GATHER HIS COLLATERAL INFORMATION. PATIENT WAS AWAKE AND ALERT STATED THAT HE HAS BEEN IN [facility] FOR OVER 4 YEARS AND THAT IS HIS HOME HE REPORTED HAVING FAMILY SUPPORT FROM HIS COUSIN ON FACE SHEET CONTACT AND HIS SISTER LAURE YIN WHO LIVES IN [place] BUT PATIENT DID NOT HAVE HER CONTACT NUMBER WITH HIM. PER PATIENT HE IS HAPPY AT HIS FACILITY AND STATED THAT HE HAS NO ADVANCE DIRECTIVES BUT WILL LIKE HIS FAMILY TO BE HIS EMERGENCY CONTACTS AND MEDICAL DECISION MAKERS. PATIENT REPORTED NOT HAVING ANY ISSUES WITH HIS MEDICATIONS AND WITH HIS CARE AT THE FACILITY SINCE HIS INSURANCE INNOVAGE TAKES CARE OF EVERYTHING FOR HIM. PATIENT WILL LIKE TO RETURN TO THE FACILITY WHEN HE IS READY AND STABLE TO DISCHARGE. PATIENT WAS PLEASED WITH ALL THE CARE HE IS RECIEVING IN [facility] STATED ONLY HAVING A WHEELCHAIR HIS DME. NO ISSUES WAS DISCUSSED DURING THE MEETING. KELY CONTACTED [facility] AND SPOKE TO REYNA AT SPOKE TO HER ABOUT PATIENT INFORMATION, AND FAMILY INVOLVEMENT WELL PATIENT ABILITY TO RETURN TO FACILITY. PER REYNA PATIENT CAN RETURN TO FACILITY WHEN STABLE AND READY TO DISCHARGE. KELY THANKED HER FOR THE INFORMATION. KELY/CM WILL FOLLOW UP NEEDED. Addendum: 06/01/22 at 1557 by Danae ARENAS Amended: Links added.
[2022-06-01 16:00] VITALS: BP 131/71
--- NOTE | 2022-06-01 18:09 | NUR ---
ADMINISTERED SCHEDULED MEDS. PT TOLERATING WELL.
--- NOTE | 2022-06-01 19:43 | NUR ---
endorsed pt to welder 2nd shift nurse for continuity of care. pt in stable condition.
[2022-06-01 20:00] VITALS: BP 131/69
[2022-06-01] MEDS: POLYETHYLENE GLYCOL 17 GM/PKT PO SCH (21:30)
--- NOTE | 2022-06-01 21:30 | NUR ---
STOOL SOFTENER ARE NOT ADMINISTERED DUE TO PT HAS DIARRHEA.
[2022-06-01] MEDS: ATORVASTATIN 20 MG TAB PO SCH (21:40)
[2022-06-01] MEDS: TAMSULOSIN 0.4 MG CAP PO SCH (21:40)
[2022-06-02] VITALS: BP 117/72
[2022-06-02 04:00] VITALS: BP 114/65
[2022-06-02] MEDS: metroNIDAZOLE 500 MG/NS PREMIX 100 ML IV SCH ×3 (04:55→21:27)
--- NOTE | 2022-06-02 04:55 | NUR ---
PT RECEIVES AM MEDICATION WITH WELL TOLERATED. NO SOB OR DISTRESS.
--- NOTE | 2022-06-02 05:00 | NUR ---
PT HAS MODERATE AMOUNT OF LOOSE BM WITH MUCUS NOTED MIX WITH STOOL.
--- NOTE | 2022-06-02 07:21 | NUR ---
PT IS STABLE CONDITION. ALL SAFETY MEASURES ARE IN PLACE. ENDORSED TO DAY SHIFT NURSE YAMIL FOR CONTINUITY OF CARE.
--- NOTE | 2022-06-02 07:22 | NUR ---
RECEIVED PT FROM DRY CLEANING MANAGER NURSE FOR CONTINUITY OF CARE. PT IN BED SLEEPING. VISIBLE CHEST RISE/FALL, RESPIRATIONS EVEN AND UNLABORED. NO DISTRESS NOTED. CALL LIGHT WITHIN REACH, ALL SAFETY PRECAUTIONS IN PLACE.
[2022-06-02 07:35] LABS: BASOPHILS % (AUTO) 0.3 % (0.0-2.0); EOSINOPHILS # (AUTO) 0.3 K/uL (0-0.4); EOSINOPHILS % (AUTO) 1.9 % (0.0-4.0); HEMATOCRIT 39.8 % (36-52); HEMOGLOBIN 13.6 g/dL (12.0-18.0); LYMPHOCYTES # (AUTO) 0.9 K/uL (2.0-11.5); LYMPHOCYTES % (AUTO) 6.3 % (20.5-51.1); MEAN CORPUSCULAR HEMOGLOBIN 31 pg (27-31); MEAN CORPUSCULAR HGB CONC 34 g/dL (33-37); MEAN CORPUSCULAR VOLUME 89.5 fL (80-94); MONOCYTES # (AUTO) 0.8 K/uL (0.8-1.0); MONOCYTES % (AUTO) 5.3 % (1.7-9.3); NEUTROPHILS # (AUTO) 12.7 K/uL (1.8-7.7); NEUTROPHILS % (AUTO) 86.2 % (42.2-75.2); PLATELET COUNT (AUTO) 197 K/uL (140-450); RED BLOOD CELL COUNT(AUTO) 4.44 MIL/uL (4.20-6.10); RED CELL DISTRIBUTION WIDTH 13.8 % (11.6-13.7); WHITE BLOOD COUNT (AUTO) 14.7 K/uL (4.8-10.8)
[2022-06-02 07:46] LABS: ANION GAP 10.6 (8-16); CARBON DIOXIDE 26.6 mmol/L (21-32); CREATININE 0.6 mg/dL (0.6-1.3); POTASSIUM 3.2 mmol/L (3.5-5.1)
[2022-06-02 08:00] VITALS: BP 136/78
[2022-06-02] MEDS: LACTULOSE 20 GM/30 ML UDC PO SCH ×2 (09:09→21:16)
[2022-06-02] MEDS: DOCUSATE SODIUM 100 MG GELCAP PO SCH (09:10)
[2022-06-02] MEDS: LOSARTAN 50 MG TAB PO SCH (09:10)
[2022-06-02] MEDS: BACLOFEN 10 MG TAB PO SCH ×2 (09:11→21:16)
[2022-06-02] MEDS: amLODIPine 5 MG TAB PO SCH (09:13)
[2022-06-02] MEDS: SENNA 8.6 MG TAB PO SCH ×4 (09:13→21:16)
[2022-06-02] MEDS: CARBIDOPA/LEVODOPA 25/100 MG 1 TAB PO SCH ×2 (09:13→12:13)
[2022-06-02] MEDS: POTASSIUM CHLORIDE 10 MEQ TABER PO PRN (09:14)
[2022-06-02] MEDS: SERTRALINE 50 MG TAB PO SCH (09:14)
[2022-06-02] MEDS: APIXABAN 2.5 MG TAB PO SCH (09:16)
[2022-06-02] MEDS: POLYETHYLENE GLYCOL 17 GM/PKT PO SCH ×2 (09:35→21:15)
--- NOTE | 2022-06-02 09:41 | NUR ---
ADMINISTERED ALL SCHEDULED MEDICATIONS, PT TEACHING REGARDING MEDS TAKEN. PT TOLERATING WELL.
[2022-06-02] MEDS: POTASSIUM CHL 40 MEQ/ D5-1/2NS 1,000 ML IV SCH (10:15)
[2022-06-02] MEDS: LORazepam 2 MG/ML VIAL IVP PRN ×2 (10:19→21:41)
[2022-06-02 12:00] VITALS: BP 111/68
--- NOTE | 2022-06-02 12:15 | NUR ---
ADMINISTERED SCHEDULED MEDS, PT TOLERATING WELL.
--- NOTE | 2022-06-02 14:00 | NUR ---
CALLED [facility], SPOKE TO CASSANDRA. PER CASSANDRA PT HAS NO POWER OF BULKER AND MAKES HIS OWN MEDICAL DECISIONS. SPOKE TO PT, PT STATES HE HAS NOT DESIGNATED ANYONE TO MAKE ANY DECISIONS ON HIS BEHALF, ONLY SELF.
[2022-06-02 16:00] VITALS: BP 116/72
--- NOTE | 2022-06-02 16:00 | NUR ---
PROVIDED TOTAL PT CARE. PT BOWEL MOVEMENT NOTED VERY MUCOUS, COVERED CHAPARRO AREA WITH SKIN BARRIER. REPOSITIONED, ELEVATED LEGS. CALL LIGHT WITHIN REACH.
--- NOTE | 2022-06-02 17:06 | NUR ---
Patient's Plan of Care was discussed and reviewed with AZAR: ODETTE
[2022-06-02] MEDS ORDERED: HYDRAGUARD CREAM TP SCH (17:15)
--- NOTE | 2022-06-02 19:22 | NUR ---
ENDORSED PT TO BRIM BUSTER NURSE FOR CONTINUITY OF CARE. PT IN STABLE CONDITION.
--- NOTE | 2022-06-02 19:23 | NUR ---
RECEIVED REPORT FROM DAY SHIFT NURSE DAVION FOR CONTINUITY OF CARE. PT SLEEPING, EASILY AROUSABLE BY VERBAL STIMULI. ON COUNTY COMMISSIONER. RESPIRATIONS EVEN AND UNLABORED ON RA. PT FOR COLONOSCOPY TOMORROW, NPO EXCEPT MEDS. PT AWARE AND NPO SIGN IN PLACE. INITIAL ASSESSMENT DONE. POC DISCUSSED WITH PT AND EDGARD TELLO. CALL LIGHT WITHIN REACH. SAFETY AND SZ PRECAUTIONS IN PLACE.
[2022-06-02 20:00] VITALS: BP 130/75
[2022-06-02] MEDS: TAMSULOSIN 0.4 MG CAP PO SCH (21:16)
[2022-06-02] MEDS: ATORVASTATIN 20 MG TAB PO SCH (21:16)
--- NOTE | 2022-06-02 21:16 | NUR ---
ADMINISTERED DUE MEDS. PT TOLERATED WELL. PT COMPLAINING OF ANXIETY, ASKING FOR SOMETHING TO CALM HIM DOWN. EDGARD TELLO MADE AWARE.
--- NOTE | 2022-06-02 22:00 | NUR ---
Patient's Plan of Care was discussed and reviewed with AZAR KELLER
[2022-06-03] VITALS: BP 121/80
[2022-06-03] MEDS: POTASSIUM CHL 40 MEQ/ D5-1/2NS 1,000 ML IV SCH ×2 (00:58→10:35)
[2022-06-03 04:00] VITALS: BP 134/71
[2022-06-03] MEDS: metroNIDAZOLE 500 MG/NS PREMIX 100 ML IV SCH (04:15)
--- NOTE | 2022-06-03 05:26 | NUR ---
DID MORNING CARE WITH GASSER MACHINE OPERATOR. PT TOLERATED WELL. PT REMAINED CLEAN AND DRY.
--- NOTE | 2022-06-03 07:08 | NUR ---
GAVE BEDSIDE REPORT TO DAY SHIFT NURSE MELANY FOR CONTINUITY OF CARE. ALL NEEDS MET THROUGHOUT SHIFT. PT IS STABLE.
[2022-06-03 07:30] LABS: BASOPHILS % (AUTO) 0.4 % (0.0-2.0); EOSINOPHILS # (AUTO) 0.3 K/uL (0-0.4); EOSINOPHILS % (AUTO) 4.1 % (0.0-4.0); HEMATOCRIT 37.5 % (36-52); HEMOGLOBIN 12.9 g/dL (12.0-18.0); LYMPHOCYTES % (AUTO) 12.4 % (20.5-51.1); MEAN CORPUSCULAR HEMOGLOBIN 31 pg (27-31); MEAN CORPUSCULAR HGB CONC 35 g/dL (33-37); MEAN CORPUSCULAR VOLUME 88.4 fL (80-94); MONOCYTES # (AUTO) 0.5 K/uL (0.8-1.0); MONOCYTES % (AUTO) 6.1 % (1.7-9.3); NEUTROPHILS # (AUTO) 6.1 K/uL (1.8-7.7); PLATELET COUNT (AUTO) 212 K/uL (140-450); RED BLOOD CELL COUNT(AUTO) 4.24 MIL/uL (4.20-6.10); RED CELL DISTRIBUTION WIDTH 14.1 % (11.6-13.7); WHITE BLOOD COUNT (AUTO) 7.9 K/uL (4.8-10.8)
[2022-06-03 07:35] LABS: ANION GAP 10.5 (8-16); CARBON DIOXIDE 26.8 mmol/L (21-32); CREATININE 0.6 mg/dL (0.6-1.3); POTASSIUM 3.3 mmol/L (3.5-5.1)
[2022-06-03 08:00] VITALS: BP 150/78
[2022-06-03] MEDS: LACTULOSE 20 GM/30 ML UDC PO SCH ×2 (09:00→12:12)
[2022-06-03] MEDS: SERTRALINE 50 MG TAB PO SCH (10:27)
[2022-06-03] MEDS: BACLOFEN 10 MG TAB PO SCH ×2 (10:28→20:38)
[2022-06-03] MEDS: POTASSIUM CHLORIDE 10 MEQ TABER PO PRN (10:29)
[2022-06-03] MEDS: SENNA 8.6 MG TAB PO SCH (10:31)
[2022-06-03] MEDS: LOSARTAN 50 MG TAB PO SCH (10:32)
[2022-06-03] MEDS: amLODIPine 5 MG TAB PO SCH (10:33)
[2022-06-03] MEDS: POLYETHYLENE GLYCOL 17 GM/PKT PO SCH (10:34)
[2022-06-03] MEDS: LORazepam 2 MG/ML VIAL IVP PRN (11:11)
[2022-06-03] MEDS ORDERED: LORazepam 2 MG/ML VIAL IVP PRN (11:20)
[2022-06-03 12:00] VITALS: BP 147/73
[2022-06-03] MEDS ORDERED: fentaNYL citrate 0.05 MG/ML VIAL ONE (12:08)
[2022-06-03] MEDS ORDERED: diphenhydrAMINE 50 MG/ML VIAL ONE (12:08)
[2022-06-03] MEDS ORDERED: MIDAZOLAM 5 MG/5 ML VIAL ONE (12:08)
[2022-06-03] MEDS ORDERED: SIMETHICONE 40 MG/0.6 ML ONE (12:22)
[2022-06-03] MEDS ORDERED: fentaNYL citrate 0.05 MG/ML VIAL IVP ONE (14:35)
[2022-06-03] MEDS ORDERED: MIDAZOLAM 5 MG/5 ML VIAL IV ONE (14:35)
--- NOTE | 2022-06-03 15:18 | NUR ---
RECEIVE PATIENT BACK FORM COLONOSCOPY W/ POLYPECTOMY PROCEDURE THAT ONE POLYP REMOVED WHICH SENT TO PATHOLOGY LAB. PATIENT HAD VERSED 2MG, FENTANYL 75 MCG & BENADRYL GIVEN DURING PROCEDURE. NEW DIET ORDER CARDIA DIET PRESENT AFTER COLONOSCOPY. WILL CONTINUE TO MONITOR
[2022-06-03 16:00] VITALS: BP 115/77
--- NOTE | 2022-06-03 17:41 | NUR ---
P.T. NOTES P.T. EVAL COMPLETED; REFER TO EVAL FOR DETAILS.
--- NOTE | 2022-06-03 19:08 | NUR ---
ENDORSE PATIENT IN STABLE CONDITION TO PM SHIFT NURSE WHILE PIV INFUSING D5 1/2NS KCL 40MEQ AT 40ML/HR. PATIENT IS UNDER INVESTIGATION OF POSSIBLE C.DIFF. COLOSCOPY DONE
--- NOTE | 2022-06-03 19:15 | NUR ---
ENDORSEMENT OF PATIENT FROM MELANY RN, PATIENT WAS STABLE DURING SHIFT REPORT. PATIENT DENIED PAIN/DISCOMFORT. PATIENT IS ON NASAL CANULA WITHOUT RESPIRATORY DISTRESS. KEPT CLEAN AND DRY AT THE TIME. SIDE RAILS UP X 3 FOR SAFETY AND COMFORT. CALL LIGHT WITHIN REACH FOR TV ENTERTAINMENT. PATIENT WAS ABLE TO VERBALIZE WHY HE IS IN THE HOSPITAL. ALL NEED ARE MET AT THIS TIME. DECLINED DINNER BUT ATE THE PUDDING. NURSING WILL FREQUENT THE ROOM FOR ANTICIPATED HELP. [email or web address]
[2022-06-03 20:00] VITALS: BP 143/82
[2022-06-03] MEDS: ATORVASTATIN 20 MG TAB PO SCH (20:18)
[2022-06-03] MEDS: TAMSULOSIN 0.4 MG CAP PO SCH (20:18)
[2022-06-03] MEDS: ZOLPIDEM 10 MG TAB PO PRN (20:55)
--- NOTE | 2022-06-03 22:00 | NUR ---
Patient's Plan of Care was discussed and reviewed with AZAR PEREZ
--- NOTE | 2022-06-03 22:45 | NUR ---
PATIENT WAS CLEANED AND BATHED. NOTED NO COMPLAINTS OF PAIN. PATIENT REQUESTED MEDICATION FOR SLEEP AND NURSING GAVE SLEEP PRN. PATIENT WANTED ANTIANXIETY MEDICATION AND NURSE GAVE EDUCATION ON MEDICATIONS GIVEN FOR THEIR INDENTED USAGE. AND ANTIANXIETY MED WAS DISCONTINUED. SIDE RAILS UP CALL LIGHT IN REACH. [email or web address]
--- NOTE | 2022-06-04 03:20 | NUR ---
PATIENT NOTED IN BED ASLEEP WITH NO PAIN OR RESPIRATORY DISCOMFORTS. [email or web address]
[2022-06-04 04:00] VITALS: BP 136/96
[2022-06-04 07:09] LABS: BASOPHILS % (AUTO) 0.5 % (0.0-2.0); EOSINOPHILS # (AUTO) 0.3 K/uL (0-0.4); EOSINOPHILS % (AUTO) 4.6 % (0.0-4.0); HEMATOCRIT 38.1 % (36-52); HEMOGLOBIN 13.1 g/dL (12.0-18.0); LYMPHOCYTES # (AUTO) 1.2 K/uL (2.0-11.5); LYMPHOCYTES % (AUTO) 20.2 % (20.5-51.1); MEAN CORPUSCULAR HEMOGLOBIN 31 pg (27-31); MEAN CORPUSCULAR HGB CONC 35 g/dL (33-37); MEAN CORPUSCULAR VOLUME 88.6 fL (80-94); MONOCYTES # (AUTO) 0.4 K/uL (0.8-1.0); MONOCYTES % (AUTO) 7.1 % (1.7-9.3); NEUTROPHILS # (AUTO) 3.9 K/uL (1.8-7.7); NEUTROPHILS % (AUTO) 67.6 % (42.2-75.2); PLATELET COUNT (AUTO) 240 K/uL (140-450); RED BLOOD CELL COUNT(AUTO) 4.29 MIL/uL (4.20-6.10); RED CELL DISTRIBUTION WIDTH 13.5 % (11.6-13.7); WHITE BLOOD COUNT (AUTO) 5.8 K/uL (4.8-10.8)
--- NOTE | 2022-06-04 07:11 | NUR ---
ENDORSED NURSE TO ADZE RN, PATIENT WAS STABLE DURING SHIFT CHANGE. [email or web address]
[2022-06-04 07:16] LABS: ANION GAP 9.4 (8-16); CREATININE 0.5 mg/dL (0.6-1.3); POTASSIUM 3.4 mmol/L (3.5-5.1)
[2022-06-04] MEDS ORDERED: DOCU-299 PO (09:20)
[2022-06-04] MEDS ORDERED: LACT10SO11 PO (09:20)
[2022-06-04] MEDS: BACLOFEN 10 MG TAB PO SCH ×2 (10:00→20:53)
[2022-06-04] MEDS: LACTULOSE 20 GM/30 ML UDC PO SCH (10:00)
[2022-06-04] MEDS: SERTRALINE 50 MG TAB PO SCH (10:00)
[2022-06-04] MEDS: LOSARTAN 50 MG TAB PO SCH (10:00)
[2022-06-04] MEDS: amLODIPine 5 MG TAB PO SCH (10:00)
[2022-06-04 11:24] VITALS: BP 136/96
--- NOTE | 2022-06-04 11:35 | NUR ---
RN arranged for [facility] transport to [facility] with [facility] ([phone]), flower picker time between [phone]. KUB ordered per , patient C/O abdominal pain, will still dc if KUB is negative. Addendum: 06/04/22 at 1327 by Analisa Richards RN RN RN received a call from patients RN, discharge cancelled by the attending MD. Transport with [facility] cancelled by RN.
[2022-06-04 12:00] VITALS: BP 155/92
--- NOTE | 2022-06-04 13:20 | NUR ---
discharge is cancelled by Dr. Prince. Supervisor Brake Repair made aware.
[2022-06-04] MEDS: POTASSIUM CHLORIDE 10 MEQ TABER PO PRN (15:07)
[2022-06-04] MEDS ORDERED: NACL 0.9% 1,000 ML IV SCH (17:45)
--- NOTE | 2022-06-04 17:47 | NUR ---
patient is positive for C-Diff. Dr. Prince made aware with orders noted and carried out. Dr. Arreola consulted.
[2022-06-04] MEDS: VANCOMYCIN HCL 25 MG/ML SOLN PO SCH (18:34)
--- NOTE | 2022-06-04 19:15 | NUR ---
PATIENT ENDORSEMENT WAS GIVEN BY RADHA ASKEW, PATIENT WAS STABLE DURING SHIFT REPORT. PATIENT WAS ALERT AND SLIGHTLY CONFUSED. INSISTS ON ATIVAN WHEN ORDER WAS DISCONTINUED YESTERDAY. PATIENT EDUCATION ON THE RIGHT NEED FOR SPECIFIC MEDICATIONS. PATIENT WANTS ATIVAN FOR SLEEP AND HAS AND ORDER FOR AMBIEN. KEPT CLEAN AND DRY. NO NOTED S/S OF PAIN DISCOMFORT AT THIS TIME. NO NOTED SS OF RESPIRATORY DISTRESS. PATIENT WAS ON ROOM N/C AT 2 LITERS. BED AT LOWEST LEVEL, SIDE RAILS UP X 3 FOR SAFETY AND ADJUSTMENTS. CALL LIGHT WITHIN REACH FOR TV ONLY. PATIENT UNABLE TO USE CALL LIGHT SO NURSING WILL FREQUENT THE ROOM FOR ANTICIPATED NEEDS. [email or web address]
[2022-06-04 20:00] VITALS: BP 139/84
[2022-06-04] MEDS: ZOLPIDEM 10 MG TAB PO PRN (20:52)
[2022-06-04] MEDS: ATORVASTATIN 20 MG TAB PO SCH (20:53)
[2022-06-04] MEDS: TAMSULOSIN 0.4 MG CAP PO SCH (20:53)
[2022-06-04] MEDS ORDERED: VANCOMYCIN 500 MG VIAL PO SCH (21:00)
--- NOTE | 2022-06-04 23:20 | NUR ---
DURING ROUNDS NURSING NOTED PATIENT IN BED ASLEEP. CHEST RISING AND FALLING WITHOUT INCIDENT. NASAL CANNULA IN PLACE. CALL LIGHT WITHIN REACH, BED AT THE LOWEST LEVEL. SIDE RAILS UP X 3 FOR SAFETY AND COMFORT. [email or web address]
--- NOTE | 2022-06-05 01:23 | NUR ---
IV WAS INFILTRATED. COVERING RN WAS NOTIFIED. [email or web address]
[2022-06-05] MEDS: VANCOMYCIN HCL 25 MG/ML SOLN PO SCH ×4 (01:24→18:11)
--- NOTE | 2022-06-05 02:00 | NUR ---
Attempted to establish new SL access to RAx3. Unable. Requested another RN to attempt. Established w 22ga to RH.
--- NOTE | 2022-06-05 03:50 | NUR ---
PATIENT HAD BOWEL MOVEMENT LIGHT. PATIENT WAS KEPT CLEAN AND DRY. NO NOTED PAIN/DISCOMFORT. CALL LIGHT WITHIN REACH. [email or web address]
[2022-06-05 04:00] VITALS: BP 141/90
[2022-06-05 07:24] LABS: BASOPHILS % (AUTO) 0.6 % (0.0-2.0); EOSINOPHILS # (AUTO) 0.3 K/uL (0-0.4); EOSINOPHILS % (AUTO) 5.1 % (0.0-4.0); HEMATOCRIT 38.9 % (36-52); HEMOGLOBIN 13.3 g/dL (12.0-18.0); LYMPHOCYTES # (AUTO) 1.2 K/uL (2.0-11.5); LYMPHOCYTES % (AUTO) 22.9 % (20.5-51.1); MEAN CORPUSCULAR HEMOGLOBIN 30 pg (27-31); MEAN CORPUSCULAR HGB CONC 34 g/dL (33-37); MEAN CORPUSCULAR VOLUME 88.8 fL (80-94); MONOCYTES # (AUTO) 0.4 K/uL (0.8-1.0); MONOCYTES % (AUTO) 8.3 % (1.7-9.3); NEUTROPHILS # (AUTO) 3.3 K/uL (1.8-7.7); NEUTROPHILS % (AUTO) 63.1 % (42.2-75.2); PLATELET COUNT (AUTO) 259 K/uL (140-450); RED BLOOD CELL COUNT(AUTO) 4.37 MIL/uL (4.20-6.10); RED CELL DISTRIBUTION WIDTH 13.5 % (11.6-13.7); WHITE BLOOD COUNT (AUTO) 5.3 K/uL (4.8-10.8)
--- NOTE | 2022-06-05 07:41 | NUR ---
ENDORSED PATIENT CARE TO RADHA RN, PATIENT WAS STABLE DURING SHIFT REPORT. [email or web address]
[2022-06-05 08:02] LABS: ANION GAP 10.2 (8-16); CARBON DIOXIDE 28.3 mmol/L (21-32); CREATININE 0.6 mg/dL (0.6-1.3); POTASSIUM 3.5 mmol/L (3.5-5.1)
[2022-06-05] MEDS: BACLOFEN 10 MG TAB PO SCH ×2 (09:00→20:15)
[2022-06-05] MEDS: SERTRALINE 50 MG TAB PO SCH (09:00)
[2022-06-05] MEDS: amLODIPine 5 MG TAB PO SCH (09:00)
[2022-06-05] MEDS: LOSARTAN 50 MG TAB PO SCH (09:00)
[2022-06-05] MEDS ORDERED: VANC125C5 PO (10:38)
[2022-06-05 12:00] VITALS: BP 139/89
--- NOTE | 2022-06-05 16:31 | NUR ---
DC PLANNING: PATIENT HAS C-DIFF PER NURSE BRENDA SAHU WON'T HAVE ISO BED AND CAN NOT TAKE PATIENT. SOPHIA RENDON LEFT A MESSAGE FOR [facility] FOR SNF PLACEMENT AUTHORIZATION. CM TO FOLLOW Addendum: 06/08/22 at 1134 by Ely Arboleda RN DC PLANNING: SOPHIA Carlson LEFT A MESSAGE FOR SNF PLACEMENT . FAXED TO CONTRACTED FACILITIES [facility] CM TO FOLLOW Addendum: 06/08/22 at 1456 by Ely Arboleda RN DC PLANNING: [facility] HAS NO ISO BED. SOPHIA RENDON CM LEFT A MESSAGE LEFT A MESSAGE. FAXED TO [facility] CM TO FOLLOW Addendum: 06/09/22 at 1142 by Ely Arboleda RN DC PLANNING: CALLED [facility] LET A MESSAGE X2. RECEIVED A CALL FROM [facility] SPOKE WITH KAROL STATED IF NO DIARRHEA AND MD'S NOTES TO BE COLONIZED WILL TAKE PATIENT . CM DISCUSSED WITH DR SWEET STATED NOT COLONIZED PATIENT IS ON DAY OF 5 OUT OF 10 DAYS . CM TO FOLLOW Addendum: 06/10/22 at 1330 by Ely Arboleda RN DC PLANNING: RECEIVED A CALL FROM [facility] SPOKE WITH MEÑO STATED TO FAX TO [email or web address] [facility] FAXED ALL PAPERWORK TO [phone] WILL CALL FACILITY # [phone] CM TO FOLLOW Addendum: 06/15/22 at 1131 by Karol Carlisle CM RECEIVED A CALL FROM FIDEL ADMISSION AT [facility] [phone], STATING THAT THEY ARE ABLE TO ACCEPT PATIENT. PER FIDEL SHE WILL REACH OUT TO PALLAVI [facility]KS [facility] FOR AUTHORIZATION. FIDEL REQUESTED UPDATE CLINICALS. CLINICALS SENT. WILL FOLLOW UP.
--- NOTE | 2022-06-05 16:35 | NUR ---
06/05/22 RD INITIAL ASSESSMENT COMPLETED PLEASE REFER TO NUTRITION ASSESSMENT UNDER CARE ACTIVITY FOR ESTIMATED NUTRITIONAL NEEDS. 1. CONTINUE CARDIAC DIET TOLERATED 2. RECOMMEND ENSURE 1/DAY TO HELP INCREASE PO INTAKE -PROVIDES 350 KCAL AND [address] TO FOLLOW-UP 7 DAYS, LOW RISK REVIEWED BY SCOTT MENDOZA RD
--- NOTE | 2022-06-05 19:25 | NUR ---
RECEIVED REPORT FROM DAY SHIFT NURSE FOR CONTINUITY OF CARE. PATIENT IS AWAKE AND STABLE, A&O X2. PATIENT IS ON CONTACT PRECAUTIONS FOR C-DIFF. CURRENTLY ON 2L NASAL CANULA. RESPIRATIONS EVEN AND UNLABORED, NO S/SX OF ACUTE DISTRESS NOTED. PATIENT EXPERIENCING TREMORS IN THE RIGHT HAND. IV SITE LOCATED AT THE LEFT WRIST, GAUGE 20, INTACT AND PATENT, NO SIGNS OF INFILTRATION. BED AT LOWEST POINT, ALL SAFETY MEASURES IN PLACE, CALL LIGHT WITHIN REACH. WILL CONTINUE TO MONITOR.
[2022-06-05 20:00] VITALS: BP 135/79
[2022-06-05] MEDS: TAMSULOSIN 0.4 MG CAP PO SCH (20:12)
[2022-06-05] MEDS: ATORVASTATIN 20 MG TAB PO SCH (20:15)
[2022-06-05] MEDS: ZOLPIDEM 10 MG TAB PO PRN (21:55)
--- NOTE | 2022-06-05 22:55 | NUR ---
SCHEDULED MEDICATIONS GIVEN PER MD ORDER. PT STATED DIFFICULTY SLEEPING. AMBIEN WAS ADMINISTERED PRN FOR SLEEP. NO SIGNS OF DISTRESS NOTED, WILL CONTINUE TO MONITOR.
[2022-06-06] MEDS: VANCOMYCIN HCL 25 MG/ML SOLN PO SCH ×5 (00:20→23:54)
[2022-06-06 04:00] VITALS: BP 122/77
--- NOTE | 2022-06-06 04:00 | NUR ---
PATIENT ASLEEP. NOTICEABLE CHEST RISE AND FALL. RESPIRATIONS EVEN AND UNLABORED. VITAL SIGNS WNL. WILL CONTINUE TO MONITOR.
--- NOTE | 2022-06-06 07:10 | NUR ---
ASSUMED CONTINUITY OF CARE. INITIAL ASSESSMENT DONE. EDEMA ON LUE NOTED. ELEVATED WITH PILLOWS. RE-ORIENTED TO EVENTS AND SURROUNDINGS. KEEP COMFORTABLE ON BED. SEIZURE, FALL, AND CONTACT PRECAUTION APPLIED. CALL LIGHT WITHIN REACH.
[2022-06-06 08:00] VITALS: BP 152/88
--- NOTE | 2022-06-06 08:00 | NUR ---
Patient's Plan of Care was discussed and reviewed with AZAR: ODETTE
[2022-06-06] MEDS: SERTRALINE 50 MG TAB PO SCH (09:10)
[2022-06-06] MEDS: BACLOFEN 10 MG TAB PO SCH ×2 (09:10→21:01)
[2022-06-06] MEDS: amLODIPine 5 MG TAB PO SCH (09:10)
[2022-06-06] MEDS: LOSARTAN 50 MG TAB PO SCH (09:10)
--- NOTE | 2022-06-06 09:45 | NUR ---
DR. WHELAN CAME AND SEEN PT..
[2022-06-06 16:00] VITALS: BP 136/75
--- NOTE | 2022-06-06 19:10 | NUR ---
REPORT GIVEN TO CIERA SANDERS. IN STABLE CONDITION.
--- NOTE | 2022-06-06 19:11 | NUR ---
RECEIVED REPORT FROM DAY SHIFT NURSE AIDA FOR CONTINUITY OF CARE. PT AWAKE, SITTING IN BED. PT SATTING AT 98% ON 2L NC. NO DISTRESS NOTED. INITIAL ASSESSMENT DONE. POC DISCUSSED WITH THE PT AND RN CHERELLE. CALL LIGHT WITHIN REACH. SAFETY PRECAUTIONS IN PLACE.
[2022-06-06] MEDS: TAMSULOSIN 0.4 MG CAP PO SCH (21:00)
[2022-06-06] MEDS: ATORVASTATIN 20 MG TAB PO SCH (21:00)
--- NOTE | 2022-06-06 21:00 | NUR ---
ADMINISTERED DUE MEDS. PT WAS TOO ANXIOUS. PT STATED THAT HE HASN'T SLEPT FOR DAYS, AMBIEN DIDN'T WORK FOR HIM AND REQUESTING FOR SOMETHING TO JENNIE HIM AND MAKE HIM SLEEP. INFORMED DR WHELAN. RECEIVED ORDER FOR ONE TIME ATIVAN 2MG IVP. EDGARD VILLARREAL MADE AWARE.
[2022-06-06] MEDS ORDERED: LORazepam 2 MG/ML VIAL IVP SCH (21:10)
[2022-06-07] VITALS: BP 129/71
[2022-06-07 04:00] VITALS: BP 131/79
--- NOTE | 2022-06-07 05:19 | NUR ---
DID MORNING CARE. PT TOLERATED WELL. PT REMAINED CLEAN AND DRY. PT DENIES PAIN. NO SOB. NO DISTRESS NOTED.
[2022-06-07] MEDS: VANCOMYCIN HCL 25 MG/ML SOLN PO SCH ×3 (05:53→18:09)
--- NOTE | 2022-06-07 07:31 | NUR ---
ENDORSED PT TO DAY SHIFT NURSE TAWNY FOR CONTINUITY OF CARE. ALL NEEDS MET THROUGHOUT SHIFT. PT IS STABLE.
[2022-06-07] MEDS: SERTRALINE 50 MG TAB PO SCH (08:49)
[2022-06-07] MEDS: BACLOFEN 10 MG TAB PO SCH ×2 (08:49→21:11)
[2022-06-07] MEDS: amLODIPine 5 MG TAB PO SCH (08:50)
[2022-06-07] MEDS: LOSARTAN 50 MG TAB PO SCH (08:51)
[2022-06-07 11:42] LABS: BASOPHILS % (AUTO) 0.9 % (0.0-2.0); EOSINOPHILS # (AUTO) 0.2 K/uL (0-0.4); EOSINOPHILS % (AUTO) 4.5 % (0.0-4.0); HEMATOCRIT 35.8 % (36-52); HEMOGLOBIN 12.6 g/dL (12.0-18.0); LYMPHOCYTES # (AUTO) 0.9 K/uL (2.0-11.5); LYMPHOCYTES % (AUTO) 16.1 % (20.5-51.1); MEAN CORPUSCULAR HEMOGLOBIN 31 pg (27-31); MEAN CORPUSCULAR HGB CONC 35 g/dL (33-37); MEAN CORPUSCULAR VOLUME 87.2 fL (80-94); MONOCYTES # (AUTO) 0.5 K/uL (0.8-1.0); MONOCYTES % (AUTO) 8.8 % (1.7-9.3); NEUTROPHILS # (AUTO) 3.8 K/uL (1.8-7.7); NEUTROPHILS % (AUTO) 69.7 % (42.2-75.2); PLATELET COUNT (AUTO) 237 K/uL (140-450); RED CELL DISTRIBUTION WIDTH 13.4 % (11.6-13.7); WHITE BLOOD COUNT (AUTO) 5.4 K/uL (4.8-10.8)
[2022-06-07 11:55] LABS: ANION GAP 9.1 (8-16); CARBON DIOXIDE 30.2 mmol/L (21-32); CREATININE 0.5 mg/dL (0.6-1.3); POTASSIUM 3.3 mmol/L (3.5-5.1)
[2022-06-07] MEDS: POTASSIUM CHLORIDE 10 MEQ TABER PO PRN (12:23)
[2022-06-07 16:00] VITALS: BP 108/58
--- NOTE | 2022-06-07 18:42 | NUR ---
PATIENT RESTING IN BED, RESPIRATIONS EVEN AND UL ON 2LNC. NO C/O PAIN/DISCOMFORT. NO SIGNIFICANT CHANGES THROUGHOUT SHIFT. ALL NEEDS MET. SAFETY MEASURES IN PLACE, CALL LIGHT IN REACH. WILL CONT TO MONITOR AND ENDORSE TO PM NURSE.
--- NOTE | 2022-06-07 19:06 | NUR ---
RECEIVED REPORT FROM DAY SHIFT NURSE TAWNY FOR CONTINUITY OF CARE. PT AWAKE SITTING IN BED. NO DISTRESS NOTED ON 2L NC. DENIES PAIN. PT REQUESTING MED FOR HIS ANXIETY. WILL INFORM MD. INITIAL ASSESSMENT DONE. POC DISCUSSED WITH PT AND EDGARD DOWNING. CALL LIGHT WITHIN REACH. SAFETY PRECAUTIONS IN PLACE.
--- NOTE | 2022-06-07 19:07 | NUR ---
Patient's Plan of Care was discussed and reviewed with AZAR: CIERA
[2022-06-07] MEDS: TAMSULOSIN 0.4 MG CAP PO SCH (21:11)
[2022-06-07] MEDS: ATORVASTATIN 20 MG TAB PO SCH (21:11)
--- NOTE | 2022-06-07 21:11 | NUR ---
ADMINISTERED DUE MEDS. PT TOLERATED WELL.
[2022-06-07] MEDS ORDERED: LORazepam 1 MG TAB PO ONE (21:15)
--- NOTE | 2022-06-07 21:46 | NUR ---
RECEIVED ORDER FROM KENYA SMALL PO 2MG ONCE. CARRIED OUT ORDER. V/S WITHIN NORMAL LIMIT.
[2022-06-08] MEDS: VANCOMYCIN HCL 25 MG/ML SOLN PO SCH ×4 (00:10→18:18)
[2022-06-08 04:00] VITALS: BP 119/70
--- NOTE | 2022-06-08 05:20 | NUR ---
DID MORNING CARE. PT TOLERATED WELL. PT REMAINED CLEAN AND DRY. DENIES PAIN. NO DISTRESS NOTED. PT WENT BACK TO SLEEP.
--- NOTE | 2022-06-08 07:15 | NUR ---
RECEIVED REPORT FROM NIGHT NURSE CIERA FOR CONTINUITY OF CARE. INITIAL ASSESSMENT DONE. IV SITE INTACT. CALL LIGHT KEPT WITHIN REACH. WILL CONTINUE TO MONITOR.
--- NOTE | 2022-06-08 07:20 | NUR ---
GAVE BEDSIDE REPORT TO DAY SHIFT NURSE AZAR GREENE FOR CONTINUITY OF CARE. ALL NEEDS MET THROUGHOUT SHIFT. PT IS STABLE.
[2022-06-08 08:00] VITALS: BP 119/67
[2022-06-08] MEDS: LOSARTAN 50 MG TAB PO SCH (09:17)
[2022-06-08] MEDS: amLODIPine 5 MG TAB PO SCH (09:18)
[2022-06-08] MEDS: BACLOFEN 10 MG TAB PO SCH ×2 (09:18→21:46)
[2022-06-08] MEDS: SERTRALINE 50 MG TAB PO SCH (09:18)
--- NOTE | 2022-06-08 09:18 | NUR ---
SCHEDULED MEDICATIONS GIVEN. TOLERATING WELL.
--- NOTE | 2022-06-08 11:04 | NUR ---
PT IS CLEARED FOR DISCHARGE. CALLED BRENDA MEZA SPOKE TO NURSE STATED PT REQUIRES SNF PLACEMENT D/T ISOLATION FOR C-DIFF. HOUSE SUP MADE AWARE.
--- NOTE | 2022-06-08 18:18 | NUR ---
SCHEDULED MEDICATIONS GIVEN. TOLERATING WELL.
--- NOTE | 2022-06-08 19:25 | NUR ---
BEDSIDE REPORT GIVEN TO NIGHT NURSE CIERA FOR CONTINUITY OF CARE. REMAINS STABLE.
--- NOTE | 2022-06-08 19:26 | NUR ---
RECEIVED REPORT FROM DAY SHIFT NURSE JC FOR CONTINUITY OF CARE. PT AWAKE SITTING IN BED. NO DISTRESS NOTED IN 2L NC. INITIAL ASSESSMENT DONE. POC DISCUSSED WITH PT AND RN TIEN. CALL LIGHT WITHIN REACH. SAFETY PRECAUTIONS IN PLACE.
[2022-06-08 20:00] VITALS: BP 111/66
[2022-06-08] MEDS: TAMSULOSIN 0.4 MG CAP PO SCH (21:46)
--- NOTE | 2022-06-08 21:46 | NUR ---
PT WAS ANXIOUS. INFORMED DR SWEET. RECEIVED ORDER FOR ATIVAN PRN 2MG PO Q12. ADMINISTERED DUE MEDS AND ANXIETY MED. V/S WITHIN NORMAL LIMIT. ALSO, INFORMED MD REGARDING WANG FOR RENEWAL, NO RESPONSE RECEIVED.
[2022-06-08] MEDS: ATORVASTATIN 20 MG TAB PO SCH (21:47)
[2022-06-08] MEDS: LORazepam 1 MG TAB PO PRN (22:40)
[2022-06-09] MEDS: VANCOMYCIN HCL 25 MG/ML SOLN PO SCH ×5 (00:30→23:12)
[2022-06-09 04:00] VITALS: BP 124/65
--- NOTE | 2022-06-09 04:30 | NUR ---
CLEANED AND CHANGED PT DIAPER. PT TOLERATED WELL. PT REMAINED CLEAN AND DRY. NO COMPLAINTS OF PAIN. NO DISTRESS NOTED.
--- NOTE | 2022-06-09 07:10 | NUR ---
GAVE BEDSIDE REPORT TO DAY SHIFT NURSE RAVEN FOR CONTINUITY OF CARE. ALL NEEDS MET THROUGHOUT SHIFT. PT WITH DC ORDER, AWAITING FOR SNF PLACEMENT. PT IN STABLE CONDITION.
--- NOTE | 2022-06-09 07:36 | NUR ---
RECIEVED THE PATIENT FROM MUSKRAT TRAPPER NURSE,ALL SAFETY MEASURES IN PLACE.VITALS ARE STABLE.DC ORDER IN PLACE,WAITING FOR THE SNIF PLACEMENT.WILL CONTINUE TO MONITOR.
[2022-06-09 08:00] VITALS: BP 120/72
[2022-06-09] MEDS: SERTRALINE 50 MG TAB PO SCH (08:55)
[2022-06-09] MEDS: LOSARTAN 50 MG TAB PO SCH (08:55)
[2022-06-09] MEDS: BACLOFEN 10 MG TAB PO SCH ×2 (08:55→21:19)
[2022-06-09] MEDS: amLODIPine 5 MG TAB PO SCH (08:55)
--- NOTE | 2022-06-09 11:04 | NUR ---
FREQUENT ROUNDS DONE,VITALS ARE STABLE.NO SO DISTRESS NOTED.SUPERVISOR BROODER FARM AT BEDSIDE.GOT ADVICE REGARDING COMPLETION OF VANCOMYCIN PER PROTOCOL.
--- NOTE | 2022-06-09 12:47 | NUR ---
VITALS ARE STABLE. ADVISE RECEIVED FROM DUBBING MACHINE OPERATOR.NO BOWEL MOVEMENT NOTED.WILL CONTINUE TO MONITOR.
[2022-06-09 16:00] VITALS: BP 127/64
[2022-06-09 20:00] VITALS: BP 113/71
--- NOTE | 2022-06-09 20:05 | NUR ---
PATIENT AWAKE ALERT WELL RESTED ON O2 AT 2L NC SATING 96%. NO DISTRESS NOTED. NO COMPLAINTS OF PAIN AT THIS TIME. CALL LIGHT WITHIN REACH. SAFETY MEASURES IN PLACE. NEEDS ATTENDED AND MET.
[2022-06-09] MEDS: TAMSULOSIN 0.4 MG CAP PO SCH (21:18)
--- NOTE | 2022-06-09 21:18 | NUR ---
ALL SCHEDULED MEDICATIONS ADMINISTERED.
[2022-06-09] MEDS: ATORVASTATIN 20 MG TAB PO SCH (21:19)
[2022-06-09] MEDS: LORazepam 1 MG TAB PO PRN (21:37)
--- NOTE | 2022-06-09 21:37 | NUR ---
PATIENT WAS ANXIOUS, PRN MEDICATION GIVEN.
[2022-06-10 04:00] VITALS: BP 125/69
[2022-06-10] MEDS: VANCOMYCIN HCL 25 MG/ML SOLN PO SCH ×3 (06:16→18:15)
--- NOTE | 2022-06-10 07:29 | NUR ---
BEDSIDE REPORT GIVEN TO NURSE RETANA FOR CONTINUITY OF CARE. PATIENT HAD NO BM THROUGHOUT THE SHIFT.
--- NOTE | 2022-06-10 07:30 | NUR ---
RECEIVED REPORT FROM MORTARMAN NURSE, JACOB, FOR CONTINUITY OF CARE. PT IN BED AT THIS TIME, WATCHING TELEVISION. RESPIRATIONS ARE EVEN AND UNLABORED ON 2L 02 VIA NC. NO SIGNS OF DISTRESS NOTED. NO COMPLAINTS OF PAIN OR DISCOMFORT AT THIS TIME. CALL LIGHT WITHIN REACH. ALL SAFETY MEASURES IN PLACE. WILL CONTINUE TO MONITOR.
[2022-06-10 08:00] VITALS: BP 134/66
[2022-06-10] MEDS: SERTRALINE 50 MG TAB PO SCH (09:23)
[2022-06-10] MEDS: LOSARTAN 50 MG TAB PO SCH (09:23)
[2022-06-10] MEDS: amLODIPine 5 MG TAB PO SCH (09:23)
[2022-06-10] MEDS: BACLOFEN 10 MG TAB PO SCH ×2 (09:23→21:08)
--- NOTE | 2022-06-10 09:25 | NUR ---
ADMINISTERED ALL SCHEDULED MEDICATIONS. EDUCATED PT ON MEDS ADMINISTERED. PT VERBALIZED UNDERSTANDING.
--- NOTE | 2022-06-10 12:15 | NUR ---
ASSISTED WITH CHANGING AND REPOSITIONING PT. PT HAD 1 BOWEL MOVEMENT.
--- NOTE | 2022-06-10 15:49 | NUR ---
DID ROUNDS ON PT. PT IN BED RESTING AT THIS TIME. RESPIRATIONS ARE EVEN AND UNLABORED.
[2022-06-10 16:00] VITALS: BP 109/67
--- NOTE | 2022-06-10 19:15 | NUR ---
ENDORSED PT TO ROPEMAN NURSECIERA, FOR CONTINUITY OF CARE. PT IS STABLE.
--- NOTE | 2022-06-10 19:16 | NUR ---
RECEIVED REPORT FROM DAY SHIFT NURSE MAZIN FOR CONTINUITY OF CARE. PT AWAKE SITTING IN BED. ON 2L NC WITH NO DISTRESS NOTED. DENIES PAIN. CONTACT FOR C-DIFF. INITIAL ASSESSMENT DONE. POC DISCUSSED WITH PT AND EDGARD VILLARREAL. CALL LIGHT WITHIN REACH. SAFETY PRECAUTIONS IN PLACE.
[2022-06-10 20:00] VITALS: BP 126/76
--- NOTE | 2022-06-10 20:00 | NUR ---
Patient's Plan of Care was discussed and reviewed with AZAR VANG.
[2022-06-10] MEDS: ATORVASTATIN 20 MG TAB PO SCH (21:08)
[2022-06-10] MEDS: TAMSULOSIN 0.4 MG CAP PO SCH (21:08)
[2022-06-10] MEDS: LORazepam 1 MG TAB PO PRN (21:09)
--- NOTE | 2022-06-10 21:09 | NUR ---
ADMINISTERED DUE MEDS. PT COMPLAINING OF ANXIETY. PRN MED GIVEN. V/S WITHIN NORMAL LIMITS. ASSISTED SPORTS CENTRE MANAGER IN CLEANING AND REPOSITIONING PT. PT TOLERATED WELL.
[2022-06-11] MEDS: VANCOMYCIN HCL 25 MG/ML SOLN PO SCH ×4 (00:54→18:08)
--- NOTE | 2022-06-11 05:07 | NUR ---
DID MORNING CARE WITH STREETCAR MOTORMAN. PT TOLERATED WELL. PT REMAINED CLEAN AND DRY. NO DISTRESS NOTED. SAFETY AND SZ PRECAUTIONS REMAINED IN PLACE.
--- NOTE | 2022-06-11 07:15 | NUR ---
GAVE BEDSIDE REPORT TO DAY SHIFT NURSE JC FOR CONTINUITY OF CARE. ALL NEEDS MET THROUGHOUT SHIFT. PT IS STABLE.
--- NOTE | 2022-06-11 07:16 | NUR ---
RECEIVED REPORT FROM NIGHT NURSE JC FOR CONTINUITY OF CARE. IVF SITE INTACT. NO C/O PAIN OR DISCOMFORT. CALL LIGHT KEPT WITHIN REACH. WILL CONTINUE TO MONITOR.
[2022-06-11 08:00] VITALS: BP 151/79
--- NOTE | 2022-06-11 08:16 | NUR ---
NOTIFIED DR. AVELAR, PT NO RECENT LAB, CURRENTLY ON VANCOMYCIN PO FOR C-DIFF. AWAITING FOR RESPONSE.
--- NOTE | 2022-06-11 08:23 | NUR ---
RECEIVED NEW ORDER FROM DR. AVELAR, CBC AND BMP. ORDER NOTED AND CARRIED OUT.
[2022-06-11] MEDS: SERTRALINE 50 MG TAB PO SCH (08:38)
[2022-06-11] MEDS: BACLOFEN 10 MG TAB PO SCH ×2 (08:38→21:04)
[2022-06-11] MEDS: amLODIPine 5 MG TAB PO SCH (08:38)
--- NOTE | 2022-06-11 08:38 | NUR ---
SCHEDULED MEDICATIONS GIVEN. TOLERATING WELL.
[2022-06-11] MEDS: LOSARTAN 50 MG TAB PO SCH (08:39)
[2022-06-11 11:40] LABS: BASOPHILS % (AUTO) 0.6 % (0.0-2.0); EOSINOPHILS # (AUTO) 0.2 K/uL (0-0.4); EOSINOPHILS % (AUTO) 4.3 % (0.0-4.0); HEMATOCRIT 37.6 % (36-52); HEMOGLOBIN 12.8 g/dL (12.0-18.0); LYMPHOCYTES # (AUTO) 0.7 K/uL (2.0-11.5); LYMPHOCYTES % (AUTO) 14.2 % (20.5-51.1); MEAN CORPUSCULAR HEMOGLOBIN 30 pg (27-31); MEAN CORPUSCULAR HGB CONC 34 g/dL (33-37); MEAN CORPUSCULAR VOLUME 88.8 fL (80-94); MONOCYTES # (AUTO) 0.3 K/uL (0.8-1.0); MONOCYTES % (AUTO) 5.5 % (1.7-9.3); NEUTROPHILS # (AUTO) 3.8 K/uL (1.8-7.7); NEUTROPHILS % (AUTO) 75.4 % (42.2-75.2); PLATELET COUNT (AUTO) 211 K/uL (140-450); RED BLOOD CELL COUNT(AUTO) 4.23 MIL/uL (4.20-6.10); RED CELL DISTRIBUTION WIDTH 13.9 % (11.6-13.7)
[2022-06-11 12:00] LABS: ANION GAP 6.8 (8-16); CARBON DIOXIDE 35.7 mmol/L (21-32); CREATININE 0.5 mg/dL (0.6-1.3); POTASSIUM 3.5 mmol/L (3.5-5.1)
--- NOTE | 2022-06-11 12:13 | NUR ---
SCHEDULED MEDICATIONS GIVEN. TOLERATING WELL.
--- NOTE | 2022-06-11 15:34 | NUR ---
06/11/22 RD FOLLOW UP COMPLETED PLEASE REFER TO NUTRITION ASSESSMENT UNDER CARE ACTIVITY FOR ESTIMATED NUTRITIONAL NEEDS. 1. CONTINUE CARDIAC DIET TOLERATED 2. MONITOR GI SYMPTOMS AND NUTRITION RELATED LAB VALUES 3. RD TO FOLLOW-UP 7 DAYS, LOW RISK REVIEWED BY SCOTT MENDOZA RD
[2022-06-11 16:00] VITALS: BP 114/74
--- NOTE | 2022-06-11 16:05 | NUR ---
PT COMPLAINT OF BACK PAIN. DR. AVELAR NOTIFIED WITH NEW ORDER, NORCO 5-325 MG Q6H PRN. INFORMED THAT PT IS ALLERGIC TO NORCO. DR. AVELAR GIVE NEW ORDER TORADOL 15 MG Q6H PRN. NOTIFIED PT ALLERGIC TO NAPROXEN. AWAITING FOR RESPONSE.
--- NOTE | 2022-06-11 16:12 | NUR ---
PT ASKING FOR ANXIETY MEDICATION. PULLED OUT ATIVAN 2MG PO ON OMNICELL. UPON ADMINISTRATION PATIENT REFUSED AND STATED HE WILL TAKE IT AT BEDTIME.
--- NOTE | 2022-06-11 16:17 | NUR ---
ATIVAN 2 MG PO RETURN TO OMNICELL.
--- NOTE | 2022-06-11 18:08 | NUR ---
ADMINISTERED SCHEDULED MEDICATIONS. TOLERATING WELL.
--- NOTE | 2022-06-11 19:20 | NUR ---
BEDSIDE REPORT GIVEN TO JANETH FOR CONTINUITY OF CARE. REMAINS STABLE.
--- NOTE | 2022-06-11 19:21 | NUR ---
RECEIVED REPORT FROM JC ASKEW , PATIENT WAS IN STABLE CONDITION DURING REPORT. PATIENT WAS ALERT AND ORIENTED X 3. PATIENT DENIED ANY PAIN AT THIS TIME. PATIENT IS ON 2 LITERS OF OXYGEN VIA NASAL CANULA. NO NOTED RESPIRATORY DISTRESS. CHEST IS RISING AND FALLING WITHOUT INCIDENT. PATIENT HAS MOMENTS OF CONFUSION WANTING ATIVAN FOR PAIN BUT NOT NOW BUT LATER. NURSING GAVE EDUCATION THE REASON FOR THE ATIVAN ORDER AND ITS PURPOSE. NURSING WILL CHECK FOR NEW ORDERS FOR PAIN MANAGEMENT PER SHIFT REPORT. SIDE RAILS UP X 3 FOR SAFETY, SEIZURE ACTIVITY, AND ADJUSTMENTS. NO NOTED SEIZURE ACTIVITY TODAY OR AT THIS TIME. CALL LIGHT IN REACH. [email or web address]
[2022-06-11 20:00] VITALS: BP 119/66
[2022-06-11] MEDS: TAMSULOSIN 0.4 MG CAP PO SCH (21:03)
[2022-06-11] MEDS: ATORVASTATIN 20 MG TAB PO SCH (21:03)
--- NOTE | 2022-06-11 21:56 | NUR ---
PATIENT WAS REQUESTING ATIVAN BUT ACCORDING TO THE [place] ATIVAN WAS PULLED AT 1602 BUT NO DOCUMENTATION ON THE JUN. EXPLAINED TO THE PATIENT THAT THE MEDICATION IS GIVEN EVERY 12 HOURS SO NOT UNTIL 0400 WILL I BE ABLE TO GIVE. NO NOTED DOCUMENTATION FROM PREVIOUS NURSE NOR SHIFT REPORT INDICATES THAT THE MEDICATION WAS RETURNED OR THAT THE PATIENT REFUSED. PATIENT REQUESTED TO SPEAK WITH BROKER (PALLAVI RENE). [email or web address]
--- NOTE | 2022-06-11 22:03 | NUR ---
GRAPPLE CREW LEADER WENT TO SPEAK WITH PATIENT. [email or web address]
[2022-06-11] MEDS ORDERED: diphenhydrAMINE 50 MG/ML VIAL IVP PRN (22:15)
[2022-06-11] MEDS ORDERED: MORPHINE SULFATE 2 MG/ML SYR IVP PRN (22:15)
--- NOTE | 2022-06-11 23:40 | NUR ---
NEW ORDERS FOR SLEEPLESSNESS, NEW ORDERS FOR PAIN MANAGEMENT AND MEDICATION FOR ALLERGIC REACTION. NURSING WENT TO GIVE SLEEP PRN BUT PATIENT WAS ASLEEP. [email or web address]
[2022-06-12] MEDS: VANCOMYCIN HCL 25 MG/ML SOLN PO SCH ×4 (00:31→18:16)
[2022-06-12] MEDS: MELATONIN 3 MG TAB PO PRN ×2 (00:31→21:32)
--- NOTE | 2022-06-12 00:31 | NUR ---
SLEEP MEDICATION WAS GIVEN AFTER NURSING CHANGED PATIENT FROM URINE AND STOOL. PATIENT WAS KEPT CLEAN AND DRY. SIDE RAILS UP X 3. CALL LIGHT WITHIN REACH. [email or web address]
--- NOTE | 2022-06-12 01:32 | NUR ---
PATIENT IN BED SLEEPING WITHOUT INCIDENT. KEPT CLEAN AND DRY. NO S/S OF PAIN/DISCOMFORT. NO S/S OF RESPIRATORY DISTRESS. [email or web address]
[2022-06-12 04:00] VITALS: BP 116/69
--- NOTE | 2022-06-12 05:15 | NUR ---
PATIENT REMAINS CLEAN AND DRY. ALL NEEDS MED. [email or web address]
--- NOTE | 2022-06-12 07:19 | NUR ---
ENDORSED PATIENT TO JC ASKEW, PATIENT WAS STABLE DURING SHIFT REPORT. [email or web address]
--- NOTE | 2022-06-12 07:20 | NUR ---
RECEIVED REPORT FROM NIGHT NURSE JANETH FOR CONTINUITY OF CARE. INITIAL ASSESSMENT DONE. PT ASKING FOR PRN ATIVAN. REMINDED RESIDENT THAT MEDICATION IS Q12H. TO BE GIVEN IF ITS TIME. NOT IN ANY DISTRESS. CALL LIGHT KEPT WITHIN REACH. WILL CONTINUE TO MONITOR.
[2022-06-12 08:00] VITALS: BP_SYST 116; BP_SYST 120; BP_SYST 151; BP_DIAS 69; BP_DIAS 74; BP_DIAS 79
[2022-06-12] MEDS: LOSARTAN 50 MG TAB PO SCH (09:20)
--- NOTE | 2022-06-12 09:20 | NUR ---
ADMINISTERED SCHEDULED MEDICATIONS. TOLERATING WELL. PT REQUESTING ATIVAN INJECTION FOR ANXIETY. CURRENTLY PT ON ATIVAN 2MG Q 12 PRN FOR ANXIETY. NOTIFY MD AWAITING FOR RESPONSE.
[2022-06-12] MEDS: SERTRALINE 50 MG TAB PO SCH (09:21)
[2022-06-12] MEDS: BACLOFEN 10 MG TAB PO SCH ×2 (09:22→21:32)
[2022-06-12] MEDS: amLODIPine 5 MG TAB PO SCH (09:39)
--- NOTE | 2022-06-12 12:05 | NUR ---
DR. AVELAR AT BEDSIDE, NOTIFIED PT REQUESTED ATIVAN INJECTION, RECEIVED NEW ORDER ATIVAN 2 GM IVP Q12H PRN FRO ANXIETY, D/C ATIVAN 2 MG PO Q 12H PRN. NOTED AND CARRIED OUT.
--- NOTE | 2022-06-12 13:37 | NUR ---
ADMINISTERED SCHEDULED MEDICATION. TOLERATING WELL.
[2022-06-12] MEDS: LORazepam 2 MG/ML VIAL IVP PRN (13:54)
--- NOTE | 2022-06-12 13:54 | NUR ---
PRN ATIVAN 2 MG IVP WAS GIVEN BY KIANA RENE.
--- NOTE | 2022-06-12 18:16 | NUR ---
SCHEDULED MEDICATIONS GIVEN. TOLERATING WELL. PT HAD LOSE STOOL, WITH MUCUS LIKE. FOUL SMELL NOTED.
--- NOTE | 2022-06-12 19:20 | NUR ---
REPORT GIVEN TO JANETH FOR CONTINUITY OF CARE. INFORMED ON COMING NURSE JANETH, THAT ATIVAN 2 MG PO Q12H WAS CHANGE TO ATIVAN 2 MG IVP Q 12H FOR ANXIETY. LAST GIVEN WAS 1354. PT HAD LARGE LOOSE STOOL WITH MUCUS LIKE. FOUL SMELL NOTED. REMAINS STABLE.
--- NOTE | 2022-06-12 19:58 | NUR ---
RECEIVED REPORT FROM JC ASKEW , PATIENT WAS IN STABLE CONDITION DURING REPORT. PATIENT WAS ALERT AND ORIENTED X 3. PATIENT DENIED ANY PAIN AT THIS TIME. PATIENT IS ON 2 LITERS OF OXYGEN VIA NASAL CANULA. NO NOTED RESPIRATORY DISTRESS. CHEST IS RISING AND FALLING WITHOUT INCIDENT. PATIENT HAS MOMENTS OF CONFUSION WANTING ATIVAN FOR PAIN BUT NOT NOW BUT LATER.NEW ORDERS FOR ATIVAN HAS BEEN CHANGED FROM PO TO IVP BUT ONLY EVERY 12 HOURS. NURSING GAVE EDUCATION THE REASON FOR THE ATIVAN ORDER AND ITS PURPOSE WILL NOT BE AVAILABLE UNTIL PAST 0100. SIDE RAILS UP X 3 FOR SAFETY, SEIZURE ACTIVITY, AND ADJUSTMENTS. NO NOTED SEIZURE ACTIVITY TODAY OR AT THIS TIME. CALL LIGHT IN REACH. [email or web address]
[2022-06-12 20:00] VITALS: BP 108/60
[2022-06-12] MEDS: ATORVASTATIN 20 MG TAB PO SCH (21:32)
[2022-06-12] MEDS: TAMSULOSIN 0.4 MG CAP PO SCH (21:32)
--- NOTE | 2022-06-12 22:00 | NUR ---
Patient's Plan of Care was discussed and reviewed with AZAR PEREZ
--- NOTE | 2022-06-12 23:23 | NUR ---
PATIENT WAS ABLE TO EAT HIS DINNER. PATIENT WAS ABLE TO TAKE MEDICATION WITH SLEEPING PRN FOR GOOD REST. PATIENT WAS EXPLAINED THAT NO ATIVAN UNTIL 0154 IN THE AM IF HE WOULD LIKE IT FOR ANXIETY. [email or web address]
--- NOTE | 2022-06-13 01:20 | NUR ---
PATIENT WAS GIVEN ORAL ANTIBIOTICS AND CHANGED. PATIENT WAS GIVEN A BED BATH TO KEEP CLEAN AND DRY. NURSING WILL CONTINUE TO FREQUENT ROOM IN ANTICIPATION OF ASSISTANCE. [email or web address]
[2022-06-13] MEDS: LORazepam 2 MG/ML VIAL IVP PRN ×2 (02:06→13:24)
[2022-06-13 04:00] VITALS: BP 105/59
--- NOTE | 2022-06-13 05:38 | NUR ---
PATIENT IS ASLEEP. NO PAIN NOTED. NO RESPIRATORY DISTRESS. PATIENT IS BRADYCARDIA AND AM SHIFT WILL BE INFORMED TO BE CAREFUL TO THE PULSE DROPPING AFTER ATIVAN IS GIVEN. NURSING WILL MONITOR FOR S/S FO BRADYCARDIA TO REPORT TO . [id number]
--- NOTE | 2022-06-13 05:41 | NUR ---
PATIENT ASLEEP. CHEST RISING AND FALLING EVENLY. [email or web address]
[2022-06-13] MEDS: VANCOMYCIN HCL 25 MG/ML SOLN PO SCH ×3 (06:17→13:23)
--- NOTE | 2022-06-13 07:07 | NUR ---
ENDORSED PATIENT TO SAE RN (REGISTRY), PATIENT WAS STABLE AT THIS TIME. [email or web address]
--- NOTE | 2022-06-13 07:23 | NUR ---
receive the patinet from the shift mgr rn in rm [id number] aox3 with admitting diagnosis of hypokalemia . will continue to monitor
[2022-06-13] MEDS: amLODIPine 5 MG TAB PO SCH (09:46)
[2022-06-13] MEDS: BACLOFEN 10 MG TAB PO SCH ×2 (09:46→20:44)
[2022-06-13] MEDS: SERTRALINE 50 MG TAB PO SCH (09:47)
[2022-06-13] MEDS: LOSARTAN 50 MG TAB PO SCH (09:47)
--- NOTE | 2022-06-13 13:03 | NUR ---
lorazepam was requested by the patient and was given immediately
--- NOTE | 2022-06-13 18:25 | NUR ---
will endorse to production supervisor off shift rn for continuity of care
--- NOTE | 2022-06-13 19:15 | NUR ---
RECEIVED PATIENT FROM AM SHIFT NURSE DARIA FOR CONTINUITY OF CARE. PATIENT IN BED RESTING . ABLE TO COMMUNICATE WITH HIS NEEDS. NO S/S OF RESPIRATORY DISTRESS. ON 2L O2 VIA NC. NO COMPLAINTS OF PAIN AT THIS TIME. IV ACCESS ON THE RIGHT HAND SALINE LOCK. CALL LIGHT IN REACH. SAFETY PRECAUTIONS ARE IN PLACE.
[2022-06-13] MEDS: ATORVASTATIN 20 MG TAB PO SCH (20:44)
--- NOTE | 2022-06-13 20:44 | NUR ---
ALL SCHEDULED MEDICATIONS ADMINISTERED.
[2022-06-13] MEDS: TAMSULOSIN 0.4 MG CAP PO SCH (20:45)
[2022-06-14] VITALS: BP 121/71
--- NOTE | 2022-06-14 00:15 | NUR ---
PATIENT CLEANED, CHANGED AND REPOSITIONED.
[2022-06-14] MEDS: LORazepam 2 MG/ML VIAL IVP PRN ×2 (01:45→14:12)
--- NOTE | 2022-06-14 03:45 | NUR ---
REPORT GIVEN BY EDGARD JAMES FOR CONTINUITY OF CARE. PATIENT IS ASLEEP. NO S/S OF PAIN NOR DISCOMFORT. NO ACUTE RESPIRATORY DISTRESS NOTED. SKIN WARM AND DRY TO TOUCH. SAFETY PRECAUTIONS IN PLACE, CALL LIGHT IN REACH.
--- NOTE | 2022-06-14 03:45 | NUR ---
ENDORSED PATIENT TO MANAS FOR CONTINUITY OF CARE.
--- NOTE | 2022-06-14 06:06 | NUR ---
AM CARE RENDERED. ALL NEEDS ATTENDED TO. NO DISTRESS. SAFETY PRECAUTIONS MAINTAINED DURING THE SHIFT, CALL LIGHT REMAINS WITHIN REACH.
--- NOTE | 2022-06-14 07:22 | NUR ---
RECEIVED PT FROM CREDIT REFERENCE CLERK NURSE FOR CONTINUITY OF CARE. PT IN BED SLEEPING VISIBLE CHEST RISE/FALL. RESPIRATIONS EVEN AND UNLABORED ON 2L O2 VIA NC. SKIN WARM AND DRY TO TOUCH. NO DISTRESS NOTED. CALL LIGHT WITHIN REACH. ALL SAFETY PRECAUTIONS IN PLACE.
[2022-06-14 08:00] VITALS: BP 117/65
[2022-06-14] MEDS: LOSARTAN 50 MG TAB PO SCH (09:32)
[2022-06-14] MEDS: BACLOFEN 10 MG TAB PO SCH ×2 (09:32→21:03)
[2022-06-14] MEDS: amLODIPine 5 MG TAB PO SCH (09:33)
[2022-06-14] MEDS: SERTRALINE 50 MG TAB PO SCH (09:33)
[2022-06-14 16:00] VITALS: BP 99/57
--- NOTE | 2022-06-14 19:27 | NUR ---
ENDORSED PT TO RADIOLOGIC TECHNOLOGIST NURSE FOR CONTINUITY OF CARE. PT IN STABLE CONDITION.
[2022-06-14] MEDS: TAMSULOSIN 0.4 MG CAP PO SCH (21:02)
[2022-06-14] MEDS: ATORVASTATIN 20 MG TAB PO SCH (21:02)
--- NOTE | 2022-06-14 21:03 | NUR ---
ADMINISTERED ALL SCHEDULED MEDICATIONS.
--- NOTE | 2022-06-14 21:09 | NUR ---
PATIENT IS AWAKE ALERT RESTING COMFORTABLY IN BED. ON 2L O2 VIA NC TOLERATING WELL. NO DISTRESS. DENIES PAIN. BEDBOUND. ABLE TO COMMUNICATE WITH HIS NEEDS. CALL LIGHT WITHIN REACH. SAFETY MEASURES IN PLACE. NEEDS ATTENDED TO.
[2022-06-15] VITALS: BP 110/70
[2022-06-15] MEDS: LORazepam 2 MG/ML VIAL IVP PRN ×2 (02:06→14:15)
--- NOTE | 2022-06-15 07:16 | NUR ---
GAVE REPORT TO MORNING SHIFT NURSE FOR CONTINUITY OF CARE.
[2022-06-15 08:00] VITALS: BP 124/75
[2022-06-15 08:56] LABS: BASOPHILS % (AUTO) 0.8 % (0.0-2.0); EOSINOPHILS # (AUTO) 0.4 K/uL (0-0.4); EOSINOPHILS % (AUTO) 7.2 % (0.0-4.0); HEMATOCRIT 37.2 % (36-52); HEMOGLOBIN 12.9 g/dL (12.0-18.0); LYMPHOCYTES # (AUTO) 1.1 K/uL (2.0-11.5); LYMPHOCYTES % (AUTO) 19.5 % (20.5-51.1); MEAN CORPUSCULAR HEMOGLOBIN 31 pg (27-31); MEAN CORPUSCULAR HGB CONC 35 g/dL (33-37); MEAN CORPUSCULAR VOLUME 88.8 fL (80-94); MONOCYTES # (AUTO) 0.4 K/uL (0.8-1.0); MONOCYTES % (AUTO) 6.5 % (1.7-9.3); NEUTROPHILS # (AUTO) 3.8 K/uL (1.8-7.7); PLATELET COUNT (AUTO) 173 K/uL (140-450); RED BLOOD CELL COUNT(AUTO) 4.18 MIL/uL (4.20-6.10); RED CELL DISTRIBUTION WIDTH 13.9 % (11.6-13.7); WHITE BLOOD COUNT (AUTO) 5.7 K/uL (4.8-10.8)
[2022-06-15] MEDS: BACLOFEN 10 MG TAB PO SCH (08:59)
[2022-06-15] MEDS: LOSARTAN 50 MG TAB PO SCH (08:59)
[2022-06-15] MEDS: amLODIPine 5 MG TAB PO SCH (09:00)
[2022-06-15] MEDS: SERTRALINE 50 MG TAB PO SCH (09:00)
--- NOTE | 2022-06-15 09:04 | NUR ---
ADMINISTERED SCHEDULED MEDS. PT TOLERATING WELL. EATING BREAKFAST.
[2022-06-15 09:21] LABS: ANION GAP 10.1 (8-16); CARBON DIOXIDE 30.5 mmol/L (21-32); CREATININE 0.5 mg/dL (0.6-1.3); POTASSIUM 3.6 mmol/L (3.5-5.1)
[2022-06-15 16:00] VITALS: BP 108/64
== END 2022-06-15 18:40 | disposition home or self-care (01) | DRG 872 ==
LOC: MED 10:52 → MTU 17:13
PROVIDERS: ADMIT Family Medicine; ATTEND Family Medicine
PROC: 0DBF8ZZ Excision of Right Large Intestine, Via Natural or Artificial Opening Endoscopic (ICD-10-PCS; principal; 2022-06-03 13:00)
DX: A41.9 Sepsis, unspecified organism (principal); N39.0 Urinary tract infection, site not specified; A04.72 Enterocolitis due to Clostridium difficile, not specified as recurrent; I69.354 Hemiplegia and hemiparesis following cerebral infarction affecting left non-dominant side; E87.6 Hypokalemia; I10 Essential (primary) hypertension; K56.41 Fecal impaction; G40.909 Epilepsy, unspecified, not intractable, without status epilepticus; E83.42 Hypomagnesemia; G20 Parkinson's disease; N20.0 Calculus of kidney; N21.0 Calculus in bladder; K21.9 Gastro-esophageal reflux disease without esophagitis; Z88.1 Allergy status to other antibiotic agents; Z88.5 Allergy status to narcotic agent; Z88.6 Allergy status to analgesic agent; Z88.8 Allergy status to other drugs, medicaments and biological substances
CPT/HCPCS: 36415; 74018; 80048; 80053; 81001; 82150; 83690; 83735; 84100; 85025; 87070; 87081; 87086; 88304; 96374; 96375; 97110; 97112; 97530; 99285; J0696; J1200; J2060; J2250; J2270; J3010; J3475; J3480; J3490; J7030; J7060; Q0092

== ENCOUNTER 2022-06-30 17:05 | Inpatient (IN) | payer OTHER, MEDICAID ==
[~2022-06-30] VITALS: Ht 175.3 cm; Wt 73.9 kg
[~2022-06-30 17:05] MED LIST changes: +DOCU-299 PO; +LACT10SO11 PO
--- NOTE | 2022-06-30 17:08 | NUR ---
PATIENT BIBA TO BED 9.
[2022-06-30 17:16] VITALS: BP 156/80
[2022-06-30] MEDS ORDERED: HYDR-2734 TP (17:29)
[2022-06-30] MEDS ORDERED: NYST100022 PO (17:29)
[2022-06-30] MEDS ORDERED: MELA3TER PO (17:29)
[2022-06-30 17:48] LABS: BASOPHILS % (AUTO) 0.5 % (0.0-2.0); EOSINOPHILS # (AUTO) 0.4 K/uL (0-0.4); EOSINOPHILS % (AUTO) 4.1 % (0.0-4.0); HEMATOCRIT 38.2 % (36-52); HEMOGLOBIN 13.1 g/dL (12.0-18.0); LYMPHOCYTES # (AUTO) 1.2 K/uL (2.0-11.5); LYMPHOCYTES % (AUTO) 13.2 % (20.5-51.1); MEAN CORPUSCULAR HEMOGLOBIN 31 pg (27-31); MEAN CORPUSCULAR HGB CONC 34 g/dL (33-37); MEAN CORPUSCULAR VOLUME 89.3 fL (80-94); MONOCYTES # (AUTO) 0.6 K/uL (0.8-1.0); MONOCYTES % (AUTO) 6.8 % (1.7-9.3); NEUTROPHILS # (AUTO) 6.6 K/uL (1.8-7.7); NEUTROPHILS % (AUTO) 75.4 % (42.2-75.2); PLATELET COUNT (AUTO) 194 K/uL (140-450); RED BLOOD CELL COUNT(AUTO) 4.28 MIL/uL (4.20-6.10); RED CELL DISTRIBUTION WIDTH 14.5 % (11.6-13.7); WHITE BLOOD COUNT (AUTO) 8.8 K/uL (4.8-10.8)
[2022-06-30] MEDS ORDERED: NACL 0.9% 1,000 ML IV ONE (17:50)
--- NOTE | 2022-06-30 18:05 | NUR ---
66/M SAMA FROM [facility] WITH C/O ABDOMINAL PAIN AND ONE EPISODE OF DIARRHEA SINCE THIS MORNING. PER EMS STAFF WAS WORRIED PATIENT WOULD BECOME DEHYDRATED, ON ARRIVAL PATIENT C/O ABDOMINAL PAIN, DENIES N/V. PATIENT PLACED ON BEDSIDE DICE DEALER.
[2022-06-30 18:14] LABS: ALBUMIN 2.9 g/dL (3.4-5.0); ANION GAP 11.7 (8-16); CARBON DIOXIDE 27.5 mmol/L (21-32); CREATININE 0.6 mg/dL (0.6-1.3); POTASSIUM 3.2 mmol/L (3.5-5.1); TOTAL BILIRUBIN 0.7 mg/dL (0.0-1.0)
--- NOTE | 2022-06-30 19:11 | NUR ---
PATIENT HAD LARGE BOWEL MOVEMENT, WITH THE ASSISTANCE OF KETURAH EMT PATIENT CLEANED UP, PLACED IN NEW DIAPER, NEW SHEETS AND CHUCKS PLACED. ALL NEEDS MET AT THIS TIME.
--- NOTE | 2022-06-30 19:16 | NUR ---
Pt report given to MAY RN. Transfer of care at this time.
--- NOTE | 2022-06-30 19:18 | NUR ---
Patient taken to CT scan via gurney.
--- NOTE | 2022-06-30 19:25 | NUR ---
IV removed, catheter intact and site benign. Applied folded 4x4 gauze and tape to stop bleeding.
--- NOTE | 2022-06-30 19:28 | NUR ---
Started IV 22G LAC.
--- NOTE | 2022-06-30 21:07 | NUR ---
Patient appears to be resting comfortably in bed. Vital Signs within normal limits. Respirations even and unlabored.
--- NOTE | 2022-06-30 21:18 | NUR ---
Patient states " I have anxiety, I need medication." Dr. Humphrey notified.
[2022-06-30] MEDS ORDERED: LORazepam 2 MG/ML VIAL IVP ONE (21:35)
[2022-06-30] MEDS ORDERED: POTASSIUM CHLORIDE 10 MEQ TABER PO ONE (21:55)
--- NOTE | 2022-06-30 22:08 | NUR ---
Provided apple juice as request.
--- NOTE | 2022-06-30 23:01 | NUR ---
Patient appears to be resting comfortably in bed. Vital Signs within normal limits. Respirations even and unlabored.
--- NOTE | 2022-07-01 00:34 | NUR ---
COVID-19 swab collected and sent to lab.
[2022-07-01] MEDS ORDERED: MORPHINE SULFATE 2 MG/ML SYR IVP PRN (01:20)
[2022-07-01] MEDS ORDERED: NACL 0.9% 1,000 ML IV SCH (02:10)
--- NOTE | 2022-07-01 02:14 | NUR ---
Patient will be admitted to care of Dr. Michaud. Admited to [facility]. Will go to room 107A. Belongings list completed. Report to EDGARD Carballo.
--- NOTE | 2022-07-01 02:32 | NUR ---
Changed diaper, bed sheet and cleaned patient before transfer to TELE/MST unit.
--- NOTE | 2022-07-01 02:45 | NUR ---
RECEIVED PT FROM ER NURSE VIA MARCIANO, PT IS ALERT ORIENTED X 4, PIV INTACT AND PATENT, NO COMPLAIN OF PAIN AT THIS TIMENO DISTRESS NOTED
[2022-07-01 04:00] VITALS: BP 131/74
--- NOTE | 2022-07-01 04:00 | NUR ---
PATIENT ASLEEP, NO DISTRESS NOTED
[2022-07-01] MEDS ORDERED: ONDANSETRON 4 MG/2 ML VIAL IVP PRN (06:50)
[2022-07-01] MEDS ORDERED: DOCUSATE SODIUM 100 MG GELCAP PO PRN (06:50)
--- NOTE | 2022-07-01 07:42 | NUR ---
ASSUMED CONTINUITY OF CARE. INITIAL ASSESSMENT DONE. KEEP COMFORTABLE ON BED. FALL PRECAUTION APPLIED. CALL LIGHT WITHIN REACH.
[2022-07-01 08:00] VITALS: BP 135/65
[2022-07-01] MEDS: LOSARTAN 50 MG TAB PO SCH (09:00)
[2022-07-01] MEDS: LEVOFLOXACIN 500 MG/D5W PREMIX 100 ML IV SCH (09:11)
[2022-07-01] MEDS ORDERED: LORazepam 0.5 MG TAB PO SCH (09:30)
--- NOTE | 2022-07-01 09:40 | NUR ---
PATIENT HAS BEEN SCREENED AND CATEGORIZED MODERATE NUTRITION RISK. PATIENT WILL BE SEEN WITHIN 3-5 DAYS OF ADMISSION. REVIEWED BY SCOTT MENDOZA RD
[2022-07-01] MEDS: CARBIDOPA/LEVODOPA 25/100 MG 1 TAB PO SCH ×3 (09:51→17:00)
--- NOTE | 2022-07-01 10:32 | NUR ---
Patient's Plan of Care was discussed and reviewed with MUD CLEANER OPERATOR:
[2022-07-01] MEDS: metroNIDAZOLE 500 MG/NS PREMIX 100 ML IV SCH ×2 (12:42→21:51)
--- NOTE | 2022-07-01 14:55 | NUR ---
PAGED DR. ZAVALETA COVERING DR. CHOWDHURY REGARDING CONSULT. INFORMED CHARGE NURSE MATTHEW FIGUEROA.
[2022-07-01 16:00] VITALS: BP 143/79
[2022-07-01] MEDS: DEXT 5% /NACL 0.9% 1,000 ML IV SCH (17:07)
[2022-07-01] MEDS: LORazepam 2 MG/ML VIAL IVP PRN ×2 (17:30→21:53)
--- NOTE | 2022-07-01 19:31 | NUR ---
REPORT GIVEN TO JUVENTINO FIGUEROA. IN STABLE CONDITION.
[2022-07-01] MEDS: TAMSULOSIN 0.4 MG CAP PO SCH (21:52)
[2022-07-01] MEDS: ATORVASTATIN 20 MG TAB PO SCH (21:52)
[2022-07-02] MEDS: metroNIDAZOLE 500 MG/NS PREMIX 100 ML IV SCH ×3 (06:08→20:26)
[2022-07-02] MEDS: DEXT 5% /NACL 0.9% 1,000 ML IV SCH ×2 (06:15→20:34)
--- NOTE | 2022-07-02 07:26 | NUR ---
ASSUMED CONTINUITY OF CARE. INITIAL ASSESSMENT DONE. KEEP COMFORTABLE ON BED. CONTACT ISOLATION, AND FALL PRECAUTION APPLIED. CALL LIGHT WITHIN REACH.
[2022-07-02 07:32] LABS: BASOPHILS % (AUTO) 0.5 % (0.0-2.0); EOSINOPHILS # (AUTO) 0.4 K/uL (0-0.4); EOSINOPHILS % (AUTO) 5.3 % (0.0-4.0); HEMATOCRIT 38.5 % (36-52); HEMOGLOBIN 13.1 g/dL (12.0-18.0); LYMPHOCYTES # (AUTO) 0.9 K/uL (2.0-11.5); LYMPHOCYTES % (AUTO) 12.2 % (20.5-51.1); MEAN CORPUSCULAR HEMOGLOBIN 30 pg (27-31); MEAN CORPUSCULAR HGB CONC 34 g/dL (33-37); MEAN CORPUSCULAR VOLUME 88.9 fL (80-94); MONOCYTES # (AUTO) 0.5 K/uL (0.8-1.0); MONOCYTES % (AUTO) 5.9 % (1.7-9.3); NEUTROPHILS # (AUTO) 5.8 K/uL (1.8-7.7); NEUTROPHILS % (AUTO) 76.1 % (42.2-75.2); PLATELET COUNT (AUTO) 205 K/uL (140-450); RED BLOOD CELL COUNT(AUTO) 4.33 MIL/uL (4.20-6.10); RED CELL DISTRIBUTION WIDTH 13.9 % (11.6-13.7); WHITE BLOOD COUNT (AUTO) 7.6 K/uL (4.8-10.8)
[2022-07-02 07:41] LABS: ANION GAP 11.7 (8-16); CARBON DIOXIDE 28.2 mmol/L (21-32); CREATININE 0.5 mg/dL (0.6-1.3)
[2022-07-02 07:50] LABS: POTASSIUM 2.9 mmol/L (3.5-5.1)
[2022-07-02 08:00] VITALS: BP 128/50
--- NOTE | 2022-07-02 08:00 | NUR ---
DR. PAUL CAME AND SEEN PT.. INFORMED DR. PAUL PT. K 2.9 AND SAID THAT TO GIVE PRN ORDER FOR LOW K.
[2022-07-02] MEDS: POTASSIUM CHLORIDE 10 MEQ TABER PO PRN (08:54)
[2022-07-02] MEDS: CARBIDOPA/LEVODOPA 25/100 MG 1 TAB PO SCH ×3 (08:54→17:09)
[2022-07-02] MEDS: LOSARTAN 50 MG TAB PO SCH (08:55)
[2022-07-02] MEDS: LEVOFLOXACIN 500 MG/D5W PREMIX 100 ML IV SCH (09:49)
[2022-07-02] MEDS: MAG SULF 2000 MG/WATER PREMIX 50 ML IV PRN (11:05)
--- NOTE | 2022-07-02 14:50 | NUR ---
DC PLANNING ASSESSMENT COMPLETE PLEASE REFER TO ASSESSMENT FOR DETAILS PT PRIMARILY HEBREW SPEAKING, THEREFORE, INSIDE PLANT SUPERVISOR UTILIZED, CARLOS [phone]. PT STRUGGLED TO COMPLETE ASSESSMENT AND PROVIDED SW WITH PERMISSION TO CALL MR TO GATHER COLLATERAL INFORMATION. PT IS A 66 YR OLD MALE ADMITTED TO [facility] FROM MR WITH DX OF COLITIS. PT HAS PAST MEDICAL HX OF HLD AND HTN. PT IS A READMISSION 05/18, 05/22, 05/31 REYNA REPORTS DC PLAN IS FOR PT TO RETURN TO , WHEN MEDICALLY STABLE.
[2022-07-02 16:00] VITALS: BP 133/48
[2022-07-02] MEDS: LORazepam 2 MG/ML VIAL IVP PRN (18:32)
--- NOTE | 2022-07-02 19:06 | NUR ---
REPORT GIVEN TO MANAS FIGUEROA. IVF INFUSING WELL. IN STABLE CONDITION.
--- NOTE | 2022-07-02 19:10 | NUR ---
RECEIVED REPORT FROM AM NURSE, PT IS ASLEEP, NO S/SX OF PAIN NOR DISCOMFORT. NO ACUTE RESPIRATORY DISTRESS. SKIN WARM AND DRY TO TOUCH. SAFETY PRECAUTIONS IN PLACE, CALL LIGHT IN REACH.
[2022-07-02] MEDS: ATORVASTATIN 20 MG TAB PO SCH (20:27)
[2022-07-02] MEDS: TAMSULOSIN 0.4 MG CAP PO SCH (20:27)
--- NOTE | 2022-07-02 20:27 | NUR ---
spoke wt dr. ashley updated on pt's condition. read result of ct abdomen and relayed lab results. ordered to advance diet to soft regular diet.
[2022-07-02] MEDS: ZOLPIDEM 10 MG TAB PO PRN (22:23)
[2022-07-03] VITALS: BP 146/47
[2022-07-03] MEDS: metroNIDAZOLE 500 MG/NS PREMIX 100 ML IV SCH ×3 (04:09→20:16)
--- NOTE | 2022-07-03 06:21 | NUR ---
PATIENT IS ASLEEP. NO DISTRESS NOTED. ALL NEEDS ATTENDED TO. SAFETY PRECAUTIONS IN PLACE, CALL LIGHT REMAINS WITHIN REACH.
[2022-07-03 07:23] LABS: ANION GAP 8.3 (8-16); CARBON DIOXIDE 28.6 mmol/L (21-32); CREATININE 0.5 mg/dL (0.6-1.3)
[2022-07-03 07:36] LABS: BASOPHILS % (AUTO) 0.4 % (0.0-2.0); EOSINOPHILS # (AUTO) 0.4 K/uL (0-0.4); EOSINOPHILS % (AUTO) 8.1 % (0.0-4.0); HEMOGLOBIN 12.9 g/dL (12.0-18.0); LYMPHOCYTES # (AUTO) 0.9 K/uL (2.0-11.5); LYMPHOCYTES % (AUTO) 16.9 % (20.5-51.1); MEAN CORPUSCULAR HEMOGLOBIN 31 pg (27-31); MEAN CORPUSCULAR HGB CONC 36 g/dL (33-37); MEAN CORPUSCULAR VOLUME 86.5 fL (80-94); MONOCYTES # (AUTO) 0.3 K/uL (0.8-1.0); MONOCYTES % (AUTO) 6.1 % (1.7-9.3); NEUTROPHILS # (AUTO) 3.8 K/uL (1.8-7.7); NEUTROPHILS % (AUTO) 68.5 % (42.2-75.2); PLATELET COUNT (AUTO) 197 K/uL (140-450); RED BLOOD CELL COUNT(AUTO) 4.17 MIL/uL (4.20-6.10); RED CELL DISTRIBUTION WIDTH 14.4 % (11.6-13.7); WHITE BLOOD COUNT (AUTO) 5.6 K/uL (4.8-10.8)
[2022-07-03 07:42] LABS: POTASSIUM 2.9 mmol/L (3.5-5.1)
[2022-07-03 08:00] VITALS: BP 158/71
[2022-07-03] MEDS: DEXT 5% /NACL 0.9% 1,000 ML IV SCH ×2 (08:55→22:21)
[2022-07-03] MEDS: LOSARTAN 50 MG TAB PO SCH (09:07)
[2022-07-03] MEDS: CARBIDOPA/LEVODOPA 25/100 MG 1 TAB PO SCH ×3 (09:07→17:36)
[2022-07-03] MEDS: POTASSIUM CHLORIDE 10 MEQ TABER PO PRN ×2 (09:07→17:37)
[2022-07-03] MEDS: LEVOFLOXACIN 500 MG/D5W PREMIX 100 ML IV SCH (09:07)
[2022-07-03] MEDS: LORazepam 2 MG/ML VIAL IVP PRN ×2 (09:13→17:57)
[2022-07-03 16:00] VITALS: BP 122/73
--- NOTE | 2022-07-03 17:55 | NUR ---
patient says he initially wants 2mg intravenous ativan. After drawing the medication upon entry to the room to push medication patient says he does not want it now wants to wait until a later time. Medication waste.
--- NOTE | 2022-07-03 19:05 | NUR ---
RECEIVED PT IN BED ASLEEP, NO S/SX OF PAIN NOR DISCOMFORT. NO ACUTE RESPIRATORY DISTRESS. SKIN WARM AND DRY TO TOUCH. IVF INFUSING WELL ORDERED.SAFETY PRECAUTION IN PLACE, CALL LIGHT IN REACH.
[2022-07-03] MEDS: TAMSULOSIN 0.4 MG CAP PO SCH (20:16)
[2022-07-03] MEDS: ATORVASTATIN 20 MG TAB PO SCH (20:17)
[2022-07-03] MEDS: MAG SULF 2000 MG/WATER PREMIX 50 ML IV PRN (21:39)
[2022-07-03] MEDS: ZOLPIDEM 10 MG TAB PO PRN (22:41)
[2022-07-04] VITALS: BP 135/75
[2022-07-04] MEDS: metroNIDAZOLE 500 MG/NS PREMIX 100 ML IV SCH ×3 (04:23→20:03)
--- NOTE | 2022-07-04 07:05 | NUR ---
RECEIVED PT FROM ATMOSPHERIC PHYSICIST NURSE FOR CONTINUITY OF CARE. PT AOX3 ABLE TO VERBALIZE NEEDS. RESPIRATIONS EVEN AND UNLABORED ON RA. IV ON L HAND 20G, IV FLUIDS INFUSING WELL. CALL LIGHT WITHIN REACH. ALL SAFETY PRECAUTIONS IN PLACE.
[2022-07-04 07:15] LABS: BASOPHILS % (AUTO) 0.6 % (0.0-2.0); EOSINOPHILS # (AUTO) 0.4 K/uL (0-0.4); HEMATOCRIT 36.8 % (36-52); HEMOGLOBIN 12.7 g/dL (12.0-18.0); LYMPHOCYTES # (AUTO) 1.3 K/uL (2.0-11.5); LYMPHOCYTES % (AUTO) 26.3 % (20.5-51.1); MEAN CORPUSCULAR HEMOGLOBIN 31 pg (27-31); MEAN CORPUSCULAR HGB CONC 35 g/dL (33-37); MEAN CORPUSCULAR VOLUME 88.6 fL (80-94); MONOCYTES # (AUTO) 0.4 K/uL (0.8-1.0); MONOCYTES % (AUTO) 7.5 % (1.7-9.3); NEUTROPHILS # (AUTO) 2.8 K/uL (1.8-7.7); NEUTROPHILS % (AUTO) 56.6 % (42.2-75.2); PLATELET COUNT (AUTO) 209 K/uL (140-450); RED BLOOD CELL COUNT(AUTO) 4.16 MIL/uL (4.20-6.10); RED CELL DISTRIBUTION WIDTH 14.4 % (11.6-13.7); WHITE BLOOD COUNT (AUTO) 4.9 K/uL (4.8-10.8)
[2022-07-04 07:57] LABS: ANION GAP 10.9 (8-16); CARBON DIOXIDE 26.8 mmol/L (21-32); CREATININE 0.5 mg/dL (0.6-1.3); POTASSIUM 3.7 mmol/L (3.5-5.1)
[2022-07-04 08:00] VITALS: BP 138/72
[2022-07-04] MEDS: LOSARTAN 50 MG TAB PO SCH (08:53)
[2022-07-04] MEDS: CARBIDOPA/LEVODOPA 25/100 MG 1 TAB PO SCH ×3 (08:53→17:38)
[2022-07-04] MEDS: LEVOFLOXACIN 500 MG/D5W PREMIX 100 ML IV SCH (09:00)
--- NOTE | 2022-07-04 11:00 | NUR ---
SCREEN FOR LOW OSMIN SCALE AT RISK, CONTINUE TO FOLLOW PRESSURE ULCER PREVENTION INTERVENTIONS. -TURN AND REPOSITION PATIENT Q 2H, ASSIST IF NEEDED -ASSESS AND MONITOR SKIN CONDITION DURING POSITION CHANGES -OFFLOAD BILATERAL HEELS BY PLACING PILLOWS UNDER CALVES AT ALL TIMES, UNLESS OTHERWISE CONTRAINDICATED -PRESSURE REDISTRIBUTION BY PLACING PILLOWS AND OFFLOADING SACRALCOCCYX -KEEP SKIN CLEAN AND DRY AT ALL TIMES.
[2022-07-04] MEDS: DEXT 5% /NACL 0.9% 1,000 ML IV SCH ×2 (11:35→19:57)
[2022-07-04 16:00] VITALS: BP 153/68
--- NOTE | 2022-07-04 16:55 | NUR ---
NURSE ASKED DR CORONEL NAME OF PROCEDURE FOR PT SCHEDULED TOMORROW, STATES "I ALREADY CALLED PAPERBOARD MACHINE OPERATOR AND LET HER KNOW" NURSE ASKED ARE THERE ANY ORDERS, STATES "I WILL PUT IN MY OWN ORDERS, JUST MAKE HER NPO AFTER MIDNIGHT." Addendum: 07/05/22 at 1048 by Trena Coulter LVN WRONG PATIENT.
--- NOTE | 2022-07-04 18:20 | NUR ---
CALLED BICYCLE RENTAL CLERK DONNA, ASKED HER IF DR CORONEL HAD GAVE HER A CALL. DONNA SAID HE DID I WROTE IT DOWN PER [facility] PROCEDURE IS "LAPAROSCOPY WITH POSSIBLE LEFT SALPINGO OOPHORECTOMY". Addendum: 07/05/22 at 1048 by Trena Coulter LVN WRONG PATIENT.
--- NOTE | 2022-07-04 19:00 | NUR ---
RECEIVED PT IN BED ASLEEP. NO S/SX OF PAIN NOR DISCOMFORT. NO ACUTE RESPIRATORY DISTRESS NOTED. SKIN WARM AND DRY TO TOUCH. SAFETY PRECAUTIONS IN PLACE, CALL LIGHT IN REACH.
--- NOTE | 2022-07-04 19:20 | NUR ---
ENDORSED PT TO RUG SAMPLE BEVELER NURSE FOR CONTINUITY OF CARE. PT IS STABLE. Addendum: 07/05/22 at 1047 by Trena Coulter LVN WRONG PATIENT.
[2022-07-04] MEDS: ATORVASTATIN 20 MG TAB PO SCH (20:04)
[2022-07-04] MEDS: TAMSULOSIN 0.4 MG CAP PO SCH (20:04)
[2022-07-04] MEDS: ZOLPIDEM 10 MG TAB PO PRN (23:04)
[2022-07-05] VITALS: BP 152/74
[2022-07-05] MEDS: metroNIDAZOLE 500 MG/NS PREMIX 100 ML IV SCH ×3 (04:36→20:27)
--- NOTE | 2022-07-05 06:28 | NUR ---
PATIENT IS ASLEEP. ALL NEEDS ATTENDED TO. PT IS STABLE CONDITION. SAFETY PRECAUTIONS IN PLACE, CALL LIGHT IN REACH.
[2022-07-05 06:34] LABS: EOSINOPHILS # (AUTO) 0.5 K/uL (0-0.4); EOSINOPHILS % (AUTO) 10.1 % (0.0-4.0); HEMOGLOBIN 12.7 g/dL (12.0-18.0); LYMPHOCYTES # (AUTO) 1.3 K/uL (2.0-11.5); MEAN CORPUSCULAR HEMOGLOBIN 31 pg (27-31); MEAN CORPUSCULAR HGB CONC 34 g/dL (33-37); MEAN CORPUSCULAR VOLUME 88.9 fL (80-94); MONOCYTES # (AUTO) 0.4 K/uL (0.8-1.0); MONOCYTES % (AUTO) 7.4 % (1.7-9.3); NEUTROPHILS # (AUTO) 2.7 K/uL (1.8-7.7); NEUTROPHILS % (AUTO) 55.5 % (42.2-75.2); PLATELET COUNT (AUTO) 200 K/uL (140-450); RED BLOOD CELL COUNT(AUTO) 4.16 MIL/uL (4.20-6.10); RED CELL DISTRIBUTION WIDTH 14.5 % (11.6-13.7); WHITE BLOOD COUNT (AUTO) 4.9 K/uL (4.8-10.8)
[2022-07-05 06:53] LABS: ANION GAP 9.1 (8-16); CARBON DIOXIDE 27.3 mmol/L (21-32); CREATININE 0.4 mg/dL (0.6-1.3); POTASSIUM 3.4 mmol/L (3.5-5.1)
--- NOTE | 2022-07-05 07:15 | NUR ---
RECEIVED PT FOR CONTINUITY OF CARE. PT IS ASLEEP. VISIBLE CHEST RISE/FALL. RESPIRATIONS EVEN ON RA. CALL LIGHT WITHIN REACH. ALL SAFETY PRECAUTIONS IN PLACE.
--- NOTE | 2022-07-05 07:37 | NUR ---
RECEIVED PT FROM SEAM STAY STITCHER NURSE FOR CONTINUITY OF CARE. SEAM STAY STITCHER NURSE STATES THERE WAS NO ORDER FOR CONSENT FROM DR CALVERT UNABLE TO PRINT CONSENT, AND ALSO BROUGHT UP PT IS C/O PAIN ON RIGHT OVARY WHILE PROCEDURE STATES LEFT S[facility] RIGHT [facility] "LAPAROSCOPY WITH POSSIBLE LEFT SALPINGO OOPHORECTOMY". LEFT A MESSAGE FOR DR CORONEL ASKING FOR DIRECT CONFIRMATION OF PROCEDURE NAME. NO RESPONSE. Addendum: 07/05/22 at 1047 by Trena Coulter LVN WRONG PATIENT.
[2022-07-05 08:00] VITALS: BP 136/87
--- NOTE | 2022-07-05 08:00 | NUR ---
WHIT HOLBROOK CAME BY TO OIL FURNACE INSTALLER CHART. NURSE INFORMED HIM THAT THERE IS NO CONSENT ON THE CHART. THE DR HAS NOT PUT CONSENT ORDER OR CONFIRMED PROCEDURE DIRECTLY WITH NURSE. WHIT HOLBROOK SAID ITS OKAY I WILL ASK THE NURSE STILL AWAITING FOR DR CORONEL RESPONSE. WHIT HOLBROOK TAKES PT OFF UNIT. Addendum: 07/05/22 at 1047 by Trena Coulter LVN WRONG PT
[2022-07-05] MEDS: LEVOFLOXACIN 500 MG/D5W PREMIX 100 ML IV SCH (09:00)
[2022-07-05] MEDS: LOSARTAN 50 MG TAB PO SCH (09:23)
[2022-07-05] MEDS: POTASSIUM CHLORIDE 10 MEQ TABER PO PRN (09:23)
[2022-07-05] MEDS: CARBIDOPA/LEVODOPA 25/100 MG 1 TAB PO SCH ×3 (09:23→17:58)
--- NOTE | 2022-07-05 10:28 | NUR ---
GOT REPORT FROM THE NIGHT NURSE, PT SLEEPING, NO SOB NOTED.[id number]
--- NOTE | 2022-07-05 10:29 | NUR ---
Patient's Plan of Care was discussed and reviewed with METAL COATER:
[2022-07-05] MEDS: LORazepam 2 MG/ML VIAL IVP PRN ×2 (12:04→23:44)
--- NOTE | 2022-07-05 12:08 | NUR ---
PRN ATIVAN ADMINISTERED PER MD ORDER FOR REPORTS OF ANXIETY, VSS. IV PATENT AND INTACT.
[2022-07-05] MEDS: DEXT 5% /NACL 0.9% 1,000 ML IV SCH (14:15)
[2022-07-05 16:00] VITALS: BP 125/78
--- NOTE | 2022-07-05 19:05 | NUR ---
ENDORSED PT TO GRADES 1 THRU 5 TEACHER NURSE FOR CONTINUITY OF CARE. PT IS STABLE.
--- NOTE | 2022-07-05 19:30 | NUR ---
RECEIVED REPORT FROM DAY SHIFT NURSE DAVION FOR CONTINUITY OF CARE. PATIENT IS A&O X3. PATIENT IS ON ROOM AIR, BREATHING IS NORMAL WITH SYMMETRICAL RISE AND FALL OF CHEST. IV IS A 22G LAC, SALINE LOCKED; AND A 20G L HAND, RUNNING D5NS AT 75. PATIENT IS AWAKE, LYING IN SEMI-FOWLERS POSITION. BED IS IN LOWEST POSITION, WHEELS LOCKED, CALL LIGHT IN PLACE. WILL CONTINUE TO OBSERVE PATIENT.
[2022-07-05 20:00] VITALS: BP 125/71
[2022-07-05] MEDS: TAMSULOSIN 0.4 MG CAP PO SCH (20:27)
[2022-07-05] MEDS: ATORVASTATIN 20 MG TAB PO SCH (20:27)
[2022-07-05] MEDS: ZOLPIDEM 10 MG TAB PO PRN (20:52)
--- NOTE | 2022-07-06 | NUR ---
PATIENT CALLED AND REQUESTED ATIVAN FOR ANXIETY. CHECKED PATIENT'S BP; BP WAS 127/77. CHECKED PATIENT'S CHART; MEDICATION WAS APPROPRIATE TO ADMINISTER. ADMINISTERED MEDICATION TO PATIENT. WILL CONTINUE TO OBSERVE PATIENT.
[2022-07-06] MEDS: DEXT 5% /NACL 0.9% 1,000 ML IV SCH ×2 (03:35→05:15)
[2022-07-06 04:00] VITALS: BP 141/76
--- NOTE | 2022-07-06 05:40 | NUR ---
PATIENT SLEPT THROUGH OUT THE NIGHT. PATIENT HAD NO BM; 1,000 ML URINE WAS EMPTIED FROM PATIENT'S CATHETER BAG. PATIENT'S VANESSA PADS ARE DRY AND CONDOM CATHETER IS IN PLACE. PATIENT'S BREATHING IS NORMAL WITH SYMMETRICAL RISE AND FALL OF CHEST. WILL CONTINUE TO OBSERVE PATIENT.
[2022-07-06 07:09] LABS: BASOPHILS % (AUTO) 0.6 % (0.0-2.0); EOSINOPHILS # (AUTO) 0.5 K/uL (0-0.4); EOSINOPHILS % (AUTO) 9.3 % (0.0-4.0); HEMATOCRIT 35.8 % (36-52); HEMOGLOBIN 12.2 g/dL (12.0-18.0); LYMPHOCYTES # (AUTO) 1.2 K/uL (2.0-11.5); MEAN CORPUSCULAR HEMOGLOBIN 30 pg (27-31); MEAN CORPUSCULAR HGB CONC 34 g/dL (33-37); MEAN CORPUSCULAR VOLUME 88.9 fL (80-94); MONOCYTES # (AUTO) 0.4 K/uL (0.8-1.0); MONOCYTES % (AUTO) 7.1 % (1.7-9.3); NEUTROPHILS # (AUTO) 3.1 K/uL (1.8-7.7); PLATELET COUNT (AUTO) 199 K/uL (140-450); RED BLOOD CELL COUNT(AUTO) 4.03 MIL/uL (4.20-6.10); RED CELL DISTRIBUTION WIDTH 14.4 % (11.6-13.7); WHITE BLOOD COUNT (AUTO) 5.2 K/uL (4.8-10.8)
[2022-07-06 07:25] LABS: ANION GAP 9.5 (8-16); CARBON DIOXIDE 27.9 mmol/L (21-32); CREATININE 0.6 mg/dL (0.6-1.3); POTASSIUM 3.4 mmol/L (3.5-5.1)
--- NOTE | 2022-07-06 07:29 | NUR ---
ENDORSED TO DAY SHIFT NURSE EMMANUEL FOR CONTINUITY OF CARE. PATIENT IS STABLE.
[2022-07-06 08:00] VITALS: BP 149/82
[2022-07-06] MEDS: CARBIDOPA/LEVODOPA 25/100 MG 1 TAB PO SCH ×3 (09:28→17:13)
[2022-07-06] MEDS: LOSARTAN 50 MG TAB PO SCH (09:28)
[2022-07-06] MEDS ORDERED: DOCU-299 PO (11:47)
--- NOTE | 2022-07-06 14:48 | NUR ---
07/06/22 RD INITIAL ASSESSMENT COMPLETED PLEASE REFER TO NUTRITION ASSESSMENT UNDER CARE ACTIVITY FOR ESTIMATED NUTRITIONAL NEEDS. 1. RECOMMEND SOFT, LOW FIBER, LOW RESIDUE DIET TOLERATED 2. RECOMMEND ENSURE 1/DAY -PROVIDES 350 KCAL AND [address]. [address] TO FOLLOW-UP 7 DAYS, LOW RISK REVIEWED BY SCOTT MENDOZA RD
[2022-07-06 16:00] VITALS: BP 134/85
[2022-07-06] MEDS: POTASSIUM CHLORIDE 10 MEQ TABER PO PRN (18:39)
[2022-07-06] MEDS: LORazepam 2 MG/ML VIAL IVP PRN ×2 (19:24→21:26)
--- NOTE | 2022-07-06 19:30 | NUR ---
RECEIVED REPORT FROM DAY SHIFT NURSE EMMANUEL FOR CONTINUITY OF CARE. PATIENT IS A&O X3. PATIENT IS ON ROOM AIR, BREATHING IS NORMAL WITH SYMMETRICAL RISE AND FALL OF CHEST. IV IS A 22G LAC, SALINE LOCKED; AND A 20G L HAND, RUNNING D5NS AT 75. PATIENT IS AWAKE, LYING IN SEMI-FOWLERS POSITION. BED IS IN LOWEST POSITION, WHEELS LOCKED, CALL LIGHT IN PLACE. WILL CONTINUE TO OBSERVE PATIENT.
--- NOTE | 2022-07-06 19:56 | NUR ---
ATTEMPT TO CALL [facility] FOR DISCHARGE [phone] HAS NO ANSWER.
[2022-07-06 20:00] VITALS: BP 129/75
[2022-07-06] MEDS: ATORVASTATIN 20 MG TAB PO SCH (21:17)
[2022-07-06] MEDS: TAMSULOSIN 0.4 MG CAP PO SCH (21:17)
--- NOTE | 2022-07-06 21:30 | NUR ---
PATIENT'S IV IN LEFT HAND BECAME INFILTRATED. PATIENT WAS DISCONNECTED FROM IV AND THE IV LINE WAS PLACED IN THE 22G LAC IV SITE, WHICH WAS FLUSHED AND STILL PATENT. IV IS RUNNING WITHOUT ANY ISSUES. PATIENT REQUESTED ATIVAN. CHECKED PATIENT'S VITALS AND CHART; ATIVAN WAS APPROPRIATE TO ADMINISTER. ADMINISTERED ATIVAN AT 2126, PATIENT TOLERATED WELL. WILL CONTINUE TO OBSERVE PATIENT.
[2022-07-07] MEDS: ZOLPIDEM 10 MG TAB PO PRN (00:46)
--- NOTE | 2022-07-07 01:00 | NUR ---
PATIENT CALLED AND REQUESTED AMBIEN TO HELP SLEEP. CHECKED PATIENT'S VITALS AND CHART; AMBIEN WAS APPROPRIATE TO ADMINISTER. MEDICATION WAS ADMINISTERED AT 0046 WITHOUT ANY ISSUES WITH SWALLOWING. BREATHING WAS NORMAL WITH SYMMETRICAL RISE AND FALL OF CHEST. WILL CONTINUE TO OBSERVE PATIENT.
[2022-07-07] MEDS: DEXT 5% /NACL 0.9% 1,000 ML IV SCH (02:40)
--- NOTE | 2022-07-07 05:40 | NUR ---
PATIENT SLEPT OFF AND ON THROUGH THE NIGHT. 700 ML URINE WAS EMPTIED FROM CONDOM CATHETER; NO BM; PATIENT IS DRY. PATIENT'S BREATHING IS NORMAL WITH SYMMETRICAL RISE AND FALL OF CHEST. WILL CONTINUE TO OBSERVE PATIENT.
--- NOTE | 2022-07-07 07:20 | NUR ---
ASSUMED CONTINUITY OF CARE. INITIAL ASSESSMENT DONE. KEEP COMFORTABLE ON BED. FALL PRECAUTION APPLIED. CALL LIGHT WITHIN REACH.
--- NOTE | 2022-07-07 07:42 | NUR ---
ENDORSED TO DAY SHIFT NURSE AIDA FOR CONTINUITY OF CARE. PATIENT IS STABLE.
[2022-07-07 08:00] VITALS: BP 143/75
[2022-07-07] MEDS: LOSARTAN 50 MG TAB PO SCH (09:00)
[2022-07-07] MEDS: CARBIDOPA/LEVODOPA 25/100 MG 1 TAB PO SCH ×2 (09:08→13:38)
--- NOTE | 2022-07-07 09:42 | NUR ---
CALLED [facility] AT AND GAVE REPORT TO Maestro REGARDING PT. D/C BACK TO THEIR FACILITY.
--- NOTE | 2022-07-07 10:30 | NUR ---
SPOKE TO SARAHI -RECORD SYSTEMS ANALYST TO ARRANGE PT. TRANSPORT BACK TO [facility].
[2022-07-07] MEDS: LORazepam 2 MG/ML VIAL IVP PRN (11:10)
--- NOTE | 2022-07-07 14:48 | NUR ---
DC PLANNING: CM CALLED [facility] SPOKE WITH ELVIN STATED WILL BE HERE WITH IN 30 MIN TO MANUSCRIPTS CURATOR PATIENT. NOTIFIED AIDA NURSE. CM TO FOLLOW
--- NOTE | 2022-07-07 14:55 | NUR ---
[facility] WITH MEDICAL TRANSPORTER. IN STABLE CONDITION.
== END 2022-07-07 14:45 | disposition home or self-care (01) | DRG 392 ==
LOC: MED 17:05 → MMU 07-01 01:22 → MTU 07-01 01:36
PROVIDERS: ADMIT Family Medicine; ATTEND Family Medicine
DX: K52.89 Other specified noninfective gastroenteritis and colitis (principal); E44.0 Moderate protein-calorie malnutrition; K62.89 Other specified diseases of anus and rectum; E87.6 Hypokalemia; E83.51 Hypocalcemia; Z20.822 Contact with and (suspected) exposure to COVID-19; Z68.24 Body mass index [BMI] 24.0-24.9, adult; R00.1 Bradycardia, unspecified; I10 Essential (primary) hypertension; E78.5 Hyperlipidemia, unspecified; K21.9 Gastro-esophageal reflux disease without esophagitis; Z88.5 Allergy status to narcotic agent; Z88.8 Allergy status to other drugs, medicaments and biological substances; Z79.899 Other long term (current) drug therapy
CPT/HCPCS: 36415; 80048; 80053; 83690; 83735; 85025; 87081; 96361; 96374; 99285; J1956; J2060; J3475; J3490; Q9967

== ENCOUNTER 2022-07-08 23:15 | Emergency (ER) | payer OTHER, MEDICAID ==
[~2022-07-08] VITALS: Ht 175.3 cm; Wt 64.4 kg
[~2022-07-08 23:15] MED LIST changes: -AMLO-3 PO; -APIX5TAB4 PO; -BACL10TA4 PO; -BPM/118S31 PO; -DOCU-300 PO; -FLONAS NS; -HALO1TAB99 PO; +HYDR-2734 TP; -HYDR25CA1 PO; -LACT10SO11 PO; -LACT10SO40 PO; -LORA-476 PO; -LOSA50TA1 PO; -MAG-27 PO; +MELA3TER PO; +NYST100022 PO; -ONDA4TAB PO; -ZOLP5TAB1 PO
[2022-07-08 23:17] VITALS: BP 142/76
--- NOTE | 2022-07-08 23:25 | NUR ---
Pt to bed 4
--- NOTE | 2022-07-08 23:30 | NUR ---
Patient BIB [facility] ambulance from [facility] for LEFT ARM PAIN, LEFT FOOT PAIN, LEFT ARM SWELLING, LEFT FOOT SWELLING. [facility] staff stated symptoms started at 1200. Medical hx; HTN, Parkinson's, Hyperlipidemia, hx of Pneumonia
[2022-07-08] MEDS ORDERED: LORazepam 1 MG TAB PO ONE (23:35)
[2022-07-08 23:47] LABS: BASOPHILS # (AUTO) 0.1 K/uL (0.00-0.22); BASOPHILS % (AUTO) 0.9 % (0.0-2.0); EOSINOPHILS # (AUTO) 0.5 K/uL (0-0.4); HEMATOCRIT 35.5 % (36-52); HEMOGLOBIN 12.1 g/dL (12.0-18.0); LYMPHOCYTES # (AUTO) 1.5 K/uL (2.0-11.5); LYMPHOCYTES % (AUTO) 21.9 % (20.5-51.1); MEAN CORPUSCULAR HEMOGLOBIN 30 pg (27-31); MEAN CORPUSCULAR HGB CONC 34 g/dL (33-37); MEAN CORPUSCULAR VOLUME 89.4 fL (80-94); MONOCYTES # (AUTO) 0.5 K/uL (0.8-1.0); MONOCYTES % (AUTO) 7.2 % (1.7-9.3); NEUTROPHILS # (AUTO) 4.2 K/uL (1.8-7.7); PLATELET COUNT (AUTO) 200 K/uL (140-450); RED BLOOD CELL COUNT(AUTO) 3.97 MIL/uL (4.20-6.10); RED CELL DISTRIBUTION WIDTH 14.3 % (11.6-13.7); WHITE BLOOD COUNT (AUTO) 6.7 K/uL (4.8-10.8)
--- NOTE | 2022-07-09 | NUR ---
PT REFUSES PO ATIVAN
[2022-07-09] MEDS ORDERED: LORazepam 2 MG/ML VIAL IM ONE (00:10)
[2022-07-09 00:13] LABS: ALBUMIN 2.7 g/dL (3.4-5.0); ANION GAP 7.6 (8-16); CARBON DIOXIDE 28.9 mmol/L (21-32); CREATININE 0.5 mg/dL (0.6-1.3); POTASSIUM 3.5 mmol/L (3.5-5.1); TOTAL BILIRUBIN 0.8 mg/dL (0.0-1.0)
[2022-07-09] MEDS ORDERED: CEPH-588 PO (00:45)
--- NOTE | 2022-07-09 02:00 | NUR ---
RESTING QUIETLY IN NAD
--- NOTE | 2022-07-09 07:18 | NUR ---
RECEIVED CALL WITH AUTHORIZATION FOR TRANSPORT, AUTH # = [id number]. [facility] PHONE NUMBER = [phone]
[2022-07-09 08:31] VITALS: BP 140/74
--- NOTE | 2022-07-09 08:31 | NUR ---
Patient discharged with v/s stable. Written and verbal after care instructions given and explained. Patient alert, oriented and verbalized understanding of instructions. Ambulance Transport with to skilled nursing. All questions addressed prior to discharge. ID band removed. Patient advised to follow up with PMD. Rx of KEFLEX given. Patient educated on indication of medication including possible reaction and side effects. Opportunity to ask questions provided and answered.
--- NOTE | 2022-07-09 08:31 | NUR ---
[facility] BEDSIDE TO TRANSPORT PATIENT TO [facility]
== END 2022-07-09 08:31 | disposition home or self-care (01) ==
LOC: MED 23:15
DX: R22.32 Localized swelling, mass and lump, left upper limb (principal); R22.42 Localized swelling, mass and lump, left lower limb; K21.9 Gastro-esophageal reflux disease without esophagitis; I10 Essential (primary) hypertension; Z79.899 Other long term (current) drug therapy; Z79.2 Long term (current) use of antibiotics; Z88.6 Allergy status to analgesic agent; Z88.5 Allergy status to narcotic agent; Z88.8 Allergy status to other drugs, medicaments and biological substances
CPT/HCPCS: 36415; 80053; 83880; 84484; 85025; 93971; 96372; 99285; J2060; Q0092

== ENCOUNTER 2022-07-10 01:10 | Emergency (ER) | payer OTHER, MEDICAID ==
[~2022-07-10] VITALS: Ht 162.6 cm; Wt 69.9 kg
[~2022-07-10 01:10] MED LIST changes: +CEPH-588 PO
[2022-07-10 01:13] VITALS: BP 148/89
--- NOTE | 2022-07-10 01:13 | NUR ---
PT OFFLOADED TO BED 11
--- NOTE | 2022-07-10 02:00 | NUR ---
Patient received on bed lying comfortably and awake. Alert and oriented x3. No acute distress. Complained of 10/10 pain on the left foot. Respirations even and unlabored.
[2022-07-10] MEDS ORDERED: LORazepam 2 MG/ML VIAL IM ONE (03:10)
--- NOTE | 2022-07-10 04:27 | NUR ---
Called [facility] and spoke to Tammie, Oral And Maxillofacial Surgeon. Notified her of patient being discharged, the medication that was administered to the patient during his stay in ER and will notify them when will be the patient's ETA for forklift picker from the ER.
[2022-07-10 06:00] VITALS: BP 110/55
--- NOTE | 2022-07-10 09:00 | NUR ---
Patient discharged with v/s stable. Written and verbal after care instructions given and explained. Patient verbalized understanding. Ambulance Transport with to [facility]. All questions addressed prior to discharge. Advised to follow up with PMD.
--- NOTE | 2022-07-10 09:01 | NUR ---
[facility] AT BEDSIDE
== END 2022-07-10 09:00 | disposition home or self-care (01) ==
LOC: MED 01:10
DX: F41.9 Anxiety disorder, unspecified (principal); M79.642 Pain in left hand; M79.672 Pain in left foot; I10 Essential (primary) hypertension; K21.9 Gastro-esophageal reflux disease without esophagitis; Z88.5 Allergy status to narcotic agent; Z88.8 Allergy status to other drugs, medicaments and biological substances; Z79.899 Other long term (current) drug therapy
CPT/HCPCS: 96372; 99283; J2060

== ENCOUNTER 2022-10-02 05:30 | Emergency (ER) | payer OTHER, MEDICAID ==
[~2022-10-02] VITALS: Ht 175.3 cm; Wt 74.8 kg
[~2022-10-02 05:30] MED LIST changes: -LOSA100T51 PO; +LOSA100T52 PO
--- NOTE | 2022-10-02 05:31 | NUR ---
Roberto kiser in [facility] - 10/02/22 at 0531 by [email or web address] PT to bed 8.
--- NOTE | 2022-10-02 05:31 | NUR ---
MARIA FERNANDA CEDILLO TO BED #8
--- NOTE | 2022-10-02 05:32 | NUR ---
Dr. Rocha at bedside assessing patient.
--- NOTE | 2022-10-02 05:32 | NUR ---
Patient resting in bed, A/Ox4, chest rise and fall symmetrical, no s/s of distress, on monitor.
[2022-10-02 05:35] VITALS: BP 152/96
[2022-10-02] MEDS ORDERED: LORazepam 2 MG/ML VIAL IM ONE ×2 (05:50→07:45)
--- NOTE | 2022-10-02 07:00 | NUR ---
Patient resting in bed, A/Ox4, chest rise and fall symmetrical, no c/o pain or s/s of distress, on monitor.
--- NOTE | 2022-10-02 07:24 | NUR ---
Change of shift report given to AM shift Nurse Nevin. AM shift Nurse Nevin verbalized udnerstanding of report, no further questions.
[2022-10-02] MEDS ORDERED: LORA-476 PO (08:02)
[2022-10-02] MEDS ORDERED: LORazepam 2 MG/ML VIAL ONE (10:04)
--- NOTE | 2022-10-02 10:22 | NUR ---
Roberto kiser in [facility] - 10/02/22 at 1024 by [email or web address] Pt ate 90 percent of food and drank 240 ml of fluids.
--- NOTE | 2022-10-02 10:24 | NUR ---
pt ate 90 percent of breakfast. pt tolerated meal well. Pt has been medicated per providers orders.
--- NOTE | 2022-10-02 12:00 | NUR ---
ASSISTED WITH DIAPER CHANGE, SMALL LIGHT BROWN BP. PT AWAKE AND ALERT, UNDERSTANDS ROOM AIR O2 SAT NORMAL AT 97%
[2022-10-02 12:30] VITALS: BP 134/76
--- NOTE | 2022-10-02 12:59 | NUR ---
[facility] AT BEDSIDE.
--- NOTE | 2022-10-02 13:28 | NUR ---
Patient discharged with v/s stable. Written and verbal after care instructions given and explained. Patient alert, oriented and verbalized understanding of instructions. Ambulance Transport with to care home. All questions addressed prior to discharge. ID band removed. Patient advised to follow up with PMD. Rx of ATIVAN given. Patient educated on indication of medication including possible reaction and side effects. Opportunity to ask questions provided and answered.
== END 2022-10-02 13:28 | disposition home or self-care (01) ==
LOC: MED 05:30
DX: F41.9 Anxiety disorder, unspecified (principal); I10 Essential (primary) hypertension; K21.9 Gastro-esophageal reflux disease without esophagitis; G20 Parkinson's disease; F32.A Depression, unspecified; Z88.5 Allergy status to narcotic agent; Z88.8 Allergy status to other drugs, medicaments and biological substances; Z79.899 Other long term (current) drug therapy
CPT/HCPCS: 96372; 99285; J2060

== ENCOUNTER 2022-10-04 12:13 | Emergency (ER) | payer OTHER, MEDICAID ==
[~2022-10-04] VITALS: Ht 175.3 cm; Wt 54.4 kg
[~2022-10-04 12:13] MED LIST changes: +LORA-476 PO
[2022-10-04] MEDS ORDERED: LORazepam 2 MG/ML VIAL IM ONE ×2 (12:35→13:40)
[2022-10-04 13:03] LABS: BASOPHILS % (AUTO) 0.5 % (0.0-2.0); EOSINOPHILS # (AUTO) 0.2 K/uL (0-0.4); EOSINOPHILS % (AUTO) 2.9 % (0.0-4.0); HEMATOCRIT 42.5 % (36-52); HEMOGLOBIN 14.5 g/dL (12.0-18.0); LYMPHOCYTES # (AUTO) 0.8 K/uL (2.0-11.5); LYMPHOCYTES % (AUTO) 12.2 % (20.5-51.1); MEAN CORPUSCULAR HEMOGLOBIN 30 pg (27-31); MEAN CORPUSCULAR HGB CONC 34 g/dL (33-37); MEAN CORPUSCULAR VOLUME 86.9 fL (80-94); MONOCYTES # (AUTO) 0.3 K/uL (0.8-1.0); MONOCYTES % (AUTO) 5.5 % (1.7-9.3); NEUTROPHILS # (AUTO) 4.9 K/uL (1.8-7.7); NEUTROPHILS % (AUTO) 78.9 % (42.2-75.2); PLATELET COUNT (AUTO) 179 K/uL (140-450); RED CELL DISTRIBUTION WIDTH 14.3 % (11.6-13.7); WHITE BLOOD COUNT (AUTO) 6.3 K/uL (4.8-10.8)
[2022-10-04 13:05] VITALS: BP 135/82
--- NOTE | 2022-10-04 13:06 | NUR ---
Assumed care of the pt. Pt laying in bed. Pt stated, he is very anxious. Pt was medicated with Ativan for his anxiety. Pt stated, "I am very anxious. I have a lot of anxiety."
--- NOTE | 2022-10-04 13:09 | NUR ---
CXR being done at the BS.
[2022-10-04 13:11] LABS: ALBUMIN 3.3 g/dL (3.4-5.0); ANION GAP 12.4 (8-16); ASPARTATE AMINOTRANSFERASE 15 U/L (15-37); CARBON DIOXIDE 31.1 mmol/L (21-32); CHLORIDE 99 mmol/L (98-107); CREATININE 0.6 mg/dL (0.6-1.3); GFR ARICAN-AMERICAN 173 mL/min (>90); GLUCOSE 111 mg/dL (74-106); POTASSIUM 3.5 mmol/L (3.5-5.1); SODIUM SERUM 139 mmol/L (136-145); TOTAL BILIRUBIN 0.7 mg/dL (0.0-1.0); UREA NITROGEN, BLOOD 10 mg/dL (7-18)
--- NOTE | 2022-10-04 13:51 | NUR ---
Pt medicated as ordered with Ativan for anxiety. Pt remains anxious at this time. Educated pt that it takes about 30 minutes for medication to take effect.
--- NOTE | 2022-10-04 14:59 | NUR ---
Pt sleeping without distress. Repeat trop was drawn. Pending repeat result.
--- NOTE | 2022-10-04 16:53 | NUR ---
[facility] called to informed them that the pt is discharged and will be returning to their facility once ambulance transport arrived.
--- NOTE | 2022-10-04 16:57 | NUR ---
[place] ambulance transport called to return pt to [facility]. Next amb transport is not available until tomorrow at 1PM. Will try another facility.
--- NOTE | 2022-10-04 17:35 | NUR ---
Ambulance transport ETA is approximately 30 min.
--- NOTE | 2022-10-04 18:22 | NUR ---
[facility] transport arrived to transport pt back to [facility]. Pt stable for transport. VS stable. No distress noted. Pt left by shmuel with O2 2L NC on going. Discharge papers provided to ANAY Nair. Pt unable to sign DC papers. Pt verbally acknowledged understanding of instructions.
[2022-10-04 18:26] VITALS: BP 128/66
== END 2022-10-04 18:22 | disposition home or self-care (01) ==
LOC: MED 12:13
DX: R07.9 Chest pain, unspecified (principal); F41.9 Anxiety disorder, unspecified; I10 Essential (primary) hypertension; K21.9 Gastro-esophageal reflux disease without esophagitis; Z88.5 Allergy status to narcotic agent; Z88.8 Allergy status to other drugs, medicaments and biological substances; Z79.899 Other long term (current) drug therapy
CPT/HCPCS: 36415; 71045; 80053; 84484; 85025; 93005; 96372; 99285; J2060; Q0092

== ENCOUNTER 2022-10-12 03:55 | Emergency (ER) | payer OTHER, MEDICAID ==
[~2022-10-12] VITALS: Ht 172.7 cm; Wt 70.3 kg
[2022-10-12 04:00] VITALS: BP 129/82; PULSE 70; RESP 18; TEMP 98.4; O2SAT 97
--- NOTE | 2022-10-12 04:02 | NUR ---
PT MARIA FERNANDA ALS ER BED 11
--- NOTE | 2022-10-12 05:38 | NUR ---
spoke with Stephanie from [facility] to update patient condition and possibly have patient go home.
--- NOTE | 2022-10-12 07:20 | NUR ---
Pt report given to Gray RENE. Transfer of care at this time.
--- NOTE | 2022-10-12 07:30 | NUR ---
PT FROM [facility], [place]. AWAITING RETURN. AAOX1, NAME ONLY. VSS. NAD NOTED. PT CALM AND COMFORTABLE IN BED AT THIS TIME. WILL CONT TO MONITOR PT.
[2022-10-12] MEDS ORDERED: LORazepam 2 MG/ML VIAL IM ONE (11:05)
[2022-10-12 12:37] VITALS: BP 138/74; PULSE 76; RESP 18; TEMP 97.9; O2SAT 96
--- NOTE | 2022-10-12 12:37 | NUR ---
Patient discharged with v/s stable. Written and verbal after care instructions given and explained. Patient verbalized understanding. Wheel Chair Assisted with to retirement. All questions addressed prior to discharge. Advised to follow up with PMD. TO RETURN TO [facility], CALL TO CARA AT FACILITY NOTIFIED PT IS RETURNING. VSS. NAD NOTED. [facility]
== END 2022-10-12 12:37 | disposition home or self-care (01) ==
LOC: MED 03:55
DX: F41.9 Anxiety disorder, unspecified (principal); G20 Parkinson's disease; J45.909 Unspecified asthma, uncomplicated; I10 Essential (primary) hypertension; Z88.5 Allergy status to narcotic agent; Z88.8 Allergy status to other drugs, medicaments and biological substances; Z79.899 Other long term (current) drug therapy
CPT/HCPCS: 93005; 96372; 99285; J2060

== ENCOUNTER 2022-10-22 22:26 | Emergency (ER) | payer OTHER, MEDICAID ==
[~2022-10-22] VITALS: Ht 175.3 cm; Wt 77.1 kg
--- NOTE | 2022-10-22 22:40 | NUR ---
Pt to bed 8
--- NOTE | 2022-10-22 22:42 | NUR ---
ER physician at bedside assessing patient.
[2022-10-22 22:46] VITALS: BP 128/77; PULSE 75; RESP 24; TEMP 98.2; O2SAT 97
--- NOTE | 2022-10-22 22:56 | NUR ---
Patient resting in bed, A/Ox4, chest rise and fall symmetrical, no c/o pain or s/s of distress, on monitor, seizure pads/precautions in place.
[2022-10-22 23:19] LABS: BASOPHILS % (AUTO) 0.8 % (0.0-2.0); EOSINOPHILS # (AUTO) 0.5 K/uL (0-0.4); EOSINOPHILS % (AUTO) 7.7 % (0.0-4.0); HEMOGLOBIN 13.9 g/dL (12.0-18.0); LYMPHOCYTES # (AUTO) 1.2 K/uL (2.0-11.5); MEAN CORPUSCULAR HEMOGLOBIN 30 pg (27-31); MEAN CORPUSCULAR HGB CONC 35 g/dL (33-37); MEAN CORPUSCULAR VOLUME 84.9 fL (80-94); MONOCYTES # (AUTO) 0.4 K/uL (0.8-1.0); MONOCYTES % (AUTO) 6.9 % (1.7-9.3); NEUTROPHILS % (AUTO) 65.6 % (42.2-75.2); PLATELET COUNT (AUTO) 195 K/uL (140-450); RED BLOOD CELL COUNT(AUTO) 4.72 MIL/uL (4.20-6.10); RED CELL DISTRIBUTION WIDTH 14.4 % (11.6-13.7); WHITE BLOOD COUNT (AUTO) 6.1 K/uL (4.8-10.8)
[2022-10-22 23:39] LABS: ANION GAP 9.6 (8-16); ASPARTATE AMINOTRANSFERASE 20 U/L (15-37); CARBON DIOXIDE 30.8 mmol/L (21-32); CHLORIDE 103 mmol/L (98-107); CREATININE 0.4 mg/dL (0.6-1.3); GFR ARICAN-AMERICAN 277 mL/min (>90); GLUCOSE 101 mg/dL (74-106); POTASSIUM 3.4 mmol/L (3.5-5.1); SODIUM SERUM 140 mmol/L (136-145); TOTAL BILIRUBIN 0.6 mg/dL (0.0-1.0); UREA NITROGEN, BLOOD 10 mg/dL (7-18)
--- NOTE | 2022-10-23 00:05 | NUR ---
Patient resting in bed, A/Ox4, chest rise and fall symmetrical, no c/o pain or s/s of distress, on monitor, seizure pads/precautions in place.
--- NOTE | 2022-10-23 01:20 | NUR ---
Patient resting in bed, A/Ox4, chest rise and fall symmetrical, no c/o pain or s/s of distress, on monitor, seizure pads/precautions in place.
[2022-10-23] MEDS ORDERED: LORazepam 2 MG/ML VIAL IM ONE ×2 (02:10→05:55)
--- NOTE | 2022-10-23 03:56 | NUR ---
Patient resting in bed, A/Ox4, chest rise and fall symmetrical, no c/o pain or s/s of distress, on monitor, seizure pads/precautions in place.
--- NOTE | 2022-10-23 05:45 | NUR ---
Patient resting in bed, A/Ox4, chest rise and fall symmetrical, no c/o pain or s/s of distress, on monitor, seizure pads/precautions in place.
--- NOTE | 2022-10-23 06:25 | NUR ---
Patient resting in bed, A/Ox4, chest rise and fall symmetrical, no c/o pain or s/s of distress, on monitor, seizure pads/precautions in place.
--- NOTE | 2022-10-23 07:22 | NUR ---
SHIFT CHANGE REPORT RECEIVED FROM SANDRA RENE. ALL QUESTIONS ANSWERED.
--- NOTE | 2022-10-23 07:25 | NUR ---
Change of shift report gven to AM Shift Nurse Nancy ASKEW. AM Shift Nurse Nancy ASKEW verbalized understanding of report, no further questions.
--- NOTE | 2022-10-23 07:31 | NUR ---
66 YO M STATES HE FEELS ANXIOUS, DENIES PAIN, N,V,D,C, FEVER, CP, SOB, CHILLS, BODY ACHES, URINARY SYMPTOMS. SHAKING OF RIGHT HAND NOTED, PT POSITIONED IN COMFORTABLE POSITION, SAFETY MAINTAINED. HX: Parkinson disease, Anxiety ALLERGIES: ACETAMINOPHEN, HYDROCODONE, MAPROTILINE
--- NOTE | 2022-10-23 08:03 | NUR ---
[facility], [facility] TRANSPORT WILL ARRIVE AT 4:30PM.
--- NOTE | 2022-10-23 10:31 | NUR ---
PT SLEEPING CHEST RISE AND FALL NOTED, SAFETY MAINTAINED.
--- NOTE | 2022-10-23 11:21 | NUR ---
PT REQUESTING ATIVAN FOR ANXIETY , AWARE
[2022-10-23] MEDS ORDERED: LORazepam 1 MG TAB PO ONE (11:45)
--- NOTE | 2022-10-23 11:46 | NUR ---
Roberto kiser in ED - 10/23/22 at 1147 by [email or web address] REJI FROM PHARMACY DROPED OFF ROCEPHIN, GIVEN TO SALES AND MERCHANDISING ASSOCIATE LIU TO ADMINISTER.
--- NOTE | 2022-10-23 12:30 | NUR ---
PT REQUESTED LUNCH, FEED BY CECILIA ASKEW, FOOD WELL TOLERATED. SAFETY MAINTAINED.
--- NOTE | 2022-10-23 13:33 | NUR ---
PT SLEEPING, CHEST RISE AND FALL NOTED. NURSING STAFF CONTINUES TO MONITOR FROM NURSING STATION.
--- NOTE | 2022-10-23 15:02 | NUR ---
PT REQUESTED SNACKS, FEED SNACK AND ONE CUP OF WATER.
--- NOTE | 2022-10-23 16:13 | NUR ---
PT HAD BM, CHANGE AND REPLACED SHEETS. SAFETY MAINTAINED.
--- NOTE | 2022-10-23 17:00 | NUR ---
[facility] FOLLOW UP STUCK IN TRAFFIC SHOULD BE ARRIVING WITHIN 20MINS
[2022-10-23 17:32] VITALS: BP 122/68; PULSE 53; RESP 15; TEMP 98.5; O2SAT 99
== END 2022-10-23 17:32 | disposition home or self-care (01) ==
LOC: MED 22:26
DX: F41.9 Anxiety disorder, unspecified (principal); R07.9 Chest pain, unspecified; G20 Parkinson's disease; J45.909 Unspecified asthma, uncomplicated; I10 Essential (primary) hypertension; Z88.5 Allergy status to narcotic agent; Z88.1 Allergy status to other antibiotic agents; Z88.6 Allergy status to analgesic agent; Z88.8 Allergy status to other drugs, medicaments and biological substances; Z79.899 Other long term (current) drug therapy
CPT/HCPCS: 36415; 71045; 80053; 84484; 85025; 93005; 96372; 99285; J2060

== ENCOUNTER 2022-10-26 12:51 | Emergency (ER) | payer OTHER, MEDICAID ==
[~2022-10-26] VITALS: Ht 342.9 cm; Wt 61.2 kg
[~2022-10-26 12:51] MED LIST changes: -DOCU-299 PO; -HYDR-2734 TP
[2022-10-26 13:05] VITALS: BP 128/71; PULSE 65; RESP 16; TEMP 99.4; O2SAT 96
[2022-10-26 13:18] VITALS: O2SAT 96
--- NOTE | 2022-10-26 13:18 | NUR ---
66YO M MARIA FERNANDA FROM [facility] C/O PENILE ITCHING, SWELLING PAIN X 2HRS PRIOR TO ARRIVAL, PT STATES DIAPER WAS ON TOO TIGHT THIS AM. PT DENIES FEVER, N,V,D,CHILLS, URINARY SYMPTOMS, ABD PAIN, PENILE DISCHARGE. SAFETY MAINTAINED.
[2022-10-26] MEDS ORDERED: LORazepam 2 MG/ML VIAL IM ONE (13:40)
[2022-10-26] MEDS ORDERED: FLUO0.059 TP (13:42)
[2022-10-26] MEDS ORDERED: TRIAMCINOLONE 0.5% CRM 15 GM TUBE TP SCH (14:00)
[2022-10-26 15:30] VITALS: O2SAT 96
[2022-10-26 17:48] VITALS: O2SAT 96
--- NOTE | 2022-10-26 18:57 | NUR ---
Patient discharged with v/s stable. Written and verbal after care instructions given and explained. Patient alert, oriented and verbalized understanding of instructions. Ambulance Transport with to [facility]. All questions addressed prior to discharge. ID band removed. Patient advised to follow up with PMD. Rx of FLUOCINONIDE given. Opportunity to ask questions provided and answered.
== END 2022-10-26 18:57 | disposition home or self-care (01) ==
LOC: MED 12:51
DX: N48.89 Other specified disorders of penis (principal); F41.9 Anxiety disorder, unspecified; J45.909 Unspecified asthma, uncomplicated; I10 Essential (primary) hypertension; K21.9 Gastro-esophageal reflux disease without esophagitis; Z88.5 Allergy status to narcotic agent; Z88.8 Allergy status to other drugs, medicaments and biological substances; Z79.899 Other long term (current) drug therapy
CPT/HCPCS: 96372; 99285; J2060

== ENCOUNTER 2023-05-12 12:35 | Emergency (ER) | payer OTHER, MEDICAID ==
[~2023-05-12] VITALS: Ht 175.3 cm; Wt 77.1 kg
[~2023-05-12 12:35] MED LIST changes: +FLUO0.059 TP
[2023-05-12 12:37] VITALS: BP 162/96; PULSE 78; RESP 20; TEMP 99.3; O2SAT 95
[2023-05-12 14:22] VITALS: BP 155/88; PULSE 93; RESP 22; TEMP 98; O2SAT 98
[2023-05-12] MEDS ORDERED: SULFAMETH/TRIMETH DS 800/160MG 1 TAB PO ONE (14:25)
[2023-05-12] MEDS ORDERED: LIDOCAINE MPF 1% 10 MG/ML VIAL INJ ONE (14:25)
[2023-05-12] MEDS ORDERED: IBUPROFEN 600 MG TAB PO ONE (14:25)
[2023-05-12] MEDS ORDERED: SULF-59 PO (15:21)
[2023-05-12] MEDS ORDERED: KEN.025C TP (15:21)
[2023-05-12] MEDS ORDERED: IBUP-2213 PO (15:21)
== END 2023-05-12 16:15 ==
LOC: MED 12:35
DX: L02.211 Cutaneous abscess of abdominal wall (principal); K21.9 Gastro-esophageal reflux disease without esophagitis; I10 Essential (primary) hypertension; J45.909 Unspecified asthma, uncomplicated; Z88.8 Allergy status to other drugs, medicaments and biological substances; Z79.899 Other long term (current) drug therapy; Z88.5 Allergy status to narcotic agent
CPT/HCPCS: 10060; 99283; J2001

== ENCOUNTER 2023-08-26 13:07 | Inpatient (IN) | payer OTHER, MEDICAID ==
[~2023-08-26] VITALS: Ht 167.6 cm; Wt 68.0 kg
[~2023-08-26 13:07] MED LIST changes: +IBUP-2213 PO; +KEN.025C TP; +SUCR-34 PO; -SUCR1TAB35 PO; +SULF-59 PO
[2023-08-26 13:08] VITALS: BP 158/90; PULSE 85; RESP 14; TEMP 98.3; O2SAT 98
[2023-08-26] MEDS: NACL 0.9% 1,000 ML IV ONE (13:45)
[2023-08-26] MEDS ORDERED: MORPHINE SULFATE 2 MG/ML SYR IVP ONE (13:50)
[2023-08-26 13:57] LABS: BASOPHILS % (AUTO) 0.5 % (0.0-2.0); EOSINOPHILS # (AUTO) 0.4 K/uL (0-0.4); EOSINOPHILS % (AUTO) 6.8 % (0.0-4.0); HEMATOCRIT 42.3 % (36-52); HEMOGLOBIN 14.8 g/dL (12.0-18.0); LYMPHOCYTES # (AUTO) 1.2 K/uL (2.0-11.5); LYMPHOCYTES % (AUTO) 19.9 % (20.5-51.1); MEAN CORPUSCULAR HEMOGLOBIN 32 pg (27-31); MEAN CORPUSCULAR HGB CONC 35 g/dL (33-37); MONOCYTES # (AUTO) 0.4 K/uL (0.8-1.0); MONOCYTES % (AUTO) 6.5 % (1.7-9.3); NEUTROPHILS # (AUTO) 4.1 K/uL (1.8-7.7); NEUTROPHILS % (AUTO) 66.3 % (42.2-75.2); PLATELET COUNT (AUTO) 179 K/uL (140-450); WHITE BLOOD COUNT (AUTO) 6.2 K/uL (4.8-10.8)
[2023-08-26 14:19] LABS: ANION GAP 7.7 (8-16); CALCIUM 8.5 mg/dL (8.5-10.1); CARBON DIOXIDE 35.3 mmol/L (21-32); CREATININE 0.8 mg/dL (0.6-1.3)
[2023-08-26 14:23] LABS: INR 1.04 (0.8-1.2); PARTIAL THROMBOPLASTIN TIME 28.5 secs (22-35.6); PROTHROMBIN TIME 10.9 secs (10.8-13.4)
[2023-08-26 14:30] LABS: LACTIC ACID 1.5 mmol/L (0.4-2.0)
[2023-08-26 14:38] LABS: FLU A ANTIGEN negative (NEGATIVE); FLU B ANTIGEN negative (NEGATIVE)
[2023-08-26] MEDS: IBUPROFEN 600 MG TAB PO ONE (14:42)
[2023-08-26 14:44] LABS: ALANINE AMINOTRANSFERASE 40 U/L (12-78); ALBUMIN 3.3 g/dL (3.4-5.0); ALKALINE PHOSPHATASE 76 U/L (50-136); ASPARTATE AMINOTRANSFERASE 21 U/L (15-37); BILIRUBIN,DIRECT 0.1 mg/dL (0.0-0.3); CREATINE KINASE, TOTAL 129 U/L (39-308); TOTAL BILIRUBIN 0.7 mg/dL (0.0-1.0); TOTAL PROTEIN, SERUM 6.7 g/dL (6.4-8.2)
[2023-08-26 14:45] LABS: ALCOHOL, BLOOD < 3 mg/dL (<10)
[2023-08-26] MEDS: POTASSIUM CHLORIDE 10 MEQ TABER PO ONE (14:45)
[2023-08-26 16:55] LABS: APPEARANCE,URINE CLEAR (CLEAR); BILIRUBIN,URINE NEGATIVE (NEGATIVE); BLOOD, URINE TRACE-I (NEGATIVE); COLOR,URINE YELLOW (YELLOW); LEUKOCYTE ESTERASE ,URINE NEGATIVE (NEGATIVE); NITRITE, URINE NEGATIVE (NEGATIVE); PH,URINE 6.5 (5.0-9.0); PROTEIN,URINE NEGATIVE (NEGATIVE); UGLUCOSE NEGATIVE (NEGATIVE)
[2023-08-26 17:05] LABS: BACTERIA,URINE FEW /HPF (None Seen); RBC,URINE 0-5 /HPF (0-5); SQUAMOUS EPITHELIAL CELL,UR 0-3 (FEW) /LPF (0-3 (FEW)); WBC,URINE 0-5 /HPF (0-5)
[2023-08-26 17:13] LABS: AMPHETAMINE, URINE NEGATIVE ng/ml (NEG <=1000); BARBITURATE, URINE NEGATIVE ng/ml (NEG <=200); BENZODIAZEPINE, URINE NEGATIVE ng/mL (NEG <=200); CANNABINOID, URINE NEGATIVE ng/mL (NEG <=50); COCAINE, URINE NEGATIVE ng/mL (NEG <=300); OPIATE, URINE NEGATIVE ng/mL (NEG <=2000); PHENCYCLIDINE SCREEN,URINE NEGATIVE ng/mL (NEG <=25)
[2023-08-26] MEDS: IBUPROFEN 400 MG TAB PO ONE (19:35)
[2023-08-26] MEDS ORDERED: ONDANSETRON 4 MG/2 ML VIAL IVP PRN (19:45)
[2023-08-26] MEDS: NACL 0.9% 1,000 ML IV SCH (20:19)
[2023-08-26] MEDS ORDERED: CICL0.777 TP (20:43)
[2023-08-26 22:30] VITALS: PULSE 76; RESP 19; O2SAT 97
[2023-08-27] VITALS: BP 165/91; PULSE 76; RESP 19; TEMP 98.4; O2SAT 97
[2023-08-27] MEDS ORDERED: ZOLPIDEM 5 MG TAB PO PRN (01:15)
[2023-08-27] MEDS: traMADol 50 MG TAB PO PRN (04:01)
[2023-08-27] MEDS: LORazepam 2 MG/ML VIAL IVP PRN (04:11)
[2023-08-27 05:31] LABS: BASOPHILS % (AUTO) 0.3 % (0.0-2.0); EOSINOPHILS # (AUTO) 0.4 K/uL (0-0.4); EOSINOPHILS % (AUTO) 5.1 % (0.0-4.0); HEMATOCRIT 41.2 % (36-52); HEMOGLOBIN 14.4 g/dL (12.0-18.0); LYMPHOCYTES # (AUTO) 1.4 K/uL (2.0-11.5); LYMPHOCYTES % (AUTO) 17.9 % (20.5-51.1); MEAN CORPUSCULAR HEMOGLOBIN 31 pg (27-31); MEAN CORPUSCULAR HGB CONC 35 g/dL (33-37); MEAN CORPUSCULAR VOLUME 89.9 fL (80-94); MONOCYTES # (AUTO) 0.6 K/uL (0.8-1.0); MONOCYTES % (AUTO) 7.3 % (1.7-9.3); NEUTROPHILS # (AUTO) 5.3 K/uL (1.8-7.7); NEUTROPHILS % (AUTO) 69.4 % (42.2-75.2); PLATELET COUNT (AUTO) 182 K/uL (140-450); RED BLOOD CELL COUNT(AUTO) 4.59 MIL/uL (4.20-6.10); RED CELL DISTRIBUTION WIDTH 13.5 % (11.6-13.7); WHITE BLOOD COUNT (AUTO) 7.6 K/uL (4.8-10.8)
[2023-08-27 05:45] LABS: ANION GAP 8.6 (8-16); CALCIUM 8.2 mg/dL (8.5-10.1); CARBON DIOXIDE 32.4 mmol/L (21-32); CREATININE 0.7 mg/dL (0.6-1.3)
[2023-08-27 08:00] VITALS: BP 161/92; PULSE 76; RESP 20; TEMP 98.9; O2SAT 95; O2SAT 96
[2023-08-27] MEDS: hydrALAZINE 20 MG/ML VIAL IVP PRN (09:24)
[2023-08-27] MEDS ORDERED: FLUOCINONIDE 0.05% OINT 30 GM TUBE TP SCH (13:00)
[2023-08-27] MEDS ORDERED: POLYVINYL ALCOHOL 1.4% OP 15 ML SOL OP SCH (13:00)
[2023-08-27] MEDS: CARBIDOPA/LEVODOPA 25/100 MG 1 TAB PO SCH (13:49)
[2023-08-27] MEDS: CARBOXYMETHYLCELLULOSE 1% OP SCH (13:57)
[2023-08-27 16:51] VITALS: BP 131/73; PULSE 75; RESP 18; TEMP 98; O2SAT 95
[2023-08-27] MEDS: KCL 20 MEQ IN 100 mL PREMIX 100 ML IV SCH (17:17)
[2023-08-27 20:00] VITALS: PULSE 77; RESP 17; O2SAT 94
[2023-08-27] MEDS: TAMSULOSIN 0.4 MG CAP PO SCH (20:25)
[2023-08-27] MEDS: ATORVASTATIN 20 MG TAB PO SCH (20:25)
[2023-08-28] VITALS: BP 147/93; PULSE 68; RESP 18; TEMP 98.1; O2SAT 95
[2023-08-28 07:14] LABS: BASOPHILS % (AUTO) 0.4 % (0.0-2.0); EOSINOPHILS # (AUTO) 0.4 K/uL (0-0.4); EOSINOPHILS % (AUTO) 5.5 % (0.0-4.0); HEMATOCRIT 41.2 % (36-52); HEMOGLOBIN 14.3 g/dL (12.0-18.0); LYMPHOCYTES # (AUTO) 1.3 K/uL (2.0-11.5); LYMPHOCYTES % (AUTO) 17.3 % (20.5-51.1); MEAN CORPUSCULAR HEMOGLOBIN 32 pg (27-31); MEAN CORPUSCULAR HGB CONC 35 g/dL (33-37); MEAN CORPUSCULAR VOLUME 90.7 fL (80-94); MONOCYTES # (AUTO) 0.5 K/uL (0.8-1.0); MONOCYTES % (AUTO) 6.1 % (1.7-9.3); NEUTROPHILS # (AUTO) 5.3 K/uL (1.8-7.7); NEUTROPHILS % (AUTO) 70.7 % (42.2-75.2); PLATELET COUNT (AUTO) 172 K/uL (140-450); RED BLOOD CELL COUNT(AUTO) 4.54 MIL/uL (4.20-6.10); RED CELL DISTRIBUTION WIDTH 14.1 % (11.6-13.7); WHITE BLOOD COUNT (AUTO) 7.5 K/uL (4.8-10.8)
[2023-08-28 07:26] LABS: CALCIUM 8.1 mg/dL (8.5-10.1); CARBON DIOXIDE 28.4 mmol/L (21-32); CREATININE 0.5 mg/dL (0.6-1.3); POTASSIUM 3.4 mmol/L (3.5-5.1)
[2023-08-28 08:00] VITALS: BP 150/98; PULSE 68; PULSE 72; RESP 17; RESP 18; TEMP 97; O2SAT 95
[2023-08-28] MEDS: SUCRALFATE 1 GM TAB PO SCH (08:32)
[2023-08-28] MEDS: LOSARTAN 50 MG TAB PO SCH (08:33)
[2023-08-28] MEDS: SERTRALINE 50 MG TAB PO SCH (08:34)
[2023-08-28] MEDS ORDERED: NON-FORMULARY ITEM (Losartan Potassium 1 TAB) PO SCH (09:00)
[2023-08-28] MEDS: POTASSIUM CHLORIDE 10 MEQ TABER PO SCH (11:39)
[2023-08-28 16:00] VITALS: BP 147/82; PULSE 64; RESP 18; TEMP 98.2; O2SAT 99
[2023-08-28 20:00] VITALS: PULSE 89; RESP 18; O2SAT 93
[2023-08-29] VITALS: BP 150/102; PULSE 77; RESP 18; TEMP 98.2; O2SAT 95
[2023-08-29 08:00] VITALS: BP 162/94; PULSE 76; RESP 17; TEMP 97.9; O2SAT 94
[2023-08-29 08:40] LABS: BASOPHILS % (AUTO) 0.4 % (0.0-2.0); EOSINOPHILS # (AUTO) 0.5 K/uL (0-0.4); HEMATOCRIT 41.6 % (36-52); HEMOGLOBIN 14.5 g/dL (12.0-18.0); LYMPHOCYTES # (AUTO) 1.2 K/uL (2.0-11.5); LYMPHOCYTES % (AUTO) 17.5 % (20.5-51.1); MEAN CORPUSCULAR HEMOGLOBIN 32 pg (27-31); MEAN CORPUSCULAR HGB CONC 35 g/dL (33-37); MEAN CORPUSCULAR VOLUME 91.2 fL (80-94); MONOCYTES # (AUTO) 0.4 K/uL (0.8-1.0); MONOCYTES % (AUTO) 6.4 % (1.7-9.3); NEUTROPHILS # (AUTO) 4.6 K/uL (1.8-7.7); NEUTROPHILS % (AUTO) 68.7 % (42.2-75.2); PLATELET COUNT (AUTO) 157 K/uL (140-450); RED BLOOD CELL COUNT(AUTO) 4.55 MIL/uL (4.20-6.10); RED CELL DISTRIBUTION WIDTH 13.8 % (11.6-13.7); WHITE BLOOD COUNT (AUTO) 6.6 K/uL (4.8-10.8)
[2023-08-29 09:47] LABS: ANION GAP 9.2 (8-16); CALCIUM 8.1 mg/dL (8.5-10.1); CARBON DIOXIDE 29.3 mmol/L (21-32); CREATININE 0.5 mg/dL (0.6-1.3); POTASSIUM 3.5 mmol/L (3.5-5.1)
[2023-08-29 16:00] VITALS: BP 161/86; PULSE 77; RESP 18; TEMP 99.9; O2SAT 95
[2023-08-29 20:00] VITALS: PULSE 79; RESP 18; O2SAT 95
[2023-08-30] VITALS: BP 163/101; PULSE 87; RESP 18; TEMP 98.9; O2SAT 95
[2023-08-30 05:24] LABS: BASOPHILS % (AUTO) 0.3 % (0.0-2.0); EOSINOPHILS # (AUTO) 0.4 K/uL (0-0.4); EOSINOPHILS % (AUTO) 4.9 % (0.0-4.0); HEMATOCRIT 41.5 % (36-52); HEMOGLOBIN 14.5 g/dL (12.0-18.0); LYMPHOCYTES % (AUTO) 12.2 % (20.5-51.1); MEAN CORPUSCULAR HEMOGLOBIN 32 pg (27-31); MEAN CORPUSCULAR HGB CONC 35 g/dL (33-37); MEAN CORPUSCULAR VOLUME 90.2 fL (80-94); MONOCYTES # (AUTO) 0.5 K/uL (0.8-1.0); MONOCYTES % (AUTO) 5.6 % (1.7-9.3); NEUTROPHILS # (AUTO) 6.2 K/uL (1.8-7.7); PLATELET COUNT (AUTO) 159 K/uL (140-450); RED CELL DISTRIBUTION WIDTH 14.1 % (11.6-13.7); WHITE BLOOD COUNT (AUTO) 8.1 K/uL (4.8-10.8)
[2023-08-30 05:49] LABS: ANION GAP 11.3 (8-16); CALCIUM 8.2 mg/dL (8.5-10.1); CARBON DIOXIDE 26.9 mmol/L (21-32); CREATININE 0.6 mg/dL (0.6-1.3); POTASSIUM 3.2 mmol/L (3.5-5.1)
[2023-08-30 08:00] VITALS: BP 168/87; PULSE 97; RESP 20; TEMP 98.1; O2SAT 96
[2023-08-30] MEDS: POTASSIUM CHLORIDE 10 MEQ TABER PO PRN (14:33)
[2023-08-30 16:00] VITALS: BP 165/91; PULSE 78; RESP 20; TEMP 98.9; O2SAT 96
[2023-08-30 20:00] VITALS: BP 156/92; PULSE 86; RESP 19; RESP 20; TEMP 97.9; O2SAT 96
[2023-08-31 08:00] VITALS: BP 160/92; PULSE 79; PULSE 82; PULSE 86; RESP 17; RESP 19; TEMP 98.2; O2SAT 96; O2SAT 97
[2023-08-31 16:00] VITALS: BP 122/60; PULSE 77; RESP 17; TEMP 97.6; O2SAT 97
[2023-08-31 17:35] VITALS: BP 122/60; PULSE 77; RESP 17; TEMP 97.6
== END 2023-08-31 19:12 | DRG 641 ==
LOC: MED 13:07 → MTU 19:46
PROVIDERS: ADMIT Family Medicine; ATTEND Family Medicine
DX: E87.6 Hypokalemia (principal); E44.0 Moderate protein-calorie malnutrition; E83.51 Hypocalcemia; R53.1 Weakness; I10 Essential (primary) hypertension; E78.5 Hyperlipidemia, unspecified; N40.0 Benign prostatic hyperplasia without lower urinary tract symptoms; K21.9 Gastro-esophageal reflux disease without esophagitis; Z20.822 Contact with and (suspected) exposure to COVID-19; G20.A1 Parkinson's disease without dyskinesia, without mention of fluctuations; Z79.899 Other long term (current) drug therapy; Z68.24 Body mass index [BMI] 24.0-24.9, adult
CPT/HCPCS: 36415; 70450; 71045; 80048; 80076; 80305; 81001; 82140; 82550; 82948; 83605; 83880; 84484; 85025; 85610; 85730; 87040; 87081; 87086; 93005; 96360; 97110; 97163-GP; 97530; 99285; G0482; J0360; J2060; J2270; J3480